=== PATIENT | male | born 1935 | race Two or more races ===

== ENCOUNTER 2017-05-12 23:51 | Inpatient (IN) | payer OTHER ==
[~2017-05-12] VITALS: Ht 170.2 cm; Wt 66.0 kg
[2017-05-12] MEDS ORDERED: Ipratropium 0.02% Inh Soln 2.5ml UD ONE (23:58)
[2017-05-12] MEDS ORDERED: Albuterol ud Inhalation ONE (23:58)
[2017-05-13] VITALS (65 sets, daily range): BP systolic 68–122; BP diastolic 4–65
[2017-05-13] MEDS ORDERED: Albuterol ud Inhalation HHN ONE
[2017-05-13] MEDS ORDERED: Ipratropium 0.02% Inh Soln 2.5ml UD HHN ONE
--- NOTE | 2017-05-13 00:05 | Emergency Room Report ---
History of Present Illness General Chief Complaint: Dyspnea/Respdistress Source: Medical Record, EMS Present Illness HPI Is an 81-year-old male with a history of renal failure on hemodialysis Friday, , and Friday. He also has history hypertension and dementia. He gets frequent sepsis. He was at [facility] beginning of the month for urosepsis. Patient presents with rest or distress and decreased oxygenation. Onset tonight. No fever or chills. He has coughing. No diarrhea. History is through the detention note and EMS. He was hypotensive and hypoxic according to the detention note. Allergies: Coded Allergies: PENICILLINS (Verified Allergy, Unknown, 05/12/17) Patient History Past Medical History: see triage record, old chart reviewed, HTN, renal disease , dialysis Past Surgical History: other Pertinent Family History: none Social History: Denies: smoking Immunizations: UTD Reviewed Nursing Documentation: PMH: Agreed, PSxH: Agreed Review of Systems Eye: Denies: blurred vision, eye pain ENT: Denies: ear pain, nose congestion, throat swelling Respiratory: Reports: cough, shortness of breath Cardiovascular: Denies: chest pain, palpitations Gastrointestinal: Denies: abdominal pain, diarrhea, nausea, vomiting Musculoskeletal: Denies: back pain, joint pain Skin: Denies: rash Neurological: Denies: headache, numbness Endocrine: Denies: increased thirst, increased urine Hematologic/Lymphatic: Denies: easy bruising All Other Systems: negative except mentioned in HPI Physical Exam vitals with hypoxia Sp02 EP Interpretation: reviewed, abnormal General Appearance: moderate distress, lethargic, Chronically Ill Head: normocephalic, atraumatic Eyes: bilateral eye EOMI, bilateral eye PERRL ENT: hearing grossly normal, normal pharynx Neck: no meningismus Respiratory: chest non-tender, decreased breath sounds, accessory muscle use, crackles, rhonchi, other - Right chest wall with dialysis catheter. Skin breakdown on upper chest Cardiovascular #1: regular rate, rhythm, no murmur Gastrointestinal: normal bowel sounds, non tender, no mass, no organomegaly, no bruit, non-distended, other - G-tube intact Musculoskeletal: back normal, other - Contracted Psychiatric: mood/affect normal Skin: warm/dry Procedures Critical Care Time Critical Care Time Critical care is mandated in this patient who presented with respiratory distress. Patient require my urgent intervention to attenuate the risks of respiratory collapse which may lead to cardiovascular collapse and . Critical care time is 35 minutes excluding any reportable procedure. Critical care time included evaluation, multiple reevaluation, looking at old charts, interpreting laboratory and diagnostic data, discussing case with patient and family and consultants, and charting. Medical Decision Making Diagnostic Impression: Primary Impression: Pneumonia Qualified Codes: J18.1 - Lobar pneumonia, unspecified organism Additional Impressions: UTI (urinary tract infection) Qualified Codes: N30.00 - Acute cystitis without hematuria Severe sepsis Proteinuria Qualified Codes: R80.9 - Proteinuria, unspecified Respiratory failure with hypoxia Qualified Codes: J96.21 - Acute and chronic respiratory failure with hypoxia ER Course Patient presents with fever and has severe sepsis. Blood pressure was hypotensive on arrival. Better after gentle IV fluid. He did not get a full 30 mL per kilo because of risk for pulmonary edema because he has been no failure on hemodialysis. He scheduled for dialysis later on today. Wide spectrum antibiotic started. Patient is a full code. Vancomycin also added because he has a dialysis catheter. Respiratory status improved with BiPAP. I discussed the case with Dr. Nelson who will admit patient for Dr. Levine. Laboratory Tests Test 05/12/17 23:57 05/13/17 00:15 05/13/17 01:25 05/13/17 02:00 Arterial Blood pH 7.436 (7.350-7.450) Arterial Blood Partial Pressure CO2 43.4 mmHg (35.0-45.0) Arterial Blood Partial Pressure O2 64.0 mmHg (75.0-100.0) L Arterial Blood HCO3 28.6 mmol/L (22.0-26.0) H Arterial Blood Oxygen Saturation 87.5 % (92.0-98.0) L Arterial Blood Base Excess 3.9 Andry Test Positive White Blood Count 10.0 K/UL (4.8-10.8) Red Blood Count 3.27 M/UL (4.70-6.10) L Hemoglobin 10.7 G/DL (14.2-18.0) L Hematocrit 34.2 % (42.0-52.0) L Mean Corpuscular Volume 105 FL (80-99) H Mean Corpuscular Hemoglobin 32.9 PG (27.0-31.0) H Mean Corpuscular Hemoglobin Concent 31.4 G/DL (32.0-36.0) L Red Cell Distribution Width 19.2 % (11.6-14.8) H Platelet Count 538 K/UL (150-450) H Mean Platelet Volume 8.1 FL (6.5-10.1) Neutrophils (%) (Auto) 76.5 % (45.0-75.0) H Lymphocytes (%) (Auto) 6.3 % (20.0-45.0) L Monocytes (%) (Auto) 14.7 % (1.0-10.0) H Eosinophils (%) (Auto) 0.0 % (0.0-3.0) Basophils (%) (Auto) 2.5 % (0.0-2.0) H Prothrombin Time 10.7 SEC (9.30-11.50) Prothromb Time International Ratio 1.0 (0.9-1.1) Activated Partial Thromboplast Time 31 SEC (23-33) Sodium Level 135 mEQ/L (135-145) Potassium Level 4.7 mEQ/L (3.4-4.9) Chloride Level 87 mEQ/L (98-107) L Carbon Dioxide Level 27 mEQ/L (20-30) Anion Gap 21 (5-15) H Blood Urea Nitrogen 108 mg/dL (7-23) H Creatinine 4.3 mg/dL (0.7-1.2) H Estimat Glomerular Filtration Rate mL/min (>60) Glucose Level 172 mg/dL (74-106) H Lactic Acid Level 2.90 mmol/L (0.66-2.22) H 3.80 mmol/L (0.66-2.22) H Calcium Level 12.3 mg/dL (8.6-10.2) H Total Bilirubin 0.5 mg/dL (0.0-1.2) Aspartate Amino Transf (AST/SGOT) 64 U/L (5-40) H Alanine Aminotransferase (ALT/SGPT) 84 U/L (3-41) H Alkaline Phosphatase 229 U/L (40-129) H Total Creatine Kinase 147 U/L (38-174) Creatine Kinase MB 2.2 ng/mL (< 6.7) Creatine Kinase MB Relative Index 1.4 Troponin I < 0.30 ng/mL (<=0.30) Pro-B-Type Natriuretic Peptide 4882 pg/mL (0-450) H Total Protein 8.0 g/dL (6.6-8.7) Albumin 3.6 g/dL (3.5-5.2) Globulin 4.4 g/dL Albumin/Globulin Ratio 0.8 (1.0-2.7) L Urine Color Yellow Urine Appearance Slightly cloudy Urine pH 5 (4.5-8.0) Urine Specific Haines 1.010 (1.005-1.035) Urine Protein 3+ (NEGATIVE) H Urine Glucose (UA) Negative (NEGATIVE) Urine Ketones Negative (NEGATIVE) Urine Occult Blood 5+ (NEGATIVE) H Urine Nitrite Negative (NEGATIVE) Urine Bilirubin 3+ (NEGATIVE) H Urine Ictotest Negative Urine Urobilinogen 1 MG/DL (0.0-1.0) H Urine Leukocyte Esterase 3+ (NEGATIVE) H Urine RBC Tntc /HPF (0 - 0) H Urine WBC 40-60 /HPF (0 - 0) H Urine Squamous Epithelial Cells None /LPF (NONE/OCC) Urine Bacteria Few /HPF (NONE) Test 05/13/17 02:17 Arterial Blood pH 7.414 (7.350-7.450) Arterial Blood Partial Pressure CO2 38.3 mmHg (35.0-45.0) Arterial Blood Partial Pressure O2 73.5 mmHg (75.0-100.0) L Arterial Blood HCO3 24.0 mmol/L (22.0-26.0) Arterial Blood Oxygen Saturation 94.8 % (92.0-98.0) Arterial Blood Base Excess -0.5 Andry Test Positive Lab Results Impression labs with increasing lactic acidosis EKG Diagnostic Results EKG Time: 00:04 Rate: normal Rhythm: NSR ST Segments: other - RBBB and LAD Rhythm Strip Diag. Results Rhythm Strip Time: 00:05 EP Interpretation: yes Rate: 103 Rhythm: NSR, no PVC's Chest X-Ray Diagnostic Results Chest X-Ray Ordered: Yes # of Views/Limited/Complete: 1 View EP Interpretation: Yes Interpretation: no effusion, no pneumothorax, other - Right lower lobe/middle lobe infiltrate Indication: Shortness of Breath Impression: Other - Right middle lobe infiltrates Interpreting ER Provider: Carmine Barber MD Status: improved Disposition: ADMITTED INPATIENT Condition: Critical CARMINE BARBER M.D. May 13, 2017 00:05
[2017-05-13] MEDS ORDERED: Cefepime HCl 1 GM in D5W 55 ML IVPB ONE (00:30)
[2017-05-13 00:44] LABS: BASOPHILS % (AUTO) 2.5 % (0.0-2.0); LYMPHOCYTES % (AUTO) 6.3 % (20.0-45.0); MEAN CORPUSCULAR HEMOGLOBIN 32.9 PG (27.0-31.0); MEAN CORPUSCULAR HGB CONC 31.4 G/DL (32.0-36.0); MEAN CORPUSCULAR VOLUME 105 FL (80-99); MEAN PLATELET VOLUME 8.1 FL (6.5-10.1); MONOCYTES % (AUTO) 14.7 % (1.0-10.0); NEUTROPHILS % (AUTO) 76.5 % (45.0-75.0); PLATELET COUNT 538 K/UL (150-450); RED BLOOD COUNT 3.27 M/UL (4.70-6.10); RED CELL DISTRIBUTION WIDTH 19.2 % (11.6-14.8)
[2017-05-13 00:47] LABS: ABG ALLEN TEST POSITIVE; ABG BASE EXCESS 3.9; ABG PCO2 43.4 mmHg (35.0-45.0)
[2017-05-13 00:53] LABS: PROTHROMBIN TIME 10.7 SEC (9.30-11.50)
[2017-05-13 01:01] LABS: ALANINE AMINOTRANSFERASE 84 U/L (3-41); ALBUMIN/GLOBULIN RATIO 0.8 (1.0-2.7); ANION GAP 21 (5-15); ASPARTATE AMINO TRANSFERASE 64 U/L (5-40); CALCIUM 12.3 mg/dL (8.6-10.2); CARBON DIOXIDE 27 mEQ/L (20-30); CHLORIDE 87 mEQ/L (98-107); CREATININE 4.3 mg/dL (0.7-1.2); HEMOLYSIS 1; POTASSIUM 4.7 mEQ/L (3.4-4.9); REFLEX LACTIC ACID YES OR NO YES; SODIUM 135 mEQ/L (135-145)
[2017-05-13 01:03] LABS: TROPONIN I < 0.30 ng/mL (<=0.30)
[2017-05-13 01:13] LABS: CKMB 2.2 ng/mL (< 6.7)
[2017-05-13 01:43] LABS: KETONES,URINE NEGATIVE (NEGATIVE); LEUKOCYTE ESTERASE ,URINE 3+ (NEGATIVE); NITRITE,URINE NEGATIVE (NEGATIVE); PH,URINE 5 (4.5-8.0); PROTEIN,URINE 3+ (NEGATIVE); UROBILINOGEN,URINE 1 MG/DL (0.0-1.0)
[2017-05-13 01:48] LABS: APPEARANCE,URINE SLIGHTLY CLOUDY
[2017-05-13] MEDS ORDERED: Cefepime 1gm vial ONE (01:49)
[2017-05-13 01:55] LABS: BACTERIA,URINE FEW /HPF; RBC,URINE TNTC /HPF (0 - 0); WBC,URINE 40-60 /HPF (0 - 0)
[2017-05-13 01:56] LABS: ICTOTEST NEGATIVE
[2017-05-13 02:26] LABS: ABG ALLEN TEST POSITIVE; ABG BASE EXCESS -0.5; ABG PCO2 38.3 mmHg (35.0-45.0)
[2017-05-13] MEDS ORDERED: HEPARIN SO5000 UNIT2 SUBQ (02:36)
[2017-05-13] MEDS ORDERED: ACETAMINOPHEN325 M1 GT (02:36)
[2017-05-13] MEDS ORDERED: PROSCAR5 MG GT (02:36)
[2017-05-13] MEDS ORDERED: MIDODRINE HCL10 MG GT (02:36)
[2017-05-13] MEDS ORDERED: ZOFRAN4 M3 GT (02:36)
[2017-05-13] MEDS ORDERED: COLCHICINE0.6 M1 GT (02:36)
[2017-05-13] MEDS ORDERED: LACTULOSE20 GM/301 GT (02:36)
[2017-05-13] MEDS ORDERED: DEPAKOTE250 MG GT (02:36)
[2017-05-13] MEDS ORDERED: FERROUS SULFAT325 MG GT (02:36)
[2017-05-13] MEDS ORDERED: RENVELA0.8 GM GT (02:36)
[2017-05-13] MEDS ORDERED: NEPHRO-VITE RX1 EAC1 GT (02:36)
[2017-05-13] MEDS ORDERED: DOCUSATE S50 MG/5 ML GT (02:36)
[2017-05-13] MEDS ORDERED: ASCORBIC ACID GT (02:36)
[2017-05-13] MEDS ORDERED: Vancomycin 1gm inj IVPB ONE (03:09)
[2017-05-13] MEDS ORDERED: Vancomycin 1 GM in D5W 275 ML IVPB ONE (03:15)
[2017-05-13] MEDS ORDERED: Lidocaine 1% MPF 10mg/ml 5ml INJ ONE (08:00)
[2017-05-13] MEDS: Heparin 5000 units/ml inj SUBQ SCH ×2 (08:59→21:14)
[2017-05-13] MEDS: Midodrine 10mg tab ORAL SCH ×3 (09:00→17:27)
--- NOTE | 2017-05-13 09:18 | Diagnostic Imaging Report ---
Indications: Shortness of breath Technique: Portable AP chest Findings: Comparison: None Heart size, pulmonary vasculature within normal limits. Lungs, pleura are grossly clear. Aortic arch calcified and elongated. Right chest wall dialysis catheter. Bones diffusely demineralized. Mildly displaced fracture lateral aspect right seventh rib. Cephalad subluxation of right humerus narrowing the subacromial space, incompletely imaged. IMPRESSION: No evidence of acute cardiopulmonary disease Right seventh rib fracture, acuity indeterminate Aortosclerosis and probable chronic hypertensive change Hemodialysis catheter Osteopenia Chronic insufficiency right rotator cuff
[2017-05-13 09:27] LABS: REFLEX LACTIC ACID YES OR NO YES
[2017-05-13] MEDS ORDERED: NS 250 ML IVPB PRN (09:45)
--- NOTE | 2017-05-13 10:10 | History & Physical ---
History and Physical History & Physicial HISTORY OF PRESENT ILLNESS: This 80 year-old male was treated recently for pneumonia and sepsis. He was transferred here for recurrent sepsis and respiratory failure requiring BiPAP. He is in shock on pressors. PAST MEDICAL HISTORY: Sepsis, pneumonia, ESRD, dialysis, dementia, schizophrenia, DM, tophaceous gout, dysphagia, PEG ALLERGIES: penicillin MEDICATIONS: reviewed and reconciled CODE STATUS: Full Code PHYSICAL EXAMINATION: He is not awake, in no distress on BiPAP. He makes no eye contact. The chest has rhonchi. The cardiac rhythm is regular. Abdomen is soft and non-distended. There is a gastrostomy tube. There is no edema of the extremities. There is quadriplegia. There is a dialysis catheter in the R chest. 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 PLAN: He will be treated with abx and pressors. His prognosis appears poor. Consultants were called. We will request Bioethics consultation. Gonzalo Levine M.D. Associate Clinical community relations rep [facility] [employer] GONZALO LEVINE May 13, 2017 10:10
[2017-05-13] MEDS: Lansoprazole 15mg cap ORAL SCH (10:16)
[2017-05-13] MEDS ORDERED: Lidocaine 1% Plain 30 ml INJ ONE (12:00)
[2017-05-13] MEDS ORDERED: Heparin 2000 units/Ns 1000ml INJ ONE (12:00)
[2017-05-13] MEDS: Flagyl 500mg/NS 100ml Pre-Mix IV SCH ×2 (12:43→22:04)
--- NOTE | 2017-05-13 12:46 | Consultation ---
DATE OF CONSULTATION: 05/13/2017 NEPHROLOGY CONSULTATION REFERRING PHYSICIAN: Roland Levine M.D. REASON FOR CONSULTATION: End-stage renal disease, hypotension, and respiratory failure. HISTORY OF PRESENT ILLNESS: The patient is an 81-year-old man who has end-stage renal disease and receives dialysis by other providers. He presented from the residential with hypotension and obtundation. He had respiratory failure and was placed on BiPAP in the emergency room and is now on Levophed drip for hypotension. The patient cannot give any history. Records are reviewed. There is a history of dementia, schizophrenia, tophaceous gout, type 2 diabetes, BPH, recurrent UTIs, and recent hospitalization with pneumonia. PAST SURGICAL HISTORY: He has had dialysis PermCath with no other information available. Apparently, there was a joint replacement, knee replacement, and a gastrostomy. MEDICATIONS: Per the transfer med list. I reviewed on the computer and in the transfer records. ALLERGIES: None known from the prior records. PHYSICAL EXAMINATION: GENERAL: The patient is lying in bed, in the ICU supine. VITAL SIGNS: Pulse 98, blood pressure 96/52, pulse oximetry 96% on BiPAP FiO2 60%, temperature 98.1 earlier and 100.2 earlier. HEAD, EYES, EARS, NOSE, AND THROAT: His eyes and mouth are closed. He has frontal wasting. NECK: No adenopathy. LUNGS: Distant breath sounds. I hear no rales or rhonchi. HEART: Rhythm is regular with ectopic beats. No murmur is heard. ABDOMEN: Shows no organomegaly or masses. No distention. EXTREMITIES: Show severe muscle wasting. There are dressings over wounds on both legs. NEUROLOGIC: The patient is obtunded at this time. PERTINENT LABORATORY DATA: [place] [address] and hemoglobin of 10.7. Sodium 135, potassium 4.7, chloride 87, CO2 27, BUN 108, and creatinine 4.3. Lactic acid 2.9, 3.8, and 3.5, serially. Bilirubin is 0.5 with a calcium is 12.3. BNP is 4882. Troponin less than 0.3. Urinalysis shows 40 to 60 white cells per high-power field. An arterial blood gas shows a pH 7.414, pCO2 of 38.3, and pO2 of 73.5. IMPRESSION: 1. End-stage renal disease. 2. Septic shock, possibly from urinary tract infection, possibly from dialysis catheter, possible from intra-abdominal or other sources. 3. Severe protein-calorie malnutrition. 4. Adult-onset diabetes. 5. Hypercalcemia, severe possibly from dehydration or vitamin D analog, possible other etiology. 6. Severe dementia. 7. Failure to thrive. PLAN: The patient will be hydrated and we hope to improve his blood pressure and get him off of pressors and placed on broad-spectrum antibiotics. We will defer dialysis today until he is more stable. His condition is gravely ill and at high risk for sudden . Jose L Nelson M.D. DR: NURY JOB#: [id number] CC:
--- NOTE | 2017-05-13 15:01 | Diagnostic Imaging Report ---
Indications: Central venous access required for intravenous therapy. Technique: Procedure, indications, risks and alternatives were explained to the patient's family, who understands and gives consent to proceed. Procedure was performed at bedside. Strict aseptic technique was utilized, including hand washing, use of hat and mask, use of sterile gown and gloves, sterile ultrasound gel and probe cover, prepping of right groin skin with 2% chlorhexidine solution, and application of full body sterile barrier over this area. Skin and subcutaneous soft tissues were infiltrated with 1% lidocaine and sodium bicarbonate. A small dermatotomy was made, through which the patent right common femoral vein was punctured percutaneously under direct sonographic guidance with a 5 Romanian micropuncture set.. The percutaneous tract was dilated over a guidewire, then a 7 Romanian 20 cm triple-lumen central venous catheter advanced over the guidewire. Guidewire was removed. Catheter ports were aspirated, then flushed with heparinized saline. Catheter was secured to the skin with adhesive dressing. The patient tolerated the procedure well without immediate complications. Followup abdominal radiograph performed. Findings: All catheter ports aspirate and flush freely. The bowel radiograph demonstrates tip of the central venous catheter in the region of the right common iliac vein. IMPRESSION: Bedside placement of triple-lumen central venous catheter via right common femoral vein, working well, adequately position, may be used.
[2017-05-13] MEDS: Dyna-Hex 2% Top Sol 8oz TOPIC SCH (21:12)
[2017-05-14] VITALS (36 sets, daily range): BP systolic 80–136; BP diastolic 35–105
[2017-05-14] MEDS: Cefepime HCl 0.5 GM in D5W 55 ML IVPB SCH (01:05)
[2017-05-14] MEDS ORDERED: CEFEPIME HCL IVPB SCH (02:00)
[2017-05-14] MEDS ORDERED: D5W IVPB SCH (02:00)
[2017-05-14] MEDS: Flagyl 500mg/NS 100ml Pre-Mix IV SCH ×2 (05:46→13:38)
[2017-05-14 05:48] LABS: MEAN CORPUSCULAR HEMOGLOBIN 33.7 PG (27.0-31.0); MEAN CORPUSCULAR HGB CONC 32.4 G/DL (32.0-36.0); MEAN CORPUSCULAR VOLUME 104 FL (80-99); MEAN PLATELET VOLUME 8.1 FL (6.5-10.1); PLATELET COUNT 381 K/UL (150-450); RED BLOOD COUNT 2.17 M/UL (4.70-6.10); RED CELL DISTRIBUTION WIDTH 19.4 % (11.6-14.8); WHITE BLOOD COUNT 11.5 K/UL (4.8-10.8)
[2017-05-14 06:03] LABS: ALANINE AMINOTRANSFERASE 45 U/L (3-41); ALBUMIN/GLOBULIN RATIO 0.8 (1.0-2.7); ANION GAP 21 (5-15); ASPARTATE AMINO TRANSFERASE 30 U/L (5-40); CALCIUM 11.1 mg/dL (8.6-10.2); CARBON DIOXIDE 20 mEQ/L (20-30); CHLORIDE 91 mEQ/L (98-107); CREATININE 4.2 mg/dL (0.7-1.2); HEMOLYSIS 8; POTASSIUM 4.2 mEQ/L (3.4-4.9); SODIUM 132 mEQ/L (135-145); TOTAL PROTEIN 6.2 g/dL (6.6-8.7)
[2017-05-14] MEDS: Lansoprazole 15mg cap ORAL SCH (08:33)
[2017-05-14] MEDS: Midodrine 10mg tab ORAL SCH ×3 (08:33→18:26)
[2017-05-14] MEDS: Heparin 5000 units/ml inj SUBQ SCH ×2 (08:33→21:00)
[2017-05-14] MEDS ORDERED: Dyna-Hex 2% Top Sol 8oz TOPIC SCH (09:00)
[2017-05-14 09:26] LABS: ANISOCYTOSIS 1+; BAND NEUTROPHILS % (MANUAL) 15 % (0-8); BASOPHILS % (MANUAL) 1 % (0-2); EOSINOPHILS % (MANUAL) 0 % (0-3); HYPOCHROMASIA 1+; LYMPHOCYTES % (MANUAL) 11 % (20-45); MACROCYTES 1+; METAMYELOCYTES % 1 % (0-0); MYELOCYTES % 2 % (0-0); NEUTROPHILS % (MANUAL) 64 % (45-75); PLATELET ESTIMATE ADEQUATE; PLATELET MORPHOLOGY NORMAL; POLYCHROMASIA 1+; TOTAL CELLS COUNTED 100
[2017-05-14 09:27] LABS: NUCLEATED RED BLOOD CELLS 1 /100 WBC
[2017-05-14 09:35] LABS: ABG ALLEN TEST POSITIVE; ABG BASE EXCESS -4.1; ABG PCO2 31.3 mmHg (35.0-45.0)
[2017-05-14 12:06] LABS: OTHERS PATHOLOGIST COMMENT
--- NOTE | 2017-05-14 12:42 | Critical Care Progress Note ---
Assessment/Plan Assessment/Plan Sepsis w shock - GPC likely MRSA or VRE ESRD, dialysis dementia, schizophrenia DM tophaceous gout dysphagia, PEG severe anemia BC + GPC, changed to linezolid, dialysis cath changed ID called off pressors trial off BiPAP start to feed Bioethics consult, prognosis very poor transfuse Critical Care - Subjective ROS Limited/Unobtainable: Yes Condition: critical EKG Rhythm: Sinus Rhythm I&O: Intake and Output 05/13/17 05/14/17 18:59 06:59 Intake Total 800.00 ml 541.25 ml Output Total 80 ml 39 ml Balance 720.00 ml 502.25 ml Intake IV Total 750.00 ml 541.25 ml Other 50 ml Output Urine Total 80 ml 39 ml Critical Care - Objective Last 24 Hour Vital Signs Date Time Temp Pulse Resp B/P Pulse Ox O2 Delivery O2 Flow Rate FiO2 05/14/17 12:00 40 05/14/17 11:28 81 19 100 Facial 40 05/14/17 11:00 66 20 107/47 100 Bi-pap 50 05/14/17 10:00 74 20 100/41 100 Bi-pap 50 05/14/17 09:33 64 22 100 Facial 50 05/14/17 09:30 67 16 100 Bi-pap 50 05/14/17 09:30 50 05/14/17 09:00 64 20 110/48 100 Bi-pap 60 05/14/17 08:00 60 05/14/17 08:00 97.8 72 20 106/52 100 Bi-pap 60 05/14/17 08:00 77 05/14/17 07:00 68 20 113/58 100 Bi-pap 60 05/14/17 06:46 71 23 100 Facial 60 05/14/17 06:30 78 20 110/52 100 Bi-pap 60 05/14/17 06:15 70 21 95/43 100 Bi-pap 60 05/14/17 06:00 70 21 98/45 100 Bi-pap 60 05/14/17 05:45 72 21 105/49 100 Bi-pap 60 05/14/17 05:30 71 21 117/55 100 Bi-pap 60 05/14/17 05:13 68 33 100 Facial 60 05/14/17 05:00 69 24 101/44 100 Bi-pap 60 05/14/17 04:45 70 23 97/47 100 Bi-pap 60 05/14/17 04:30 69 21 106/39 100 Bi-pap 60 05/14/17 04:15 70 20 107/43 100 Bi-pap 60 05/14/17 04:00 60 05/14/17 04:00 70 05/14/17 04:00 97.9 82 21 80/39 100 Bi-pap 60 05/14/17 03:45 81 22 100/46 100 Bi-pap 60 05/14/17 03:30 80 22 129/105 100 Bi-pap 60 05/14/17 03:30 74 30 100 Facial 60 05/14/17 03:00 82 21 115/52 100 Bi-pap 60 05/14/17 02:30 74 21 107/39 100 Bi-pap 60 05/14/17 02:00 83 22 85/43 100 Bi-pap 60 05/14/17 01:30 74 21 104/45 100 Bi-pap 60 05/14/17 01:30 73 30 100 Facial 60 05/14/17 01:00 76 18 98/43 100 Bi-pap 60 05/14/17 00:30 80 18 81/36 100 Bi-pap 60 05/14/17 00:00 97.5 80 19 114/58 100 Bi-pap 60 05/14/17 00:00 60 05/14/17 00:00 80 05/13/17 23:30 76 17 86/41 100 Bi-pap 60 05/13/17 23:00 80 18 104/43 100 Bi-pap 60 05/13/17 23:00 104/43 05/13/17 22:57 83 32 100 Facial 60 05/13/17 22:45 77 18 104/45 100 Bi-pap 60 05/13/17 22:30 80 18 103/45 100 Bi-pap 60 05/13/17 22:15 77 17 101/37 100 Bi-pap 60 05/13/17 22:00 95/41 05/13/17 22:00 76 16 95/41 100 Bi-pap 60 05/13/17 21:45 78 20 107/45 100 Bi-pap 60 05/13/17 21:30 79 18 85/49 100 Bi-pap 60 05/13/17 21:15 81 20 97/43 100 Bi-pap 60 05/13/17 21:02 79 34 100 Facial 60 05/13/17 21:00 117/52 05/13/17 21:00 80 20 117/52 100 Bi-pap 60 05/13/17 20:45 82 21 100/44 100 Bi-pap 60 05/13/17 20:30 90 24 120/47 100 Bi-pap 60 05/13/17 20:15 88 22 105/45 100 Bi-pap 60 05/13/17 20:00 98.0 85 20 122/51 100 Bi-pap 60 05/13/17 20:00 122/51 05/13/17 20:00 60 05/13/17 20:00 85 05/13/17 19:30 85 29 100 Facial 60 05/13/17 19:00 85 20 114/57 100 Bi-pap 60 05/13/17 19:00 114/57 05/13/17 18:45 77 19 90/44 98 Bi-pap 60 05/13/17 18:30 78 19 89/44 98 Bi-pap 60 05/13/17 18:15 77 18 104/43 100 Bi-pap 60 05/13/17 18:00 81 16 89/47 100 Bi-pap 60 05/13/17 18:00 101/41 05/13/17 17:45 77 16 101/41 100 Bi-pap 60 05/13/17 17:30 85 24 113/51 98 Bi-pap 60 05/13/17 17:15 82 17 84/51 98 Bi-pap 60 05/13/17 17:00 92/57 05/13/17 17:00 76 17 92/57 98 Bi-pap 60 05/13/17 16:45 77 19 90/55 98 Bi-pap 60 05/13/17 16:40 78 18 100 Facial 60 05/13/17 16:30 76 19 87/55 98 Bi-pap 60 05/13/17 16:15 80 18 101/44 96 Bi-pap 60 05/13/17 16:00 79 05/13/17 16:00 98.5 79 18 81/47 98 Bi-pap 60 05/13/17 16:00 93/58 05/13/17 16:00 60 05/13/17 15:45 79 19 93/58 98 Bi-pap 60 05/13/17 15:30 78 19 93/59 100 Bi-pap 60 05/13/17 15:15 82 18 91/43 100 Bi-pap 60 05/13/17 15:00 82 18 89/43 100 Bi-pap 60 05/13/17 15:00 89/43 05/13/17 14:45 79 18 117/63 100 Bi-pap 60 05/13/17 14:40 81 18 100 Facial 60 05/13/17 14:30 82 18 88/50 98 Bi-pap 60 05/13/17 14:15 83 20 98/44 97 Bi-pap 60 05/13/17 14:00 82 20 88/48 97 Bi-pap 60 05/13/17 14:00 88/48 05/13/17 13:45 81 18 93/62 100 Bi-pap 60 05/13/17 13:30 87 20 93/45 100 Bi-pap 60 05/13/17 13:15 88 20 90/41 98 Bi-pap 60 05/13/17 13:00 83 20 96/41 96 Bi-pap 60 05/13/17 12:56 98/51 05/13/17 12:48 82 19 100 Facial 60 05/13/17 12:45 92 18 100/65 96 Bi-pap 60 Status: obtunded Neck: no JVD Lungs: clear Heart: normal rate Abdomen: soft, non-tender Extremities: no C/C/E Objective: topva Micro: Microbiology Date/Time Source Procedure Growth Status 05/13/17 00:20 Blood Blood Culture - Preliminary Resulted 05/13/17 00:15 Blood Blood Culture - Preliminary Resulted 05/13/17 02:50 Nasal Nares MRSA Culture - Final Staphylococcus Aureus - Mrsa Complete 05/13/17 01:25 Urine,Clean Catch Urine Culture - Preliminary Streptococcus Species Resulted GONZALO LONGORIA May 14, 2017 12:42
--- NOTE | 2017-05-14 14:42 | Infectious Diseases Prog Note ---
Assessment/Plan Assessment/Plan Full consult dictated: A) 1) sepsis, gram + bacteremia, ? perma-cath line infection, ? pna, congested, fevers, leukocytosis, strep uti, hx vre uti 2) hx line infection per daughter 3) esrd, hd, perma-cath, dm, htn, anemia 4) allergies - pcn P) 1) zyvox, flagyl, cefepime 2) check cultures, labs and chest x-ray 3) may need to change line 4) echo Subjective Allergies: Coded Allergies: PENICILLINS (Verified Allergy, Unknown, 05/12/17) Objective Vital Signs Last 24 Hour Vital Signs Date Time Temp Pulse Resp B/P Pulse Ox O2 Delivery O2 Flow Rate FiO2 05/14/17 14:00 85 20 124/56 91 Venturi Mask 40 05/14/17 13:00 71 20 99/44 96 Bi-pap 40 05/14/17 12:45 80 21 100 Facial 40 05/14/17 12:00 97.7 76 20 136/55 100 Bi-pap 40 05/14/17 12:00 40 05/14/17 11:28 81 19 100 Facial 40 05/14/17 11:00 66 20 107/47 100 Bi-pap 50 05/14/17 10:00 74 20 100/41 100 Bi-pap 50 05/14/17 09:33 64 22 100 Facial 50 05/14/17 09:30 67 16 100 Bi-pap 50 05/14/17 09:30 50 05/14/17 09:00 64 20 110/48 100 Bi-pap 60 05/14/17 08:00 60 05/14/17 08:00 97.8 72 20 106/52 100 Bi-pap 60 05/14/17 08:00 77 05/14/17 07:00 68 20 113/58 100 Bi-pap 60 05/14/17 06:46 71 23 100 Facial 60 05/14/17 06:30 78 20 110/52 100 Bi-pap 60 05/14/17 06:15 70 21 95/43 100 Bi-pap 60 05/14/17 06:00 70 21 98/45 100 Bi-pap 60 05/14/17 05:45 72 21 105/49 100 Bi-pap 60 05/14/17 05:30 71 21 117/55 100 Bi-pap 60 05/14/17 05:13 68 33 100 Facial 60 05/14/17 05:00 69 24 101/44 100 Bi-pap 60 05/14/17 04:45 70 23 97/47 100 Bi-pap 60 05/14/17 04:30 69 21 106/39 100 Bi-pap 60 05/14/17 04:15 70 20 107/43 100 Bi-pap 60 05/14/17 04:00 60 05/14/17 04:00 70 05/14/17 04:00 97.9 82 21 80/39 100 Bi-pap 60 05/14/17 03:45 81 22 100/46 100 Bi-pap 60 05/14/17 03:30 80 22 129/105 100 Bi-pap 60 05/14/17 03:30 74 30 100 Facial 60 05/14/17 03:00 82 21 115/52 100 Bi-pap 60 05/14/17 02:30 74 21 107/39 100 Bi-pap 60 05/14/17 02:00 83 22 85/43 100 Bi-pap 60 05/14/17 01:30 74 21 104/45 100 Bi-pap 60 05/14/17 01:30 73 30 100 Facial 60 05/14/17 01:00 76 18 98/43 100 Bi-pap 60 05/14/17 00:30 80 18 81/36 100 Bi-pap 60 05/14/17 00:00 97.5 80 19 114/58 100 Bi-pap 60 05/14/17 00:00 60 05/14/17 00:00 80 05/13/17 23:30 76 17 86/41 100 Bi-pap 60 05/13/17 23:00 80 18 104/43 100 Bi-pap 60 05/13/17 23:00 104/43 05/13/17 22:57 83 32 100 Facial 60 05/13/17 22:45 77 18 104/45 100 Bi-pap 60 05/13/17 22:30 80 18 103/45 100 Bi-pap 60 05/13/17 22:15 77 17 101/37 100 Bi-pap 60 05/13/17 22:00 95/41 05/13/17 22:00 76 16 95/41 100 Bi-pap 60 05/13/17 21:45 78 20 107/45 100 Bi-pap 60 05/13/17 21:30 79 18 85/49 100 Bi-pap 60 05/13/17 21:15 81 20 97/43 100 Bi-pap 60 05/13/17 21:02 79 34 100 Facial 60 05/13/17 21:00 117/52 05/13/17 21:00 80 20 117/52 100 Bi-pap 60 05/13/17 20:45 82 21 100/44 100 Bi-pap 60 05/13/17 20:30 90 24 120/47 100 Bi-pap 60 05/13/17 20:15 88 22 105/45 100 Bi-pap 60 05/13/17 20:00 98.0 85 20 122/51 100 Bi-pap 60 05/13/17 20:00 122/51 05/13/17 20:00 60 05/13/17 20:00 85 05/13/17 19:30 85 29 100 Facial 60 05/13/17 19:00 85 20 114/57 100 Bi-pap 60 05/13/17 19:00 114/57 05/13/17 18:45 77 19 90/44 98 Bi-pap 60 05/13/17 18:30 78 19 89/44 98 Bi-pap 60 05/13/17 18:15 77 18 104/43 100 Bi-pap 60 05/13/17 18:00 81 16 89/47 100 Bi-pap 60 05/13/17 18:00 101/41 05/13/17 17:45 77 16 101/41 100 Bi-pap 60 05/13/17 17:30 85 24 113/51 98 Bi-pap 60 05/13/17 17:15 82 17 84/51 98 Bi-pap 60 05/13/17 17:00 92/57 05/13/17 17:00 76 17 92/57 98 Bi-pap 60 05/13/17 16:45 77 19 90/55 98 Bi-pap 60 05/13/17 16:40 78 18 100 Facial 60 05/13/17 16:30 76 19 87/55 98 Bi-pap 60 05/13/17 16:15 80 18 101/44 96 Bi-pap 60 05/13/17 16:00 79 05/13/17 16:00 98.5 79 18 81/47 98 Bi-pap 60 05/13/17 16:00 93/58 05/13/17 16:00 60 05/13/17 15:45 79 19 93/58 98 Bi-pap 60 05/13/17 15:30 78 19 93/59 100 Bi-pap 60 05/13/17 15:15 82 18 91/43 100 Bi-pap 60 05/13/17 15:00 82 18 89/43 100 Bi-pap 60 05/13/17 15:00 89/43 05/13/17 14:45 79 18 117/63 100 Bi-pap 60 05/13/17 14:40 81 18 100 Facial 60 05/13/17 14:30 82 18 88/50 98 Bi-pap 60 Height (Feet): 5 Height (Inches): 7.00 Weight (Pounds): 130 Microbiology Date/Time Source Procedure Growth Status 05/13/17 00:20 Blood Blood Culture - Preliminary Resulted 05/13/17 00:15 Blood Blood Culture - Preliminary Resulted 05/13/17 02:50 Nasal Nares MRSA Culture - Final Staphylococcus Aureus - Mrsa Complete 05/13/17 01:25 Urine,Clean Catch Urine Culture - Preliminary Streptococcus Species Resulted Laboratory Tests Test 05/14/17 04:00 05/14/17 09:23 White Blood Count 11.5 K/UL (4.8-10.8) H Red Blood Count 2.17 M/UL (4.70-6.10) L Hemoglobin 7.3 G/DL (14.2-18.0) #L Hematocrit 22.7 % (42.0-52.0) #L Mean Corpuscular Volume 104 FL (80-99) H Mean Corpuscular Hemoglobin 33.7 PG (27.0-31.0) H Mean Corpuscular Hemoglobin Concent 32.4 G/DL (32.0-36.0) Red Cell Distribution Width 19.4 % (11.6-14.8) H Platelet Count 381 K/UL (150-450) Mean Platelet Volume 8.1 FL (6.5-10.1) Neutrophils (%) (Auto) % (45.0-75.0) Lymphocytes (%) (Auto) % (20.0-45.0) Monocytes (%) (Auto) % (1.0-10.0) Eosinophils (%) (Auto) % (0.0-3.0) Basophils (%) (Auto) % (0.0-2.0) Differential Total Cells Counted 100 Neutrophils % (Manual) 64 % (45-75) Lymphocytes % (Manual) 11 % (20-45) L Monocytes % (Manual) 6 % (1-10) Eosinophils % (Manual) 0 % (0-3) Basophils % (Manual) 1 % (0-2) Metamyelocytes % 1 % (0-0) H Myelocytes % 2 % (0-0) H Band Neutrophils 15 % (0-8) H Nucleated Red Blood Cells 1 /100 WBC Other Cell Type Pathologist comment Platelet Estimate Adequate Platelet Morphology Normal Polychromasia 1+ Hypochromasia 1+ Anisocytosis 1+ Macrocytosis 1+ Sodium Level 132 mEQ/L (135-145) L Potassium Level 4.2 mEQ/L (3.4-4.9) Chloride Level 91 mEQ/L (98-107) L Carbon Dioxide Level 20 mEQ/L (20-30) Anion Gap 21 (5-15) H Blood Urea Nitrogen 114 mg/dL (7-23) H Creatinine 4.2 mg/dL (0.7-1.2) H Estimat Glomerular Filtration Rate mL/min (>60) Glucose Level 102 mg/dL (74-106) Lactic Acid Level 1.60 mmol/L (0.66-2.22) Calcium Level 11.1 mg/dL (8.6-10.2) H Total Bilirubin 0.5 mg/dL (0.0-1.2) Aspartate Amino Transf (AST/SGOT) 30 U/L (5-40) Alanine Aminotransferase (ALT/SGPT) 45 U/L (3-41) H Alkaline Phosphatase 130 U/L (40-129) H Total Protein 6.2 g/dL (6.6-8.7) L Albumin 2.8 g/dL (3.5-5.2) L Globulin 3.4 g/dL Albumin/Globulin Ratio 0.8 (1.0-2.7) L Arterial Blood pH 7.419 (7.350-7.450) Arterial Blood Partial Pressure CO2 31.3 mmHg (35.0-45.0) L Arterial Blood Partial Pressure O2 141.0 mmHg (75.0-100.0) H Arterial Blood HCO3 19.8 mmol/L (22.0-26.0) L Arterial Blood Oxygen Saturation 98.8 % (92.0-98.0) H Arterial Blood Base Excess -4.1 Andry Test Positive Current Medications Medications (Trade) Dose Ordered Sig/James Route PRN Reason Start Time Stop Time Status Last Admin Dose Admin Cefepime HCl 0.5 gm/Dextrose 55 ml @ 110 mls/hr Q24H IVPB 05/14/17 01:00 05/21/17 00:59 05/14/17 01:05 Chlorhexidine Gluconate 1 applic 1 applic QHS TOPIC 05/13/17 21:00 06/12/17 20:59 05/13/17 21:12 Heparin Sodium (Porcine) (Heparin 5000 units/ml) 5,000 units EVERY 12 HOURS SUBQ 05/13/17 09:00 06/12/17 08:59 05/13/17 21:14 Lansoprazole (Prevacid) 15 mg DAILY ORAL 05/13/17 10:00 06/12/17 09:59 05/14/17 08:33 Linezolid (Zyvox) 300 ml @ 300 mls/hr Q12HR IVPB 05/13/17 21:00 05/20/17 20:59 05/14/17 08:33 Metronidazole (Flagyl) 100 ml @ 100 mls/hr Q8HR IV 05/13/17 12:00 05/20/17 11:59 05/14/17 13:38 Midodrine 10 mg 10 mg THREE TIMES A DAY ORAL 05/13/17 09:00 06/12/17 08:59 05/14/17 13:02 Norepinephrine Bitartrate/ Dextrose (Levophed/D5W) 250 ml @ 0 mls/hr Q24H IV 05/13/17 06:15 06/12/17 06:14 05/13/17 12:56 Sodium Chloride 1,000 ml @ 500 mls/hr Q2H PRN IVLG sbp<90 during hd 05/14/17 06:00 05/14/17 23:59 MORAGN REEVES May 14, 2017 14:42
--- NOTE | 2017-05-14 14:49 | Nephrology Progress Note ---
Assessment/Plan Problem List: (1) Hypercalcemia (2) Malnutrition of moderate degree (3) Intravenous catheter sepsis (4) ESRD (end stage renal disease) (5) Severe sepsis (6) Respiratory failure with hypoxia Plan vanco, hd then remove permcath Subjective ROS Limited/Unobtainable: Yes Objective Objective Last 24 Hour Vital Signs Date Time Temp Pulse Resp B/P Pulse Ox O2 Delivery O2 Flow Rate FiO2 05/14/17 14:00 85 20 124/56 91 Venturi Mask 40 05/14/17 13:00 71 20 99/44 96 Bi-pap 40 05/14/17 12:45 80 21 100 Facial 40 05/14/17 12:00 97.7 76 20 136/55 100 Bi-pap 40 05/14/17 12:00 40 05/14/17 11:28 81 19 100 Facial 40 05/14/17 11:00 66 20 107/47 100 Bi-pap 50 05/14/17 10:00 74 20 100/41 100 Bi-pap 50 05/14/17 09:33 64 22 100 Facial 50 05/14/17 09:30 67 16 100 Bi-pap 50 05/14/17 09:30 50 05/14/17 09:00 64 20 110/48 100 Bi-pap 60 05/14/17 08:00 60 05/14/17 08:00 97.8 72 20 106/52 100 Bi-pap 60 05/14/17 08:00 77 05/14/17 07:00 68 20 113/58 100 Bi-pap 60 05/14/17 06:46 71 23 100 Facial 60 05/14/17 06:30 78 20 110/52 100 Bi-pap 60 05/14/17 06:15 70 21 95/43 100 Bi-pap 60 05/14/17 06:00 70 21 98/45 100 Bi-pap 60 05/14/17 05:45 72 21 105/49 100 Bi-pap 60 05/14/17 05:30 71 21 117/55 100 Bi-pap 60 05/14/17 05:13 68 33 100 Facial 60 05/14/17 05:00 69 24 101/44 100 Bi-pap 60 05/14/17 04:45 70 23 97/47 100 Bi-pap 60 05/14/17 04:30 69 21 106/39 100 Bi-pap 60 05/14/17 04:15 70 20 107/43 100 Bi-pap 60 05/14/17 04:00 60 05/14/17 04:00 70 05/14/17 04:00 97.9 82 21 80/39 100 Bi-pap 60 05/14/17 03:45 81 22 100/46 100 Bi-pap 60 05/14/17 03:30 80 22 129/105 100 Bi-pap 60 05/14/17 03:30 74 30 100 Facial 60 05/14/17 03:00 82 21 115/52 100 Bi-pap 60 05/14/17 02:30 74 21 107/39 100 Bi-pap 60 05/14/17 02:00 83 22 85/43 100 Bi-pap 60 05/14/17 01:30 74 21 104/45 100 Bi-pap 60 05/14/17 01:30 73 30 100 Facial 60 05/14/17 01:00 76 18 98/43 100 Bi-pap 60 05/14/17 00:30 80 18 81/36 100 Bi-pap 60 05/14/17 00:00 97.5 80 19 114/58 100 Bi-pap 60 05/14/17 00:00 60 05/14/17 00:00 80 05/13/17 23:30 76 17 86/41 100 Bi-pap 60 05/13/17 23:00 80 18 104/43 100 Bi-pap 60 05/13/17 23:00 104/43 05/13/17 22:57 83 32 100 Facial 60 05/13/17 22:45 77 18 104/45 100 Bi-pap 60 05/13/17 22:30 80 18 103/45 100 Bi-pap 60 05/13/17 22:15 77 17 101/37 100 Bi-pap 60 05/13/17 22:00 95/41 05/13/17 22:00 76 16 95/41 100 Bi-pap 60 05/13/17 21:45 78 20 107/45 100 Bi-pap 60 05/13/17 21:30 79 18 85/49 100 Bi-pap 60 05/13/17 21:15 81 20 97/43 100 Bi-pap 60 05/13/17 21:02 79 34 100 Facial 60 05/13/17 21:00 117/52 05/13/17 21:00 80 20 117/52 100 Bi-pap 60 05/13/17 20:45 82 21 100/44 100 Bi-pap 60 05/13/17 20:30 90 24 120/47 100 Bi-pap 60 05/13/17 20:15 88 22 105/45 100 Bi-pap 60 05/13/17 20:00 98.0 85 20 122/51 100 Bi-pap 60 05/13/17 20:00 122/51 05/13/17 20:00 60 05/13/17 20:00 85 05/13/17 19:30 85 29 100 Facial 60 05/13/17 19:00 85 20 114/57 100 Bi-pap 60 05/13/17 19:00 114/57 05/13/17 18:45 77 19 90/44 98 Bi-pap 60 05/13/17 18:30 78 19 89/44 98 Bi-pap 60 05/13/17 18:15 77 18 104/43 100 Bi-pap 60 05/13/17 18:00 81 16 89/47 100 Bi-pap 60 05/13/17 18:00 101/41 05/13/17 17:45 77 16 101/41 100 Bi-pap 60 05/13/17 17:30 85 24 113/51 98 Bi-pap 60 05/13/17 17:15 82 17 84/51 98 Bi-pap 60 05/13/17 17:00 92/57 05/13/17 17:00 76 17 92/57 98 Bi-pap 60 05/13/17 16:45 77 19 90/55 98 Bi-pap 60 05/13/17 16:40 78 18 100 Facial 60 05/13/17 16:30 76 19 87/55 98 Bi-pap 60 05/13/17 16:15 80 18 101/44 96 Bi-pap 60 05/13/17 16:00 79 05/13/17 16:00 98.5 79 18 81/47 98 Bi-pap 60 05/13/17 16:00 93/58 05/13/17 16:00 60 05/13/17 15:45 79 19 93/58 98 Bi-pap 60 05/13/17 15:30 78 19 93/59 100 Bi-pap 60 05/13/17 15:15 82 18 91/43 100 Bi-pap 60 05/13/17 15:00 82 18 89/43 100 Bi-pap 60 05/13/17 15:00 89/43 Intake and Output 05/13/17 05/14/17 19:00 07:00 Intake Total 818.75 ml 522.50 ml Output Total 90 ml 29 ml Balance 728.75 ml 493.50 ml IV Total 768.75 ml 522.50 ml Other 50 ml Output Urine Total 90 ml 29 ml Laboratory Tests 05/14/17 04:00: White Blood Count 11.5H, Red Blood Count 2.17L, Hemoglobin 7.3#L, Hematocrit 22.7#L, Mean Corpuscular Volume 104H, Mean Corpuscular Hemoglobin 33.7H, Mean Corpuscular Hemoglobin Concent 32.4, Red Cell Distribution Width 19.4H, Platelet Count 381, Mean Platelet Volume 8.1, Neutrophils (%) (Auto) , Lymphocytes (%) (Auto) , Monocytes (%) (Auto) , Eosinophils (%) (Auto) , Basophils (%) (Auto) , Differential Total Cells Counted 100, Neutrophils % ( Manual) 64, Lymphocytes % (Manual) 11L, Monocytes % (Manual) 6, Eosinophils % ( Manual) 0, Basophils % (Manual) 1, Metamyelocytes % 1H, Myelocytes % 2H, Band Neutrophils 15H, Nucleated Red Blood Cells 1, Other Cell Type Pathologist comment, Platelet Estimate Adequate, Platelet Morphology Normal, Polychromasia 1 +, Hypochromasia 1+, Anisocytosis 1+, Macrocytosis 1+, Sodium Level 132L, Potassium Level 4.2, Chloride Level 91L, Carbon Dioxide Level 20, Anion Gap 21H , Blood Urea Nitrogen 114H, Creatinine 4.2H, Estimat Glomerular Filtration Rate , Glucose Level 102, Lactic Acid Level 1.60, Calcium Level 11.1H, Total Bilirubin 0.5, Aspartate Amino Transf (AST/SGOT) 30, Alanine Aminotransferase ( ALT/SGPT) 45H, Alkaline Phosphatase 130H, Total Protein 6.2L, Albumin 2.8L, Globulin 3.4, Albumin/Globulin Ratio 0.8L 05/14/17 09:23: Arterial Blood pH 7.419, Arterial Blood Partial Pressure CO2 31.3L, Arterial Blood Partial Pressure O2 141.0H, Arterial Blood HCO3 19.8L, Arterial Blood Oxygen Saturation 98.8H, Arterial Blood Base Excess -4.1, Andry Test Positive Height (Feet): 5 Height (Inches): 7.00 Weight (Pounds): 130 General Appearance: lethargic, moderate distress EENT: other - eyes closed Neck: normal alignment Cardiovascular: regular rhythm Respiratory/Chest: rhonchi - bilaterally Abdomen: non tender Extremities: other - muscle wasting, no edema Neurologic: unresponsive PRUDENCE MA May 14, 2017 14:49
--- NOTE | 2017-05-14 15:05 | Cardiology Report ---
APPROVED REPORT EKG Measurement Heart [id number] Sinus rhythm with 1st degree AV block Left axis deviation Right bundle branch block Abnormal ECG
[2017-05-14] MEDS ORDERED: Vancomycin 1gm in D5W 275ml IVPB ONE (18:00)
--- NOTE | 2017-05-14 20:47 | Wound Care Consultation ---
Wound Assessment Wound Assessment #1: Wound Number: #1 Wound Present on Admission: Yes New Wound: No Status Change of Wound: No Wound Location Body Site Modif: left, lower, lateral Wound Location Body Site: leg Wound Type: lesion-etiology unknown Elder Test: Does not Elder Wound Thickness: Full Thickness Wound Length: 7.0 Wound Width: 5.5 Wound Depth: less than 0.1 Percent of Wound [place]/Red: 100 Wound Drainage Description: Serosanguineous Wound Drainage Amount: Scant Wound Drainage Odor: None/Absent Tissue Surrounding Wound: Intact Wound General Appearance: Reddened, Draining Wound Assessment #2: Wound Number: #2 Wound Present on Admission: Yes New Wound: No Status Change of Wound: No Wound Location Body Site Modif: left, lower, medial Wound Location Body Site: leg - that extends to malleolus Wound Type: lesion-etiology unknown Elder Test: Does not Elder Wound Thickness: Full Thickness Wound Length: 9.0 Wound Width: 3.0 Wound Depth: less than 0.1 Percent of Wound [place]/Red: 100 Wound Drainage Description: Serosanguineous Wound Drainage Amount: Moderate Wound Drainage Odor: None/Absent Tissue Surrounding Wound: Intact Wound General Appearance: Reddened, Draining Wound Assessment #3: Wound Number: #3 Wound Present on Admission: Yes New Wound: No Status Change of Wound: No Wound Location Body Site Modif: right, medial Wound Location Body Site: malleolus/ankle Wound Type: pressure ulcer Elder Test: Does not Elder Pressure Ulcer Stage: IV/unstageable Wound Thickness: Full Thickness Wound Length: 2.0 Wound Width: 2.0 Wound Depth: utd Percent of Wound Bed Yellow/Wh: 100 Wound Drainage Amount: None Wound Drainage Odor: None/Absent Tissue Surrounding Wound: Intact Wound Assessment #4: Wound Number: #4 Wound Present on Admission: Yes New Wound: No Status Change of Wound: No Wound Location Body Site Modif: lower Wound Location Body Site: back Wound Type: pressure ulcer Elder Test: Does not Elder Pressure Ulcer Stage: IV/unstageable Wound Thickness: Full Thickness Wound Length: 2.5 Wound Width: 2.5 Wound Depth: utd Percent of Wound Bed Yellow/Wh: 100 Wound Drainage Description: Serosanguineous Wound Drainage Amount: Scant Wound Drainage Odor: None/Absent Tissue Surrounding Wound: Erythemic Wound General Appearance: Reddened Wound Assessment #5: Wound Number: #5 Wound Present on Admission: Yes New Wound: No Status Change of Wound: No Wound Location Body Site Modif: mid Wound Location Body Site: sacral Wound Type: pressure ulcer Elder Test: Does not Elder Pressure Ulcer Stage: II Wound Thickness: Partial Thickness Wound Length: 0.5 Wound Width: 0.5 Wound Depth: 0.1 Percent of Wound [place]/Red: 100 Wound Drainage Description: Serosanguineous Wound Drainage Amount: Scant Wound Drainage Odor: None/Absent Tissue Surrounding Wound: Erythemic Wound General Appearance: Reddened Wound Assessment #6: Wound Number: #6 Wound Present on Admission: Yes New Wound: No Status Change of Wound: No Wound Location Body Site Modif: left Wound Location Body Site: heel Wound Type: pressure ulcer Elder Test: Does not Elder Pressure Ulcer Stage: I Wound Length: 3.0 Wound Width: 3.5 Percent of Wound [place]/Red: 100 Wound Drainage Amount: None Wound Drainage Odor: None/Absent Tissue Surrounding Wound: Intact Wound General Appearance: Reddened Wound Assessment #7: Wound Number: #7 Wound Present on Admission: Yes New Wound: No Status Change of Wound: No Wound Location Body Site Modif: right Wound Location Body Site: heel Wound Type: pressure ulcer Elder Test: Does not Elder Pressure Ulcer Stage: I Wound Length: 4.0 Wound Width: 4.0 Percent of Wound [place]/Red: 100 Wound Drainage Amount: None Wound Drainage Odor: None/Absent Tissue Surrounding Wound: Erythemic Wound General Appearance: Reddened Wound Comment #1 Left lower lateral leg open wound etiology unknown #2 Left lower medial leg open wound that extends to malleolus #3 Right medial malleolus unstageable pressure ulcer #4 Lower back unstagable pressure ulcer #5 Sacral stage II pressure ulcer surrounding area L 4.0 x W 4.5 non-blanchable redness #6 Left heel stage I pressure ulcer #7 Right heel stage I pressure ulcer Recommendation -Left lower lateral leg open wound, Right medial malleolus and Left lower medial leg open wound that extends to malleolus, Cleanse with saline pat dry apply adaptic cover with bordered gauze daily and PRN soiled/dislodged -Lower back unstagable pressure ulcer and Sacral stage II pressure ulcer surrounding area L 4.0 x W 4.5 non-blanchable redness Cleanse with saline pat dry apply Triad cream cover with bordered gauze daily and PRN soiled/dislodged -Local wound care per protocol for stage I on left and right heels -Keep clean and dry -Turn and reposition -Optimize nutrition -Low air loss mattress -Offload both heels -Heel protector on both heels -Assess and f/u accordingly for any changes ISABEL BARROS RN May 14, 2017 20:47
[2017-05-15] VITALS (24 sets, daily range): BP systolic 83–129; BP diastolic 27–56
[2017-05-15] MEDS: Flagyl 500mg/NS 100ml Pre-Mix IV SCH ×4 (00:32→21:44)
[2017-05-15] MEDS: Cefepime HCl 0.5 GM in D5W 55 ML IVPB SCH (01:26)
--- NOTE | 2017-05-15 01:30 | Consultation ---
DATE OF CONSULTATION: 05/14/2017 INFECTIOUS DISEASE CONSULTATION CONSULTING PHYSICIAN: Supriya Dillon M.D. ATTENDING PHYSICIAN: Roland Levine M.D. REASON FOR CONSULTATION: Sepsis, shock, gram-positive bacteremia, and history of VRE UTI. HISTORY OF PRESENT ILLNESS: This is an 81-year-old male, who has a history of pneumonia and sepsis. The patient is at [facility] in the ICU in septic shock. The patient's workup shows that he has gram-positive organisms in the blood. He has a history of VRE UTI and discussed with daughter of line sepsis. He is off pressors at this time. The patient is on linezolid, cefepime, and Flagyl. Urine culture has grown out Strep species, which probably is the VRE at this time. The patient is also colonized with MRSA. The patient notes the chest x-ray was negative, but he was congested. MAR was noted. Orders were noted. Notes and records were reviewed. PAST MEDICAL HISTORY: The patient's past medical history includes the following: The patient has a past medical history of end-stage renal disease, on hemodialysis. T he patient has dementia, schizophrenia, diabetes, hypertension, gout, dysphagia, PEG, and aspiration risk. He has a PermCath. He has a new femoral line placed in the ICU. He has a history of anemia. He has a history of pneumonia and UTI. MEDICATIONS: Upon reviewing the MAR, he is on the following medications. He is on cefepime, linezolid, Flagyl, Prevacid, heparin, midodrine, norepinephrine, . ALLERGIES: Penicillin. FAMILY HISTORY: Noncontributory. SOCIAL HISTORY: Negative for smoking, alcohol, or drug abuse. REVIEW OF SYSTEMS: Constitutional: The patient is in the ICU. He is off pressors. He has generalized weakness and poorly responsive. He is congested and short of breath. Head And Neck: No head pain. Pulmonary: Congested and short of breath. Cardiac: No chest pain. Off pressors now. Gastrointestinal: No nausea, vomiting, or diarrhea. Genitourinary: He has hemodialysis. He does have a Watson. Skin: No rash. He has multiple wounds without any drainage and decubitus ulcers when I reviewed them. Neurologic: No seizures. PHYSICAL EXAMINATION: VITAL SIGNS: T-max on admission was 101.3 degrees. Present vital signs, temperature 97.7 degrees, pulse rate 85, respiratory rate 20, blood pressure 124/56, and saturation 91% and 96%. He is on a breathing mask. GENERAL: He is poorly responsive. HEAD AND NECK: Oral exam, no thrush. Eye exam, no icterus. Normocephalic. LUNGS: Bilateral rhonchi, rales, and crackles. HEART: Regular. No gallop or murmur. ABDOMEN: Soft. Positive bowel sounds. SKIN: No rash. MUSCULOSKELETAL: No effusion. EXTREMITIES: Legs are without cellulitis. PERIPHERAL VASCULAR: No cyanosis or gangrene. Wounds are covered. They are reviewed. None of them look acutely infected. RECTAL: Deferred. GENITOURINARY: He does have a Watson. LINES: Line sites without phlebitis. NEUROLOGIC: He is poorly responsive. LABORATORY DATA: White count 11.5, hemoglobin 7.3, and platelet count is 381,000. Creatinine is 4.2. LFTs were noted. MRSA screen was positive. Urine culture grew Strep species greater than 100,000. He has a history of VRE. He has 4/4 bottles gram-positive cocci in clusters. He is colonized with MRSA. Chest x-ray initially was negative. I will order an echo. ASSESSMENT AND PLAN: 1. The patient has a gram-positive bacteremia. The patient has sepsis shock. The patient is off pressors at this time. We must consider line sepsis versus endocarditis. He has fever, leukocytosis, and systemic inflammatory response syndrome criteria. Questionable pneumonia. History of vancomycin-resistant Enterococcus urinary tract infection. Source of the bacteremia could either be line or urine. Continue antibiotics linezolid to cover vancomycin-resistant Enterococcus and Staph aureus, cefepime, and Flagyl. Follow up chest x-ray. Check labs. Continue pulmonary treatment. Check echocardiogram. The patient may need his line to be changed. He also has a femoral line, which needs to be changed fairly soon. 2. End-stage renal disease, on hemodialysis. 3. Percutaneous endoscopic gastrostomy, gastrostomy tube, and dysphagia. 4. Aspiration risk. 5. PermCath. 6. Diabetes. 7. Hypertension. 8. Anemia. 9. Schizophrenia. 10. Poor historian. 11. Dementia. 12. Blood sugar and blood pressure control per primary, Dr. Levine for diabetes and hypertension. 13. Gout. 14. Anemia. 15. Past medical history as noted above. 16. Allergy to penicillin. 17. Social history is negative. 18. Family history is noncontributory. 19. MAR was noted. 20. Case was discussed with RN. Supriya Dillon M.D. DR: ABEL JOB#: [id number] CC:
[2017-05-15 05:15] LABS: MEAN CORPUSCULAR HEMOGLOBIN 33.2 PG (27.0-31.0); MEAN CORPUSCULAR VOLUME 101 FL (80-99); MEAN PLATELET VOLUME 7.9 FL (6.5-10.1); PLATELET COUNT 364 K/UL (150-450); RED CELL DISTRIBUTION WIDTH 19.5 % (11.6-14.8); WHITE BLOOD COUNT 9.8 K/UL (4.8-10.8)
[2017-05-15 05:52] LABS: ALANINE AMINOTRANSFERASE 35 U/L (3-41); ALBUMIN/GLOBULIN RATIO 0.7 (1.0-2.7); ANION GAP 15 (5-15); ASPARTATE AMINO TRANSFERASE 25 U/L (5-40); CALCIUM 10.2 mg/dL (8.6-10.2); CARBON DIOXIDE 24 mEQ/L (20-30); CHLORIDE 93 mEQ/L (98-107); CREATININE 1.9 mg/dL (0.7-1.2); HEMOLYSIS 0; POTASSIUM 3.1 mEQ/L (3.4-4.9); SODIUM 132 mEQ/L (135-145); TOTAL PROTEIN 5.7 g/dL (6.6-8.7)
[2017-05-15] MEDS: Midodrine 10mg tab ORAL SCH ×3 (09:04→18:15)
[2017-05-15] MEDS: Lansoprazole 15mg cap ORAL SCH (09:04)
[2017-05-15] MEDS: Heparin 5000 units/ml inj SUBQ SCH ×2 (09:05→21:21)
[2017-05-15] MEDS ORDERED: Lidocaine 1% 10mg/ml/Epi 0.005mg/ml 30ml vial INJ ONE (11:30)
--- NOTE | 2017-05-15 13:46 | Nephrology Progress Note ---
Assessment/Plan Problem List: (1) Hypercalcemia (2) Malnutrition of moderate degree (3) Intravenous catheter sepsis (4) ESRD (end stage renal disease) (5) Severe sepsis (6) Respiratory failure with hypoxia Plan s/p remove permcath, new temporary hd cath 05/16 until sepsis clears Subjective ROS Limited/Unobtainable: Yes Objective Objective Last 24 Hour Vital Signs Date Time Temp Pulse Resp B/P Pulse Ox O2 Delivery O2 Flow Rate FiO2 05/15/17 12:00 98.5 77 21 97/37 97 Venturi Mask 40 05/15/17 12:00 8.0 40 05/15/17 11:00 76 21 110/40 97 Venturi Mask 40 05/15/17 10:00 82 21 97/36 97 Venturi Mask 40 05/15/17 09:00 72 21 102/30 97 Venturi Mask 40 05/15/17 08:00 73 25 83/27 97 Venturi Mask 40 05/15/17 08:00 98.3 05/15/17 08:00 76 05/15/17 08:00 8.0 40 05/15/17 07:00 79 28 99/36 97 Venturi Mask 40 05/15/17 06:15 91/34 05/15/17 06:00 72 24 91/34 98 Venturi Mask 40 05/15/17 05:00 79 24 100/32 97 Venturi Mask 40 05/15/17 04:00 97.7 83 26 94/33 97 Venturi Mask 40 05/15/17 04:00 8.0 40 05/15/17 04:00 83 05/15/17 03:00 74 16 97/37 97 Venturi Mask 40 05/15/17 02:00 77 19 101/37 94 Venturi Mask 40 05/15/17 01:00 80 26 87/32 97 Venturi Mask 40 05/15/17 00:00 8.0 40 05/15/17 00:00 73 05/15/17 00:00 97.9 67 18 93/39 100 Venturi Mask 40 05/14/17 23:00 81 17 90/35 97 Venturi Mask 40 05/14/17 22:00 84 20 102/37 97 Venturi Mask 40 05/14/17 21:00 69 16 115/36 99 Venturi Mask 40 05/14/17 20:00 68 05/14/17 20:00 8.0 40 05/14/17 20:00 97.5 67 18 93/44 100 Venturi Mask 40 05/14/17 19:03 Venturi Mask 8.0 40 05/14/17 19:03 99 Venturi Mask 8.0 40 05/14/17 19:02 99 21 Venturi Mask 8.0 40 05/14/17 18:57 77 19 111/41 99 Venturi Mask 40 05/14/17 18:00 81 20 101/42 99 Venturi Mask 40 05/14/17 17:00 70 20 98/43 91 Venturi Mask 40 05/14/17 16:00 8.0 40 05/14/17 16:00 75 05/14/17 16:00 97.8 93 20 93/40 100 Venturi Mask 40 05/14/17 15:00 77 20 94/37 91 Venturi Mask 40 05/14/17 14:00 85 20 124/56 91 Venturi Mask 40 Intake and Output 05/14/17 05/15/17 19:00 07:00 Intake Total 625 ml 1545 ml Output Total 325 ml 943 ml Balance 300 ml 602 ml Intake Free Water 50 ml IV Total 400 ml 155 ml Tube Feeding 175 ml 540 ml Blood Product 250 ml Hemodialysis 600 ml Output Urine Total 325 ml 215 ml Hemodialysis UF 728 ml Laboratory Tests 05/15/17 04:00: White Blood Count 9.8, Red Blood Count 2.40L, Hemoglobin 8.0L, Hematocrit 24.1L , Mean Corpuscular Volume 101H, Mean Corpuscular Hemoglobin 33.2H, Mean Corpuscular Hemoglobin Concent 33.0, Red Cell Distribution Width 19.5H, Platelet Count 364, Mean Platelet Volume 7.9, Neutrophils (%) (Auto) , Lymphocytes (%) (Auto) , Monocytes (%) (Auto) , Eosinophils (%) (Auto) , Basophils (%) (Auto) , Sodium Level 132L, Potassium Level 3.1L, Chloride Level 93L, Carbon Dioxide Level 24, Anion Gap 15, Blood Urea Nitrogen 44#H, Creatinine 1.9#H, Estimat Glomerular Filtration Rate , Glucose Level 115H, Calcium Level 10.2, Total Bilirubin 0.5, Aspartate Amino Transf (AST/SGOT) 25, Alanine Aminotransferase (ALT/SGPT) 35, Alkaline Phosphatase 173H, Total Protein 5.7L, Albumin 2.5L, Globulin 3.2, Albumin/Globulin Ratio 0.7L Height (Feet): 5 Height (Inches): 7.00 Weight (Pounds): 130 General Appearance: lethargic, mild distress, thin EENT: normal ENT inspection Neck: normal alignment Cardiovascular: regular rhythm Respiratory/Chest: rhonchi - bilaterally Abdomen: non tender Extremities: other - no edema, muscle atrophy Neurologic: motor weakness, disoriented PRUDENCE MA May 15, 2017 13:46
--- NOTE | 2017-05-15 17:16 | Critical Care Progress Note ---
Assessment/Plan Assessment/Plan Sepsis w shock - s aureus due to line sepsis ESRD, dialysis dementia, schizophrenia DM tophaceous gout dysphagia, PEG severe anemia, transfused UTI - VRE BC + s aureus UC VRE off pressors off BiPAP tolerating feed full code per dtr [facility]BA Critical Care - Subjective ROS Limited/Unobtainable: Yes Condition: improving IV Access: central, peripheral EKG Rhythm: Sinus Rhythm Residuals: minimal Tube Feeding Tolerated: yes I&O: Intake and Output 05/14/17 05/15/17 19:00 07:00 Intake Total 625 ml 1545 ml Output Total 325 ml 943 ml Balance 300 ml 602 ml Intake Free Water 50 ml IV Total 400 ml 155 ml Tube Feeding 175 ml 540 ml Blood Product 250 ml Hemodialysis 600 ml Output Urine Total 325 ml 215 ml Hemodialysis UF 728 ml Critical Care - Objective Last 24 Hour Vital Signs Date Time Temp Pulse Resp B/P Pulse Ox O2 Delivery O2 Flow Rate FiO2 05/15/17 17:00 78 20 114/41 97 Venturi Mask 40 05/15/17 16:00 74 05/15/17 16:00 97.9 85 28 101/56 93 Venturi Mask 40 05/15/17 16:00 8.0 40 05/15/17 15:00 69 20 113/46 97 Venturi Mask 40 05/15/17 14:00 81 21 101/41 96 Venturi Mask 40 05/15/17 13:00 75 21 92/34 97 Venturi Mask 40 05/15/17 12:00 75 05/15/17 12:00 98.5 77 21 97/37 97 Venturi Mask 40 05/15/17 12:00 8.0 40 05/15/17 11:00 76 21 110/40 97 Venturi Mask 40 05/15/17 10:00 82 21 97/36 97 Venturi Mask 40 05/15/17 09:00 72 21 102/30 97 Venturi Mask 40 05/15/17 08:00 73 25 83/27 97 Venturi Mask 40 05/15/17 08:00 98.3 05/15/17 08:00 76 05/15/17 08:00 8.0 40 05/15/17 07:00 79 28 99/36 97 Venturi Mask 40 05/15/17 06:15 91/34 05/15/17 06:00 72 24 91/34 98 Venturi Mask 40 05/15/17 05:00 79 24 100/32 97 Venturi Mask 40 05/15/17 04:00 97.7 83 26 94/33 97 Venturi Mask 40 05/15/17 04:00 8.0 40 05/15/17 04:00 83 05/15/17 03:00 74 16 97/37 97 Venturi Mask 40 05/15/17 02:00 77 19 101/37 94 Venturi Mask 40 05/15/17 01:00 80 26 87/32 97 Venturi Mask 40 05/15/17 00:00 8.0 40 05/15/17 00:00 73 05/15/17 00:00 97.9 67 18 93/39 100 Venturi Mask 40 05/14/17 23:00 81 17 90/35 97 Venturi Mask 40 05/14/17 22:00 84 20 102/37 97 Venturi Mask 40 05/14/17 21:00 69 16 115/36 99 Venturi Mask 40 05/14/17 20:00 68 05/14/17 20:00 8.0 40 05/14/17 20:00 97.5 67 18 93/44 100 Venturi Mask 40 05/14/17 19:03 Venturi Mask 8.0 40 05/14/17 19:03 99 Venturi Mask 8.0 40 05/14/17 19:02 99 21 Venturi Mask 8.0 40 05/14/17 18:57 77 19 111/41 99 Venturi Mask 40 05/14/17 18:00 81 20 101/42 99 Venturi Mask 40 Status: obtunded Neck: no JVD Lungs: rhonchi Heart: normal rate Abdomen: non-tender Objective: tophi Micro: Microbiology Date/Time Source Procedure Growth Status 05/13/17 00:20 Blood Blood Culture - Preliminary Staphylococcus Aureus Resulted 05/13/17 00:15 Blood Blood Culture - Preliminary Staphylococcus Aureus Resulted 05/13/17 02:50 Nasal Nares MRSA Culture - Final Staphylococcus Aureus - Mrsa Complete 05/13/17 01:25 Urine,Clean Catch Urine Culture - Final Enterococcus Faecalis - Vre Complete 05/13/17 02:50 Rectum VRE Culture - Final Enterococcus Faecalis - Vre Complete GONZALO LONGORIA May 15, 2017 17:16
[2017-05-15] MEDS: Dyna-Hex 2% Top Sol 8oz TOPIC SCH ×2 (21:19)
[2017-05-16] VITALS (24 sets, daily range): BP systolic 91–137; BP diastolic 40–57
[2017-05-16] MEDS: Cefepime HCl 0.5 GM in D5W 55 ML IVPB SCH (00:59)
[2017-05-16 05:19] LABS: MEAN CORPUSCULAR HEMOGLOBIN 33.1 PG (27.0-31.0); MEAN CORPUSCULAR HGB CONC 33.1 G/DL (32.0-36.0); MEAN CORPUSCULAR VOLUME 100 FL (80-99); MEAN PLATELET VOLUME 7.9 FL (6.5-10.1); PLATELET COUNT 377 K/UL (150-450); RED BLOOD COUNT 2.67 M/UL (4.70-6.10); RED CELL DISTRIBUTION WIDTH 19.5 % (11.6-14.8); WHITE BLOOD COUNT 12.4 K/UL (4.8-10.8)
[2017-05-16] MEDS: Flagyl 500mg/NS 100ml Pre-Mix IV SCH ×3 (05:55→22:18)
[2017-05-16 05:56] LABS: ALANINE AMINOTRANSFERASE 29 U/L (3-41); ALBUMIN/GLOBULIN RATIO 0.5 (1.0-2.7); ANION GAP 19 (5-15); ASPARTATE AMINO TRANSFERASE 20 U/L (5-40); CALCIUM 11.5 mg/dL (8.6-10.2); CARBON DIOXIDE 21 mEQ/L (20-30); CHLORIDE 91 mEQ/L (98-107); CREATININE 2.3 mg/dL (0.7-1.2); HEMOLYSIS 3; POTASSIUM 3.4 mEQ/L (3.4-4.9); SODIUM 131 mEQ/L (135-145); TOTAL PROTEIN 6.2 g/dL (6.6-8.7)
[2017-05-16] MEDS ORDERED: Heparin Sod 1000 units/ml 10ml IV SCH (06:00)
--- NOTE | 2017-05-16 08:24 | Diagnostic Imaging Report ---
Indications: Suspected permacath infection. Removal requested Technique: Sterile prepping and draping right chest. Local anesthesia with 1% lidocaine. Chest dermatotomy extended. Using blunt dissection, the cuff of the catheter was freed from the surrounding soft tissues, and the catheter was removed. A post procedure chest radiographic was obtained, documents complete removal of the catheter on the post removal images. The patient tolerated the procedure well, without immediate complication. Comparison: None Findings: Post procedure chest radiograph documents complete removal of the catheter Impression: Successful bedside removal of tunneled dialysis catheter, as noted.
--- NOTE | 2017-05-16 08:24 | Diagnostic Imaging Report ---
Indication: Cough Technique: One view of the chest Comparison: 05/13/2017 Findings: There is increased infiltrate and possibly pleural fluid at the right lung base. There is suggestion of increased interstitial disease on the left diffusely. Right chest permacath remains. Heart is upper limits of normal in size. Impression: Increased right basilar infiltrate and possibly pleural fluid, over 2 days Increased left-sided interstitial disease
[2017-05-16] MEDS: Midodrine 10mg tab ORAL SCH ×3 (09:00→18:55)
[2017-05-16] MEDS: Lansoprazole 15mg cap ORAL SCH (09:40)
[2017-05-16] MEDS: Heparin 5000 units/ml inj SUBQ SCH ×2 (09:40→21:37)
[2017-05-16] MEDS ORDERED: Heparin 2000 units/Ns 1000ml INJ ONE (10:00)
[2017-05-16] MEDS ORDERED: Lidocaine 1% Plain 30 ml INJ ONE (10:00)
[2017-05-16] MEDS ORDERED: Heparin Sod 1000 units/ml 10ml INJ ONE (10:30)
--- NOTE | 2017-05-16 11:51 | Diagnostic Imaging Report ---
Indication: Renal failure, infection Technique: Procedure performed at bedside. Procedural timeout performed. Total sterile technique, including sterile probe cover and sterile gel, sterile gloves, hand hygiene, hat, mask, sterile gown, large sterile drape, and preparation with 2% chlorhexidine utilized. Local anesthesia with 1% lidocaine. 0.035 guidewire was inserted through a previously placed right groin central venous catheter. The catheter was removed, followed by placement of a dilator and then a 13 Korean 30 cm triple-lumen temporary dialysis catheter. Guidewire was removed. Catheter ports were aspirated and flushed. The catheter was fixed to the skin. Patient tolerated procedure well. Abdominal radiograph was obtained, documents catheter tip position at the expected region of the upstream inferior vena cava. Comparison: None Findings: As above Impression: Successful bedside placement of right femoral temporary dialysis catheter, as described, via pre-existing right groin central venous catheter access.
--- NOTE | 2017-05-16 13:52 | Pulmonology Progress Note ---
Assessment/Plan Assessment/Plan Sepsis w shock - s aureus, strep sp due to line sepsis, UTI ESRD, dialysis dementia, schizophrenia DM tophaceous gout dysphagia, PEG severe anemia, transfused UTI - VRE pneumonia, effusion BC + s aureus, strep sp; NEW + BCs 05/15/17 UC VRE new infiltrates tolerating feed full code per dtr BEBA Subjective ROS Limited/Unobtainable: Yes Constitutional: Denies: fever Allergies: Coded Allergies: PENICILLINS (Verified Allergy, Unknown, 05/12/17) Objective Last 24 Hour Vital Signs Date Time Temp Pulse Resp B/P Pulse Ox O2 Delivery O2 Flow Rate FiO2 05/16/17 13:00 97.8 74 16 110/41 98 Venturi Mask 40 05/16/17 12:00 83 05/16/17 12:00 80 21 117/47 100 Venturi Mask 40 05/16/17 11:00 81 20 120/50 100 Venturi Mask 40 05/16/17 10:00 90 21 119/48 99 Venturi Mask 40 05/16/17 09:00 88 22 132/55 98 Venturi Mask 40 05/16/17 08:00 98.5 90 25 106/41 96 Venturi Mask 40 05/16/17 08:00 87 05/16/17 07:00 90 23 112/45 98 Venturi Mask 40 05/16/17 07:00 90 23 112/45 98 Venturi Mask 40 05/16/17 06:40 Venturi Mask 8.0 40 05/16/17 06:40 84 18 Venturi Mask 8.0 40 05/16/17 06:40 96 Venturi Mask 8.0 40 05/16/17 06:00 91 23 123/41 98 Venturi Mask 40 05/16/17 05:49 127/49 05/16/17 05:00 98 25 122/57 98 Venturi Mask 40 05/16/17 04:00 90 05/16/17 04:00 98.6 102 27 127/52 98 Venturi Mask 40 05/16/17 03:00 103 27 123/54 97 Venturi Mask 40 05/16/17 02:00 101 26 124/49 98 Venturi Mask 40 05/16/17 01:00 98 25 133/51 96 Venturi Mask 40 05/16/17 00:00 80 05/16/17 00:00 98.0 93 22 111/47 92 Venturi Mask 40 05/15/17 23:00 80 22 108/44 95 Venturi Mask 40 05/15/17 22:00 75 19 103/46 98 Venturi Mask 40 05/15/17 21:00 77 20 129/51 97 Venturi Mask 40 05/15/17 20:00 72 05/15/17 20:00 98.2 72 19 100/43 100 Venturi Mask 40 05/15/17 19:17 Venturi Mask 8.0 40 05/15/17 19:17 98 Venturi Mask 8.0 40 05/15/17 19:17 81 17 Venturi Mask 8.0 40 05/15/17 19:00 75 20 107/43 97 Venturi Mask 40 05/15/17 18:00 79 20 129/50 97 Venturi Mask 40 05/15/17 17:00 78 20 114/41 97 Venturi Mask 40 05/15/17 16:00 74 05/15/17 16:00 97.9 85 28 101/56 93 Venturi Mask 40 05/15/17 16:00 8.0 40 05/15/17 15:00 69 20 113/46 97 Venturi Mask 40 05/15/17 14:00 81 21 101/41 96 Venturi Mask 40 Intake and Output 05/15/17 05/16/17 19:00 07:00 Intake Total 1070 ml 1010 ml Output Total 210 ml 400 ml Balance 860 ml 610 ml Intake Free Water 60 ml IV Total 500 ml 410 ml Tube Feeding 540 ml 540 ml Other 30 ml Output Urine Total 210 ml 400 ml # Bowel Movements 4 Objective poorly responsive General Appearance: no acute distress HEENT: atraumatic Respiratory/Chest: rhonchi Cardiovascular: normal rate Abdomen: soft, non tender Microbiology Date/Time Source Procedure Growth Status 05/15/17 04:10 Blood Blood Culture - Preliminary Resulted 05/15/17 04:00 Blood Blood Culture - Preliminary Resulted Laboratory Tests 05/16/17 04:40: White Blood Count 12.4H, Red Blood Count 2.67L, Hemoglobin 8.8L, Hematocrit 26.7L, Mean Corpuscular Volume 100H, Mean Corpuscular Hemoglobin 33.1H, Mean Corpuscular Hemoglobin Concent 33.1, Red Cell Distribution Width 19.5H, Platelet Count 377, Mean Platelet Volume 7.9, Neutrophils (%) (Auto) , Lymphocytes (%) (Auto) , Monocytes (%) (Auto) , Eosinophils (%) (Auto) , Basophils (%) (Auto) , Sodium Level 131L, Potassium Level 3.4, Chloride Level 91L, Carbon Dioxide Level 21, Anion Gap 19H, Blood Urea Nitrogen 68H, Creatinine 2.3H, Estimat Glomerular Filtration Rate , Glucose Level 135H, Calcium Level 11.5H, Total Bilirubin 0.4, Aspartate Amino Transf (AST/SGOT) 20, Alanine Aminotransferase (ALT/SGPT) 29, Alkaline Phosphatase 186H, Total Protein 6.2L, Albumin 2.3L, Globulin 3.9, Albumin/Globulin Ratio 0.5L 05/16/17 06:00: Stool Occult Blood Negative Current Medications Medications (Trade) Dose Ordered Sig/James Route PRN Reason Start Time Stop Time Status Last Admin Dose Admin Cefepime HCl 0.5 gm/Dextrose 55 ml @ 110 mls/hr Q24H IVPB 05/14/17 01:00 05/21/17 00:59 05/16/17 00:59 Chlorhexidine Gluconate 1 applic 1 applic QHS TOPIC 05/13/17 21:00 06/12/17 20:59 05/15/17 21:19 Heparin Sodium (Porcine) (Heparin 5000 units/ml) 5,000 units EVERY 12 HOURS SUBQ 05/13/17 09:00 06/12/17 08:59 05/16/17 09:40 Heparin Sodium (Porcine) (Heparin Sod 1000 units/ml 10ml) 500 unit ONCE IV 05/16/17 06:00 05/16/17 23:59 Lansoprazole (Prevacid) 15 mg DAILY ORAL 05/13/17 10:00 06/12/17 09:59 05/16/17 09:40 Linezolid 300 ml @ 300 mls/hr Q12HR IVPB 05/13/17 21:00 05/20/17 20:59 05/16/17 09:40 Metronidazole (Flagyl) 100 ml @ 100 mls/hr Q8HR IV 05/13/17 12:00 05/20/17 11:59 05/16/17 13:07 Midodrine 10 mg 10 mg THREE TIMES A DAY ORAL 05/13/17 09:00 06/12/17 08:59 05/16/17 13:12 Norepinephrine Bitartrate/ Dextrose (Levophed/D5W) 250 ml @ 0 mls/hr Q24H IV 05/13/17 06:15 06/12/17 06:14 05/13/17 12:56 Sodium Chloride (Sodium Chloride 1000ml bag) 1,000 ml @ 500 mls/hr Q2H PRN IVLG sbp<90 during hd 05/16/17 06:00 05/16/17 23:59 GONZALO LONGORIA May 16, 2017 13:52
--- NOTE | 2017-05-16 14:11 | Nephrology Progress Note ---
Assessment/Plan Problem List: (1) Hypercalcemia (2) Malnutrition of moderate degree (3) Intravenous catheter sepsis (4) ESRD (end stage renal disease) (5) Severe sepsis (6) Respiratory failure with hypoxia Plan s/p remove permcath, new temporary hd cath 05/16 until sepsis clears, seen on HD , remains high risk, Subjective ROS Limited/Unobtainable: Yes Objective Objective Last 24 Hour Vital Signs Date Time Temp Pulse Resp B/P Pulse Ox O2 Delivery O2 Flow Rate FiO2 05/16/17 13:00 97.8 74 16 110/41 98 Venturi Mask 40 05/16/17 12:00 83 05/16/17 12:00 80 21 117/47 100 Venturi Mask 40 05/16/17 11:00 81 20 120/50 100 Venturi Mask 40 05/16/17 10:00 90 21 119/48 99 Venturi Mask 40 05/16/17 09:00 88 22 132/55 98 Venturi Mask 40 05/16/17 08:00 98.5 90 25 106/41 96 Venturi Mask 40 05/16/17 08:00 87 05/16/17 07:00 90 23 112/45 98 Venturi Mask 40 05/16/17 07:00 90 23 112/45 98 Venturi Mask 40 05/16/17 06:40 Venturi Mask 8.0 40 05/16/17 06:40 84 18 Venturi Mask 8.0 40 05/16/17 06:40 96 Venturi Mask 8.0 40 05/16/17 06:00 91 23 123/41 98 Venturi Mask 40 05/16/17 05:49 127/49 05/16/17 05:00 98 25 122/57 98 Venturi Mask 40 05/16/17 04:00 90 05/16/17 04:00 98.6 102 27 127/52 98 Venturi Mask 40 05/16/17 03:00 103 27 123/54 97 Venturi Mask 40 05/16/17 02:00 101 26 124/49 98 Venturi Mask 40 05/16/17 01:00 98 25 133/51 96 Venturi Mask 40 05/16/17 00:00 80 05/16/17 00:00 98.0 93 22 111/47 92 Venturi Mask 40 05/15/17 23:00 80 22 108/44 95 Venturi Mask 40 05/15/17 22:00 75 19 103/46 98 Venturi Mask 40 05/15/17 21:00 77 20 129/51 97 Venturi Mask 40 05/15/17 20:00 72 05/15/17 20:00 98.2 72 19 100/43 100 Venturi Mask 40 05/15/17 19:17 Venturi Mask 8.0 40 05/15/17 19:17 98 Venturi Mask 8.0 40 05/15/17 19:17 81 17 Venturi Mask 8.0 40 05/15/17 19:00 75 20 107/43 97 Venturi Mask 40 05/15/17 18:00 79 20 129/50 97 Venturi Mask 40 05/15/17 17:00 78 20 114/41 97 Venturi Mask 40 05/15/17 16:00 74 05/15/17 16:00 97.9 85 28 101/56 93 Venturi Mask 40 05/15/17 16:00 8.0 40 05/15/17 15:00 69 20 113/46 97 Venturi Mask 40 Intake and Output 05/15/17 05/16/17 19:00 07:00 Intake Total 1070 ml 1010 ml Output Total 210 ml 400 ml Balance 860 ml 610 ml Intake Free Water 60 ml IV Total 500 ml 410 ml Tube Feeding 540 ml 540 ml Other 30 ml Output Urine Total 210 ml 400 ml # Bowel Movements 4 Laboratory Tests 05/16/17 04:40: White Blood Count 12.4H, Red Blood Count 2.67L, Hemoglobin 8.8L, Hematocrit 26.7L, Mean Corpuscular Volume 100H, Mean Corpuscular Hemoglobin 33.1H, Mean Corpuscular Hemoglobin Concent 33.1, Red Cell Distribution Width 19.5H, Platelet Count 377, Mean Platelet Volume 7.9, Neutrophils (%) (Auto) , Lymphocytes (%) (Auto) , Monocytes (%) (Auto) , Eosinophils (%) (Auto) , Basophils (%) (Auto) , Sodium Level 131L, Potassium Level 3.4, Chloride Level 91L, Carbon Dioxide Level 21, Anion Gap 19H, Blood Urea Nitrogen 68H, Creatinine 2.3H, Estimat Glomerular Filtration Rate , Glucose Level 135H, Calcium Level 11.5H, Total Bilirubin 0.4, Aspartate Amino Transf (AST/SGOT) 20, Alanine Aminotransferase (ALT/SGPT) 29, Alkaline Phosphatase 186H, Total Protein 6.2L, Albumin 2.3L, Globulin 3.9, Albumin/Globulin Ratio 0.5L 05/16/17 06:00: Stool Occult Blood Negative Height (Feet): 5 Height (Inches): 7.00 Weight (Pounds): 145 General Appearance: no apparent distress, lethargic, cachetic EENT: normal ENT inspection Neck: normal alignment Cardiovascular: normal rate, regular rhythm Respiratory/Chest: lungs clear, decreased breath sounds Abdomen: non tender, soft Extremities: other - no edema Neurologic: motor weakness PRUDENCE MA May 16, 2017 14:11
--- NOTE | 2017-05-16 15:40 | Infectious Diseases Prog Note ---
Assessment/Plan Assessment/Plan ASSESSMENT AND PLAN: 1. mrsa and vre bacteremia, likely perma-cath line infection, vre uti, sepsis, leukocytosis, fevers, ? pna - perma-catheter removed, now with femoral temporary dialysis catheter - TTE without vegetation - continue zyvox, cefepime and flagyl - check surveillance sputum, surveillance blood cultures, labs and chest x- ray - may need DEJAH if + blood cultures persist 2. End-stage renal disease, on hemodialysis. 3. Percutaneous endoscopic gastrostomy, gastrostomy tube, and dysphagia. 4. Aspiration risk. 5. PermCath. 6. Diabetes. 7. Hypertension. 8. Anemia. 9. Schizophrenia. 10. Poor historian. 11. Dementia. 12. Blood sugar and blood pressure control per primary, Dr. Levine for diabetes and hypertension. 13. Gout. 14. Anemia. 15. Past medical history as noted above. 16. Allergy to penicillin. 17. Social history is negative. 18. Family history is noncontributory. 19. MAR was noted. 20. Case was discussed with RN. 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 Subjective Constitutional: Denies: fever HEENT: Reports: congestion Respiratory: Reports: shortness of breath Cardiovascular: Denies: chest pain Gastrointestinal/Abdominal: Denies: nausea, vomiting Genitourinary: Denies: dysuria Neurologic: Denies: headache Psychiatric: Denies: depression Skin: Denies: rash Hematologic: Denies: bleeding Musculoskeletal: Denies: pain Allergies: Coded Allergies: PENICILLINS (Verified Allergy, Unknown, 05/12/17) Objective Vital Signs Last 24 Hour Vital Signs Date Time Temp Pulse Resp B/P Pulse Ox O2 Delivery O2 Flow Rate FiO2 05/16/17 15:00 75 19 111/54 96 Venturi Mask 40 05/16/17 14:00 75 18 110/41 96 Venturi Mask 40 05/16/17 13:00 97.8 74 16 110/41 98 Venturi Mask 40 05/16/17 12:00 83 05/16/17 12:00 80 21 117/47 100 Venturi Mask 40 05/16/17 11:00 81 20 120/50 100 Venturi Mask 40 05/16/17 10:00 90 21 119/48 99 Venturi Mask 40 05/16/17 09:00 88 22 132/55 98 Venturi Mask 40 05/16/17 08:00 98.5 90 25 106/41 96 Venturi Mask 40 05/16/17 08:00 87 05/16/17 07:00 90 23 112/45 98 Venturi Mask 40 05/16/17 07:00 90 23 112/45 98 Venturi Mask 40 05/16/17 06:40 Venturi Mask 8.0 40 05/16/17 06:40 84 18 Venturi Mask 8.0 40 05/16/17 06:40 96 Venturi Mask 8.0 40 05/16/17 06:00 91 23 123/41 98 Venturi Mask 40 05/16/17 05:49 127/49 05/16/17 05:00 98 25 122/57 98 Venturi Mask 40 05/16/17 04:00 90 05/16/17 04:00 98.6 102 27 127/52 98 Venturi Mask 40 05/16/17 03:00 103 27 123/54 97 Venturi Mask 40 05/16/17 02:00 101 26 124/49 98 Venturi Mask 40 05/16/17 01:00 98 25 133/51 96 Venturi Mask 40 05/16/17 00:00 80 05/16/17 00:00 98.0 93 22 111/47 92 Venturi Mask 40 05/15/17 23:00 80 22 108/44 95 Venturi Mask 40 05/15/17 22:00 75 19 103/46 98 Venturi Mask 40 05/15/17 21:00 77 20 129/51 97 Venturi Mask 40 05/15/17 20:00 72 05/15/17 20:00 98.2 72 19 100/43 100 Venturi Mask 40 05/15/17 19:17 Venturi Mask 8.0 40 05/15/17 19:17 98 Venturi Mask 8.0 40 05/15/17 19:17 81 17 Venturi Mask 8.0 40 05/15/17 19:00 75 20 107/43 97 Venturi Mask 40 05/15/17 18:00 79 20 129/50 97 Venturi Mask 40 05/15/17 17:00 78 20 114/41 97 Venturi Mask 40 05/15/17 16:00 74 05/15/17 16:00 97.9 85 28 101/56 93 Venturi Mask 40 05/15/17 16:00 8.0 40 Height (Feet): 5 Height (Inches): 7.00 Weight (Pounds): 145 General Appearance: no acute distress HEENT: normocephalic, atraumatic, anicteric, mucous membranes moist, PERRL, EOMI, pharynx normal, supple, no JVD Respiratory/Chest: crackles/rales, rhonchi - bilaterally Cardiovascular: normal rate, regular rhythm, no gallop/murmur Abdomen: soft, non tender, no organomegaly, non distended Genitourinary: other - no acevedo Extremities: no cyanosis Skin: no rash 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, 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, responsive Lymphatic: no neck adenopathy Musculoskeletal: no effusion Objective chest x-ray - 05/15 - increased right infiltrate TTE - no definitive vegetation seen Microbiology Date/Time Source Procedure Growth Status 05/15/17 04:10 Blood Blood Culture - Preliminary Resulted 05/13/17 02:50 Nasal Nares MRSA Culture - Final Staphylococcus Aureus - Mrsa Complete 05/13/17 01:25 Urine,Clean Catch Urine Culture - Final Enterococcus Faecalis - Vre Complete 05/13/17 02:50 Rectum VRE Culture - Final Enterococcus Faecalis - Vre Complete Microbiology Date/Time Source Procedure Growth Status 05/15/17 04:10 Blood Blood Culture - Preliminary Resulted 05/15/17 04:00 Blood Blood Culture - Preliminary Resulted Laboratory Tests Test 05/16/17 04:40 05/16/17 06:00 05/16/17 14:30 White Blood Count 12.4 K/UL (4.8-10.8) H Red Blood Count 2.67 M/UL (4.70-6.10) L Hemoglobin 8.8 G/DL (14.2-18.0) L Hematocrit 26.7 % (42.0-52.0) L Mean Corpuscular Volume 100 FL (80-99) H Mean Corpuscular Hemoglobin 33.1 PG (27.0-31.0) H Mean Corpuscular Hemoglobin Concent 33.1 G/DL (32.0-36.0) Red Cell Distribution Width 19.5 % (11.6-14.8) H Platelet Count 377 K/UL (150-450) Mean Platelet Volume 7.9 FL (6.5-10.1) Neutrophils (%) (Auto) % (45.0-75.0) Lymphocytes (%) (Auto) % (20.0-45.0) Monocytes (%) (Auto) % (1.0-10.0) Eosinophils (%) (Auto) % (0.0-3.0) Basophils (%) (Auto) % (0.0-2.0) Sodium Level 131 mEQ/L (135-145) L Potassium Level 3.4 mEQ/L (3.4-4.9) Chloride Level 91 mEQ/L (98-107) L Carbon Dioxide Level 21 mEQ/L (20-30) Anion Gap 19 (5-15) H Blood Urea Nitrogen 68 mg/dL (7-23) H Creatinine 2.3 mg/dL (0.7-1.2) H Estimat Glomerular Filtration Rate mL/min (>60) Glucose Level 135 mg/dL (74-106) H Calcium Level 11.5 mg/dL (8.6-10.2) H Total Bilirubin 0.4 mg/dL (0.0-1.2) Aspartate Amino Transf (AST/SGOT) 20 U/L (5-40) Alanine Aminotransferase (ALT/SGPT) 29 U/L (3-41) Alkaline Phosphatase 186 U/L (40-129) H Total Protein 6.2 g/dL (6.6-8.7) L Albumin 2.3 g/dL (3.5-5.2) L Globulin 3.9 g/dL Albumin/Globulin Ratio 0.5 (1.0-2.7) L Pending Stool Occult Blood Negative (NEGATIVE) Calcium (Send out) Pending Total Protein (PEP) Pending Albumin (PEP) Pending Globulin (PEP) Pending Peoxu-3-Plvuzzzdh Pending Unxdi-2-Hhpxeemlh Pending Beta Globulins Pending Beta Gamma Globulin Pending PEP Abnormal Protein Bands Pending Protein Electrophoresis Interpret Pending Carcinoembryonic Antigen Pending Parathyroid Hormone (Intact) Pending Current Medications Medications (Trade) Dose Ordered Sig/James Route PRN Reason Start Time Stop Time Status Last Admin Dose Admin Cefepime HCl 0.5 gm/Dextrose 55 ml @ 110 mls/hr Q24H IVPB 05/14/17 01:00 05/21/17 00:59 05/16/17 00:59 Chlorhexidine Gluconate 1 applic 1 applic QHS TOPIC 05/13/17 21:00 06/12/17 20:59 05/15/17 21:19 Heparin Sodium (Porcine) (Heparin 5000 units/ml) 5,000 units EVERY 12 HOURS SUBQ 05/13/17 09:00 06/12/17 08:59 05/16/17 09:40 Heparin Sodium (Porcine) (Heparin Sod 1000 units/ml 10ml) 500 unit ONCE IV 05/16/17 06:00 05/16/17 23:59 Lansoprazole (Prevacid) 15 mg DAILY ORAL 05/13/17 10:00 06/12/17 09:59 05/16/17 09:40 Linezolid 300 ml @ 300 mls/hr Q12HR IVPB 05/13/17 21:00 05/20/17 20:59 05/16/17 09:40 Metronidazole (Flagyl) 100 ml @ 100 mls/hr Q8HR IV 05/13/17 12:00 05/20/17 11:59 05/16/17 13:07 Midodrine 10 mg 10 mg THREE TIMES A DAY ORAL 05/13/17 09:00 06/12/17 08:59 05/16/17 13:12 Norepinephrine Bitartrate/ Dextrose (Levophed/D5W) 250 ml @ 0 mls/hr Q24H IV 05/13/17 06:15 06/12/17 06:14 05/13/17 12:56 Sodium Chloride (Sodium Chloride 1000ml bag) 1,000 ml @ 500 mls/hr Q2H PRN IVLG sbp<90 during hd 05/16/17 06:00 05/16/17 23:59 MORGAN REEVES May 16, 2017 15:40
[2017-05-16] MEDS: Dyna-Hex 2% Top Sol 8oz TOPIC SCH (21:36)
[2017-05-17] VITALS (11 sets, daily range): BP systolic 94–124; BP diastolic 45–63
[2017-05-17] MEDS: Cefepime HCl 0.5 GM in D5W 55 ML IVPB SCH (01:13)
[2017-05-17] MEDS: Flagyl 500mg/NS 100ml Pre-Mix IV SCH (05:36)
[2017-05-17] MEDS: Midodrine 10mg tab ORAL SCH ×3 (08:30→17:27)
[2017-05-17] MEDS: Lansoprazole 15mg cap ORAL SCH (08:30)
[2017-05-17] MEDS: Heparin 5000 units/ml inj SUBQ SCH ×2 (08:32→21:27)
[2017-05-17 12:12] LABS: CALCIUM 10.5 mg/dL (8.6-10.2); PTH INTACT 97 pg/mL (15-65)
[2017-05-17] MEDS: metroNIDAZOLE 500mg 100 ML IV SCH ×2 (13:02→22:05)
--- NOTE | 2017-05-17 13:53 | Nephrology Progress Note ---
Assessment/Plan Problem List: (1) Hypercalcemia (2) Malnutrition of moderate degree (3) Intravenous catheter sepsis (4) ESRD (end stage renal disease) (5) Severe sepsis (6) Respiratory failure with hypoxia Plan s/p remove permcath, new temporary hd cath 05/16 until sepsis clears, on HD no uf as bp low, pth 97 does not explain high Ca, remains high risk, Subjective ROS Limited/Unobtainable: Yes Objective Objective Last 24 Hour Vital Signs Date Time Temp Pulse Resp B/P Pulse Ox O2 Delivery O2 Flow Rate FiO2 05/17/17 12:00 98.1 85 18 106/54 95 Venturi Mask 40 05/17/17 11:41 78 05/17/17 08:00 97.3 73 18 94/52 99 Venturi Mask 40 05/17/17 07:55 76 05/17/17 07:36 Venturi Mask 8.0 40 05/17/17 07:36 97 Venturi Mask 8.0 40 05/17/17 07:35 77 18 Venturi Mask 8.0 40 05/17/17 06:15 109/53 05/17/17 06:00 97.6 72 18 101/45 99 Venturi Mask 40 05/17/17 05:00 68 18 104/52 96 Venturi Mask 40 05/17/17 04:00 97.7 71 18 109/62 98 Venturi Mask 40 05/17/17 04:00 72 05/17/17 02:00 70 16 114/53 97 Venturi Mask 40 05/17/17 01:00 82 16 116/45 97 Venturi Mask 40 05/17/17 00:00 71 05/17/17 00:00 97.8 71 16 124/48 100 Venturi Mask 40 05/16/17 23:00 73 18 134/51 96 Venturi Mask 40 05/16/17 22:00 77 21 137/50 96 Venturi Mask 40 05/16/17 21:00 76 22 133/49 96 Venturi Mask 40 05/16/17 20:00 80 05/16/17 20:00 97.8 81 23 125/49 93 Venturi Mask 40 05/16/17 19:00 90 21 Venturi Mask 8.0 40 05/16/17 19:00 95 Venturi Mask 8.0 40 05/16/17 19:00 79 23 111/40 97 Venturi Mask 40 05/16/17 19:00 Venturi Mask 8.0 40 05/16/17 18:00 77 20 111/41 97 Venturi Mask 40 05/16/17 17:00 83 21 91/52 91 Venturi Mask 40 05/16/17 16:00 75 05/16/17 16:00 97.7 88 21 97/41 94 Venturi Mask 40 05/16/17 15:00 75 19 111/54 96 Venturi Mask 40 05/16/17 14:00 75 18 110/41 96 Venturi Mask 40 Intake and Output 05/16/17 05/17/17 19:00 07:00 Intake Total 1140 ml 935 ml Output Total 490 ml 330 ml Balance 650 ml 605 ml Intake Free Water 150 ml 30 ml IV Total 400 ml 455 ml Tube Feeding 540 ml 450 ml Other 50 ml Output Urine Total 490 ml 330 ml Hemodialysis UF 0 ml Laboratory Tests 05/16/17 14:30: Calcium (Send out) 10.5H, Total Protein (PEP) [Pending], Albumin (PEP) [Pending] , Globulin (PEP) [Pending], Albumin/Globulin Ratio [Pending], Ixtog-6-Sfitnwhim [Pending], Vpktz-0-Npjmusslk [Pending], Beta Globulins [Pending], Beta Gamma Globulin [Pending], PEP Abnormal Protein Bands [Pending], Protein Electrophoresis Interpret [Pending], Carcinoembryonic Antigen 2.9, PTH (Intact) Whole Molecule Comment, Parathyroid Hormone (Intact) 97H Height (Feet): 5 Height (Inches): 7.00 Weight (Pounds): 145 General Appearance: lethargic, thin EENT: normal ENT inspection Neck: normal alignment Cardiovascular: normal rate, regular rhythm Respiratory/Chest: rhonchi - bilaterally Abdomen: non tender, soft Extremities: other - no edema Neurologic: unresponsive PRUDENCE MA May 17, 2017 13:53
--- NOTE | 2017-05-17 17:40 | Pulmonology Progress Note ---
Assessment/Plan Assessment/Plan Sepsis w shock - s aureus, strep sp due to line sepsis, UTI ESRD, dialysis dementia, schizophrenia DM tophaceous gout dysphagia, PEG severe anemia, transfused UTI - VRE pneumonia, effusion BC + s aureus, strep sp; NEW + BCs 05/15/17 UC VRE new infiltrates tolerating feed ermains full code cxr Fridayu abx per ID check am labs Subjective ROS Limited/Unobtainable: Yes Allergies: Coded Allergies: PENICILLINS (Verified Allergy, Unknown, 05/12/17) Subjective confused adn agitated pulling at mask and lines no reports of cp nv or bleeding npo Objective Last 24 Hour Vital Signs Date Time Temp Pulse Resp B/P Pulse Ox O2 Delivery O2 Flow Rate FiO2 05/17/17 16:00 98.1 89 18 99/59 97 Venturi Mask 40 05/17/17 15:20 92 05/17/17 12:00 98.1 85 18 106/54 95 Venturi Mask 40 05/17/17 11:41 78 05/17/17 08:00 97.3 73 18 94/52 99 Venturi Mask 40 05/17/17 07:55 76 05/17/17 07:36 Venturi Mask 8.0 40 05/17/17 07:36 97 Venturi Mask 8.0 40 05/17/17 07:35 77 18 Venturi Mask 8.0 40 05/17/17 06:15 109/53 05/17/17 06:00 97.6 72 18 101/45 99 Venturi Mask 40 05/17/17 05:00 68 18 104/52 96 Venturi Mask 40 05/17/17 04:00 97.7 71 18 109/62 98 Venturi Mask 40 05/17/17 04:00 72 05/17/17 02:00 70 16 114/53 97 Venturi Mask 40 05/17/17 01:00 82 16 116/45 97 Venturi Mask 40 05/17/17 00:00 71 05/17/17 00:00 97.8 71 16 124/48 100 Venturi Mask 40 05/16/17 23:00 73 18 134/51 96 Venturi Mask 40 05/16/17 22:00 77 21 137/50 96 Venturi Mask 40 05/16/17 21:00 76 22 133/49 96 Venturi Mask 40 05/16/17 20:00 80 05/16/17 20:00 97.8 81 23 125/49 93 Venturi Mask 40 05/16/17 19:00 90 21 Venturi Mask 8.0 40 05/16/17 19:00 95 Venturi Mask 8.0 40 05/16/17 19:00 79 23 111/40 97 Venturi Mask 40 05/16/17 19:00 Venturi Mask 8.0 40 05/16/17 18:00 77 20 111/41 97 Venturi Mask 40 Intake and Output 05/16/17 05/17/17 19:00 07:00 Intake Total 1140 ml 935 ml Output Total 490 ml 330 ml Balance 650 ml 605 ml Intake Free Water 150 ml 30 ml IV Total 400 ml 455 ml Tube Feeding 540 ml 450 ml Other 50 ml Output Urine Total 490 ml 330 ml Hemodialysis UF 0 ml General Appearance: cachetic HEENT: atraumatic, anicteric Respiratory/Chest: rhonchi Cardiovascular: normal rate, regular rhythm, murmur systolic Abdomen: soft, non tender, no organomegaly Extremities: other Skin: other - giovanna Neurologic/Psychiatric: unresponsiveness Microbiology Date/Time Source Procedure Growth Status 05/15/17 04:10 Blood Blood Culture - Preliminary Staphylococcus Aureus Resulted 05/15/17 04:00 Blood Blood Culture - Preliminary Staphylococcus Aureus Resulted Current Medications Medications (Trade) Dose Ordered Sig/James Route PRN Reason Start Time Stop Time Status Last Admin Dose Admin Cefepime HCl 0.5 gm/Dextrose 55 ml @ 110 mls/hr Q24H IVPB 05/18/17 01:00 05/25/17 00:59 Chlorhexidine Gluconate (Eunice-Hex 2%) 1 applic QHS TOPIC 05/17/17 21:00 06/16/17 20:59 Heparin Sodium (Porcine) (Heparin 5000 units/ml) 5,000 units EVERY 12 HOURS SUBQ 05/17/17 09:00 06/16/17 08:59 05/17/17 08:32 Lansoprazole (Prevacid) 15 mg DAILY ORAL 05/17/17 09:00 06/16/17 08:59 05/17/17 08:30 Linezolid 300 ml @ 300 mls/hr Q12HR IVPB 05/17/17 09:00 05/24/17 08:59 05/17/17 08:02 Metronidazole 100 ml @ 100 mls/hr Q8HR IV 05/17/17 14:00 05/24/17 13:59 05/17/17 13:02 Midodrine (Pro-Amatine) 10 mg THREE TIMES A DAY ORAL 05/17/17 09:00 06/16/17 08:59 05/17/17 17:27 Norepinephrine Bitartrate/ Dextrose (Levophed/D5W) 250 ml @ 0 mls/hr Q24H IV 05/17/17 06:15 06/16/17 06:14 Current Medications Medications (Trade) Dose Ordered Sig/James Route PRN Reason Start Time Stop Time Status Last Admin Dose Admin Cefepime HCl 0.5 gm/Dextrose 55 ml @ 110 mls/hr Q24H IVPB 05/18/17 01:00 05/25/17 00:59 Chlorhexidine Gluconate (Eunice-Hex 2%) 1 applic QHS TOPIC 05/17/17 21:00 06/16/17 20:59 Heparin Sodium (Porcine) (Heparin 5000 units/ml) 5,000 units EVERY 12 HOURS SUBQ 05/17/17 09:00 06/16/17 08:59 05/17/17 08:32 Lansoprazole (Prevacid) 15 mg DAILY ORAL 05/17/17 09:00 06/16/17 08:59 05/17/17 08:30 Linezolid 300 ml @ 300 mls/hr Q12HR IVPB 05/17/17 09:00 05/24/17 08:59 05/17/17 08:02 Metronidazole 100 ml @ 100 mls/hr Q8HR IV 05/17/17 14:00 05/24/17 13:59 05/17/17 13:02 Midodrine (Pro-Amatine) 10 mg THREE TIMES A DAY ORAL 05/17/17 09:00 06/16/17 08:59 05/17/17 17:27 Norepinephrine Bitartrate/ Dextrose (Levophed/D5W) 250 ml @ 0 mls/hr Q24H IV 05/17/17 06:15 06/16/17 06:14 ANDREW LOWERY DO May 17, 2017 17:39
[2017-05-17] MEDS: Acetaminophen 650mg/20.3ml GT PRN (18:09)
[2017-05-17] MEDS: Dyna-Hex 2% Top Sol 8oz TOPIC SCH (21:24)
[2017-05-17] MEDS ORDERED: Tubing IV Secondary IV ONE ×2 (22:46→22:59)
[2017-05-17] MEDS ORDERED: NS 275ml ONE ×2 (22:46→22:59)
[2017-05-18] MEDS: Cefepime HCl 0.5 GM in D5W 55 ML IVPB SCH (01:00)
[2017-05-18] MEDS: Acetaminophen 650mg/20.3ml GT PRN ×3 (02:08→17:46)
[2017-05-18 04:04] VITALS: BP 118/60
[2017-05-18] MEDS: metroNIDAZOLE 500mg 100 ML IV SCH ×3 (06:08→21:48)
[2017-05-18 06:13] LABS: BASOPHILS % (AUTO) 0.8 % (0.0-2.0); LYMPHOCYTES % (AUTO) 8.5 % (20.0-45.0); MEAN CORPUSCULAR HEMOGLOBIN 33.5 PG (27.0-31.0); MEAN CORPUSCULAR HGB CONC 33.2 G/DL (32.0-36.0); MEAN CORPUSCULAR VOLUME 101 FL (80-99); MEAN PLATELET VOLUME 7.5 FL (6.5-10.1); MONOCYTES % (AUTO) 10.4 % (1.0-10.0); NEUTROPHILS % (AUTO) 79.3 % (45.0-75.0); PLATELET COUNT 332 K/UL (150-450); RED BLOOD COUNT 2.69 M/UL (4.70-6.10); RED CELL DISTRIBUTION WIDTH 19.8 % (11.6-14.8); WHITE BLOOD COUNT 11.2 K/UL (4.8-10.8)
[2017-05-18 06:45] LABS: CALCIUM 10.6 mg/dL (8.6-10.2); CARBON DIOXIDE 25 mEQ/L (20-30); CHLORIDE 98 mEQ/L (98-107); CREATININE 1.8 mg/dL (0.7-1.2); HEMOLYSIS 2; SODIUM 135 mEQ/L (135-145)
[2017-05-18 06:51] LABS: ANION GAP 12 (5-15)
[2017-05-18 07:03] LABS: POTASSIUM 2.7 mEQ/L (3.4-4.9)
[2017-05-18 07:51] VITALS: BP 110/59
[2017-05-18] MEDS ORDERED: KCl 10% 20 mEq/15ml liquid GT ONE (08:00)
[2017-05-18] MEDS: Lansoprazole 15mg cap ORAL SCH (09:43)
[2017-05-18] MEDS: Midodrine 10mg tab ORAL SCH (09:43)
[2017-05-18] MEDS: Heparin 5000 units/ml inj SUBQ SCH ×2 (09:46→20:07)
--- NOTE | 2017-05-18 11:20 | Infectious Diseases Prog Note ---
Assessment/Plan Assessment/Plan ASSESSMENT AND PLAN: 1. mrsa and vre bacteremia, likely perma-cath line infection, vre uti, sepsis, leukocytosis, fevers, ? pna, cath tip - staph aureus - perma-catheter removed, now with femoral temporary dialysis catheter - TTE without vegetation - continue zyvox, cefepime and flagyl - check labs and chest x-ray - surveillance blood cultures negative - check sputum culture 2. End-stage renal disease, on hemodialysis. 3. Percutaneous endoscopic gastrostomy, gastrostomy tube, and dysphagia. 4. Aspiration risk. 5. PermCath. 6. Diabetes. 7. Hypertension. 8. Anemia. 9. Schizophrenia. 10. Poor historian. 11. Dementia. 12. Blood sugar and blood pressure control per primary, Dr. Levine for diabetes and hypertension. 13. Gout. 14. Anemia. 15. Past medical history as noted above. 16. Allergy to penicillin. 17. Social history is negative. 18. Family history is noncontributory. 19. MAR was noted. 20. Case was discussed with RN. 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 Subjective Constitutional: Denies: fever HEENT: Reports: congestion Respiratory: Reports: shortness of breath Cardiovascular: Denies: chest pain Gastrointestinal/Abdominal: Denies: diarrhea, nausea, vomiting Genitourinary: Reports: other - + acevedo Psychiatric: Denies: depression Skin: Denies: rash Hematologic: Denies: bleeding Musculoskeletal: Denies: pain Allergies: Coded Allergies: PENICILLINS (Verified Allergy, Unknown, 05/12/17) Objective Vital Signs Last 24 Hour Vital Signs Date Time Temp Pulse Resp B/P Pulse Ox O2 Delivery O2 Flow Rate FiO2 05/18/17 08:06 73 05/18/17 07:51 99.0 71 20 110/59 99 Venturi Mask 05/18/17 07:05 99 Venturi Mask 8.0 40 05/18/17 07:05 Venturi Mask 8.0 40 05/18/17 07:04 72 18 Venturi Mask 8.0 40 05/18/17 06:09 118/60 05/18/17 04:04 98.4 79 20 118/60 96 Venturi Mask 05/18/17 04:00 72 05/18/17 02:38 98.2 05/18/17 00:00 79 05/17/17 23:54 98.2 75 19 115/58 97 Venturi Mask 05/17/17 20:02 98.7 82 21 104/63 94 Venturi Mask 05/17/17 19:15 83 05/17/17 18:45 73 18 Venturi Mask 8.0 40 05/17/17 18:45 96 Venturi Mask 8.0 40 05/17/17 18:45 Venturi Mask 8.0 40 05/17/17 16:00 98.1 89 18 99/59 97 Venturi Mask 40 05/17/17 15:20 92 05/17/17 12:00 98.1 85 18 106/54 95 Venturi Mask 40 05/17/17 11:41 78 Height (Feet): 5 Height (Inches): 7.00 Weight (Pounds): 145 General Appearance: no acute distress, other - some congestion noted HEENT: normocephalic, atraumatic, anicteric Respiratory/Chest: accessory muscle use, rhonchi - bilaterally Cardiovascular: normal rate, regular rhythm, no gallop/murmur, no JVD Abdomen: normal bowel sounds, soft, non tender, no organomegaly, non distended Genitourinary: other - + acevedo - urine cloudy Extremities: no cyanosis Skin: no rash 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, 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, responsive, other - poor historian Lymphatic: no neck adenopathy Musculoskeletal: no effusion Objective chest x-ray - 05/15 - increased right infiltrate TTE - no definitive vegetation seen Microbiology Date/Time Source Procedure Growth Status 05/17/17 04:20 Blood Blood Culture - Preliminary NO GROWTH AFTER 24 HOURS Resulted 05/17/17 04:10 Blood Blood Culture - Preliminary NO GROWTH AFTER 24 HOURS Resulted 05/16/17 23:00 Sputum Induced Gram Stain - Final Resulted 05/16/17 23:00 Sputum Induced Sputum Culture Pending Resulted 05/15/17 12:17 Arm Right Catheter Tip Culture - Preliminary Staphylococcus Aureus Resulted Laboratory Tests Test 05/17/17 17:30 05/18/17 04:30 Stool Occult Blood Negative (NEGATIVE) White Blood Count 11.2 K/UL (4.8-10.8) H Red Blood Count 2.69 M/UL (4.70-6.10) L Hemoglobin 9.0 G/DL (14.2-18.0) L Hematocrit 27.2 % (42.0-52.0) L Mean Corpuscular Volume 101 FL (80-99) H Mean Corpuscular Hemoglobin 33.5 PG (27.0-31.0) H Mean Corpuscular Hemoglobin Concent 33.2 G/DL (32.0-36.0) Red Cell Distribution Width 19.8 % (11.6-14.8) H Platelet Count 332 K/UL (150-450) Mean Platelet Volume 7.5 FL (6.5-10.1) Neutrophils (%) (Auto) 79.3 % (45.0-75.0) H Lymphocytes (%) (Auto) 8.5 % (20.0-45.0) L Monocytes (%) (Auto) 10.4 % (1.0-10.0) H Eosinophils (%) (Auto) 1.0 % (0.0-3.0) Basophils (%) (Auto) 0.8 % (0.0-2.0) Sodium Level 135 mEQ/L (135-145) Potassium Level 2.7 mEQ/L (3.4-4.9) *L Chloride Level 98 mEQ/L (98-107) Carbon Dioxide Level 25 mEQ/L (20-30) Anion Gap 12 (5-15) Blood Urea Nitrogen 49 mg/dL (7-23) H Creatinine 1.8 mg/dL (0.7-1.2) H Estimat Glomerular Filtration Rate mL/min (>60) Glucose Level 107 mg/dL (74-106) H Calcium Level 10.6 mg/dL (8.6-10.2) H Current Medications Medications (Trade) Dose Ordered Sig/James Route PRN Reason Start Time Stop Time Status Last Admin Dose Admin Acetaminophen (Tylenol) 650 mg Q4H PRN GT Mild Pain/Temp > 100.5 05/17/17 17:45 06/16/17 17:44 05/18/17 09:49 Cefepime HCl 0.5 gm/Dextrose 55 ml @ 110 mls/hr Q24H IVPB 05/18/17 01:00 05/25/17 00:59 05/18/17 01:00 Chlorhexidine Gluconate (Eunice-Hex 2%) 1 applic QHS TOPIC 05/17/17 21:00 06/16/17 20:59 05/17/17 21:24 Heparin Sodium (Porcine) (Heparin 5000 units/ml) 5,000 units EVERY 12 HOURS SUBQ 05/17/17 09:00 06/16/17 08:59 05/18/17 09:46 Lansoprazole (Prevacid) 15 mg DAILY ORAL 05/17/17 09:00 06/16/17 08:59 05/18/17 09:43 Linezolid 300 ml @ 300 mls/hr Q12HR IVPB 05/17/17 09:00 05/24/17 08:59 05/18/17 09:00 Metronidazole 100 ml @ 100 mls/hr Q8HR IV 05/17/17 14:00 05/24/17 13:59 05/18/17 06:08 Midodrine (Pro-Amatine) 10 mg THREE TIMES A DAY ORAL 05/17/17 09:00 06/16/17 08:59 05/18/17 09:43 Norepinephrine Bitartrate/ Dextrose (Levophed/D5W) 250 ml @ 0 mls/hr Q24H IV 05/17/17 06:15 06/16/17 06:14 MORGAN REEVES May 18, 2017 11:20
[2017-05-18 12:08] VITALS: BP 113/57
--- NOTE | 2017-05-18 12:34 | Nephrology Progress Note ---
Assessment/Plan Problem List: (1) Hypercalcemia (2) Malnutrition of moderate degree (3) Intravenous catheter sepsis (4) ESRD (end stage renal disease) (5) Severe sepsis (6) Respiratory failure with hypoxia (7) Hypokalemia Plan s/p remove permcath, new temporary hd cath 05/16 until sepsis clears, on HD no uf as bp low, pth 97 does not explain high Ca, remains high risk, give kcl 05/18 Subjective ROS Limited/Unobtainable: Yes Objective Objective Last 24 Hour Vital Signs Date Time Temp Pulse Resp B/P Pulse Ox O2 Delivery O2 Flow Rate FiO2 05/18/17 12:08 98.3 82 20 113/57 100 Venturi Mask 40 05/18/17 12:03 75 05/18/17 08:06 73 05/18/17 07:51 99.0 71 20 110/59 99 Venturi Mask 40 05/18/17 07:05 99 Venturi Mask 8.0 40 05/18/17 07:05 Venturi Mask 8.0 40 05/18/17 07:04 72 18 Venturi Mask 8.0 40 05/18/17 06:09 118/60 05/18/17 04:04 98.4 79 20 118/60 96 Venturi Mask 05/18/17 04:00 72 05/18/17 02:38 98.2 05/18/17 00:00 79 05/17/17 23:54 98.2 75 19 115/58 97 Venturi Mask 05/17/17 20:02 98.7 82 21 104/63 94 Venturi Mask 05/17/17 19:15 83 05/17/17 18:45 73 18 Venturi Mask 8.0 40 05/17/17 18:45 96 Venturi Mask 8.0 40 05/17/17 18:45 Venturi Mask 8.0 40 05/17/17 16:00 98.1 89 18 99/59 97 Venturi Mask 40 05/17/17 15:20 92 Intake and Output 05/17/17 05/18/17 19:00 07:00 Intake Total 1000 ml 555 ml Output Total 500 ml 700 ml Balance 500 ml -145 ml Intake Free Water 60 ml IV Total 400 ml Tube Feeding 540 ml 495 ml Other 60 ml Output Urine Total 500 ml 700 ml # Bowel Movements 1 4 Laboratory Tests 05/17/17 17:30: Stool Occult Blood Negative 05/18/17 04:30: White Blood Count 11.2H, Red Blood Count 2.69L, Hemoglobin 9.0L, Hematocrit 27.2L, Mean Corpuscular Volume 101H, Mean Corpuscular Hemoglobin 33.5H, Mean Corpuscular Hemoglobin Concent 33.2, Red Cell Distribution Width 19.8H, Platelet Count 332, Mean Platelet Volume 7.5, Neutrophils (%) (Auto) 79.3H, Lymphocytes (%) (Auto) 8.5L, Monocytes (%) (Auto) 10.4H, Eosinophils (%) (Auto) 1.0, Basophils (%) (Auto) 0.8, Sodium Level 135, Potassium Level 2.7*L, Chloride Level 98, Carbon Dioxide Level 25, Anion Gap 12, Blood Urea Nitrogen 49H, Creatinine 1.8H, Estimat Glomerular Filtration Rate , Glucose Level 107H, Calcium Level 10.6H Height (Feet): 5 Height (Inches): 7.00 Weight (Pounds): 145 General Appearance: lethargic, confused, thin EENT: normal ENT inspection Neck: normal alignment Cardiovascular: normal rate, regular rhythm Respiratory/Chest: lungs clear Abdomen: non tender Extremities: other - no carl a Neurologic: disoriented PRUDENCE MA May 18, 2017 12:34
[2017-05-18] MEDS ORDERED: KCl 10% 40mEq/30ml liquid GT ONE (13:00)
[2017-05-18] MEDS ORDERED: Lansoprazole 15mg cap GT SCH (13:09)
[2017-05-18 16:00] VITALS: BP 99/56
--- NOTE | 2017-05-18 16:22 | Pulmonology Progress Note ---
Assessment/Plan Assessment/Plan Sepsis w shock - s aureus, strep sp due to line sepsis, UTI ESRD, dialysis dementia, schizophrenia DM tophaceous gout dysphagia, PEG severe anemia, transfused UTI - VRE pneumonia, effusion BC + s aureus, strep sp; NEW + BCs 05/15/17 UC VRE new infiltrates tolerating feed remains full code nebs and suction HD friday as well titrate o2 as tolerated cxr Friday abx per ID check am labs Subjective ROS Limited/Unobtainable: Yes Allergies: Coded Allergies: PENICILLINS (Verified Allergy, Unknown, 05/12/17) Subjective confused and agitated no fever noted no reports of cp nv or bleeding npo on Tf and tolerating for HD in am, minmal UOP noted Objective Last 24 Hour Vital Signs Date Time Temp Pulse Resp B/P Pulse Ox O2 Delivery O2 Flow Rate FiO2 05/18/17 16:01 72 05/18/17 12:08 98.3 82 20 113/57 100 Venturi Mask 40 05/18/17 12:03 75 05/18/17 08:06 73 05/18/17 07:51 99.0 71 20 110/59 99 Venturi Mask 40 05/18/17 07:05 99 Venturi Mask 8.0 40 05/18/17 07:05 Venturi Mask 8.0 40 05/18/17 07:04 72 18 Venturi Mask 8.0 40 05/18/17 06:09 118/60 05/18/17 04:04 98.4 79 20 118/60 96 Venturi Mask 05/18/17 04:00 72 05/18/17 02:38 98.2 05/18/17 00:00 79 05/17/17 23:54 98.2 75 19 115/58 97 Venturi Mask 05/17/17 20:02 98.7 82 21 104/63 94 Venturi Mask 05/17/17 19:15 83 05/17/17 18:45 73 18 Venturi Mask 8.0 40 05/17/17 18:45 96 Venturi Mask 8.0 40 05/17/17 18:45 Venturi Mask 8.0 40 Intake and Output 05/17/17 05/18/17 19:00 07:00 Intake Total 1000 ml 555 ml Output Total 500 ml 700 ml Balance 500 ml -145 ml Intake Free Water 60 ml IV Total 400 ml Tube Feeding 540 ml 495 ml Other 60 ml Output Urine Total 500 ml 700 ml # Bowel Movements 1 4 General Appearance: cachetic HEENT: atraumatic Respiratory/Chest: crackles/rales Cardiovascular: normal rate, murmur systolic Abdomen: soft, non tender, no organomegaly Extremities: no cyanosis Skin: no rash Neurologic/Psychiatric: unresponsiveness Microbiology Date/Time Source Procedure Growth Status 05/17/17 04:20 Blood Blood Culture - Preliminary NO GROWTH AFTER 24 HOURS Resulted 05/17/17 04:10 Blood Blood Culture - Preliminary Resulted 05/16/17 23:00 Sputum Induced Gram Stain - Final Resulted 05/16/17 23:00 Sputum Induced Sputum Culture Pending Resulted Laboratory Tests 05/17/17 17:30: Stool Occult Blood Negative 05/18/17 04:30: White Blood Count 11.2H, Red Blood Count 2.69L, Hemoglobin 9.0L, Hematocrit 27.2L, Mean Corpuscular Volume 101H, Mean Corpuscular Hemoglobin 33.5H, Mean Corpuscular Hemoglobin Concent 33.2, Red Cell Distribution Width 19.8H, Platelet Count 332, Mean Platelet Volume 7.5, Neutrophils (%) (Auto) 79.3H, Lymphocytes (%) (Auto) 8.5L, Monocytes (%) (Auto) 10.4H, Eosinophils (%) (Auto) 1.0, Basophils (%) (Auto) 0.8, Sodium Level 135, Potassium Level 2.7*L, Chloride Level 98, Carbon Dioxide Level 25, Anion Gap 12, Blood Urea Nitrogen 49H, Creatinine 1.8H, Estimat Glomerular Filtration Rate , Glucose Level 107H, Calcium Level 10.6H Current Medications Medications (Trade) Dose Ordered Sig/James Route PRN Reason Start Time Stop Time Status Last Admin Dose Admin Acetaminophen 650 mg 650 mg Q4H PRN GT Mild Pain/Temp > 100.5 05/17/17 17:45 06/16/17 17:44 05/18/17 09:49 Cefepime HCl 0.5 gm/Dextrose 55 ml @ 110 mls/hr Q24H IVPB 05/18/17 01:00 05/25/17 00:59 05/18/17 01:00 Chlorhexidine Gluconate (Eunice-Hex 2%) 1 applic QHS TOPIC 05/17/17 21:00 06/16/17 20:59 05/17/17 21:24 Heparin Sodium (Porcine) (Heparin 5000 units/ml) 5,000 units EVERY 12 HOURS SUBQ 05/17/17 09:00 06/16/17 08:59 05/18/17 09:46 Heparin Sodium (Porcine) (Heparin Sod 1000 units/ml 10ml) 2,000 unit ONCE ONCE IV 05/19/17 13:00 05/19/17 13:01 Lansoprazole (Prevacid) 15 mg DAILY GT 05/18/17 13:09 06/16/17 08:59 Linezolid 300 ml @ 300 mls/hr Q12HR IVPB 05/17/17 09:00 05/24/17 08:59 05/18/17 09:00 Metronidazole 100 ml @ 100 mls/hr Q8HR IV 05/17/17 14:00 05/24/17 13:59 05/18/17 14:01 Midodrine (Pro-Amatine) 10 mg THREE TIMES A DAY GT 05/18/17 13:09 06/16/17 08:59 Norepinephrine Bitartrate/ Dextrose (Levophed/D5W) 250 ml @ 0 mls/hr Q24H IV 05/17/17 06:15 06/16/17 06:14 Sodium Chloride (Sodium Chloride 1000ml bag) 1,000 ml @ 500 mls/hr Q2H PRN IVLG sbp<90 during hd 05/19/17 12:34 06/18/17 12:33 ANDREW LOWERY DO May 18, 2017 16:22
[2017-05-18] MEDS: Midodrine 10mg tab GT SCH (17:07)
[2017-05-18] MEDS ORDERED: NS 275ml ONE (17:29)
[2017-05-18] MEDS ORDERED: Tubing IV Secondary IV ONE (17:29)
[2017-05-18 19:59] VITALS: BP 105/59
[2017-05-18] MEDS: Dyna-Hex 2% Top Sol 8oz TOPIC SCH (20:06)
[2017-05-19 00:13] VITALS: BP 95/50
[2017-05-19] MEDS: Cefepime HCl 0.5 GM in D5W 55 ML IVPB SCH (01:19)
[2017-05-19 04:00] VITALS: BP 104/58
[2017-05-19 05:24] LABS: BASOPHILS % (AUTO) 0.9 % (0.0-2.0); EOSINOPHILS % (AUTO) 0.7 % (0.0-3.0); MEAN CORPUSCULAR HEMOGLOBIN 33.7 PG (27.0-31.0); MEAN CORPUSCULAR HGB CONC 33.2 G/DL (32.0-36.0); MEAN CORPUSCULAR VOLUME 101 FL (80-99); MEAN PLATELET VOLUME 7.3 FL (6.5-10.1); MONOCYTES % (AUTO) 7.8 % (1.0-10.0); NEUTROPHILS % (AUTO) 82.6 % (45.0-75.0); PLATELET COUNT 321 K/UL (150-450); RED BLOOD COUNT 2.67 M/UL (4.70-6.10); RED CELL DISTRIBUTION WIDTH 20.1 % (11.6-14.8); WHITE BLOOD COUNT 10.8 K/UL (4.8-10.8)
[2017-05-19] MEDS: metroNIDAZOLE 500mg 100 ML IV SCH ×3 (05:36→22:20)
[2017-05-19 06:01] LABS: ANION GAP 18 (5-15); CARBON DIOXIDE 21 mEQ/L (20-30); CHLORIDE 100 mEQ/L (98-107); HEMOLYSIS 8; POTASSIUM 3.9 mEQ/L (3.4-4.9); SODIUM 139 mEQ/L (135-145)
--- NOTE | 2017-05-19 07:35 | Nephrology Progress Note ---
Assessment/Plan Problem List: (1) Hypercalcemia (2) Malnutrition of moderate degree (3) Intravenous catheter sepsis (4) ESRD (end stage renal disease) (5) Severe sepsis (6) Respiratory failure with hypoxia (7) Hypokalemia (8) Pneumonia Plan s/p remove permcath, new temporary hd cath 05/16 until sepsis clears, seen on HD 05/19 bp low normal, pth 97 does not explain high Ca, remains high risk, give kcl 7/2, K normalized Subjective ROS Limited/Unobtainable: Yes Objective Objective Last 24 Hour Vital Signs Date Time Temp Pulse Resp B/P Pulse Ox O2 Delivery O2 Flow Rate FiO2 05/19/17 06:48 Room Air 05/19/17 04:00 97.2 78 21 104/58 94 Room Air 05/19/17 03:43 80 05/19/17 00:13 97.2 65 20 95/50 96 Room Air 05/19/17 00:00 76 05/18/17 20:00 75 05/18/17 19:59 98.0 73 21 105/59 Room Air 05/18/17 19:03 97 Room Air 05/18/17 19:03 Room Air 05/18/17 19:02 76 18 Room Air 05/18/17 16:01 72 05/18/17 16:00 98.0 79 18 99/56 100 Non-Rebreather 10.0 05/18/17 12:08 98.3 82 20 113/57 100 Venturi Mask 40 05/18/17 12:03 75 05/18/17 08:06 73 05/18/17 07:51 99.0 71 20 110/59 99 Venturi Mask 40 Intake and Output 05/18/17 05/19/17 19:00 07:00 Intake Total 1105 ml 1000 ml Output Total 300 ml 200 ml Balance 805 ml 800 ml Intake Free Water 30 ml 60 ml IV Total 400 ml 400 ml Tube Feeding 135 ml 540 ml Other 540 ml Output Urine Total 300 ml 200 ml # Voids 2 # Bowel Movements 1 2 Laboratory Tests 05/19/17 04:00: White Blood Count 10.8, Red Blood Count 2.67L, Hemoglobin 9.0L, Hematocrit 27.1L , Mean Corpuscular Volume 101H, Mean Corpuscular Hemoglobin 33.7H, Mean Corpuscular Hemoglobin Concent 33.2, Red Cell Distribution Width 20.1H, Platelet Count 321, Mean Platelet Volume 7.3, Neutrophils (%) (Auto) 82.6H, Lymphocytes (%) (Auto) 8.0L, Monocytes (%) (Auto) 7.8, Eosinophils (%) (Auto) 0.7, Basophils (%) (Auto) 0.9, Sodium Level 139, Potassium Level 3.9, Chloride Level 100, Carbon Dioxide Level 21, Anion Gap 18H, Blood Urea Nitrogen 61H, Creatinine 2.0H, Estimat Glomerular Filtration Rate , Glucose Level 101, Calcium Level 11.0H Height (Feet): 5 Height (Inches): 7.00 Weight (Pounds): 145 General Appearance: no apparent distress, confused EENT: normal ENT inspection Neck: normal alignment Cardiovascular: normal rate, regular rhythm Respiratory/Chest: lungs clear Abdomen: non tender, soft Extremities: other - no edema Neurologic: motor weakness PRUDENCE AM May 19, 2017 07:35
[2017-05-19 08:00] VITALS: BP 115/83
[2017-05-19] MEDS: Acetaminophen 650mg/20.3ml GT PRN (08:34)
[2017-05-19] MEDS: Midodrine 10mg tab GT SCH ×4 (08:35→17:59)
[2017-05-19] MEDS: Heparin 5000 units/ml inj SUBQ SCH ×2 (08:38→21:37)
[2017-05-19 09:17] LABS: A/G RATIO 0.8 (0.7-1.7); ABNORMAL PROTEIN BAND 1 Not Observed g/dL (Not Observed); ALBUMIN 2.3 g/dL (2.9-4.4); ALPHA-1 GLOBULIN 0.4 g/dL (0.0-0.4); ALPHA-2 GLOBULIN 0.6 g/dL (0.4-1.0); BETA GLOBULIN 0.6 g/dL (0.7-1.3); GAMMA GLOBULIN 1.3 g/dL (0.4-1.8); GLOBULIN, TOTAL 2.8 g/dL (2.2-3.9); TOTAL PROTEIN 5.1 g/dL (6.0-8.5)
--- NOTE | 2017-05-19 09:31 | Cardiology Report ---
APPROVED REPORT EXAM: Two-dimensional and M-mode echocardiogram with Doppler and color Doppler. INDICATION Vegetation. M-Mode DIMENSIONS Left Atrium (MM)3.5 (1.6-4.0cm) Aortic Root2.6 (2.0-3.7cm) Aortic Cusp Exc.1.2 (1.5-2.0cm) Very limited study due to poor parasternal acoustical windows. Patient on ventilator M-mode measurements of left ventricle not obtainable due to cardiac position (angle) Normal left ventricular chamber size, systolic function and wall motion. Left ventricular ejection fraction grossly to extent visualized. Study quality precludes accurate assessment of regional wall motion. Moderate left ventricular hypertrophy noted by 2D. Small pericardial effusion. Anterior Echo-free space, may be due to pericardial fat or effusion. All other cardiac chamber sizes appear to be within normal limits. Focal aortic valve sclerosis with adequate cusp excursion. Thickened mitral valve leaflets with normal excursion. Mitral annulus and aortic root calcification. Pulmonic valve not well visualized. Normal tricuspid valve structure. No discrete vegetations seen, however SBE may not be excluded by transthoracic 2-D echo. Consider DEJAH if clinically indicated
--- NOTE | 2017-05-19 09:36 | Diagnostic Imaging Report ---
Indication: Dyspnea Comparison: 05/15/17 A single view chest radiograph was obtained. Findings: There are patchy infiltrates at both lung bases. There is blunting of the left costophrenic angle. Right permacath was removed. No pneumothorax seen. Impression: Infiltrates versus atelectasis at the lung bases. Status post permacath removal. Small left pleural effusion
[2017-05-19 12:00] VITALS: BP 100/59
--- NOTE | 2017-05-19 12:38 | Pulmonology Progress Note ---
Assessment/Plan Assessment/Plan Sepsis w shock - s aureus, VRE due to line sepsis, UTI, possible SBE ESRD, dialysis dementia, schizophrenia DM tophaceous gout dysphagia, PEG severe anemia, transfused UTI - VRE pneumonia, effusion BC + s aureus, strep sp; NEW + BCs 05/17/17 UC VRE new infiltrates tolerating feed full code per dtr disc w ID DEJAH Subjective ROS Limited/Unobtainable: Yes Constitutional: Reports: no symptoms Respiratory: Denies: shortness of breath Allergies: Coded Allergies: PENICILLINS (Verified Allergy, Unknown, 05/12/17) Objective Last 24 Hour Vital Signs Date Time Temp Pulse Resp B/P Pulse Ox O2 Delivery O2 Flow Rate FiO2 05/19/17 11:59 72 05/19/17 08:00 97.7 82 19 115/83 96 Room Air 05/19/17 07:47 64 05/19/17 07:22 90 18 Room Air 05/19/17 07:22 91 Room Air 05/19/17 07:22 Room Air 05/19/17 06:48 Room Air 05/19/17 06:15 92/68 05/19/17 04:00 97.2 78 21 104/58 94 Room Air 05/19/17 03:43 80 05/19/17 00:13 97.2 65 20 95/50 96 Room Air 05/19/17 00:00 76 05/18/17 20:00 75 05/18/17 19:59 98.0 73 21 105/59 Room Air 05/18/17 19:03 97 Room Air 05/18/17 19:03 Room Air 05/18/17 19:02 76 18 Room Air 05/18/17 16:01 72 05/18/17 16:00 98.0 79 18 99/56 100 Non-Rebreather 10.0 Intake and Output 05/18/17 05/19/17 19:00 07:00 Intake Total 1105 ml 1100 ml Output Total 300 ml 200 ml Balance 805 ml 900 ml Intake Free Water 30 ml 60 ml IV Total 400 ml 500 ml Tube Feeding 135 ml 540 ml Other 540 ml Output Urine Total 300 ml 200 ml # Voids 2 # Bowel Movements 1 2 Objective confused but responsive General Appearance: no acute distress Respiratory/Chest: lungs clear Cardiovascular: normal rate Abdomen: soft, non tender Microbiology Date/Time Source Procedure Growth Status 05/17/17 04:20 Blood Blood Culture - Preliminary Resulted 05/17/17 04:10 Blood Blood Culture - Preliminary Gram Positive Cocci Resulted 05/16/17 23:00 Sputum Induced Gram Stain - Final Resulted 05/16/17 23:00 Sputum Culture - Preliminary Gram Negative Bacillus 1 Gram Negative Bacillus 2 Resulted Laboratory Tests 05/19/17 04:00: White Blood Count 10.8, Red Blood Count 2.67L, Hemoglobin 9.0L, Hematocrit 27.1L , Mean Corpuscular Volume 101H, Mean Corpuscular Hemoglobin 33.7H, Mean Corpuscular Hemoglobin Concent 33.2, Red Cell Distribution Width 20.1H, Platelet Count 321, Mean Platelet Volume 7.3, Neutrophils (%) (Auto) 82.6H, Lymphocytes (%) (Auto) 8.0L, Monocytes (%) (Auto) 7.8, Eosinophils (%) (Auto) 0.7, Basophils (%) (Auto) 0.9, Sodium Level 139, Potassium Level 3.9, Chloride Level 100, Carbon Dioxide Level 21, Anion Gap 18H, Blood Urea Nitrogen 61H, Creatinine 2.0H, Estimat Glomerular Filtration Rate , Glucose Level 101, Calcium Level 11.0H, Hepatitis A IgM Antibody [Pending], Hepatitis B Surface Antigen [Pending], Hepatitis B Core IgM Antibody [Pending], Hepatitis C Antibody [Pending] Current Medications Medications (Trade) Dose Ordered Sig/James Route PRN Reason Start Time Stop Time Status Last Admin Dose Admin Acetaminophen 650 mg 650 mg Q4H PRN GT Mild Pain/Temp > 100.5 05/17/17 17:45 06/16/17 17:44 05/19/17 08:34 Cefepime HCl 0.5 gm/Dextrose 55 ml @ 110 mls/hr Q24H IVPB 05/18/17 01:00 05/25/17 00:59 05/19/17 01:19 Chlorhexidine Gluconate (Eunice-Hex 2%) 1 applic QHS TOPIC 05/17/17 21:00 06/16/17 20:59 05/18/17 20:06 Heparin Sodium (Porcine) (Heparin 5000 units/ml) 5,000 units EVERY 12 HOURS SUBQ 05/17/17 09:00 06/16/17 08:59 05/19/17 08:38 Heparin Sodium (Porcine) (Heparin Sod 1000 units/ml 10ml) 2,000 unit ONCE ONCE IV 05/19/17 13:00 05/19/17 13:01 Lansoprazole (Prevacid) 15 mg DAILY GT 05/18/17 13:09 06/16/17 08:59 Linezolid 300 ml @ 300 mls/hr Q12HR IVPB 05/17/17 09:00 05/24/17 08:59 05/19/17 08:34 Metronidazole (Flagyl) 100 ml @ 100 mls/hr Q8HR IV 05/17/17 14:00 05/24/17 13:59 05/19/17 05:36 Midodrine (Pro-Amatine) 10 mg THREE TIMES A DAY GT 05/18/17 13:09 06/16/17 08:59 05/19/17 08:35 Sodium Chloride (Sodium Chloride 1000ml bag) 1,000 ml @ 500 mls/hr Q2H PRN IVLG sbp<90 during hd 05/19/17 12:34 06/18/17 12:33 GONZALO LONGORIA May 19, 2017 12:37
[2017-05-19] MEDS ORDERED: Heparin Sod 1000 units/ml 10ml IV ONE (13:00)
[2017-05-19 16:52] VITALS: BP 105/78
[2017-05-19] MEDS ORDERED: Acetaminophen 650mg/20.3ml GT PRN (18:00)
[2017-05-19 20:00] VITALS: BP 100/63
[2017-05-19] MEDS: Dyna-Hex 2% Top Sol 8oz TOPIC SCH (21:33)
[2017-05-20] VITALS (7 sets, daily range): BP systolic 96–123; BP diastolic 57–78
[2017-05-20] MEDS ORDERED: Cefepime HCl 0.5 GM in D5W 55 ML IVPB SCH (01:00)
[2017-05-20] MEDS: metroNIDAZOLE 500mg 100 ML IV SCH ×2 (05:38→14:00)
[2017-05-20 06:35] LABS: BASOPHILS % (AUTO) 1.1 % (0.0-2.0); EOSINOPHILS % (AUTO) 0.7 % (0.0-3.0); LYMPHOCYTES % (AUTO) 9.8 % (20.0-45.0); MEAN CORPUSCULAR HEMOGLOBIN 34.4 PG (27.0-31.0); MEAN CORPUSCULAR HGB CONC 33.7 G/DL (32.0-36.0); MEAN CORPUSCULAR VOLUME 102 FL (80-99); MEAN PLATELET VOLUME 7.5 FL (6.5-10.1); MONOCYTES % (AUTO) 7.4 % (1.0-10.0); PLATELET COUNT 289 K/UL (150-450); RED BLOOD COUNT 2.69 M/UL (4.70-6.10); RED CELL DISTRIBUTION WIDTH 20.6 % (11.6-14.8); WHITE BLOOD COUNT 8.9 K/UL (4.8-10.8)
[2017-05-20 06:54] LABS: ALANINE AMINOTRANSFERASE 20 U/L (3-41); ALBUMIN/GLOBULIN RATIO 0.7 (1.0-2.7); ANION GAP 11 (5-15); ASPARTATE AMINO TRANSFERASE 27 U/L (5-40); CALCIUM 10.2 mg/dL (8.6-10.2); CARBON DIOXIDE 28 mEQ/L (20-30); CHLORIDE 98 mEQ/L (98-107); CREATININE 1.7 mg/dL (0.7-1.2); HEMOLYSIS 11; POTASSIUM 3.2 mEQ/L (3.4-4.9); SODIUM 137 mEQ/L (135-145); TOTAL PROTEIN 5.7 g/dL (6.6-8.7)
[2017-05-20] MEDS: Lansoprazole 15mg cap GT SCH (09:02)
[2017-05-20] MEDS: Midodrine 10mg tab GT SCH ×3 (09:02→17:06)
[2017-05-20] MEDS: Heparin 5000 units/ml inj SUBQ SCH ×2 (09:07→20:42)
--- NOTE | 2017-05-20 10:17 | Nephrology Progress Note ---
Assessment/Plan Problem List: (1) Hypercalcemia (2) Malnutrition of moderate degree (3) Intravenous catheter sepsis (4) ESRD (end stage renal disease) (5) Severe sepsis (6) Respiratory failure with hypoxia (7) Hypokalemia (8) Pneumonia Plan s/p remove permcath, new temporary hd cath 05/16 until sepsis clears, seen on HD 05/19 bp low normal, pth 97 does not explain high Ca, remains high risk, give kcl 7/2, K to replace, spep neg for paraprotein, bun and creat lower Subjective ROS Limited/Unobtainable: Yes Objective Objective Last 24 Hour Vital Signs Date Time Temp Pulse Resp B/P Pulse Ox O2 Delivery O2 Flow Rate FiO2 05/20/17 07:42 97.7 85 20 123/68 100 Room Air 05/20/17 04:00 97.6 79 22 109/78 95 Room Air 05/20/17 00:00 97.9 82 20 112/73 96 Room Air 05/19/17 20:00 98.1 81 18 100/63 97 Room Air 05/19/17 19:20 81 18 Room Air 05/19/17 19:20 94 Room Air 05/19/17 19:20 Room Air 05/19/17 16:52 98.0 83 20 105/78 98 Room Air 05/19/17 16:00 78 05/19/17 12:00 98.2 85 18 100/59 98 Room Air 05/19/17 11:59 72 Intake and Output 05/19/17 05/20/17 19:00 07:00 Intake Total 995 ml 675 ml Output Total 950 ml 825 ml Balance 45 ml -150 ml Intake Free Water 60 ml 180 ml IV Total 400 ml Tube Feeding 135 ml 495 ml Other 400 ml Output Urine Total 950 ml 825 ml # Voids 2 # Bowel Movements 2 1 Laboratory Tests 05/20/17 05:10: White Blood Count 8.9, Red Blood Count 2.69L, Hemoglobin 9.3L, Hematocrit 27.5L , Mean Corpuscular Volume 102H, Mean Corpuscular Hemoglobin 34.4H, Mean Corpuscular Hemoglobin Concent 33.7, Red Cell Distribution Width 20.6H, Platelet Count 289, Mean Platelet Volume 7.5, Neutrophils (%) (Auto) 81.0H, Lymphocytes (%) (Auto) 9.8L, Monocytes (%) (Auto) 7.4, Eosinophils (%) (Auto) 0.7, Basophils (%) (Auto) 1.1, Sodium Level 137, Potassium Level 3.2L, Chloride Level 98, Carbon Dioxide Level 28, Anion Gap 11, Blood Urea Nitrogen 42H, Creatinine 1.7H, Estimat Glomerular Filtration Rate , Glucose Level 99, Calcium Level 10.2, Total Bilirubin 0.2, Aspartate Amino Transf (AST/SGOT) 27, Alanine Aminotransferase (ALT/SGPT) 20, Alkaline Phosphatase 221H, Total Protein 5.7L, Albumin 2.5L, Globulin 3.2, Albumin/Globulin Ratio 0.7L Height (Feet): 5 Height (Inches): 7.00 Weight (Pounds): 145 General Appearance: no apparent distress, lethargic, confused EENT: normal ENT inspection Neck: normal alignment Cardiovascular: normal rate, regular rhythm Respiratory/Chest: lungs clear Abdomen: non tender, soft Neurologic: motor weakness, disoriented PRUDENCE MA May 20, 2017 10:17
[2017-05-20] MEDS ORDERED: KCl 10% 40mEq/30ml liquid GT ONE (11:00)
--- NOTE | 2017-05-20 13:10 | Pulmonology Progress Note ---
Assessment/Plan Assessment/Plan Sepsis w shock - s aureus, VRE due to line sepsis, UTI, possible SBE ESRD, dialysis dementia, schizophrenia DM tophaceous gout dysphagia, PEG severe anemia, transfused UTI - VRE pneumonia, effusion BC + s aureus, VRE UC VRE tolerating feed full code per dtr repeat BCs DEJAH Subjective ROS Limited/Unobtainable: Yes Respiratory: Denies: productive cough, shortness of breath Gastrointestinal/Abdominal: Denies: vomiting Allergies: Coded Allergies: PENICILLINS (Verified Allergy, Unknown, 05/12/17) Objective Last 24 Hour Vital Signs Date Time Temp Pulse Resp B/P Pulse Ox O2 Delivery O2 Flow Rate FiO2 05/20/17 11:53 97.9 80 20 109/62 96 Room Air 05/20/17 07:42 97.7 85 20 123/68 100 Room Air 05/20/17 04:00 97.6 79 22 109/78 95 Room Air 05/20/17 00:00 97.9 82 20 112/73 96 Room Air 05/19/17 20:00 98.1 81 18 100/63 97 Room Air 05/19/17 19:20 81 18 Room Air 05/19/17 19:20 94 Room Air 05/19/17 19:20 Room Air 05/19/17 16:52 98.0 83 20 105/78 98 Room Air 05/19/17 16:00 78 Intake and Output 05/19/17 05/20/17 19:00 07:00 Intake Total 995 ml 720 ml Output Total 950 ml 825 ml Balance 45 ml -105 ml Intake Free Water 60 ml 180 ml IV Total 400 ml Tube Feeding 135 ml 540 ml Other 400 ml Output Urine Total 950 ml 825 ml # Voids 2 # Bowel Movements 2 1 Objective confused but responsive HEENT: atraumatic Respiratory/Chest: lungs clear Cardiovascular: normal rate Laboratory Tests 05/20/17 05:10: White Blood Count 8.9, Red Blood Count 2.69L, Hemoglobin 9.3L, Hematocrit 27.5L , Mean Corpuscular Volume 102H, Mean Corpuscular Hemoglobin 34.4H, Mean Corpuscular Hemoglobin Concent 33.7, Red Cell Distribution Width 20.6H, Platelet Count 289, Mean Platelet Volume 7.5, Neutrophils (%) (Auto) 81.0H, Lymphocytes (%) (Auto) 9.8L, Monocytes (%) (Auto) 7.4, Eosinophils (%) (Auto) 0.7, Basophils (%) (Auto) 1.1, Sodium Level 137, Potassium Level 3.2L, Chloride Level 98, Carbon Dioxide Level 28, Anion Gap 11, Blood Urea Nitrogen 42H, Creatinine 1.7H, Estimat Glomerular Filtration Rate , Glucose Level 99, Calcium Level 10.2, Total Bilirubin 0.2, Aspartate Amino Transf (AST/SGOT) 27, Alanine Aminotransferase (ALT/SGPT) 20, Alkaline Phosphatase 221H, Total Protein 5.7L, Albumin 2.5L, Globulin 3.2, Albumin/Globulin Ratio 0.7L Current Medications Medications (Trade) Dose Ordered Sig/James Route PRN Reason Start Time Stop Time Status Last Admin Dose Admin Acetaminophen (Tylenol) 650 mg Q4H PRN GT Mild Pain/Temp > 100.5 05/19/17 18:00 06/18/17 17:59 Cefepime HCl 0.5 gm/Dextrose 55 ml @ 110 mls/hr Q24H IVPB 05/20/17 01:00 05/27/17 00:59 05/20/17 00:33 Chlorhexidine Gluconate (Eunice-Hex 2%) 1 applic QHS TOPIC 05/19/17 21:00 06/18/17 20:59 05/19/17 21:33 Heparin Sodium (Porcine) (Heparin 5000 units/ml) 5,000 units EVERY 12 HOURS SUBQ 05/19/17 21:00 06/18/17 20:59 05/20/17 09:07 Heparin Sodium (Porcine) (Heparin Sod 1000 units/ml 10ml) 2,000 unit ONCE PRN IV FOR HD 05/21/17 10:30 05/21/17 23:59 Lansoprazole (Prevacid) 15 mg DAILY GT 05/20/17 09:00 06/19/17 08:59 05/20/17 09:02 Linezolid 300 ml @ 300 mls/hr Q12HR IVPB 05/19/17 21:00 05/26/17 20:59 05/20/17 08:27 Metronidazole 100 ml @ 100 mls/hr Q8HR IV 05/19/17 22:00 05/26/17 21:59 05/20/17 05:38 Midodrine (Pro-Amatine) 10 mg THREE TIMES A DAY GT 05/19/17 18:00 06/18/17 17:59 05/20/17 12:27 Quetiapine Fumarate 25 mg 25 mg Q12HR ORAL 05/19/17 21:00 06/18/17 20:59 05/20/17 09:02 Sodium Chloride (Sodium Chloride 1000ml bag) 1,000 ml @ 500 mls/hr Q2H PRN IVLG sbp<90 during hd 05/19/17 17:45 05/21/17 23:59 Sodium Chloride (Sodium Chloride 1000ml bag) 1,000 ml @ 500 mls/hr Q2H PRN IVLG sbp<90 during hd 05/21/17 06:00 05/21/17 23:59 GONZALO LONGORIA May 20, 2017 13:10
--- NOTE | 2017-05-20 16:47 | Infectious Diseases Prog Note ---
Assessment/Plan Assessment/Plan ASSESSMENT AND PLAN: 1. mrsa and vre bacteremia, likely perma-cath line infection, vre uti, sepsis, leukocytosis, fevers, e.coli pna, cath tip - staph aureus - perma-catheter removed, now with femoral temporary dialysis catheter - TTE without vegetation - zyvox and meropenem - check labs and chest x-ray - surveillance blood cultures still + - DEJAH ordered to r/o endocarditis - d/w Dr. Levine 2. End-stage renal disease, on hemodialysis. 3. Percutaneous endoscopic gastrostomy, gastrostomy tube, and dysphagia. 4. Aspiration risk. 5. PermCath. 6. Diabetes. 7. Hypertension. 8. Anemia. 9. Schizophrenia. 10. Poor historian. 11. Dementia. 12. Blood sugar and blood pressure control per primary, Dr. Levine for diabetes and hypertension. 13. Gout. 14. Anemia. 15. Past medical history as noted above. 16. Allergy to penicillin. 17. Social history is negative. 18. Family history is noncontributory. 19. MAR was noted. 20. Case was discussed with RN. 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 Subjective Constitutional: Reports: fatigue, other - generalized weakness, Denies: fever HEENT: Denies: congestion Respiratory: Denies: shortness of breath Cardiovascular: Denies: chest pain Gastrointestinal/Abdominal: Denies: diarrhea, nausea, vomiting Genitourinary: Reports: other - + acevedo Neurologic: Denies: headache Psychiatric: Denies: depression Skin: Denies: rash Hematologic: Denies: bleeding Musculoskeletal: Denies: pain Allergies: Coded Allergies: PENICILLINS (Verified Allergy, Unknown, 05/12/17) Objective Vital Signs Last 24 Hour Vital Signs Date Time Temp Pulse Resp B/P Pulse Ox O2 Delivery O2 Flow Rate FiO2 05/20/17 16:00 96.8 77 18 97/76 96 Room Air 05/20/17 11:53 97.9 80 20 109/62 96 Room Air 05/20/17 07:42 97.7 85 20 123/68 100 Room Air 05/20/17 04:00 97.6 79 22 109/78 95 Room Air 05/20/17 00:00 97.9 82 20 112/73 96 Room Air 05/19/17 20:00 98.1 81 18 100/63 97 Room Air 05/19/17 19:20 81 18 Room Air 05/19/17 19:20 94 Room Air 05/19/17 19:20 Room Air 05/19/17 16:52 98.0 83 20 105/78 98 Room Air Height (Feet): 5 Height (Inches): 7.00 Weight (Pounds): 145 General Appearance: no acute distress HEENT: normocephalic, atraumatic, anicteric, mucous membranes moist, PERRL, EOMI, pharynx normal, supple, no JVD Respiratory/Chest: lungs clear, normal breath sounds, no respiratory distress, respiratory distress Cardiovascular: normal peripheral pulses, normal rate, regular rhythm, no gallop/murmur, no JVD Abdomen: normal bowel sounds, soft, non tender, no organomegaly, non distended Genitourinary: other - + acevedo Extremities: no cyanosis Skin: no rash Neurologic/Psychiatric: zinc skimmer II-XII grossly normal, alert, responsive Lymphatic: no neck adenopathy Musculoskeletal: no effusion Objective chest x-ray - 05/15 - increased right infiltrate TTE - no definitive vegetation seen Chest xr-ay - 05/18 - atx vs infiltrate Microbiology Date/Time Source Procedure Growth Status 05/17/17 04:20 Blood Blood Culture - Final Staphylococcus Aureus - Mrsa Complete 05/16/17 23:00 Sputum Induced Gram Stain - Final Resulted 05/16/17 23:00 Sputum Culture - Preliminary Escherichia Coli Resulted 05/13/17 01:25 Urine,Clean Catch Urine Culture - Final Enterococcus Faecalis - Vre Complete 05/15/17 12:17 Arm Right Catheter Tip Culture - Final Staphylococcus Aureus - Mrsa Complete Laboratory Tests Test 05/20/17 05:10 White Blood Count 8.9 K/UL (4.8-10.8) Red Blood Count 2.69 M/UL (4.70-6.10) L Hemoglobin 9.3 G/DL (14.2-18.0) L Hematocrit 27.5 % (42.0-52.0) L Mean Corpuscular Volume 102 FL (80-99) H Mean Corpuscular Hemoglobin 34.4 PG (27.0-31.0) H Mean Corpuscular Hemoglobin Concent 33.7 G/DL (32.0-36.0) Red Cell Distribution Width 20.6 % (11.6-14.8) H Platelet Count 289 K/UL (150-450) Mean Platelet Volume 7.5 FL (6.5-10.1) Neutrophils (%) (Auto) 81.0 % (45.0-75.0) H Lymphocytes (%) (Auto) 9.8 % (20.0-45.0) L Monocytes (%) (Auto) 7.4 % (1.0-10.0) Eosinophils (%) (Auto) 0.7 % (0.0-3.0) Basophils (%) (Auto) 1.1 % (0.0-2.0) Sodium Level 137 mEQ/L (135-145) Potassium Level 3.2 mEQ/L (3.4-4.9) L Chloride Level 98 mEQ/L (98-107) Carbon Dioxide Level 28 mEQ/L (20-30) Anion Gap 11 (5-15) Blood Urea Nitrogen 42 mg/dL (7-23) H Creatinine 1.7 mg/dL (0.7-1.2) H Estimat Glomerular Filtration Rate mL/min (>60) Glucose Level 99 mg/dL (74-106) Calcium Level 10.2 mg/dL (8.6-10.2) Total Bilirubin 0.2 mg/dL (0.0-1.2) Aspartate Amino Transf (AST/SGOT) 27 U/L (5-40) Alanine Aminotransferase (ALT/SGPT) 20 U/L (3-41) Alkaline Phosphatase 221 U/L (40-129) H Total Protein 5.7 g/dL (6.6-8.7) L Albumin 2.5 g/dL (3.5-5.2) L Globulin 3.2 g/dL Albumin/Globulin Ratio 0.7 (1.0-2.7) L Current Medications Medications (Trade) Dose Ordered Sig/James Route PRN Reason Start Time Stop Time Status Last Admin Dose Admin Acetaminophen (Tylenol) 650 mg Q4H PRN GT Mild Pain/Temp > 100.5 05/19/17 18:00 06/18/17 17:59 Cefepime HCl 0.5 gm/Dextrose 55 ml @ 110 mls/hr Q24H IVPB 05/20/17 01:00 05/27/17 00:59 05/20/17 00:33 Chlorhexidine Gluconate (Eunice-Hex 2%) 1 applic QHS TOPIC 05/19/17 21:00 06/18/17 20:59 05/19/17 21:33 Heparin Sodium (Porcine) (Heparin 5000 units/ml) 5,000 units EVERY 12 HOURS SUBQ 05/19/17 21:00 06/18/17 20:59 05/20/17 09:07 Heparin Sodium (Porcine) (Heparin Sod 1000 units/ml 10ml) 2,000 unit ONCE PRN IV FOR HD 05/21/17 10:30 05/21/17 23:59 Lansoprazole (Prevacid) 15 mg DAILY GT 05/20/17 09:00 06/19/17 08:59 05/20/17 09:02 Linezolid 300 ml @ 300 mls/hr Q12HR IVPB 05/19/17 21:00 05/26/17 20:59 05/20/17 08:27 Metronidazole 100 ml @ 100 mls/hr Q8HR IV 05/19/17 22:00 05/26/17 21:59 05/20/17 14:00 Midodrine (Pro-Amatine) 10 mg THREE TIMES A DAY GT 05/19/17 18:00 06/18/17 17:59 05/20/17 12:27 Quetiapine Fumarate 25 mg 25 mg Q12HR ORAL 05/19/17 21:00 06/18/17 20:59 05/20/17 09:02 Sodium Chloride (Sodium Chloride 1000ml bag) 1,000 ml @ 500 mls/hr Q2H PRN IVLG sbp<90 during hd 05/19/17 17:45 05/21/17 23:59 Sodium Chloride (Sodium Chloride 1000ml bag) 1,000 ml @ 500 mls/hr Q2H PRN IVLG sbp<90 during hd 05/21/17 06:00 05/21/17 23:59 MORGAN REEVES May 20, 2017 16:47
[2017-05-20] MEDS ORDERED: Meropenem 500 MG in NS 55 ML IVPB ONE (18:00)
[2017-05-20] MEDS: Dyna-Hex 2% Top Sol 8oz TOPIC SCH (20:43)
[2017-05-21 03:50] VITALS: BP 155/74
[2017-05-21 07:30] LABS: MEAN CORPUSCULAR HEMOGLOBIN 32.7 PG (27.0-31.0); MEAN CORPUSCULAR HGB CONC 31.7 G/DL (32.0-36.0); MEAN CORPUSCULAR VOLUME 103 FL (80-99); MEAN PLATELET VOLUME 6.7 FL (6.5-10.1); PLATELET COUNT 263 K/UL (150-450); RED BLOOD COUNT 2.73 M/UL (4.70-6.10); RED CELL DISTRIBUTION WIDTH 20.7 % (11.6-14.8); WHITE BLOOD COUNT 8.3 K/UL (4.8-10.8)
[2017-05-21 08:02] LABS: ANION GAP 13 (5-15); CALCIUM 10.8 mg/dL (8.6-10.2); CARBON DIOXIDE 28 mEQ/L (20-30); CHLORIDE 99 mEQ/L (98-107); CREATININE 1.9 mg/dL (0.7-1.2); HEMOLYSIS 33; POTASSIUM 4.2 mEQ/L (3.4-4.9); SODIUM 140 mEQ/L (135-145)
[2017-05-21 08:30] VITALS: BP 130/74
[2017-05-21] MEDS: Midodrine 10mg tab GT SCH ×3 (08:32→17:03)
[2017-05-21] MEDS: Lansoprazole 15mg cap GT SCH (08:32)
[2017-05-21] MEDS: Heparin 5000 units/ml inj SUBQ SCH ×2 (08:34→21:27)
--- NOTE | 2017-05-21 09:24 | Pulmonology Progress Note ---
Assessment/Plan Assessment/Plan Sepsis w shock - s aureus, VRE due to line sepsis, UTI, possible SBE ESRD, dialysis dementia, schizophrenia DM tophaceous gout dysphagia, PEG severe anemia, transfused UTI - VRE pneumonia, effusion BC + s aureus, VRE UC VRE tolerating feeds full code per dtr repeat BCs pending DEJAH tomorrow HD today Subjective ROS Limited/Unobtainable: Yes Constitutional: Denies: fever Allergies: Coded Allergies: PENICILLINS (Verified Allergy, Unknown, 05/12/17) Objective Last 24 Hour Vital Signs Date Time Temp Pulse Resp B/P Pulse Ox O2 Delivery O2 Flow Rate FiO2 05/21/17 08:30 97.9 91 20 130/74 96 Room Air 05/21/17 07:59 Room Air 05/21/17 07:58 95 Room Air 05/21/17 03:50 97.2 117 21 155/74 95 Room Air 05/20/17 23:50 97.8 79 23 96/57 93 Room Air 05/20/17 20:00 97.5 80 21 108/60 99 Room Air 05/20/17 16:00 96.8 77 18 97/76 96 Room Air 05/20/17 11:53 97.9 80 20 109/62 96 Room Air Intake and Output 05/20/17 05/21/17 19:00 07:00 Intake Total 1110 ml 900 ml Output Total 350 ml 150 ml Balance 760 ml 750 ml Intake Free Water 60 ml 60 ml IV Total 510 ml 300 ml Tube Feeding 540 ml 540 ml Output Urine Total 350 ml 150 ml # Voids 1 # Bowel Movements 1 Objective confused but responsive Respiratory/Chest: lungs clear Cardiovascular: normal rate Laboratory Tests 05/21/17 04:00: White Blood Count 8.3, Red Blood Count 2.73L, Hemoglobin 8.9L, Hematocrit 28.1L , Mean Corpuscular Volume 103H, Mean Corpuscular Hemoglobin 32.7H, Mean Corpuscular Hemoglobin Concent 31.7L, Red Cell Distribution Width 20.7H, Platelet Count 263, Mean Platelet Volume 6.7, Neutrophils (%) (Auto) , Lymphocytes (%) (Auto) , Monocytes (%) (Auto) , Eosinophils (%) (Auto) , Basophils (%) (Auto) , Neutrophils % (Manual) [Pending], Lymphocytes % (Manual) [Pending], Platelet Estimate [Pending], Platelet Morphology [Pending] 05/21/17 05:20: Sodium Level 140, Potassium Level 4.2, Chloride Level 99, Carbon Dioxide Level 28, Anion Gap 13, Blood Urea Nitrogen 54H, Creatinine 1.9H, Estimat Glomerular Filtration Rate , Glucose Level 96, Calcium Level 10.8H Current Medications Medications (Trade) Dose Ordered Sig/James Route PRN Reason Start Time Stop Time Status Last Admin Dose Admin Acetaminophen (Tylenol) 650 mg Q4H PRN GT Mild Pain/Temp > 100.5 05/19/17 18:00 06/18/17 17:59 Chlorhexidine Gluconate (Eunice-Hex 2%) 1 applic QHS TOPIC 05/19/17 21:00 06/18/17 20:59 05/19/17 21:33 Heparin Sodium (Porcine) (Heparin 5000 units/ml) 5,000 units EVERY 12 HOURS SUBQ 05/19/17 21:00 06/18/17 20:59 05/21/17 08:34 Heparin Sodium (Porcine) 2000 unit 2,000 unit ONCE PRN IV FOR HD 05/21/17 10:30 05/21/17 23:59 Lansoprazole (Prevacid) 15 mg DAILY GT 05/20/17 09:00 06/19/17 08:59 05/21/17 08:32 Linezolid 300 ml @ 300 mls/hr Q12HR IVPB 05/19/17 21:00 05/26/17 20:59 05/21/17 08:33 Meropenem/Sodium Chloride (Merrem/Sodium Chloride) 55 ml @ 110 mls/hr Q24H IVPB 05/21/17 21:00 05/26/17 20:59 Midodrine (Pro-Amatine) 10 mg THREE TIMES A DAY GT 05/19/17 18:00 06/18/17 17:59 05/21/17 08:32 Quetiapine Fumarate 25 mg 25 mg Q12HR ORAL 05/19/17 21:00 06/18/17 20:59 05/21/17 08:32 Sodium Chloride (Sodium Chloride 1000ml bag) 1,000 ml @ 500 mls/hr Q2H PRN IVLG sbp<90 during hd 05/19/17 17:45 05/21/17 23:59 Sodium Chloride (Sodium Chloride 1000ml bag) 1,000 ml @ 500 mls/hr Q2H PRN IVLG sbp<90 during hd 05/21/17 06:00 05/21/17 23:59 GONZALO LONGORIA May 21, 2017 09:24
[2017-05-21 10:27] LABS: BAND NEUTROPHILS % (MANUAL) 4 % (0-8); BASOPHILS % (MANUAL) 0 % (0-2); EOSINOPHILS % (MANUAL) 1 % (0-3); LYMPHOCYTES % (MANUAL) 8 % (20-45); NEUTROPHILS % (MANUAL) 85 % (45-75); PLATELET ESTIMATE ADEQUATE; PLATELET MORPHOLOGY NORMAL; TOTAL CELLS COUNTED 100
[2017-05-21 10:28] LABS: MACROCYTES 1+
[2017-05-21 10:29] LABS: ANISOCYTOSIS 3+; HYPOCHROMASIA 1+
[2017-05-21] MEDS ORDERED: Heparin Sod 1000 units/ml 10ml IV PRN (10:30)
[2017-05-21 11:57] VITALS: BP 126/69
--- NOTE | 2017-05-21 12:47 | Diagnostic Imaging Report ---
Indication: Dyspnea Comparison: May 18, 2017 A single view chest radiograph was obtained. Findings: Patchy perihilar/basilar infiltrates again demonstrated. Heart size is normal and stable. Bones appears osteopenic. Impression: No significant change. Suggestion of basilar/perihilar infiltrates versus atelectasis.
[2017-05-21 13:30] LABS: CREATININE 1.7 mg/dL (0.7-1.2)
[2017-05-21 16:00] VITALS: BP 106/54
--- NOTE | 2017-05-21 17:19 | Nephrology Progress Note ---
Assessment/Plan Problem List: (1) Hypercalcemia (2) Malnutrition of moderate degree (3) Intravenous catheter sepsis (4) ESRD (end stage renal disease) (5) Severe sepsis (6) Respiratory failure with hypoxia (7) Hypokalemia (8) Pneumonia Plan s/p remove permcath, new temporary hd cath 05/16 until sepsis clears, seen on HD 05/19 bp low normal, pth 97 does not explain high Ca, remains high risk, give kcl 7/2, K to replace, spep neg for paraprotein, bun and creat lower creat clearance 4, consider new permcath soon Subjective ROS Limited/Unobtainable: Yes Objective Objective Last 24 Hour Vital Signs Date Time Temp Pulse Resp B/P Pulse Ox O2 Delivery O2 Flow Rate FiO2 05/21/17 16:00 97.9 98 19 106/54 97 Room Air 05/21/17 11:57 97.2 89 20 126/69 97 Room Air 05/21/17 08:30 97.9 91 20 130/74 96 Room Air 05/21/17 07:59 Room Air 05/21/17 07:58 95 Room Air 05/21/17 03:50 97.2 117 21 155/74 95 Room Air 05/20/17 23:50 97.8 79 23 96/57 93 Room Air 05/20/17 20:00 97.5 80 21 108/60 99 Room Air Intake and Output 05/20/17 05/21/17 19:00 07:00 Intake Total 1110 ml 900 ml Output Total 350 ml 150 ml Balance 760 ml 750 ml Intake Free Water 60 ml 60 ml IV Total 510 ml 300 ml Tube Feeding 540 ml 540 ml Output Urine Total 350 ml 150 ml # Voids 1 # Bowel Movements 1 Laboratory Tests 05/21/17 04:00: White Blood Count 8.3, Red Blood Count 2.73L, Hemoglobin 8.9L, Hematocrit 28.1L , Mean Corpuscular Volume 103H, Mean Corpuscular Hemoglobin 32.7H, Mean Corpuscular Hemoglobin Concent 31.7L, Red Cell Distribution Width 20.7H, Platelet Count 263, Mean Platelet Volume 6.7, Neutrophils (%) (Auto) , Lymphocytes (%) (Auto) , Monocytes (%) (Auto) , Eosinophils (%) (Auto) , Basophils (%) (Auto) , Differential Total Cells Counted 100, Neutrophils % ( Manual) 85H, Lymphocytes % (Manual) 8L, Monocytes % (Manual) 2, Eosinophils % ( Manual) 1, Basophils % (Manual) 0, Band Neutrophils 4, Platelet Estimate Adequate, Platelet Morphology Normal, Hypochromasia 1+, Anisocytosis 3+, Macrocytosis 1+ 05/21/17 05:20: Sodium Level 140, Potassium Level 4.2, Chloride Level 99, Carbon Dioxide Level 28, Anion Gap 13, Blood Urea Nitrogen 54H, Creatinine 1.9H, Estimat Glomerular Filtration Rate , Glucose Level 96, Calcium Level 10.8H Height (Feet): 5 Height (Inches): 7.00 Weight (Pounds): 145 General Appearance: no apparent distress, confused EENT: normal ENT inspection Neck: normal alignment Cardiovascular: regular rhythm Respiratory/Chest: lungs clear, normal breath sounds Abdomen: non tender, no organomegaly Extremities: other - no edema. muscle wasting Neurologic: disoriented PRUDENCE MA May 21, 2017 17:19
[2017-05-21] MEDS ORDERED: NS 275ml ONE ×2 (18:44→21:14)
[2017-05-21 20:08] VITALS: BP 155/72
[2017-05-21] MEDS: Meropenem 500mg in NS 55ml IVPB SCH (20:36)
--- NOTE | 2017-05-21 20:52 | Infectious Diseases Prog Note ---
Assessment/Plan Assessment/Plan ASSESSMENT AND PLAN: 1. mrsa and vre bacteremia, likely perma-cath line infection, vre uti, sepsis, leukocytosis, fevers, e.coli pna, cath tip - staph aureus - perma-catheter removed, now with femoral temporary dialysis catheter - TTE without vegetation - zyvox and meropenem - check labs and chest x-ray - check surveillance blood cultures - DEJAH ordered to r/o endocarditis - d/w Dr. Levine - perma-catheter if surveillance bc sterile - communicated with Dr. Nelson - d/w daughter 2. End-stage renal disease, on hemodialysis. 3. Percutaneous endoscopic gastrostomy, gastrostomy tube, and dysphagia. 4. Aspiration risk. 5. PermCath. 6. Diabetes. 7. Hypertension. 8. Anemia. 9. Schizophrenia. 10. Poor historian. 11. Dementia. 12. Blood sugar and blood pressure control per primary, Dr. Levine for diabetes and hypertension. 13. Gout. 14. Anemia. 15. Past medical history as noted above. 16. Allergy to penicillin. 17. Social history is negative. 18. Family history is noncontributory. 19. MAR was noted. 20. Case was discussed with RN. 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 Subjective Constitutional: Reports: fatigue, Denies: fever HEENT: Denies: congestion Respiratory: Denies: shortness of breath Gastrointestinal/Abdominal: Denies: diarrhea, nausea, vomiting Genitourinary: Reports: other - + acevedo Neurologic: Denies: headache Psychiatric: Denies: depression Skin: Denies: rash Musculoskeletal: Denies: pain Allergies: Coded Allergies: PENICILLINS (Verified Allergy, Unknown, 05/12/17) Objective Vital Signs Last 24 Hour Vital Signs Date Time Temp Pulse Resp B/P Pulse Ox O2 Delivery O2 Flow Rate FiO2 05/21/17 20:08 97.0 87 20 155/72 97 Room Air 05/21/17 19:30 91 Room Air 05/21/17 19:30 Room Air 05/21/17 16:00 97.9 98 19 106/54 97 Room Air 05/21/17 11:57 97.2 89 20 126/69 97 Room Air 05/21/17 08:30 97.9 91 20 130/74 96 Room Air 05/21/17 07:59 Room Air 05/21/17 07:58 95 Room Air 05/21/17 03:50 97.2 117 21 155/74 95 Room Air 05/20/17 23:50 97.8 79 23 96/57 93 Room Air Height (Feet): 5 Height (Inches): 7.00 Weight (Pounds): 145 General Appearance: no acute distress HEENT: normocephalic, atraumatic, anicteric, mucous membranes moist, PERRL, EOMI, pharynx normal, supple, no JVD Respiratory/Chest: crackles/rales, rhonchi - bilaterally Cardiovascular: normal rate, regular rhythm Abdomen: normal bowel sounds, soft, non tender, no organomegaly, non distended Genitourinary: other - + acevedo - urine slt cloudy Extremities: no cyanosis Skin: no rash Neurologic/Psychiatric: brass polisher II-XII grossly normal, alert, responsive Lymphatic: no neck adenopathy Musculoskeletal: no effusion Objective chest x-ray - 05/15 - increased right infiltrate TTE - no definitive vegetation seen Chest xr-ay - 05/18 - atx vs infiltrate chest x-ray - no change Microbiology Date/Time Source Procedure Growth Status 05/17/17 04:20 Blood Blood Culture - Final Staphylococcus Aureus - Mrsa Complete 05/16/17 23:00 Sputum Induced Gram Stain - Final Resulted 05/16/17 23:00 Sputum Culture - Preliminary Escherichia Coli Resulted 05/20/17 06:00 Stool Clostridium difficile Toxin Assay - Final Complete 05/13/17 01:25 Urine,Clean Catch Urine Culture - Final Enterococcus Faecalis - Vre Complete 05/15/17 12:17 Arm Right Catheter Tip Culture - Final Staphylococcus Aureus - Mrsa Complete Microbiology Date/Time Source Procedure Growth Status 05/20/17 06:00 Stool Clostridium difficile Toxin Assay - Final Complete Laboratory Tests Test 05/21/17 04:00 05/21/17 05:20 White Blood Count 8.3 K/UL (4.8-10.8) Red Blood Count 2.73 M/UL (4.70-6.10) L Hemoglobin 8.9 G/DL (14.2-18.0) L Hematocrit 28.1 % (42.0-52.0) L Mean Corpuscular Volume 103 FL (80-99) H Mean Corpuscular Hemoglobin 32.7 PG (27.0-31.0) H Mean Corpuscular Hemoglobin Concent 31.7 G/DL (32.0-36.0) L Red Cell Distribution Width 20.7 % (11.6-14.8) H Platelet Count 263 K/UL (150-450) Mean Platelet Volume 6.7 FL (6.5-10.1) Neutrophils (%) (Auto) % (45.0-75.0) Lymphocytes (%) (Auto) % (20.0-45.0) Monocytes (%) (Auto) % (1.0-10.0) Eosinophils (%) (Auto) % (0.0-3.0) Basophils (%) (Auto) % (0.0-2.0) Differential Total Cells Counted 100 Neutrophils % (Manual) 85 % (45-75) H Lymphocytes % (Manual) 8 % (20-45) L Monocytes % (Manual) 2 % (1-10) Eosinophils % (Manual) 1 % (0-3) Basophils % (Manual) 0 % (0-2) Band Neutrophils 4 % (0-8) Platelet Estimate Adequate Platelet Morphology Normal Hypochromasia 1+ Anisocytosis 3+ Macrocytosis 1+ Sodium Level 140 mEQ/L (135-145) Potassium Level 4.2 mEQ/L (3.4-4.9) Chloride Level 99 mEQ/L (98-107) Carbon Dioxide Level 28 mEQ/L (20-30) Anion Gap 13 (5-15) Blood Urea Nitrogen 54 mg/dL (7-23) H Creatinine 1.9 mg/dL (0.7-1.2) H Estimat Glomerular Filtration Rate mL/min (>60) Glucose Level 96 mg/dL (74-106) Calcium Level 10.8 mg/dL (8.6-10.2) H Current Medications Medications (Trade) Dose Ordered Sig/James Route PRN Reason Start Time Stop Time Status Last Admin Dose Admin Acetaminophen (Tylenol) 650 mg Q4H PRN GT Mild Pain/Temp > 100.5 05/19/17 18:00 06/18/17 17:59 Chlorhexidine Gluconate (Eunice-Hex 2%) 1 applic QHS TOPIC 05/19/17 21:00 06/18/17 20:59 05/19/17 21:33 Heparin Sodium (Porcine) (Heparin 5000 units/ml) 5,000 units EVERY 12 HOURS SUBQ 05/19/17 21:00 06/18/17 20:59 05/21/17 08:34 Heparin Sodium (Porcine) 2000 unit 2,000 unit ONCE PRN IV FOR HD 05/21/17 10:30 05/21/17 23:59 Lansoprazole (Prevacid) 15 mg DAILY GT 05/20/17 09:00 06/19/17 08:59 05/21/17 08:32 Linezolid 300 ml @ 300 mls/hr Q12HR IVPB 05/19/17 21:00 05/26/17 20:59 05/21/17 08:33 Meropenem/Sodium Chloride (Merrem/Sodium Chloride) 55 ml @ 110 mls/hr Q24H IVPB 05/21/17 21:00 05/26/17 20:59 05/21/17 20:36 Midodrine (Pro-Amatine) 10 mg THREE TIMES A DAY GT 05/19/17 18:00 06/18/17 17:59 05/21/17 17:03 Quetiapine Fumarate 25 mg 25 mg Q12HR ORAL 05/19/17 21:00 06/18/17 20:59 05/21/17 08:32 Sodium Chloride (Sodium Chloride 1000ml bag) 1,000 ml @ 500 mls/hr Q2H PRN IVLG sbp<90 during hd 05/19/17 17:45 05/21/17 23:59 Sodium Chloride (Sodium Chloride 1000ml bag) 1,000 ml @ 500 mls/hr Q2H PRN IVLG sbp<90 during hd 05/21/17 06:00 05/21/17 23:59 MORGAN REEVES May 21, 2017 20:52
[2017-05-21] MEDS ORDERED: Tubing IV Secondary IV ONE (21:14)
[2017-05-21] MEDS: Dyna-Hex 2% Top Sol 8oz TOPIC SCH (21:30)
--- NOTE | 2017-05-21 22:30 | Progress Note ---
DATE: 05/21/2017 CARDIOLOGY PROGRESS NOTE SUBJECTIVE: The patient remains on IV antibiotics for MRSA and VRE bacteremia. PermCath has been removed and a temporary femoral dialysis catheter is in place. A transthoracic echocardiogram was reviewed, no obvious vegetations seen. OBJECTIVE: VITAL SIGNS: Afebrile, blood pressure 155/72, pulse 87 and respiratory rate 20. NECK: Supple. LUNGS: Clear. CARDIAC: Regular. Normal S1 and S2. No murmur. ABDOMEN: Soft. EXTREMITIES: Without edema. LABORATORY AND DIAGNOSTIC DATA: Laboratories are noted. IMPRESSION: 1. Line sepsis. 2. Possible endocarditis. 3. Methicillin resistant Staphylococcus aureus and vancomycin resistant enterococcus bacteremia. 4. End-stage renal disease. 5. Cerebrovascular disease with dementia. 6. History of orthostatic hypotension. PLAN: 1. Transesophageal echocardiogram to better evaluate for endocarditis. 2. Intravenous antibiotics. 3. Decrease midodrine if blood pressure parameters continue to increase. Dale Quiñones M.D. DR: NASEEM JOB#: [id number] CC:
[2017-05-22] VITALS (11 sets, daily range): BP systolic 88–134; BP diastolic 52–86
--- NOTE | 2017-05-22 02:56 | Wound Nurse Progress Note ---
Wound RN Progress Note Wound Consult #1 Left lower lateral leg open wound etiology unknown. Noted good progress. will cont same wound care treatment. #2 Left lower medial leg open wound that extends to malleolus Noted good progress. will cont same wound care treatment. #3 Right medial malleolus unstageable pressure ulcer. No deterioration noted. will cont same wound care #4 Lower back unstagable pressure ulcer. No deterioration noted. will cont same wound care #5 Sacral stage II pressure ulcer surrounding area L 4.0 x W 4.5 non-blanchable redness. Resolving. Noted good progress. will cont same wound care treatment. #6 Left heel stage I pressure ulcer. Skin intact. will cont same wound care and recommendations #7 Right heel stage I pressure ulcer Skin intact. will cont same wound care and recommendations Reassessment done. good progress noted. will cont same wound care and recommendations at tis time. ISABEL BARROS RN May 22, 2017 02:56
[2017-05-22 07:06] LABS: BASOPHILS % (AUTO) 1.3 % (0.0-2.0); EOSINOPHILS % (AUTO) 0.6 % (0.0-3.0); LYMPHOCYTES % (AUTO) 12.2 % (20.0-45.0); MEAN CORPUSCULAR HEMOGLOBIN 32.6 PG (27.0-31.0); MEAN CORPUSCULAR HGB CONC 31.4 G/DL (32.0-36.0); MEAN CORPUSCULAR VOLUME 104 FL (80-99); MEAN PLATELET VOLUME 7.3 FL (6.5-10.1); MONOCYTES % (AUTO) 5.4 % (1.0-10.0); NEUTROPHILS % (AUTO) 80.4 % (45.0-75.0); PLATELET COUNT 215 K/UL (150-450); RED BLOOD COUNT 2.63 M/UL (4.70-6.10); RED CELL DISTRIBUTION WIDTH 20.9 % (11.6-14.8); WHITE BLOOD COUNT 7.3 K/UL (4.8-10.8)
[2017-05-22 07:16] LABS: ALANINE AMINOTRANSFERASE 24 U/L (3-41); ALBUMIN/GLOBULIN RATIO 0.7 (1.0-2.7); ANION GAP 8 (5-15); ASPARTATE AMINO TRANSFERASE 40 U/L (5-40); CALCIUM 9.9 mg/dL (8.6-10.2); CARBON DIOXIDE 30 mEQ/L (20-30); CHLORIDE 99 mEQ/L (98-107); CREATININE 1.5 mg/dL (0.7-1.2); HEMOLYSIS 4; POTASSIUM 4.7 mEQ/L (3.4-4.9); SODIUM 137 mEQ/L (135-145); TOTAL PROTEIN 5.7 g/dL (6.6-8.7)
--- NOTE | 2017-05-22 07:44 | Anethesia Preoperative Eval ---
Anesthesia Pre-op PMH/ROS General Date of Evaluation: May 22, 2017 Anesthesiologist: Mart ASA Score: ASA 4 Mallampati Score Class I : Soft palate, uvula, fauces, pillars visible Class II: Soft palate, uvula, fauces visible Class III: Soft palate, base of uvula visible Class IV: Only hard plate visible Mallampati Classification: Class III Surgeon: Nuria Diagnosis: Rule out vegetation Surgical Procedure: DEJAH Anesthesia History: none Family History: no anesthesia problems Allergies: Coded Allergies: PENICILLINS (Verified Allergy, Unknown, 05/12/17) Medications: see eMAR Past Medical History Cardiovascular: Reports: HTN, other, Denies: CAD, GA, arrhythmia, valve dz Pulmonary: Denies: COPD, YOMAIRA, asthma, other Gastrointestinal/Genitourinary: Reports: ESRD, GERD, Denies: CRI, other Neurologic/Psychiatric: Reports: dementia, Denies: CVA, TIA, depression/anxiety, other Endocrine: Reports: DM, Denies: hypothyroidism, other, steroids HEENT: Denies: [place] (L[place] (R), cataract (L), cataract (R), glaucoma, other Hematology/Immune: Reports: anemia - acute on chronic, Denies: DVT, bleeding disorder, other Musculoskeletal/Integumentary: Reports: OA, other - gout, Denies: DDD, DJD, RA, edema PSxH Narrative: Unable to assess Anesthesia Pre-op Phys. Exam Physician Exam Last Vital Signs Date Time Temp Pulse Resp B/P Pulse Ox O2 Delivery O2 Flow Rate FiO2 05/22/17 04:00 97.7 80 19 124/63 98 Room Air 05/18/17 16:00 10.0 05/18/17 12:08 40 Constitutional: NAD, other - not oriented, not able to follwo commands Cardiovascular: RRR Respiratory: CTA Airway Exam Mallampati Score: Class III MO: limited ROM: limited Anesthesia Pre-op A/P Labs Hematology Test 05/22/17 04:55 White Blood Count 7.3 K/UL (4.8-10.8) Red Blood Count 2.63 M/UL (4.70-6.10) L Hemoglobin 8.6 G/DL (14.2-18.0) L Hematocrit 27.4 % (42.0-52.0) L Mean Corpuscular Volume 104 FL (80-99) H Mean Corpuscular Hemoglobin 32.6 PG (27.0-31.0) H Mean Corpuscular Hemoglobin Concent 31.4 G/DL (32.0-36.0) L Red Cell Distribution Width 20.9 % (11.6-14.8) H Platelet Count 215 K/UL (150-450) Mean Platelet Volume 7.3 FL (6.5-10.1) Neutrophils (%) (Auto) 80.4 % (45.0-75.0) H Lymphocytes (%) (Auto) 12.2 % (20.0-45.0) L Monocytes (%) (Auto) 5.4 % (1.0-10.0) Eosinophils (%) (Auto) 0.6 % (0.0-3.0) Basophils (%) (Auto) 1.3 % (0.0-2.0) Chemistry Test 05/22/17 04:55 Sodium Level 137 mEQ/L (135-145) Potassium Level 4.7 mEQ/L (3.4-4.9) Chloride Level 99 mEQ/L (98-107) Carbon Dioxide Level 30 mEQ/L (20-30) Anion Gap 8 (5-15) Blood Urea Nitrogen 39 mg/dL (7-23) H Creatinine 1.5 mg/dL (0.7-1.2) H Estimat Glomerular Filtration Rate mL/min (>60) Glucose Level 84 mg/dL (74-106) Calcium Level 9.9 mg/dL (8.6-10.2) Total Bilirubin 0.3 mg/dL (0.0-1.2) Aspartate Amino Transf (AST/SGOT) 40 U/L (5-40) Alanine Aminotransferase (ALT/SGPT) 24 U/L (3-41) Alkaline Phosphatase 251 U/L (40-129) H Total Protein 5.7 g/dL (6.6-8.7) L Albumin 2.4 g/dL (3.5-5.2) L Globulin 3.3 g/dL Albumin/Globulin Ratio 0.7 (1.0-2.7) L Studies Pre-op Studies: EKG - sr Risk Assessment & Plan Assessment: ASA IV Plan: MAC Status Change Before Surgery: No Pre-Antibiotics Drug: N/A KATLIN MAX M.D. May 22, 2017 07:43
[2017-05-22] MEDS: Midodrine 10mg tab GT SCH ×3 (08:30→17:22)
[2017-05-22] MEDS: Lansoprazole 15mg cap GT SCH (08:30)
[2017-05-22] MEDS: Heparin 5000 units/ml inj SUBQ SCH ×2 (08:35→21:09)
[2017-05-22] MEDS ORDERED: Propofol 10mg/ml 20ml IV ONE (09:51)
--- NOTE | 2017-05-22 09:56 | Pre-Procedure Note/Attestation ---
Pre-Procedure Note/Attestation Complete Prior to Procedure Planned Procedure: not applicable Indications for Procedure Pre-Operative Diagnosis: endocarditis Attestation I attest that I discussed the nature of the procedure; its benefits; risks and complications; and alternatives (and the risks and benefits of such alternatives ), prior to the procedure, with the patient (or the patient's legal internet sales representative). I attest that, if there was a reasonable possibility of needing a blood transfusion, the patient (or the patient's legal internet sales representative) was given the [facility] standardized written summary, pursuant to the [place] Blood Safety Act ([place] Health and Safety Code # 1645, as amended). I attest that I re-evaluated the patient just prior to the surgery and that there has been no change in the patient's H&P, except as documented below: JEANETTE SAEED May 22, 2017 09:56
--- NOTE | 2017-05-22 09:58 | Pre-Procedure Note/Attestation ---
Pre-Procedure Note/Attestation Complete Prior to Procedure Planned Procedure: not applicable Indications for Procedure Pre-Operative Diagnosis: endocarditis Attestation I attest that I discussed the nature of the procedure; its benefits; risks and complications; and alternatives (and the risks and benefits of such alternatives ), prior to the procedure, with the patient (or the patient's legal truck sales representative). I attest that, if there was a reasonable possibility of needing a blood transfusion, the patient (or the patient's legal truck sales representative) was given the [facility] standardized written summary, pursuant to the [place] Blood Safety Act ([place] Health and Safety Code # 1645, as amended). I attest that I re-evaluated the patient just prior to the surgery and that there has been no change in the patient's H&P, except as documented below: JEANETTE SAEED May 22, 2017 09:58
[2017-05-22] MEDS ORDERED: NS Irrig 1000ml ONE (10:00)
[2017-05-22] MEDS ORDERED: Lidocaine 1% MPF 10mg/ml 5ml ONE (10:00)
--- NOTE | 2017-05-22 10:39 | Immediate Post-Op Evaluation ---
Immediate Post-Op Evalulation Immediate Post-Op Evalulation Procedure: DEJAH Date of Evaluation: May 22, 2017 Time of Evaluation: 10:35 IV Fluids: 100 Blood Products: 0 Estimated Blood Loss: 0 Urinary Output: 0 Blood Pressure Systolic: 108 Blood Pressure Diastolic: 60 Pulse Rate: 72 Respiratory Rate: 16 O2 Sat by Pulse Oximetry: 100 Temperature (Fahrenheit): 97.2 Pain Score (1-10): 0 Nausea: No Vomiting: No Complications 0 Patient Status: awake, reacts, patent, none Hydration Status: adequate Drug: N/A KATLIN MAX M.D. May 22, 2017 10:39
[2017-05-22] MEDS ORDERED: DiphenhydrAMINE 50mg/ml Inj IVP PRN (10:45)
--- NOTE | 2017-05-22 11:36 | Diagnostic Imaging Report ---
Indication:End-stage renal failure. Patient is on hemodialysis Technique: Grayscale and duplex Doppler imaging of the kidneys performed. Comparison: None Findings: The right kidney shows multiple cystic changes centrally with a markedly diminished cortex which appears echogenic. Left renal cortex is atrophic and echogenic. There are a few discrete cysts present within the left kidney as well. The left kidney measures approximately 11 cm as does the right kidney. There is no hydronephrosis. The prostate is enlarged measuring about 70 cc. There is abnormal calcification and thickening of the wall the urinary bladder. IVC is unremarkable. Impression: Abnormal kidneys consistent with the given history of chronic renal disease. Prostate hypertrophy. Abnormal urinary bladder with a thickened wall and suggestion of calcification. Watson catheter
--- NOTE | 2017-05-22 11:36 | Diagnostic Imaging Report ---
Indication: Dyspnea Comparison: 05/20/17 A single view chest radiograph was obtained. Findings: None patchy basilar parenchymal densities are again demonstrated without significant change. Heart size is stable. Impression: Basilar infiltrates
--- NOTE | 2017-05-22 14:31 | Nephrology Progress Note ---
Assessment/Plan Problem List: (1) Hypercalcemia (2) Malnutrition of moderate degree (3) Intravenous catheter sepsis (4) ESRD (end stage renal disease) (5) Severe sepsis (6) Respiratory failure with hypoxia (7) Hypokalemia (8) Pneumonia Plan s/p remove permcath, new temporary hd cath 05/16 until sepsis clears, seen on HD 05/21 bp low normal, pth 97 does not explain high Ca, remains high risk, give kcl 7/2, K to replace, spep neg for paraprotein, bun and creat lower creat clearance 4, consider new permcath soon await repeat neg cultures Subjective ROS Limited/Unobtainable: Yes Objective Objective Last 24 Hour Vital Signs Date Time Temp Pulse Resp B/P Pulse Ox O2 Delivery O2 Flow Rate FiO2 05/22/17 12:45 97.5 76 19 124/86 95 Room Air 76 05/22/17 10:45 98.0 70 20 129/62 97 Room Air 70 05/22/17 10:40 75 20 108/60 97 Room Air 75 05/22/17 10:39 68 20 104/57 97 Room Air 68 05/22/17 10:39 72 16 100 05/22/17 10:34 70 20 89/57 100 Nasal Cannula 3.0 70 05/22/17 10:29 98.0 72 20 88/52 100 Nasal Cannula 3.0 72 05/22/17 08:58 97.5 77 19 134/74 95 Room Air 05/22/17 08:42 Room Air 05/22/17 08:42 93 Room Air 05/22/17 04:00 97.7 80 19 124/63 98 Room Air 05/22/17 00:00 98.1 93 20 128/65 97 Room Air 05/21/17 20:08 97.0 87 20 155/72 97 Room Air 05/21/17 19:30 91 Room Air 05/21/17 19:30 Room Air 05/21/17 16:00 97.9 98 19 106/54 97 Room Air Intake and Output 05/21/17 05/22/17 18:59 06:59 Intake Total 1050 ml 610 ml Output Total 1025 ml 850 ml Balance 25 ml -240 ml Intake Free Water 210 ml 30 ml IV Total 300 ml 355 ml Tube Feeding 540 ml 225 ml Output Urine Total 1025 ml 850 ml # Voids 1 # Bowel Movements 3 Laboratory Tests 05/22/17 04:55: White Blood Count 7.3, Red Blood Count 2.63L, Hemoglobin 8.6L, Hematocrit 27.4L , Mean Corpuscular Volume 104H, Mean Corpuscular Hemoglobin 32.6H, Mean Corpuscular Hemoglobin Concent 31.4L, Red Cell Distribution Width 20.9H, Platelet Count 215, Mean Platelet Volume 7.3, Neutrophils (%) (Auto) 80.4H, Lymphocytes (%) (Auto) 12.2L, Monocytes (%) (Auto) 5.4, Eosinophils (%) (Auto) 0.6, Basophils (%) (Auto) 1.3, Sodium Level 137, Potassium Level 4.7, Chloride Level 99, Carbon Dioxide Level 30, Anion Gap 8, Blood Urea Nitrogen 39H, Creatinine 1.5H, Estimat Glomerular Filtration Rate , Glucose Level 84, Calcium Level 9.9, Total Bilirubin 0.3, Aspartate Amino Transf (AST/SGOT) 40, Alanine Aminotransferase (ALT/SGPT) 24, Alkaline Phosphatase 251H, Total Protein 5.7L, Albumin 2.4L, Globulin 3.3, Albumin/Globulin Ratio 0.7L Height (Feet): 5 Height (Inches): 7.00 Weight (Pounds): 145 General Appearance: lethargic, thin EENT: normal ENT inspection Neck: normal alignment Cardiovascular: normal rate, regular rhythm Respiratory/Chest: lungs clear Abdomen: non tender Extremities: other - no edema Neurologic: unresponsive PRUDENCE MA May 22, 2017 14:31
--- NOTE | 2017-05-22 16:15 | Progress Note ---
DATE: 05/22/2017 CARDIOLOGY PROGRESS NOTE SUBJECTIVE: The patient had DEJAH today with no signs of endocarditis noted (see report). The patient without distress. OBJECTIVE: VITAL SIGNS: Afebrile, blood pressure 89/57 to 129/62, heart rate 70 and respiratory rate 20. NECK: Supple. LUNGS: Clear. CARDIAC: Regular rhythm and rate. Normal S1 and S2. No murmur. ABDOMEN: Soft. EXTREMITIES: No edema. IMPRESSION: 1. Line sepsis bacteremia, low likelihood for endocarditis based on echocardiographic data. 2. End-stage renal disease. 3. History of asymptomatic hypotension. PLAN: 1. Maintain adequate hydration. 2. Titrate midodrine. 3. Antibiotics per Infectious Disease internal consultant. Dale Quiñones M.D. DR: NASEEM JOB#: [id number] CC:
--- NOTE | 2017-05-22 16:30 | Operative Note - Dictated ---
DATE OF OPERATION: 05/22/2017 TRANSESOPHAGEAL ECHOCARDIOGRAM REPORT Consent was obtained from family member. The patient underwent anesthesia protocol. See report. A mouth guard was placed. The transesophageal probe was advanced through the mouth guard and the hypopharynx intubated without complications. There was scant bloody discharge within the secretions. Imaging was obtained in multiplane and the valves were all well visualized with no signs of vegetations. Mild thickening was seen and no significant calcification. COMPLICATIONS: None. The probe was removed without difficulty. IMPRESSION: Low likelihood for endocarditis based on echocardiographic criteria. Dale Quiñones M.D. DR: SANDRA JOB#: [id number] CC:
--- NOTE | 2017-05-22 16:42 | Infectious Diseases Prog Note ---
Assessment/Plan Assessment/Plan ASSESSMENT AND PLAN: 1. mrsa and vre bacteremia, likely perma-cath line infection, vre uti, sepsis, leukocytosis, fevers, e.coli/proteus pna, cath tip - staph aureus - perma-catheter removed, now with femoral temporary dialysis catheter - DEJAH without vegetation - zyvox and meropenem - check labs and chest x-ray - if surveillance blood cultures remain negative then ok for perma-catheter - d/w Dr. Nelson 2. End-stage renal disease, on hemodialysis. 3. Percutaneous endoscopic gastrostomy, gastrostomy tube, and dysphagia. 4. Aspiration risk. 5. PermCath. 6. Diabetes. 7. Hypertension. 8. Anemia. 9. Schizophrenia. 10. Poor historian. 11. Dementia. 12. Blood sugar and blood pressure control per primary, Dr. Levine for diabetes and hypertension. 13. Gout. 14. Anemia. 15. Past medical history as noted above. 16. Allergy to penicillin. 17. Social history is negative. 18. Family history is noncontributory. 19. MAR was noted. 20. Case was discussed with RN. 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 Subjective Constitutional: Reports: fatigue, Denies: fever HEENT: Denies: congestion Respiratory: Denies: shortness of breath Cardiovascular: Denies: chest pain Gastrointestinal/Abdominal: Denies: diarrhea, nausea, vomiting Genitourinary: Reports: other - + acevedo Neurologic: Reports: weakness Psychiatric: Denies: depression Skin: Denies: rash Hematologic: Denies: bleeding Musculoskeletal: Denies: pain Allergies: Coded Allergies: PENICILLINS (Verified Allergy, Unknown, 05/12/17) Objective Vital Signs Last 24 Hour Vital Signs Date Time Temp Pulse Resp B/P Pulse Ox O2 Delivery O2 Flow Rate FiO2 05/22/17 16:11 97.5 75 19 129/57 95 Room Air 75 05/22/17 12:45 97.5 76 19 124/86 95 Room Air 76 05/22/17 10:45 98.0 70 20 129/62 97 Room Air 70 05/22/17 10:40 75 20 108/60 97 Room Air 75 05/22/17 10:39 68 20 104/57 97 Room Air 68 05/22/17 10:39 72 16 100 05/22/17 10:34 70 20 89/57 100 Nasal Cannula 3.0 70 7/6/17 10:29 98.0 72 20 88/52 100 Nasal Cannula 3.0 72 05/22/17 08:58 97.5 77 19 134/74 95 Room Air 05/22/17 08:42 Room Air 05/22/17 08:42 93 Room Air 05/22/17 04:00 97.7 80 19 124/63 98 Room Air 05/22/17 00:00 98.1 93 20 128/65 97 Room Air 05/21/17 20:08 97.0 87 20 155/72 97 Room Air 05/21/17 19:30 91 Room Air 05/21/17 19:30 Room Air Height (Feet): 5 Height (Inches): 7.00 Weight (Pounds): 145 General Appearance: no acute distress HEENT: normocephalic, atraumatic, anicteric, mucous membranes moist, PERRL, EOMI, pharynx normal, supple, no JVD Respiratory/Chest: crackles/rales, rhonchi - bilaterally Cardiovascular: normal rate, regular rhythm, no gallop/murmur, no JVD Abdomen: normal bowel sounds, soft, non tender, no organomegaly, non distended Genitourinary: other - no acevedo Extremities: no cyanosis Skin: no rash Neurologic/Psychiatric: compliance mgr II-XII grossly normal, alert, responsive Lymphatic: no neck adenopathy Musculoskeletal: no effusion Objective chest x-ray - 05/15 - increased right infiltrate TTE - no definitive vegetation seen Chest xr-ay - 05/18 - atx vs infiltrate chest x-ray - 05/22 - bilateral infiltrates Microbiology Date/Time Source Procedure Growth Status 05/20/17 14:50 Blood Blood Culture - Preliminary NO GROWTH AFTER 24 HOURS Resulted 05/16/17 23:00 Sputum Induced Gram Stain - Final Complete 05/16/17 23:00 Sputum Culture - Final Escherichia Coli - Esbl Proteus Mirabilis Complete 05/20/17 06:00 Stool Clostridium difficile Toxin Assay - Final Complete 05/13/17 01:25 Urine,Clean Catch Urine Culture - Final Enterococcus Faecalis - Vre Complete 05/15/17 12:17 Arm Right Catheter Tip Culture - Final Staphylococcus Aureus - Mrsa Complete Microbiology Date/Time Source Procedure Growth Status 05/20/17 14:50 Blood Blood Culture - Preliminary NO GROWTH AFTER 24 HOURS Resulted 05/20/17 14:45 Blood Blood Culture - Preliminary NO GROWTH AFTER 24 HOURS Resulted 05/20/17 06:00 Stool Clostridium difficile Toxin Assay - Final Complete Laboratory Tests Test 05/22/17 04:55 White Blood Count 7.3 K/UL (4.8-10.8) Red Blood Count 2.63 M/UL (4.70-6.10) L Hemoglobin 8.6 G/DL (14.2-18.0) L Hematocrit 27.4 % (42.0-52.0) L Mean Corpuscular Volume 104 FL (80-99) H Mean Corpuscular Hemoglobin 32.6 PG (27.0-31.0) H Mean Corpuscular Hemoglobin Concent 31.4 G/DL (32.0-36.0) L Red Cell Distribution Width 20.9 % (11.6-14.8) H Platelet Count 215 K/UL (150-450) Mean Platelet Volume 7.3 FL (6.5-10.1) Neutrophils (%) (Auto) 80.4 % (45.0-75.0) H Lymphocytes (%) (Auto) 12.2 % (20.0-45.0) L Monocytes (%) (Auto) 5.4 % (1.0-10.0) Eosinophils (%) (Auto) 0.6 % (0.0-3.0) Basophils (%) (Auto) 1.3 % (0.0-2.0) Sodium Level 137 mEQ/L (135-145) Potassium Level 4.7 mEQ/L (3.4-4.9) Chloride Level 99 mEQ/L (98-107) Carbon Dioxide Level 30 mEQ/L (20-30) Anion Gap 8 (5-15) Blood Urea Nitrogen 39 mg/dL (7-23) H Creatinine 1.5 mg/dL (0.7-1.2) H Estimat Glomerular Filtration Rate mL/min (>60) Glucose Level 84 mg/dL (74-106) Calcium Level 9.9 mg/dL (8.6-10.2) Total Bilirubin 0.3 mg/dL (0.0-1.2) Aspartate Amino Transf (AST/SGOT) 40 U/L (5-40) Alanine Aminotransferase (ALT/SGPT) 24 U/L (3-41) Alkaline Phosphatase 251 U/L (40-129) H Total Protein 5.7 g/dL (6.6-8.7) L Albumin 2.4 g/dL (3.5-5.2) L Globulin 3.3 g/dL Albumin/Globulin Ratio 0.7 (1.0-2.7) L Current Medications Medications (Trade) Dose Ordered Sig/James Route PRN Reason Start Time Stop Time Status Last Admin Dose Admin Acetaminophen (Tylenol) 650 mg Q4H PRN GT Mild Pain/Temp > 100.5 05/19/17 18:00 06/18/17 17:59 Acetaminophen (Tylenol) 650 mg Q4H PRN ORAL Mild Pain (Pain Scale 1-3) 05/22/17 10:45 05/22/17 17:00 Chlorhexidine Gluconate (Eunice-Hex 2%) 1 applic QHS TOPIC 05/19/17 21:00 06/18/17 20:59 05/21/17 21:30 Diphenhydramine HCl 25 mg 25 mg Q15M PRN IVP Itching 05/22/17 10:45 05/22/17 17:00 Epoetin Kamran (Procrit (for ESRD on dialysis)) 5,000 units FRI-FRI-FRI SUBQ 05/23/17 21:00 06/22/17 20:59 Heparin Sodium (Porcine) (Heparin 5000 units/ml) 5,000 units EVERY 12 HOURS SUBQ 05/19/17 21:00 06/18/17 20:59 05/22/17 08:35 Heparin Sodium (Porcine) (Heparin Sod 1000 units/ml 10ml) 2,000 unit ONCE ONCE IV 05/23/17 06:00 05/23/17 06:01 Lansoprazole (Prevacid) 15 mg DAILY GT 05/20/17 09:00 06/19/17 08:59 05/22/17 08:30 Linezolid (Zyvox) 300 ml @ 300 mls/hr Q12HR IVPB 05/19/17 21:00 05/26/17 20:59 05/22/17 08:30 Meropenem/Sodium Chloride (Merrem/Sodium Chloride) 55 ml @ 110 mls/hr Q24H IVPB 05/21/17 21:00 05/26/17 20:59 05/21/17 20:36 Midodrine (Pro-Amatine) 10 mg THREE TIMES A DAY GT 05/19/17 18:00 06/18/17 17:59 05/22/17 12:20 Quetiapine Fumarate 25 mg 25 mg Q12HR ORAL 05/19/17 21:00 06/18/17 20:59 05/22/17 08:30 Sodium Chloride (Sodium Chloride 1000ml bag) 1,000 ml @ 500 mls/hr Q2H PRN IVLG sbp<90 during hd 05/23/17 06:00 05/23/17 23:59 MORGAN REEVES May 22, 2017 16:42
--- NOTE | 2017-05-22 16:56 | Pulmonology Progress Note ---
Assessment/Plan Assessment/Plan Sepsis w shock - s aureus, VRE due to line sepsis, UTI, no SBE ESRD, dialysis dementia, schizophrenia DM tophaceous gout dysphagia, PEG severe anemia, transfused UTI - VRE pneumonia, effusion BC + s aureus, VRE UC VRE tolerating feeds full code per dtr repeat BCs neg so far DEJAH no vegetation HD dc possibly tomorrow Subjective ROS Limited/Unobtainable: Yes Allergies: Coded Allergies: PENICILLINS (Verified Allergy, Unknown, 05/12/17) Subjective poorly responsive Objective Last 24 Hour Vital Signs Date Time Temp Pulse Resp B/P Pulse Ox O2 Delivery O2 Flow Rate FiO2 05/22/17 16:11 97.5 75 19 129/57 95 Room Air 75 05/22/17 12:45 97.5 76 19 124/86 95 Room Air 76 05/22/17 10:45 98.0 70 20 129/62 97 Room Air 70 05/22/17 10:40 75 20 108/60 97 Room Air 75 05/22/17 10:39 68 20 104/57 97 Room Air 68 05/22/17 10:39 72 16 100 05/22/17 10:34 70 20 89/57 100 Nasal Cannula 3.0 70 05/22/17 10:29 98.0 72 20 88/52 100 Nasal Cannula 3.0 72 05/22/17 08:58 97.5 77 19 134/74 95 Room Air 05/22/17 08:42 Room Air 05/22/17 08:42 93 Room Air 05/22/17 04:00 97.7 80 19 124/63 98 Room Air 05/22/17 00:00 98.1 93 20 128/65 97 Room Air 05/21/17 20:08 97.0 87 20 155/72 97 Room Air 05/21/17 19:30 91 Room Air 05/21/17 19:30 Room Air Intake and Output 05/21/17 05/22/17 19:00 07:00 Intake Total 1050 ml 565 ml Output Total 1025 ml 850 ml Balance 25 ml -285 ml Intake Free Water 210 ml 30 ml IV Total 300 ml 355 ml Tube Feeding 540 ml 180 ml Output Urine Total 1025 ml 850 ml # Voids 1 # Bowel Movements 3 Objective confused but responsive General Appearance: no acute distress HEENT: atraumatic Respiratory/Chest: lungs clear Cardiovascular: normal rate Microbiology Date/Time Source Procedure Growth Status 05/20/17 14:50 Blood Blood Culture - Preliminary NO GROWTH AFTER 24 HOURS Resulted 05/20/17 14:45 Blood Blood Culture - Preliminary NO GROWTH AFTER 24 HOURS Resulted 05/20/17 06:00 Stool Clostridium difficile Toxin Assay - Final Complete Laboratory Tests 05/22/17 04:55: White Blood Count 7.3, Red Blood Count 2.63L, Hemoglobin 8.6L, Hematocrit 27.4L , Mean Corpuscular Volume 104H, Mean Corpuscular Hemoglobin 32.6H, Mean Corpuscular Hemoglobin Concent 31.4L, Red Cell Distribution Width 20.9H, Platelet Count 215, Mean Platelet Volume 7.3, Neutrophils (%) (Auto) 80.4H, Lymphocytes (%) (Auto) 12.2L, Monocytes (%) (Auto) 5.4, Eosinophils (%) (Auto) 0.6, Basophils (%) (Auto) 1.3, Sodium Level 137, Potassium Level 4.7, Chloride Level 99, Carbon Dioxide Level 30, Anion Gap 8, Blood Urea Nitrogen 39H, Creatinine 1.5H, Estimat Glomerular Filtration Rate , Glucose Level 84, Calcium Level 9.9, Total Bilirubin 0.3, Aspartate Amino Transf (AST/SGOT) 40, Alanine Aminotransferase (ALT/SGPT) 24, Alkaline Phosphatase 251H, Total Protein 5.7L, Albumin 2.4L, Globulin 3.3, Albumin/Globulin Ratio 0.7L Current Medications Medications (Trade) Dose Ordered Sig/James Route PRN Reason Start Time Stop Time Status Last Admin Dose Admin Acetaminophen (Tylenol) 650 mg Q4H PRN GT Mild Pain/Temp > 100.5 05/19/17 18:00 06/18/17 17:59 Acetaminophen (Tylenol) 650 mg Q4H PRN ORAL Mild Pain (Pain Scale 1-3) 05/22/17 10:45 05/22/17 17:00 Chlorhexidine Gluconate (Eunice-Hex 2%) 1 applic QHS TOPIC 05/19/17 21:00 06/18/17 20:59 05/21/17 21:30 Diphenhydramine HCl 25 mg 25 mg Q15M PRN IVP Itching 05/22/17 10:45 05/22/17 17:00 Epoetin Kamran (Procrit (for ESRD on dialysis)) 5,000 units FRI-FRI-FRI SUBQ 05/23/17 21:00 06/22/17 20:59 Heparin Sodium (Porcine) (Heparin 5000 units/ml) 5,000 units EVERY 12 HOURS SUBQ 05/19/17 21:00 06/18/17 20:59 05/22/17 08:35 Heparin Sodium (Porcine) (Heparin Sod 1000 units/ml 10ml) 2,000 unit ONCE ONCE IV 05/23/17 06:00 05/23/17 06:01 Lansoprazole (Prevacid) 15 mg DAILY GT 05/20/17 09:00 06/19/17 08:59 05/22/17 08:30 Linezolid (Zyvox) 300 ml @ 300 mls/hr Q12HR IVPB 05/19/17 21:00 05/26/17 20:59 05/22/17 08:30 Meropenem/Sodium Chloride (Merrem/Sodium Chloride) 55 ml @ 110 mls/hr Q24H IVPB 05/21/17 21:00 05/26/17 20:59 05/21/17 20:36 Midodrine (Pro-Amatine) 10 mg THREE TIMES A DAY GT 05/19/17 18:00 06/18/17 17:59 05/22/17 12:20 Quetiapine Fumarate 25 mg 25 mg Q12HR ORAL 05/19/17 21:00 06/18/17 20:59 05/22/17 08:30 Sodium Chloride (Sodium Chloride 1000ml bag) 1,000 ml @ 500 mls/hr Q2H PRN IVLG sbp<90 during hd 05/23/17 06:00 05/23/17 23:59 GONZALO LONGORIA May 22, 2017 16:56
[2017-05-22] MEDS: Dyna-Hex 2% Top Sol 8oz TOPIC SCH (21:04)
[2017-05-22] MEDS: Meropenem 500mg in NS 55ml IVPB SCH (21:29)
[2017-05-23] VITALS: BP 117/71
[2017-05-23 04:00] VITALS: BP 131/65
[2017-05-23] MEDS ORDERED: Heparin Sod 1000 units/ml 10ml IV ONE (06:00)
[2017-05-23 08:00] VITALS: BP 122/56
[2017-05-23] MEDS: Midodrine 10mg tab GT SCH ×3 (11:47→18:09)
[2017-05-23] MEDS: Heparin 5000 units/ml inj SUBQ SCH ×2 (11:47→21:55)
[2017-05-23] MEDS: Lansoprazole 15mg cap GT SCH (11:47)
[2017-05-23 12:00] VITALS: BP 106/60
--- NOTE | 2017-05-23 13:38 | Pulmonology Progress Note ---
Assessment/Plan Assessment/Plan Sepsis w shock - s aureus, VRE due to line sepsis, UTI, no SBE ESRD, dialysis dementia, schizophrenia DM tophaceous gout dysphagia, PEG severe anemia, transfused UTI - VRE pneumonia, effusion BC neg 05/20/17 will dc femoral HD cath after dialysis today Perm Cath Friday and dialysis disc w Dr Nelson, RN, comp field case manager Subjective ROS Limited/Unobtainable: Yes Constitutional: Denies: fever Allergies: Coded Allergies: PENICILLINS (Verified Allergy, Unknown, 05/12/17) Subjective poorly responsive Objective Last 24 Hour Vital Signs Date Time Temp Pulse Resp B/P Pulse Ox O2 Delivery O2 Flow Rate FiO2 05/23/17 12:00 97.8 98 20 106/60 96 Room Air 98 05/23/17 11:15 Room Air 05/23/17 08:10 Room Air 05/23/17 08:00 98.3 86 21 122/56 96 Room Air 86 05/23/17 04:00 98.9 88 20 131/65 95 Room Air 05/23/17 00:00 97.4 92 21 117/71 95 Room Air 92 05/22/17 20:00 97.6 89 21 102/58 Room Air 89 05/22/17 19:05 Room Air 05/22/17 19:05 94 Room Air 05/22/17 16:11 97.5 75 19 129/57 95 Room Air 75 Intake and Output 05/22/17 05/23/17 19:00 07:00 Intake Total 520 ml 910 ml Output Total 700 ml 800 ml Balance -180 ml 110 ml Intake Free Water 60 ml 60 ml IV Total 100 ml 355 ml Tube Feeding 360 ml 495 ml Output Urine Total 700 ml 800 ml # Bowel Movements 1 2 Objective confused but responsive General Appearance: no acute distress HEENT: atraumatic Respiratory/Chest: lungs clear Cardiovascular: regular rhythm Microbiology Date/Time Source Procedure Growth Status 05/20/17 14:50 Blood Blood Culture - Preliminary NO GROWTH AFTER 48 HOURS Resulted 05/20/17 14:45 Blood Blood Culture - Preliminary NO GROWTH AFTER 48 HOURS Resulted Current Medications Medications (Trade) Dose Ordered Sig/James Route PRN Reason Start Time Stop Time Status Last Admin Dose Admin Acetaminophen (Tylenol) 650 mg Q4H PRN GT Mild Pain/Temp > 100.5 05/19/17 18:00 06/18/17 17:59 Chlorhexidine Gluconate (Eunice-Hex 2%) 1 applic QHS TOPIC 05/19/17 21:00 06/18/17 20:59 05/22/17 21:04 Epoetin Kamran (Procrit (for ESRD on dialysis)) 5,000 units MON-FRI-FRI SUBQ 05/23/17 21:00 06/22/17 20:59 Heparin Sodium (Porcine) (Heparin 5000 units/ml) 5,000 units EVERY 12 HOURS SUBQ 05/19/17 21:00 06/18/17 20:59 05/23/17 11:47 Lansoprazole (Prevacid) 15 mg DAILY GT 05/20/17 09:00 06/19/17 08:59 05/23/17 11:47 Linezolid (Zyvox) 300 ml @ 300 mls/hr Q12HR IVPB 05/19/17 21:00 05/26/17 20:59 05/23/17 11:47 Meropenem 500 mg/ Sodium Chloride 55 ml @ 110 mls/hr Q24H IVPB 05/21/17 21:00 05/26/17 20:59 05/22/17 21:29 Midodrine (Pro-Amatine) 10 mg THREE TIMES A DAY GT 05/19/17 18:00 06/18/17 17:59 05/23/17 11:47 Quetiapine Fumarate 25 mg 25 mg Q12HR ORAL 05/19/17 21:00 06/18/17 20:59 05/23/17 11:47 Sodium Chloride (Sodium Chloride 1000ml bag) 1,000 ml @ 500 mls/hr Q2H PRN IVLG sbp<90 during hd 05/23/17 06:00 05/23/17 23:59 GONZALO LONGORIA May 23, 2017 13:38
--- NOTE | 2017-05-23 13:41 | Nephrology Progress Note ---
Assessment/Plan Problem List: (1) Hypercalcemia (2) Malnutrition of moderate degree (3) Intravenous catheter sepsis (4) ESRD (end stage renal disease) (5) Severe sepsis (6) Respiratory failure with hypoxia (7) Hypokalemia (8) Pneumonia Plan s/p remove permcath, new temporary hd cath 05/16 until sepsis clears, seen on HD 05/23 bp low normal, pth 97 does not explain high Ca, remains high risk, remove femoral line and cath free a few days prior to permcath Subjective ROS Limited/Unobtainable: Yes Objective Objective Last 24 Hour Vital Signs Date Time Temp Pulse Resp B/P Pulse Ox O2 Delivery O2 Flow Rate FiO2 05/23/17 12:00 97.8 98 20 106/60 96 Room Air 98 05/23/17 11:15 Room Air 05/23/17 08:10 Room Air 05/23/17 08:00 98.3 86 21 122/56 96 Room Air 86 05/23/17 04:00 98.9 88 20 131/65 95 Room Air 05/23/17 00:00 97.4 92 21 117/71 95 Room Air 92 05/22/17 20:00 97.6 89 21 102/58 Room Air 89 05/22/17 19:05 Room Air 05/22/17 19:05 94 Room Air 05/22/17 16:11 97.5 75 19 129/57 95 Room Air 75 Intake and Output 05/22/17 05/23/17 19:00 07:00 Intake Total 520 ml 910 ml Output Total 700 ml 800 ml Balance -180 ml 110 ml Intake Free Water 60 ml 60 ml IV Total 100 ml 355 ml Tube Feeding 360 ml 495 ml Output Urine Total 700 ml 800 ml # Bowel Movements 1 2 Height (Feet): 5 Height (Inches): 7.00 Weight (Pounds): 145 General Appearance: no apparent distress, lethargic, confused EENT: normal ENT inspection Neck: normal alignment Cardiovascular: regular rhythm Respiratory/Chest: lungs clear Abdomen: non tender, soft Neurologic: disoriented PRUDENCE MA May 23, 2017 13:41
[2017-05-23 16:00] VITALS: BP 112/68
[2017-05-23 20:00] VITALS: BP 102/56
[2017-05-23] MEDS: Meropenem 500mg in NS 55ml IVPB SCH (20:41)
[2017-05-23] MEDS: Dyna-Hex 2% Top Sol 8oz TOPIC SCH (21:55)
[2017-05-23] MEDS: Epogen (for ESRD on dialysis) SUBQ SCH (21:55)
[2017-05-24] VITALS: BP 114/60
[2017-05-24 04:00] VITALS: BP 105/61
[2017-05-24 07:41] LABS: ANION GAP 9 (5-15); CALCIUM 9.5 mg/dL (8.6-10.2); CARBON DIOXIDE 31 mEQ/L (20-30); CHLORIDE 97 mEQ/L (98-107); CREATININE 1.6 mg/dL (0.7-1.2); HEMOLYSIS 13; POTASSIUM 4.4 mEQ/L (3.4-4.9); SODIUM 137 mEQ/L (135-145)
[2017-05-24 07:42] LABS: BASOPHILS % (AUTO) 0.9 % (0.0-2.0); EOSINOPHILS % (AUTO) 0.7 % (0.0-3.0); LYMPHOCYTES % (AUTO) 9.7 % (20.0-45.0); MEAN CORPUSCULAR HEMOGLOBIN 33.7 PG (27.0-31.0); MEAN CORPUSCULAR HGB CONC 32.2 G/DL (32.0-36.0); MEAN CORPUSCULAR VOLUME 105 FL (80-99); MEAN PLATELET VOLUME 6.4 FL (6.5-10.1); MONOCYTES % (AUTO) 4.9 % (1.0-10.0); NEUTROPHILS % (AUTO) 83.8 % (45.0-75.0); PLATELET COUNT 206 K/UL (150-450); RED BLOOD COUNT 2.38 M/UL (4.70-6.10); RED CELL DISTRIBUTION WIDTH 20.3 % (11.6-14.8); WHITE BLOOD COUNT 7.7 K/UL (4.8-10.8)
--- NOTE | 2017-05-24 08:27 | Diagnostic Imaging Report ---
Indications: August Technique: Portable AP chest Findings: Comparison: 05/22/17 Linear and hazy airspace opacities persist in both lung bases. Mild blunting of both costophrenic angles suggesting small pleural effusions persist. Cardiomediastinal silhouette stable. No new abnormality identified. IMPRESSION: Stable pulmonary bibasal subsegmental atelectasis versus scarring and infiltrates Stable small bibasal pleural effusions
[2017-05-24 08:57] VITALS: BP 106/48
[2017-05-24] MEDS: Midodrine 10mg tab GT SCH ×3 (09:00→17:47)
[2017-05-24] MEDS: Lansoprazole 15mg cap GT SCH (09:00)
[2017-05-24] MEDS: Heparin 5000 units/ml inj SUBQ SCH ×2 (09:06→20:41)
[2017-05-24 12:29] VITALS: BP 108/47
--- NOTE | 2017-05-24 13:17 | Infectious Diseases Prog Note ---
Assessment/Plan Assessment/Plan ASSESSMENT AND PLAN: 1. mrsa and vre bacteremia, likely perma-cath line infection, vre uti, sepsis, leukocytosis, fevers, e.coli/proteus pna, cath tip - staph aureus - perma-catheter removed, now with femoral temporary dialysis catheter - DEJAH without vegetation - zyvox # 10/14 and meropenem day # 02/24, will need 7-14 days of vancomycin with dialysis after zyvox finished to treat for 3-4 weeks for mrsa bacteremia - check labs and chest x-ray - stable for perma-catheter ID standpoint - d/w Julianna and Dr. Nelson 2. End-stage renal disease, on hemodialysis. 3. Percutaneous endoscopic gastrostomy, gastrostomy tube, and dysphagia. 4. Aspiration risk. 5. PermCath. 6. Diabetes. 7. Hypertension. 8. Anemia. 9. Schizophrenia. 10. Poor historian. 11. Dementia. 12. Blood sugar and blood pressure control per primary, Dr. Levine for diabetes and hypertension. 13. Gout. 14. Anemia. 15. Past medical history as noted above. 16. Allergy to penicillin. 17. Social history is negative. 18. Family history is noncontributory. 19. MAR was noted. 20. Case was discussed with RN. 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 Subjective Constitutional: Denies: fever HEENT: Denies: congestion Respiratory: Denies: shortness of breath Cardiovascular: Denies: chest pain Gastrointestinal/Abdominal: Denies: diarrhea, nausea, vomiting Genitourinary: Reports: other - + hd Neurologic: Denies: headache Skin: Denies: rash Hematologic: Denies: bleeding Musculoskeletal: Denies: pain Allergies: Coded Allergies: PENICILLINS (Verified Allergy, Unknown, 05/12/17) Objective Vital Signs Last 24 Hour Vital Signs Date Time Temp Pulse Resp B/P Pulse Ox O2 Delivery O2 Flow Rate FiO2 05/24/17 12:29 98.2 76 18 108/47 94 Nasal Cannula 05/24/17 08:57 98.1 107 19 106/48 95 Nasal Cannula 05/24/17 04:00 98.1 101 20 105/61 95 Room Air 05/24/17 00:00 97.7 98 18 114/60 93 Room Air 05/23/17 20:01 Room Air 05/23/17 20:01 97 Room Air 05/23/17 20:00 97.7 95 20 102/56 95 Room Air 05/23/17 16:00 98.2 87 21 112/68 98 Room Air 87 Height (Feet): 5 Height (Inches): 7.00 Weight (Pounds): 145 General Appearance: no acute distress HEENT: normocephalic, atraumatic, anicteric, mucous membranes moist, PERRL, EOMI, pharynx normal, supple, no JVD Respiratory/Chest: lungs clear, normal breath sounds, no respiratory distress, no accessory muscle use Cardiovascular: normal rate, regular rhythm, no gallop/murmur, no JVD Abdomen: normal bowel sounds, soft, non tender, no organomegaly, non distended Genitourinary: other - + hd Extremities: no cyanosis Skin: no rash Neurologic/Psychiatric: dry can tender II-XII grossly normal, alert, responsive Lymphatic: no neck adenopathy Musculoskeletal: no effusion Objective chest x-ray - 05/15 - increased right infiltrate TTE - no definitive vegetation seen Chest xr-ay - 05/18 - atx vs infiltrate chest x-ray - 05/22 - bilateral infiltrates chest x-ray - 05/24 - no change in atx vs infiltrates Microbiology Date/Time Source Procedure Growth Status 05/22/17 11:15 Blood Blood Culture - Preliminary NO GROWTH AFTER 48 HOURS Resulted 05/22/17 11:00 Blood Blood Culture - Preliminary NO GROWTH AFTER 48 HOURS Resulted Laboratory Tests Test 05/24/17 06:00 White Blood Count 7.7 K/UL (4.8-10.8) Red Blood Count 2.38 M/UL (4.70-6.10) L Hemoglobin 8.0 G/DL (14.2-18.0) L Hematocrit 24.9 % (42.0-52.0) L Mean Corpuscular Volume 105 FL (80-99) H Mean Corpuscular Hemoglobin 33.7 PG (27.0-31.0) H Mean Corpuscular Hemoglobin Concent 32.2 G/DL (32.0-36.0) Red Cell Distribution Width 20.3 % (11.6-14.8) H Platelet Count 206 K/UL (150-450) Mean Platelet Volume 6.4 FL (6.5-10.1) L Neutrophils (%) (Auto) 83.8 % (45.0-75.0) H Lymphocytes (%) (Auto) 9.7 % (20.0-45.0) L Monocytes (%) (Auto) 4.9 % (1.0-10.0) Eosinophils (%) (Auto) 0.7 % (0.0-3.0) Basophils (%) (Auto) 0.9 % (0.0-2.0) Sodium Level 137 mEQ/L (135-145) Potassium Level 4.4 mEQ/L (3.4-4.9) Chloride Level 97 mEQ/L (98-107) L Carbon Dioxide Level 31 mEQ/L (20-30) H Anion Gap 9 (5-15) Blood Urea Nitrogen 37 mg/dL (7-23) H Creatinine 1.6 mg/dL (0.7-1.2) H Estimat Glomerular Filtration Rate mL/min (>60) Glucose Level 99 mg/dL (74-106) Calcium Level 9.5 mg/dL (8.6-10.2) Current Medications Medications (Trade) Dose Ordered Sig/James Route PRN Reason Start Time Stop Time Status Last Admin Dose Admin Acetaminophen (Tylenol) 650 mg Q4H PRN GT Mild Pain/Temp > 100.5 05/19/17 18:00 06/18/17 17:59 Chlorhexidine Gluconate (Eunice-Hex 2%) 1 applic QHS TOPIC 05/19/17 21:00 06/18/17 20:59 05/23/17 21:55 Epoetin Kamran (Procrit (for ESRD on dialysis)) 5,000 units FRI-FRI-FRI SUBQ 05/23/17 21:00 06/22/17 20:59 05/23/17 21:55 Heparin Sodium (Porcine) (Heparin 5000 units/ml) 5,000 units EVERY 12 HOURS SUBQ 05/19/17 21:00 06/18/17 20:59 05/24/17 09:06 Heparin Sodium/ Sodium Chloride (Heparin 2000 units/Ns 1000ml premix) 2,000 unit ONCE ONCE INJ 05/26/17 09:00 05/26/17 09:01 Lansoprazole (Prevacid) 15 mg DAILY GT 05/20/17 09:00 06/19/17 08:59 05/24/17 09:00 Lidocaine/ Epinephrine (Xylocaine 1%/ Epi MPF) 30 ml ONCE ONCE INJ 05/26/17 09:00 05/26/17 09:01 Linezolid (Zyvox) 300 ml @ 300 mls/hr Q12HR IVPB 05/19/17 21:00 05/26/17 20:59 05/24/17 09:01 Meropenem/Sodium Chloride (Merrem/Sodium Chloride) 55 ml @ 110 mls/hr Q24H IVPB 05/21/17 21:00 05/26/17 20:59 05/23/17 20:41 Midodrine (Pro-Amatine) 10 mg THREE TIMES A DAY GT 05/19/17 18:00 06/18/17 17:59 05/24/17 13:02 Quetiapine Fumarate 25 mg 25 mg Q12HR ORAL 05/19/17 21:00 06/18/17 20:59 05/24/17 09:00 MORGAN REEVES May 24, 2017 13:17
[2017-05-24 16:00] VITALS: BP 110/52
[2017-05-24 20:00] VITALS: BP 97/51
[2017-05-24] MEDS: Meropenem 500 MG in NS 55 ML IVPB SCH (20:39)
[2017-05-24] MEDS: Dyna-Hex 2% Top Sol 8oz TOPIC SCH (21:00)
--- NOTE | 2017-05-24 22:01 | Pulmonology Progress Note ---
Assessment/Plan Assessment/Plan Sepsis w shock - s aureus, VRE due to line sepsis, UTI, no SBE ESRD, dialysis dementia, schizophrenia DM tophaceous gout dysphagia, PEG severe anemia, transfused UTI - VRE pneumonia, effusion BC neg 05/20/17 dc femoral HD cath abx per ID o2 may need prbc, check am labs wound care Perm Cath Friday and dialysis disc w Dr Nelson, RN, Subjective ROS Limited/Unobtainable: Yes Allergies: Coded Allergies: PENICILLINS (Verified Allergy, Unknown, 05/12/17) Subjective confused less agitated no fever noted no reports of cp nv or bleeding npo on Tf and tolerating HD Friday wounds cdi Objective Last 24 Hour Vital Signs Date Time Temp Pulse Resp B/P Pulse Ox O2 Delivery O2 Flow Rate FiO2 05/24/17 20:00 98.1 98 20 97/51 95 Room Air 05/24/17 16:00 97.6 94 19 110/52 93 Room Air 05/24/17 12:29 98.2 76 18 108/47 94 Nasal Cannula 05/24/17 08:57 98.1 107 19 106/48 95 Nasal Cannula 05/24/17 04:00 98.1 101 20 105/61 95 Room Air 05/24/17 00:00 97.7 98 18 114/60 93 Room Air Intake and Output 05/23/17 05/24/17 19:00 07:00 Intake Total 420 ml 925 ml Output Total 1900 ml 950 ml Balance -1480 ml -25 ml Intake Free Water 60 ml 30 ml IV Total 355 ml Tube Feeding 360 ml 540 ml Output Urine Total 500 ml 950 ml Hemodialysis UF 1400 ml General Appearance: cachetic HEENT: atraumatic, anicteric Respiratory/Chest: rhonchi Cardiovascular: normal rate, regular rhythm Abdomen: soft, non tender, no organomegaly, other - gt Extremities: no cyanosis Skin: lesions Neurologic/Psychiatric: disoriented, aphasia Lymphatic: no neck adenopathy Musculoskeletal: no effusion Microbiology Date/Time Source Procedure Growth Status 05/22/17 11:15 Blood Blood Culture - Preliminary NO GROWTH AFTER 48 HOURS Resulted 05/22/17 11:00 Blood Blood Culture - Preliminary NO GROWTH AFTER 48 HOURS Resulted Laboratory Tests 05/24/17 06:00: White Blood Count 7.7, Red Blood Count 2.38L, Hemoglobin 8.0L, Hematocrit 24.9L , Mean Corpuscular Volume 105H, Mean Corpuscular Hemoglobin 33.7H, Mean Corpuscular Hemoglobin Concent 32.2, Red Cell Distribution Width 20.3H, Platelet Count 206, Mean Platelet Volume 6.4L, Neutrophils (%) (Auto) 83.8H, Lymphocytes (%) (Auto) 9.7L, Monocytes (%) (Auto) 4.9, Eosinophils (%) (Auto) 0.7, Basophils (%) (Auto) 0.9, Sodium Level 137, Potassium Level 4.4, Chloride Level 97L, Carbon Dioxide Level 31H, Anion Gap 9, Blood Urea Nitrogen 37H, Creatinine 1.6H, Estimat Glomerular Filtration Rate , Glucose Level 99, Calcium Level 9.5 Current Medications Medications (Trade) Dose Ordered Sig/James Route PRN Reason Start Time Stop Time Status Last Admin Dose Admin Acetaminophen (Tylenol) 650 mg Q4H PRN GT Mild Pain/Temp > 100.5 05/19/17 18:00 06/18/17 17:59 Chlorhexidine Gluconate (Eunice-Hex 2%) 1 applic QHS TOPIC 05/19/17 21:00 06/18/17 20:59 05/23/17 21:55 Epoetin Kamran (Procrit (for ESRD on dialysis)) 5,000 units FRI-FRI-FRI SUBQ 05/23/17 21:00 06/22/17 20:59 05/23/17 21:55 Heparin Sodium (Porcine) (Heparin 5000 units/ml) 5,000 units EVERY 12 HOURS SUBQ 05/19/17 21:00 06/18/17 20:59 05/24/17 20:41 Heparin Sodium/ Sodium Chloride 2000 unit 2,000 unit ONCE ONCE INJ 05/26/17 09:00 05/26/17 09:01 Lansoprazole (Prevacid) 15 mg DAILY GT 05/20/17 09:00 06/19/17 08:59 05/24/17 09:00 Lidocaine/ Epinephrine (Xylocaine 1%/ Epi MPF) 30 ml ONCE ONCE INJ 05/26/17 09:00 05/26/17 09:01 Linezolid 300 ml @ 300 mls/hr Q12HR IVPB 05/24/17 21:00 05/31/17 20:59 7/8/17 21:19 Meropenem/Sodium Chloride (Merrem/Sodium Chloride) 55 ml @ 110 mls/hr Q24H IVPB 05/24/17 21:00 05/29/17 20:59 05/24/17 20:39 Midodrine (Pro-Amatine) 10 mg THREE TIMES A DAY GT 05/19/17 18:00 06/18/17 17:59 05/24/17 17:47 Quetiapine Fumarate (SEROquel) 25 mg Q12HR ORAL 05/19/17 21:00 06/18/17 20:59 05/24/17 20:39 ANDREW LOWERY DO May 24, 2017 22:01
[2017-05-25] VITALS (7 sets, daily range): BP systolic 102–127; BP diastolic 53–65
[2017-05-25] MEDS: Lansoprazole 15mg cap GT SCH (08:18)
[2017-05-25] MEDS: Midodrine 10mg tab GT SCH ×3 (08:18→17:01)
[2017-05-25] MEDS: Heparin 5000 units/ml inj SUBQ SCH ×2 (08:19→20:48)
[2017-05-25] MEDS ORDERED: Tubing IV Secondary IV ONE (09:25)
[2017-05-25] MEDS ORDERED: NS 275ml ONE (09:25)
--- NOTE | 2017-05-25 14:52 | Nephrology Progress Note ---
Assessment/Plan Problem List: (1) Hypercalcemia (2) Malnutrition of moderate degree (3) Intravenous catheter sepsis (4) ESRD (end stage renal disease) (5) Severe sepsis (6) Respiratory failure with hypoxia (7) Hypokalemia (8) Pneumonia Plan s/p remove permcath, new temporary hd cath 05/16 until sepsis clears, seen on HD 05/23 bp low normal, pth 97 does not explain high Ca, remains high risk, remove femoral line and cath free a few days, labs stable off HD for a few days , non oliguric. In view of his overall poor condition I would favor stopping dialysis and observing with acevedo drainage and avoiding hypovolemia. He has good urine output. Subjective ROS Limited/Unobtainable: Yes Objective Objective Last 24 Hour Vital Signs Date Time Temp Pulse Resp B/P Pulse Ox O2 Delivery O2 Flow Rate FiO2 05/25/17 11:32 98.6 85 20 108/65 96 Nasal Cannula 05/25/17 08:37 98.8 88 20 105/61 96 Room Air 05/25/17 04:00 98.6 95 20 107/63 97 Room Air 05/25/17 00:00 98.2 87 18 102/53 97 Room Air 05/24/17 20:00 98.1 98 20 97/51 95 Room Air 05/24/17 16:00 97.6 94 19 110/52 93 Room Air Intake and Output 05/24/17 05/25/17 19:00 07:00 Intake Total 870 ml 1255 ml Output Total 450 ml 750 ml Balance 420 ml 505 ml Intake Free Water 30 ml 60 ml IV Total 300 ml 655 ml Tube Feeding 540 ml 540 ml Output Urine Total 450 ml 750 ml # Bowel Movements 3 Height (Feet): 5 Height (Inches): 7.00 Weight (Pounds): 145 General Appearance: lethargic, confused EENT: normal ENT inspection Neck: normal alignment Cardiovascular: normal rate, regular rhythm Respiratory/Chest: lungs clear Abdomen: non tender, soft Extremities: other - no edema Neurologic: disoriented PRUDENCE MA May 25, 2017 14:52
[2017-05-25] MEDS: Meropenem 500 MG in NS 55 ML IVPB SCH (20:46)
--- NOTE | 2017-05-25 22:02 | Pulmonology Progress Note ---
Assessment/Plan Assessment/Plan Sepsis w shock - s aureus, VRE due to line sepsis, UTI, no SBE ESRD, dialysis dementia, schizophrenia DM tophaceous gout dysphagia, PEG severe anemia, transfused UTI - VRE pneumonia, effusion BC neg 05/20/17 dc femoral HD cath abx per ID o2 may need prbc, check am labs wound care Perm Cath Friday and dialysis ,RN, Subjective ROS Limited/Unobtainable: Yes Allergies: Coded Allergies: PENICILLINS (Verified Allergy, Unknown, 05/12/17) Subjective confused less agitated no fever noted no reports of cp nv or bleeding npo on Tf and tolerating HD Friday wounds cdi Objective Last 24 Hour Vital Signs Date Time Temp Pulse Resp B/P Pulse Ox O2 Delivery O2 Flow Rate FiO2 05/25/17 20:00 98.1 94 20 127/59 91 Room Air 05/25/17 15:50 98.8 88 20 114/61 96 Room Air 05/25/17 11:32 98.6 85 20 108/65 96 Nasal Cannula 05/25/17 08:37 98.8 88 20 105/61 96 Room Air 05/25/17 04:00 98.6 95 20 107/63 97 Room Air 05/25/17 00:00 98.2 87 18 102/53 97 Room Air Intake and Output 05/24/17 05/25/17 19:00 07:00 Intake Total 870 ml 1255 ml Output Total 450 ml 750 ml Balance 420 ml 505 ml Intake Free Water 30 ml 60 ml IV Total 300 ml 655 ml Tube Feeding 540 ml 540 ml Output Urine Total 450 ml 750 ml # Bowel Movements 3 General Appearance: cachetic Respiratory/Chest: rhonchi Cardiovascular: normal rate, regular rhythm Abdomen: soft, non tender, no organomegaly Extremities: other Neurologic/Psychiatric: unresponsiveness Current Medications Medications (Trade) Dose Ordered Sig/James Route PRN Reason Start Time Stop Time Status Last Admin Dose Admin Acetaminophen (Tylenol) 650 mg Q4H PRN GT Mild Pain/Temp > 100.5 05/19/17 18:00 06/18/17 17:59 Epoetin Kamran 5000 units 5,000 units MON-WED-FRI SUBQ 05/23/17 21:00 06/22/17 20:59 05/23/17 21:55 Heparin Sodium (Porcine) (Heparin 5000 units/ml) 5,000 units EVERY 12 HOURS SUBQ 05/19/17 21:00 06/18/17 20:59 05/25/17 20:48 Lansoprazole (Prevacid) 15 mg DAILY GT 05/20/17 09:00 06/19/17 08:59 05/25/17 08:18 Linezolid 300 ml @ 300 mls/hr Q12HR IVPB 05/24/17 21:00 05/31/17 20:59 05/25/17 21:32 Meropenem/Sodium Chloride (Merrem/Sodium Chloride) 55 ml @ 110 mls/hr Q24H IVPB 05/24/17 21:00 05/29/17 20:59 05/25/17 20:46 Midodrine (Pro-Amatine) 10 mg THREE TIMES A DAY GT 05/19/17 18:00 06/18/17 17:59 05/25/17 17:01 Quetiapine Fumarate (SEROquel) 25 mg Q12HR ORAL 05/19/17 21:00 06/18/17 20:59 05/25/17 20:46 ADNREW LOWERY DO May 25, 2017 22:02
--- NOTE | 2017-05-26 03:30 | Progress Note ---
DATE: 05/23/2017 CARDIOLOGY PROGRESS NOTE SUBJECTIVE: The patient had a DEJAH yesterday, which revealed no evidence of vegetation and was reported as low likelihood for endocarditis. The patient had his femoral catheter line removed after dialysis and is awaiting PermCath placement for prior to his next dialysis session. OBJECTIVE: VITAL SIGNS: Afebrile, blood pressure 106/60, pulse 98, and respiratory rate 20. NECK: Supple. LUNGS: Unclear. CARDIAC: Regular rate, normal S1 and S2 with a fourth heart sound. ABDOMEN: Soft, EXTREMITIES: No edema. IMPRESSION: 1. Line sepsis, recovered shock, staph aureus and vancomycin resistant enterococcus bacteremia. No signs of endocarditis. 2. End-stage renal disease. 3. Diabetes mellitus. 4. Anemia, multifactorial and status post transfusion. PLAN: Antibiotics. No central access for the next 72 hours. PermCath prior to next dialysis session on 05/26/2017. Dale Quiñones M.D. DR: NASEEM JOB#: [id number] CC:
[2017-05-26 04:00] VITALS: BP 117/57
[2017-05-26 07:22] LABS: MEAN CORPUSCULAR HEMOGLOBIN 33.5 PG (27.0-31.0); MEAN CORPUSCULAR VOLUME 105 FL (80-99); MEAN PLATELET VOLUME 6.3 FL (6.5-10.1); PLATELET COUNT 184 K/UL (150-450); RED BLOOD COUNT 2.16 M/UL (4.70-6.10); RED CELL DISTRIBUTION WIDTH 19.8 % (11.6-14.8); WHITE BLOOD COUNT 7.1 K/UL (4.8-10.8)
[2017-05-26 07:40] LABS: ANION GAP 13 (5-15); CALCIUM 9.7 mg/dL (8.6-10.2); CARBON DIOXIDE 25 mEQ/L (20-30); CHLORIDE 96 mEQ/L (98-107); CREATININE 2.5 mg/dL (0.7-1.2); HEMOLYSIS 6; POTASSIUM 5.3 mEQ/L (3.4-4.9); SODIUM 134 mEQ/L (135-145)
[2017-05-26 08:00] VITALS: BP 96/50
[2017-05-26] MEDS: Lansoprazole 15mg cap GT SCH (08:01)
[2017-05-26] MEDS: Midodrine 10mg tab GT SCH ×3 (08:02→17:08)
[2017-05-26] MEDS: Heparin 5000 units/ml inj SUBQ SCH ×2 (08:02→21:19)
[2017-05-26] MEDS ORDERED: SEROQUEL25 MG ORAL (08:53)
[2017-05-26] MEDS ORDERED: MEROPENEM-500 MG/50 IV (08:53)
[2017-05-26] MEDS ORDERED: VANCO 500500 MG/100 IV (08:53)
[2017-05-26] MEDS ORDERED: Lidocaine 1% 10mg/ml/Epi 0.005mg/ml 30ml vial INJ ONE (09:00)
[2017-05-26] MEDS ORDERED: Heparin 2000 units/Ns 1000ml INJ ONE (09:00)
[2017-05-26 10:10] LABS: ANISOCYTOSIS 1+; BAND NEUTROPHILS % (MANUAL) 0 % (0-8); BASOPHILS % (MANUAL) 0 % (0-2); EOSINOPHILS % (MANUAL) 1 % (0-3); LYMPHOCYTES % (MANUAL) 9 % (20-45); MACROCYTES 1+; NEUTROPHILS % (MANUAL) 83 % (45-75); PLATELET ESTIMATE ADEQUATE; PLATELET MORPHOLOGY NORMAL; TOTAL CELLS COUNTED 100
[2017-05-26 10:13] LABS: HYPOCHROMASIA 1+
[2017-05-26 12:00] VITALS: BP 120/66
--- NOTE | 2017-05-26 12:46 | Infectious Diseases Prog Note ---
Assessment/Plan Assessment/Plan ASSESSMENT AND PLAN: 1. mrsa and vre bacteremia, likely perma-cath line infection, vre uti, sepsis, leukocytosis, fevers, e.coli/proteus pna, cath tip - staph aureus - uo good, + acevedo - DEJAH without vegetation - zyvox # 12/14 and meropenem day # 04/26, will need 7-14 days of vancomycin with dialysis after zyvox finished to treat for 3-4 weeks for mrsa bacteremia - check labs and chest x-ray - stable for perma-catheter ID standpoint, if needed - d/w Julianna about abx 2. ARF - improving ua, has acevedo, continue per nephrology 3. Percutaneous endoscopic gastrostomy, gastrostomy tube, and dysphagia. 4. Aspiration risk. 5. PermCath. 6. Diabetes. 7. Hypertension. 8. Anemia. 9. Schizophrenia. 10. Poor historian. 11. Dementia. 12. Blood sugar and blood pressure control per primary, Dr. Levine for diabetes and hypertension. 13. Gout. 14. Anemia. 15. Past medical history as noted above. 16. Allergy to penicillin. 17. Social history is negative. 18. Family history is noncontributory. 19. MAR was noted. 20. Case was discussed with RN. 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 Subjective Constitutional: Denies: fever HEENT: Denies: congestion Respiratory: Denies: shortness of breath Cardiovascular: Denies: chest pain Gastrointestinal/Abdominal: Denies: diarrhea, nausea, vomiting Genitourinary: Reports: other - + acevedo Neurologic: Denies: headache Psychiatric: Denies: depression Hematologic: Denies: bleeding Musculoskeletal: Denies: pain Allergies: Coded Allergies: PENICILLINS (Verified Allergy, Unknown, 05/12/17) Objective Vital Signs Last 24 Hour Vital Signs Date Time Temp Pulse Resp B/P Pulse Ox O2 Delivery O2 Flow Rate FiO2 05/26/17 08:00 97.7 93 18 96/50 95 Room Air 05/26/17 04:00 98.0 89 18 117/57 96 Room Air 05/25/17 23:42 97.9 83 18 119/59 97 Room Air 05/25/17 20:00 98.1 94 20 127/59 91 Room Air 05/25/17 15:50 98.8 88 20 114/61 96 Room Air Height (Feet): 5 Height (Inches): 7.00 Weight (Pounds): 145 General Appearance: no acute distress HEENT: normocephalic, atraumatic, anicteric, mucous membranes moist, PERRL, EOMI, pharynx normal, supple, no JVD Respiratory/Chest: no respiratory distress, no accessory muscle use, rhonchi - bilaterally, rhonchi - left Cardiovascular: normal rate, regular rhythm, no gallop/murmur, no JVD Abdomen: normal bowel sounds, soft, non tender, no organomegaly, non distended Genitourinary: other Extremities: no cyanosis Skin: no rash Neurologic/Psychiatric: 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 grossly normal, alert, responsive Lymphatic: no neck adenopathy Musculoskeletal: no effusion Objective chest x-ray - 05/15 - increased right infiltrate TTE - no definitive vegetation seen Chest xr-ay - 05/18 - atx vs infiltrate chest x-ray - 05/22 - bilateral infiltrates chest x-ray - 05/24 - no change in atx vs infiltrates Laboratory Tests Test 05/26/17 04:45 White Blood Count 7.1 K/UL (4.8-10.8) Red Blood Count 2.16 M/UL (4.70-6.10) L Hemoglobin 7.2 G/DL (14.2-18.0) L Hematocrit 22.6 % (42.0-52.0) L Mean Corpuscular Volume 105 FL (80-99) H Mean Corpuscular Hemoglobin 33.5 PG (27.0-31.0) H Mean Corpuscular Hemoglobin Concent 32.0 G/DL (32.0-36.0) Red Cell Distribution Width 19.8 % (11.6-14.8) H Platelet Count 184 K/UL (150-450) Mean Platelet Volume 6.3 FL (6.5-10.1) L Neutrophils (%) (Auto) % (45.0-75.0) Lymphocytes (%) (Auto) % (20.0-45.0) Monocytes (%) (Auto) % (1.0-10.0) Eosinophils (%) (Auto) % (0.0-3.0) Basophils (%) (Auto) % (0.0-2.0) Differential Total Cells Counted 100 Neutrophils % (Manual) 83 % (45-75) H Lymphocytes % (Manual) 9 % (20-45) L Monocytes % (Manual) 7 % (1-10) Eosinophils % (Manual) 1 % (0-3) Basophils % (Manual) 0 % (0-2) Band Neutrophils 0 % (0-8) Platelet Estimate Adequate Platelet Morphology Normal Hypochromasia 1+ Anisocytosis 1+ Macrocytosis 1+ Sodium Level 134 mEQ/L (135-145) L Potassium Level 5.3 mEQ/L (3.4-4.9) H Chloride Level 96 mEQ/L (98-107) L Carbon Dioxide Level 25 mEQ/L (20-30) Anion Gap 13 (5-15) Blood Urea Nitrogen 74 mg/dL (7-23) H Creatinine 2.5 mg/dL (0.7-1.2) H Estimat Glomerular Filtration Rate mL/min (>60) Glucose Level 91 mg/dL (74-106) Calcium Level 9.7 mg/dL (8.6-10.2) Current Medications Medications (Trade) Dose Ordered Sig/James Route PRN Reason Start Time Stop Time Status Last Admin Dose Admin Acetaminophen (Tylenol) 650 mg Q4H PRN GT Mild Pain/Temp > 100.5 05/19/17 18:00 06/18/17 17:59 Epoetin Kamran 5000 units 5,000 units FRI-FRI-FRI SUBQ 05/23/17 21:00 06/22/17 20:59 05/23/17 21:55 Heparin Sodium (Porcine) (Heparin 5000 units/ml) 5,000 units EVERY 12 HOURS SUBQ 05/19/17 21:00 06/18/17 20:59 05/25/17 20:48 Lansoprazole (Prevacid) 15 mg DAILY GT 05/20/17 09:00 06/19/17 08:59 05/26/17 08:01 Linezolid 300 ml @ 300 mls/hr Q12HR IVPB 05/24/17 21:00 05/31/17 20:59 05/26/17 08:02 Meropenem/Sodium Chloride (Merrem/Sodium Chloride) 55 ml @ 110 mls/hr Q24H IVPB 05/24/17 21:00 05/29/17 20:59 05/25/17 20:46 Midodrine (Pro-Amatine) 10 mg THREE TIMES A DAY GT 05/19/17 18:00 06/18/17 17:59 05/26/17 08:02 Quetiapine Fumarate (SEROquel) 25 mg Q12HR ORAL 05/19/17 21:00 06/18/17 20:59 05/26/17 08:02 MORGAN REEVES May 26, 2017 12:46
[2017-05-26 13:58] LABS: OTHERS PATHOLOGIST COMMENT
[2017-05-26 16:00] VITALS: BP 114/74
--- NOTE | 2017-05-26 17:10 | Nephrology Progress Note ---
Assessment/Plan Problem List: (1) Hypercalcemia (2) Malnutrition of moderate degree (3) Intravenous catheter sepsis (4) ESRD (end stage renal disease) (5) Severe sepsis (6) Respiratory failure with hypoxia (7) Hypokalemia (8) Pneumonia Plan s/p remove permcath, new temporary hd cath 05/16 until sepsis clears, seen on HD 05/23 bp low normal, pth 97 does not explain high Ca, remains high risk, remove femoral line and cath free a few days, labs stable off HD for a few days , non oliguric. In view of his overall poor condition I would favor stopping dialysis and observing with acevedo drainage and avoiding hypovolemia. He has good urine output.bun and creatinine higher 05/26 will hydrate and check lab in am. Subjective ROS Limited/Unobtainable: Yes Objective Objective Last 24 Hour Vital Signs Date Time Temp Pulse Resp B/P Pulse Ox O2 Delivery O2 Flow Rate FiO2 05/26/17 16:00 98.2 92 19 114/74 92 Room Air 05/26/17 12:00 98.2 89 19 120/66 94 Room Air 05/26/17 08:00 97.7 93 18 96/50 95 Room Air 05/26/17 04:00 98.0 89 18 117/57 96 Room Air 05/25/17 23:42 97.9 83 18 119/59 97 Room Air 05/25/17 20:00 98.1 94 20 127/59 91 Room Air Intake and Output 05/25/17 05/26/17 19:00 07:00 Intake Total 870 ml 1400 ml Output Total 500 ml 400 ml Balance 370 ml 1000 ml Intake Oral 475 ml Free Water 30 ml 30 ml IV Total 300 ml 355 ml Tube Feeding 540 ml 540 ml Output Urine Total 500 ml 400 ml # Bowel Movements 2 2 Laboratory Tests 05/26/17 04:45: White Blood Count 7.1, Red Blood Count 2.16L, Hemoglobin 7.2L, Hematocrit 22.6L , Mean Corpuscular Volume 105H, Mean Corpuscular Hemoglobin 33.5H, Mean Corpuscular Hemoglobin Concent 32.0, Red Cell Distribution Width 19.8H, Platelet Count 184, Mean Platelet Volume 6.3L, Neutrophils (%) (Auto) , Lymphocytes (%) (Auto) , Monocytes (%) (Auto) , Eosinophils (%) (Auto) , Basophils (%) (Auto) , Differential Total Cells Counted 100, Neutrophils % ( Manual) 83H, Lymphocytes % (Manual) 9L, Monocytes % (Manual) 7, Eosinophils % ( Manual) 1, Basophils % (Manual) 0, Band Neutrophils 0, Other Cell Type Pathologist comment, Platelet Estimate Adequate, Platelet Morphology Normal, Hypochromasia 1+, Anisocytosis 1+, Macrocytosis 1+, Sodium Level 134L, Potassium Level 5.3H, Chloride Level 96L, Carbon Dioxide Level 25, Anion Gap 13 , Blood Urea Nitrogen 74H, Creatinine 2.5H, Estimat Glomerular Filtration Rate , Glucose Level 91, Calcium Level 9.7 Height (Feet): 5 Height (Inches): 7.00 Weight (Pounds): 145 General Appearance: lethargic, confused EENT: normal ENT inspection Neck: normal alignment Cardiovascular: normal rate, regular rhythm Respiratory/Chest: lungs clear Abdomen: non tender Extremities: other - no edema tophi Neurologic: disoriented PRUDENCE MA May 26, 2017 17:10
[2017-05-26 20:00] VITALS: BP 111/60
[2017-05-26] MEDS: Meropenem 500 MG in NS 55 ML IVPB SCH (21:17)
[2017-05-26] MEDS: Epogen (for ESRD on dialysis) SUBQ SCH (21:20)
[2017-05-27] VITALS: BP 111/70
[2017-05-27 04:00] VITALS: BP 113/53
[2017-05-27 07:25] LABS: ANION GAP 14 (5-15); CALCIUM 9.6 mg/dL (8.6-10.2); CARBON DIOXIDE 24 mEQ/L (20-30); CHLORIDE 100 mEQ/L (98-107); CREATININE 2.3 mg/dL (0.7-1.2); HEMOLYSIS 1; SODIUM 138 mEQ/L (135-145)
[2017-05-27 07:58] VITALS: BP 117/58
[2017-05-27] MEDS: Midodrine 10mg tab GT SCH ×3 (08:42→18:44)
[2017-05-27] MEDS: Lansoprazole 15mg cap GT SCH (08:42)
[2017-05-27] MEDS: Heparin 5000 units/ml inj SUBQ SCH ×2 (08:44→22:38)
[2017-05-27] MEDS ORDERED: Tubing IV Secondary IV ONE (09:33)
--- NOTE | 2017-05-27 11:44 | Pulmonology Progress Note ---
Assessment/Plan Assessment/Plan Sepsis w shock - s aureus, VRE due to line sepsis, UTI, no SBE ESRD, dialysis dementia, schizophrenia DM tophaceous gout dysphagia, PEG severe anemia, transfused UTI - VRE pneumonia, effusion BC neg Dr Nelson feels we should hold off on dialysis and monitor labs dc orders held yesterday as daughter refused she said they tried this recently and he developed pulm edema and dialysis was resumed I asked Dr Peguero to see for second opinion and he concurs with Dr Nelson that we should observe off dialysis Will transfuse Stable for discharge called Soc Service Subjective ROS Limited/Unobtainable: Yes Allergies: Coded Allergies: PENICILLINS (Verified Allergy, Unknown, 05/12/17) Subjective poorly responsive Objective Last 24 Hour Vital Signs Date Time Temp Pulse Resp B/P Pulse Ox O2 Delivery O2 Flow Rate FiO2 05/27/17 07:58 97.7 86 18 117/58 98 Room Air 05/27/17 04:00 98.1 94 18 113/53 97 Room Air 05/27/17 00:00 96.8 105 19 111/70 93 Room Air 05/26/17 20:00 98.1 87 18 111/60 95 Room Air 05/26/17 16:00 98.2 92 19 114/74 92 Room Air 05/26/17 12:00 98.2 89 19 120/66 94 Room Air Bad tableObjective confused but responsive General Appearance: no acute distress Respiratory/Chest: lungs clear Cardiovascular: normal rate Abdomen: soft, non tender Laboratory Tests 05/27/17 05:50: Sodium Level 138, Potassium Level 5.0H, Chloride Level 100, Carbon Dioxide Level 24, Anion Gap 14, Blood Urea Nitrogen 78H, Creatinine 2.3H, Estimat Glomerular Filtration Rate , Glucose Level 97, Calcium Level 9.6 Current Medications Medications (Trade) Dose Ordered Sig/James Route PRN Reason Start Time Stop Time Status Last Admin Dose Admin Acetaminophen (Tylenol) 650 mg Q4H PRN GT Mild Pain/Temp > 100.5 05/19/17 18:00 06/18/17 17:59 Epoetin Kamran 5000 units 5,000 units MON-WED-FRI SUBQ 05/23/17 21:00 06/22/17 20:59 05/26/17 21:20 Heparin Sodium (Porcine) (Heparin 5000 units/ml) 5,000 units EVERY 12 HOURS SUBQ 05/19/17 21:00 06/18/17 20:59 05/27/17 08:44 Lansoprazole (Prevacid) 15 mg DAILY GT 05/20/17 09:00 06/19/17 08:59 05/27/17 08:42 Linezolid 300 ml @ 300 mls/hr Q12HR IVPB 05/24/17 21:00 05/31/17 20:59 05/27/17 08:46 Meropenem 500 mg/ Sodium Chloride 55 ml @ 110 mls/hr Q24H IVPB 05/24/17 21:00 05/29/17 20:59 05/26/17 21:17 Midodrine (Pro-Amatine) 10 mg THREE TIMES A DAY GT 05/19/17 18:00 06/18/17 17:59 05/27/17 08:42 Quetiapine Fumarate (SEROquel) 25 mg Q12HR ORAL 05/19/17 21:00 06/18/17 20:59 05/27/17 08:43 Sodium Chloride (Sodium Chloride 1000ml bag) 1,000 ml @ 150 mls/hr Q6H40M IV 05/27/17 10:00 06/26/17 09:59 05/27/17 10:46 GONZALO LONGORIA May 27, 2017 11:44
[2017-05-27 12:00] VITALS: BP 125/62
--- NOTE | 2017-05-27 13:22 | Consultation ---
Consult Note Assessment/Plan second opinion , renal consult dictation # [id number] SARAH BROWN May 27, 2017 13:22
[2017-05-27 16:00] VITALS: BP 137/71
--- NOTE | 2017-05-27 17:16 | Consultation ---
DATE OF CONSULTATION: SECOND RENAL OPINION REQUESTING PHYSICIAN: Roland Levine M.D. HISTORY OF PRESENT ILLNESS: I was asked to evaluate the patient at the request of Dr. Roland Levine on second opinion. The patient is an 81-year-old male debilitated and a long-term resident and bed bound. Past history of the patient is significant for pneumonia and sepsis. The patient presented with an infected dialysis catheter, which apparently was a Perma-Cath to the hospital for this admission. He also known to have a GT tube for feeding, gout, diabetes, mellitus and history of schizophrenia and the patient is allergy to penicillin and the patient is a full code. The patient will initially presented to our emergency room on 05/13/2017 and during the course of this hospitalization, the patient was found to have methicillin resistant Staphylococcus aureus and vancomycin resistant enterococcus bacteremia, which was most likely secondary to PermCath line infection, VRE UTI, sepsis, leukocytosis, fever and also E coli, and proteus pneumonia. The catheter tip later on grew Staph aureus. The patient underwent DEJAH without vegetation. The patient received meropenem, Zyvox, and vancomycin and as per Dr. Jose L Nelson, the pinking sewing machine operator who was consulted on this patient, the patient did not require any dialysis treatment and during the course of hospitalization, the patient's electrolytes have been collected. The hypercalcemia had been collected and and sepsis and pneumonia have been under control. PHYSICAL EXAMINATION: GENERAL: On examination today, the patient malnourished, in a debilitated state, nonverbal, emaciated. VITAL SIGNS: Temperature 97.6 degrees, pulse rate 84, respiratory rate 18, and blood pressure 125/62. HEENT: Head, normocephalic. Sclerae are not icteric. NECK: Rigid to all directions. HEART: Regular with a rate of 84. LUNGS: Poor inspiratory effort. No wheeze. ABDOMEN: Soft. GT tube in place. Watson catheter in place. EXTREMITIES: Lower extremities with severe muscle wasting. LABORATORY DATA: Reviewing the laboratory results, the patient initially came in with creatinine of 4.3. Creatinine has been as low as 1.5. Since 05/22/2017, the creatinine has been creeping up to 2.5. On however today, it lower which is 2.3. The patient's serum albumin is 2.4. Today's calcium is 9.6. Hemoglobin is down to 7.2 and white blood cells 7.1. IMPRESSION: This patient with a history of renal failure, on dialysis, presents with catheter sepsis. At this time, the patient does not have any need for emergency dialysis. The patient's hemoglobin is low at 7.2, for which I favor blood transfusion. The patient is hemodynamically is stable. There is no evidence of volume overload or acidosis. There is no hyperkalemia and there is no volume overload and high blood pressure out of control. My suggestion is that I concur with Dr. Jose L Nelson that at this point, the patient does not require dialysis, hence insertion of a dialysis catheter is not indicated and I agree that the patient can be transfused, can be discharged, can be followed up as an outpatient. Renal parameters can be monitored and in the event that serum creatinine start to rise, then intervention at that time should be done and dialysis should be resumed since the patient has a pinking sewing machine operator that follow the patient as an outpatient, it is not unreasonable that after discharge, the patient follow up with the pinking sewing machine operator and follow up as per his advice. Thank you very much for allowing me to see this patient on renal consultation second opinion. I will be available for any discussion with the family or healthcare personnel if needed. Hipolito Peguero M.D. DR: JAGJIT JOB#: [id number] CC:
[2017-05-27 18:13] LABS: ANION GAP 13 (5-15); CALCIUM 9.3 mg/dL (8.6-10.2); CARBON DIOXIDE 21 mEQ/L (20-30); CHLORIDE 103 mEQ/L (98-107); CREATININE 2.4 mg/dL (0.7-1.2); HEMOLYSIS 26; POTASSIUM 5.1 mEQ/L (3.4-4.9); SODIUM 137 mEQ/L (135-145)
[2017-05-27 20:46] VITALS: BP 127/71
[2017-05-27] MEDS: Meropenem 500 MG in NS 55 ML IVPB SCH (21:00)
--- NOTE | 2017-05-27 21:06 | Infectious Diseases Prog Note ---
Assessment/Plan Assessment/Plan ASSESSMENT AND PLAN: 1. mrsa and vre bacteremia, likely perma-cath line infection, vre uti, sepsis, leukocytosis, fevers, e.coli/proteus pna, cath tip - staph aureus - uo good, + acevedo - DEJAH without vegetation - zyvox # 13/14 and meropenem day # 7/10, will need 7-14 days of vancomycin with dialysis after zyvox finished to treat for 3-4 weeks for mrsa bacteremia - check labs and chest x-ray - stable for perma-catheter ID standpoint, if needed - d/w Julianna about abx 2. ARF - improving ua, has acevedo, continue per nephrology 3. Percutaneous endoscopic gastrostomy, gastrostomy tube, and dysphagia. 4. Aspiration risk. 5. PermCath. 6. Diabetes. 7. Hypertension. 8. Anemia. 9. Schizophrenia. 10. Poor historian. 11. Dementia. 12. Blood sugar and blood pressure control per primary, Dr. Levine for diabetes and hypertension. 13. Gout. 14. Anemia. 15. Past medical history as noted above. 16. Allergy to penicillin. 17. Social history is negative. 18. Family history is noncontributory. 19. MAR was noted. 20. Case was discussed with RN. 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 Subjective Constitutional: Denies: fever HEENT: Denies: congestion Respiratory: Denies: shortness of breath Cardiovascular: Denies: chest pain Gastrointestinal/Abdominal: Denies: nausea Genitourinary: Reports: other - + acevedo Skin: Denies: rash Hematologic: Denies: bleeding Musculoskeletal: Denies: pain Allergies: Coded Allergies: PENICILLINS (Verified Allergy, Unknown, 05/12/17) Objective Vital Signs Last 24 Hour Vital Signs Date Time Temp Pulse Resp B/P Pulse Ox O2 Delivery O2 Flow Rate FiO2 05/27/17 20:46 97.0 85 18 127/71 93 Room Air 05/27/17 16:00 97.7 98 20 137/71 97 Room Air 05/27/17 12:00 97.5 84 18 125/62 96 Room Air 05/27/17 07:58 97.7 86 18 117/58 98 Room Air 05/27/17 04:00 98.1 94 18 113/53 97 Room Air 05/27/17 00:00 96.8 105 19 111/70 93 Room Air Height (Feet): 5 Height (Inches): 7.00 Weight (Pounds): 145 General Appearance: no acute distress HEENT: normocephalic, atraumatic, anicteric, mucous membranes moist, PERRL, EOMI, supple Respiratory/Chest: lungs clear, normal breath sounds, no respiratory distress Cardiovascular: normal rate, regular rhythm, no gallop/murmur, no JVD Abdomen: normal bowel sounds, soft, non tender, no organomegaly, non distended Genitourinary: other - + acevedo Extremities: no cyanosis Skin: no rash Neurologic/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: 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 grossly normal, alert, responsive Lymphatic: no neck adenopathy Musculoskeletal: no effusion Objective chest x-ray - 05/15 - increased right infiltrate TTE - no definitive vegetation seen Chest xr-ay - 05/18 - atx vs infiltrate chest x-ray - 05/22 - bilateral infiltrates chest x-ray - 05/24 - no change in atx vs infiltrates Microbiology Date/Time Source Procedure Growth Status 05/22/17 11:15 Blood Blood Culture - Preliminary NO GROWTH AFTER 4 DAYS Resulted 05/16/17 23:00 Sputum Induced Gram Stain - Final Complete 05/16/17 23:00 Sputum Culture - Final Escherichia Coli - Esbl Proteus Mirabilis Complete 05/20/17 06:00 Stool Clostridium difficile Toxin Assay - Final Complete 05/13/17 01:25 Urine,Clean Catch Urine Culture - Final Enterococcus Faecalis - Vre Complete 05/15/17 12:17 Arm Right Catheter Tip Culture - Final Staphylococcus Aureus - Mrsa Complete Labs Test 05/26/17 04:45 05/27/17 05:50 05/27/17 17:20 White Blood Count 7.1 K/UL (4.8-10.8) Red Blood Count 2.16 M/UL (4.70-6.10) Hemoglobin 7.2 G/DL (14.2-18.0) Hematocrit 22.6 % (42.0-52.0) Mean Corpuscular Volume 105 FL (80-99) Mean Corpuscular Hemoglobin 33.5 PG (27.0-31.0) Mean Corpuscular Hemoglobin Concent 32.0 G/DL (32.0-36.0) Red Cell Distribution Width 19.8 % (11.6-14.8) Platelet Count 184 K/UL (150-450) Mean Platelet Volume 6.3 FL (6.5-10.1) Neutrophils (%) (Auto) % (45.0-75.0) Lymphocytes (%) (Auto) % (20.0-45.0) Monocytes (%) (Auto) % (1.0-10.0) Eosinophils (%) (Auto) % (0.0-3.0) Basophils (%) (Auto) % (0.0-2.0) Differential Total Cells Counted 100 Neutrophils % (Manual) 83 % (45-75) Lymphocytes % (Manual) 9 % (20-45) Monocytes % (Manual) 7 % (1-10) Eosinophils % (Manual) 1 % (0-3) Basophils % (Manual) 0 % (0-2) Band Neutrophils 0 % (0-8) Other Cell Type Pathologist comment Platelet Estimate Adequate Platelet Morphology Normal Hypochromasia 1+ Anisocytosis 1+ Macrocytosis 1+ Sodium Level 134 mEQ/L (135-145) 138 mEQ/L (135-145) 137 mEQ/L (135-145) Potassium Level 5.3 mEQ/L (3.4-4.9) 5.0 mEQ/L (3.4-4.9) 5.1 mEQ/L (3.4-4.9) Chloride Level 96 mEQ/L (98-107) 100 mEQ/L (98-107) 103 mEQ/L (98-107) Carbon Dioxide Level 25 mEQ/L (20-30) 24 mEQ/L (20-30) 21 mEQ/L (20-30) Anion Gap 13 (5-15) 14 (5-15) 13 (5-15) Blood Urea Nitrogen 74 mg/dL (7-23) 78 mg/dL (7-23) 77 mg/dL (7-23) Creatinine 2.5 mg/dL (0.7-1.2) 2.3 mg/dL (0.7-1.2) 2.4 mg/dL (0.7-1.2) Estimat Glomerular Filtration Rate mL/min (>60) mL/min (>60) mL/min (>60) Glucose Level 91 mg/dL (74-106) 97 mg/dL (74-106) 100 mg/dL (74-106) Calcium Level 9.7 mg/dL (8.6-10.2) 9.6 mg/dL (8.6-10.2) 9.3 mg/dL (8.6-10.2) Laboratory Tests Test 05/27/17 05:50 05/27/17 17:20 Sodium Level 138 mEQ/L (135-145) 137 mEQ/L (135-145) Potassium Level 5.0 mEQ/L (3.4-4.9) H 5.1 mEQ/L (3.4-4.9) H Chloride Level 100 mEQ/L (98-107) 103 mEQ/L (98-107) Carbon Dioxide Level 24 mEQ/L (20-30) 21 mEQ/L (20-30) Anion Gap 14 (5-15) 13 (5-15) Blood Urea Nitrogen 78 mg/dL (7-23) H 77 mg/dL (7-23) H Creatinine 2.3 mg/dL (0.7-1.2) H 2.4 mg/dL (0.7-1.2) H Estimat Glomerular Filtration Rate mL/min (>60) mL/min (>60) Glucose Level 97 mg/dL (74-106) 100 mg/dL (74-106) Calcium Level 9.6 mg/dL (8.6-10.2) 9.3 mg/dL (8.6-10.2) Current Medications Medications (Trade) Dose Ordered Sig/Jmaes Route PRN Reason Start Time Stop Time Status Last Admin Dose Admin Acetaminophen (Tylenol) 650 mg Q4H PRN GT Mild Pain/Temp > 100.5 05/19/17 18:00 06/18/17 17:59 Epoetin Kamran 5000 units 5,000 units FRI-FRI-FRI SUBQ 05/23/17 21:00 06/22/17 20:59 05/26/17 21:20 Heparin Sodium (Porcine) (Heparin 5000 units/ml) 5,000 units EVERY 12 HOURS SUBQ 05/19/17 21:00 06/18/17 20:59 05/27/17 08:44 Lansoprazole (Prevacid) 15 mg DAILY GT 05/20/17 09:00 06/19/17 08:59 05/27/17 08:42 Linezolid 300 ml @ 300 mls/hr Q12HR IVPB 05/24/17 21:00 05/31/17 20:59 05/27/17 08:46 Meropenem 500 mg/ Sodium Chloride 55 ml @ 110 mls/hr Q24H IVPB 05/24/17 21:00 05/29/17 20:59 05/26/17 21:17 Midodrine (Pro-Amatine) 10 mg THREE TIMES A DAY GT 05/19/17 18:00 06/18/17 17:59 05/27/17 18:44 Quetiapine Fumarate (SEROquel) 25 mg Q12HR ORAL 05/19/17 21:00 06/18/17 20:59 05/27/17 08:43 Sodium Chloride (Sodium Chloride 1000ml bag) 1,000 ml @ 150 mls/hr Q6H40M IV 05/27/17 10:00 06/26/17 09:59 05/27/17 10:46 MORGAN REEVES May 27, 2017 21:05
[2017-05-28] VITALS (7 sets, daily range): BP systolic 100–146; BP diastolic 56–75
[2017-05-28 07:10] LABS: ALANINE AMINOTRANSFERASE 36 U/L (3-41); ALBUMIN/GLOBULIN RATIO 0.7 (1.0-2.7); ANION GAP 11 (5-15); ASPARTATE AMINO TRANSFERASE 52 U/L (5-40); CALCIUM 9.4 mg/dL (8.6-10.2); CARBON DIOXIDE 23 mEQ/L (20-30); CHLORIDE 104 mEQ/L (98-107); CREATININE 2.4 mg/dL (0.7-1.2); HEMOLYSIS 1; PHOSPHORUS 3.8 mg/dL (2.5-4.8); SODIUM 138 mEQ/L (135-145); TOTAL PROTEIN 5.7 g/dL (6.6-8.7)
[2017-05-28 07:11] LABS: BASOPHILS % (AUTO) 1.7 % (0.0-2.0); EOSINOPHILS % (AUTO) 2.6 % (0.0-3.0); LYMPHOCYTES % (AUTO) 13.2 % (20.0-45.0); MEAN CORPUSCULAR VOLUME 103 FL (80-99); MEAN PLATELET VOLUME 6.9 FL (6.5-10.1); MONOCYTES % (AUTO) 6.3 % (1.0-10.0); NEUTROPHILS % (AUTO) 76.1 % (45.0-75.0); PLATELET COUNT 198 K/UL (150-450); RED BLOOD COUNT 2.41 M/UL (4.70-6.10); RED CELL DISTRIBUTION WIDTH 18.9 % (11.6-14.8); WHITE BLOOD COUNT 4.7 K/UL (4.8-10.8)
[2017-05-28] MEDS: Midodrine 10mg tab GT SCH ×3 (08:40→18:07)
[2017-05-28] MEDS: Lansoprazole 15mg cap GT SCH (08:40)
[2017-05-28] MEDS: Heparin 5000 units/ml inj SUBQ SCH ×2 (08:44→21:54)
--- NOTE | 2017-05-28 14:39 | Nephrology Progress Note ---
Assessment/Plan Problem List: (1) Hypercalcemia (2) Malnutrition of moderate degree (3) Intravenous catheter sepsis (4) ESRD (end stage renal disease) (5) Severe sepsis (6) Respiratory failure with hypoxia (7) Hypokalemia (8) Pneumonia Plan I would favor stopping dialysis and observing with acevedo drainage and avoiding hypovolemia. He has good urine output.bun and creatinine stable, d/w Dr Levine and Sudhir. Can f/u with pmd and prior architectural technologist Subjective ROS Limited/Unobtainable: Yes Objective Objective Last 24 Hour Vital Signs Date Time Temp Pulse Resp B/P Pulse Ox O2 Delivery O2 Flow Rate FiO2 05/28/17 12:00 97.3 82 18 137/73 98 Room Air 05/28/17 08:36 96.4 83 18 140/75 98 Room Air 05/28/17 05:09 97.5 81 20 146/74 97 Room Air 05/28/17 04:10 97.5 81 20 146/74 97 Room Air 05/28/17 00:28 97.9 77 20 100/56 95 Nasal Cannula 2.0 05/27/17 20:46 97.0 85 18 127/71 93 Room Air 05/27/17 16:00 97.7 98 20 137/71 97 Room Air Intake and Output 05/27/17 05/28/17 19:00 07:00 Intake Total 1615 ml 1275 ml Output Total 900 ml Balance 715 ml 1275 ml Free Water 30 ml 60 ml IV Total 1000 ml 675 ml Tube Feeding 585 ml 540 ml Output Urine Total 900 ml # Bowel Movements 1 Laboratory Tests 05/27/17 17:20: Sodium Level 137, Potassium Level 5.1H, Chloride Level 103, Carbon Dioxide Level 21, Anion Gap 13, Blood Urea Nitrogen 77H, Creatinine 2.4H, Estimat Glomerular Filtration Rate , Glucose Level 100, Calcium Level 9.3 05/28/17 06:05: Sodium Level 138, Potassium Level 5.0H, Chloride Level 104, Carbon Dioxide Level 23, Anion Gap 11, Blood Urea Nitrogen 81H, Creatinine 2.4H, Estimat Glomerular Filtration Rate , Glucose Level 102, Calcium Level 9.4, White Blood Count 4.7L, Red Blood Count 2.41L, Hemoglobin 8.2L, Hematocrit 24.8L, Mean Corpuscular Volume 103H, Mean Corpuscular Hemoglobin 34.0H, Mean Corpuscular Hemoglobin Concent 33.0, Red Cell Distribution Width 18.9H, Platelet Count 198, Mean Platelet Volume 6.9, Neutrophils (%) (Auto) 76.1H, Lymphocytes (%) (Auto) 13.2L, Monocytes (%) (Auto) 6.3, Eosinophils (%) (Auto) 2.6, Basophils (%) (Auto ) 1.7, Uric Acid 8.0H, Phosphorus Level 3.8, Magnesium Level 2.0, Total Bilirubin 0.2, Aspartate Amino Transf (AST/SGOT) 52H, Alanine Aminotransferase ( ALT/SGPT) 36, Alkaline Phosphatase 247H, Pro-B-Type Natriuretic Peptide 1992H, Total Protein 5.7L, Albumin 2.5L, Globulin 3.2, Albumin/Globulin Ratio 0.7L Height (Feet): 5 Height (Inches): 7.00 Weight (Pounds): 145 General Appearance: no apparent distress, confused EENT: normal ENT inspection Neck: normal alignment Cardiovascular: normal rate Respiratory/Chest: lungs clear Abdomen: non tender Extremities: other - nmo edema, large tophi Neurologic: disoriented PRUDENCE MA May 28, 2017 14:39
--- NOTE | 2017-05-28 16:46 | Infectious Diseases Prog Note ---
Assessment/Plan Assessment/Plan ASSESSMENT AND PLAN: 1. mrsa and vre bacteremia, likely perma-cath line infection, vre uti, sepsis, leukocytosis, fevers, e.coli/proteus pna, cath tip - staph aureus - uo good, + acevedo - DEJAH without vegetation - zyvox # 14/14 and meropenem day # 8/, will need 7-14 days of vancomycin with dialysis after zyvox finished to treat for 3-4 weeks for mrsa bacteremia - check labs and chest x-ray - stable for perma-catheter ID standpoint, if needed - d/w RN about abx 2. ARF - improving ua, has acevedo, continue per nephrology 3. Percutaneous endoscopic gastrostomy, gastrostomy tube, and dysphagia. 4. Aspiration risk. 5. PermCath. 6. Diabetes. 7. Hypertension. 8. Anemia. 9. Schizophrenia. 10. Poor historian. 11. Dementia. 12. Blood sugar and blood pressure control per primary, Dr. Levine for diabetes and hypertension. 13. Gout. 14. Anemia. 15. Past medical history as noted above. 16. Allergy to penicillin. 17. Social history is negative. 18. Family history is noncontributory. 19. MAR was noted. 20. Case was discussed with RN. 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 22. wound care per protocol Subjective Constitutional: Denies: fever HEENT: Denies: congestion Respiratory: Denies: shortness of breath Cardiovascular: Denies: chest pain Gastrointestinal/Abdominal: Denies: nausea Genitourinary: Reports: other - + acevedo, Denies: dysuria Psychiatric: Denies: depression Skin: Denies: rash Musculoskeletal: Denies: pain Allergies: Coded Allergies: PENICILLINS (Verified Allergy, Unknown, 05/12/17) Objective Vital Signs Last 24 Hour Vital Signs Date Time Temp Pulse Resp B/P Pulse Ox O2 Delivery O2 Flow Rate FiO2 05/28/17 12:00 97.3 82 18 137/73 98 Room Air 05/28/17 08:36 96.4 83 18 140/75 98 Room Air 05/28/17 05:09 97.5 81 20 146/74 97 Room Air 05/28/17 04:10 97.5 81 20 146/74 97 Room Air 05/28/17 00:28 97.9 77 20 100/56 95 Nasal Cannula 2.0 7/11/17 20:46 97.0 85 18 127/71 93 Room Air Height (Feet): 5 Height (Inches): 7.00 Weight (Pounds): 145 General Appearance: no acute distress, other - alert HEENT: normocephalic, atraumatic, anicteric, mucous membranes moist, PERRL, EOMI, pharynx normal, supple, no JVD Respiratory/Chest: lungs clear, normal breath sounds, no respiratory distress, no accessory muscle use Cardiovascular: normal rate, regular rhythm, no gallop/murmur, no JVD Abdomen: normal bowel sounds, soft, non tender, no organomegaly, non distended Genitourinary: other - + acevedo - urine clearer Extremities: no cyanosis Skin: no rash, other - wounds covered - pictures reviewed, d/w RN Neurologic/Psychiatric: project controls specialist II-XII grossly normal, alert, responsive, normal mood/affect Lymphatic: no neck adenopathy Musculoskeletal: no effusion Objective chest x-ray - 05/15 - increased right infiltrate TTE - no definitive vegetation seen Chest xr-ay - 05/18 - atx vs infiltrate chest x-ray - 05/22 - bilateral infiltrates chest x-ray - 05/24 - no change in atx vs infiltrates Microbiology Date/Time Source Procedure Growth Status 05/22/17 11:15 Blood Blood Culture - Final NO GROWTH AFTER 5 DAYS Complete 05/16/17 23:00 Sputum Induced Gram Stain - Final Complete 05/16/17 23:00 Sputum Culture - Final Escherichia Coli - Esbl Proteus Mirabilis Complete 05/20/17 06:00 Stool Clostridium difficile Toxin Assay - Final Complete 05/13/17 01:25 Urine,Clean Catch Urine Culture - Final Enterococcus Faecalis - Vre Complete 05/15/17 12:17 Arm Right Catheter Tip Culture - Final Staphylococcus Aureus - Mrsa Complete Laboratory Tests Test 05/27/17 17:20 05/28/17 06:05 Sodium Level 137 mEQ/L (135-145) 138 mEQ/L (135-145) Potassium Level 5.1 mEQ/L (3.4-4.9) H 5.0 mEQ/L (3.4-4.9) H Chloride Level 103 mEQ/L (98-107) 104 mEQ/L (98-107) Carbon Dioxide Level 21 mEQ/L (20-30) 23 mEQ/L (20-30) Anion Gap 13 (5-15) 11 (5-15) Blood Urea Nitrogen 77 mg/dL (7-23) H 81 mg/dL (7-23) H Creatinine 2.4 mg/dL (0.7-1.2) H 2.4 mg/dL (0.7-1.2) H Estimat Glomerular Filtration Rate mL/min (>60) mL/min (>60) Glucose Level 100 mg/dL (74-106) 102 mg/dL (74-106) Calcium Level 9.3 mg/dL (8.6-10.2) 9.4 mg/dL (8.6-10.2) White Blood Count 4.7 K/UL (4.8-10.8) L Red Blood Count 2.41 M/UL (4.70-6.10) L Hemoglobin 8.2 G/DL (14.2-18.0) L Hematocrit 24.8 % (42.0-52.0) L Mean Corpuscular Volume 103 FL (80-99) H Mean Corpuscular Hemoglobin 34.0 PG (27.0-31.0) H Mean Corpuscular Hemoglobin Concent 33.0 G/DL (32.0-36.0) Red Cell Distribution Width 18.9 % (11.6-14.8) H Platelet Count 198 K/UL (150-450) Mean Platelet Volume 6.9 FL (6.5-10.1) Neutrophils (%) (Auto) 76.1 % (45.0-75.0) H Lymphocytes (%) (Auto) 13.2 % (20.0-45.0) L Monocytes (%) (Auto) 6.3 % (1.0-10.0) Eosinophils (%) (Auto) 2.6 % (0.0-3.0) Basophils (%) (Auto) 1.7 % (0.0-2.0) Uric Acid 8.0 mg/dL (3.0-7.5) H Phosphorus Level 3.8 mg/dL (2.5-4.8) Magnesium Level 2.0 mg/dL (1.7-2.5) Total Bilirubin 0.2 mg/dL (0.0-1.2) Aspartate Amino Transf (AST/SGOT) 52 U/L (5-40) H Alanine Aminotransferase (ALT/SGPT) 36 U/L (3-41) Alkaline Phosphatase 247 U/L (40-129) H Pro-B-Type Natriuretic Peptide 1992 pg/mL (0-450) H Total Protein 5.7 g/dL (6.6-8.7) L Albumin 2.5 g/dL (3.5-5.2) L Globulin 3.2 g/dL Albumin/Globulin Ratio 0.7 (1.0-2.7) L Current Medications Medications (Trade) Dose Ordered Sig/James Route PRN Reason Start Time Stop Time Status Last Admin Dose Admin Acetaminophen (Tylenol) 650 mg Q4H PRN GT Mild Pain/Temp > 100.5 05/19/17 18:00 06/18/17 17:59 Epoetin Kamran 5000 units 5,000 units FRI-FRI-FRI SUBQ 05/23/17 21:00 06/22/17 20:59 05/26/17 21:20 Heparin Sodium (Porcine) (Heparin 5000 units/ml) 5,000 units EVERY 12 HOURS SUBQ 05/19/17 21:00 06/18/17 20:59 05/28/17 08:44 Lansoprazole (Prevacid) 15 mg DAILY GT 05/20/17 09:00 06/19/17 08:59 05/28/17 08:40 Meropenem/Sodium Chloride (Merrem/Sodium Chloride) 55 ml @ 110 mls/hr Q24H IVPB 05/28/17 21:00 06/01/17 20:59 Midodrine (Pro-Amatine) 10 mg THREE TIMES A DAY GT 05/19/17 18:00 06/18/17 17:59 05/28/17 13:31 Quetiapine Fumarate (SEROquel) 25 mg Q12HR ORAL 05/19/17 21:00 06/18/17 20:59 05/28/17 08:40 Vancomycin HCl 750 mg/Dextrose 275 ml @ 183.708 mls/hr ONCE ONCE IVPB 05/28/17 18:00 05/28/17 19:29 Vancomycin HCl 1 ea 1 ea DAILY PRN MISC Per rx protocol 05/28/17 16:15 06/27/17 16:14 Vancomycin HCl/ Dextrose (Vancomycin/D5W) 110 ml @ 110 mls/hr Q24H IVPB 05/29/17 18:00 06/03/17 17:59 MORGAN REEVES May 28, 2017 16:46
[2017-05-28] MEDS ORDERED: MERREM500 MG IV (16:49)
[2017-05-28] MEDS ORDERED: VANCO 500500 MG/100 IV (16:49)
[2017-05-28] MEDS ORDERED: Vancomycin 750mg/D5W 275ml IVPB ONE ×2 (18:00)
[2017-05-28] MEDS ORDERED: Meropenem 500 MG in NS 55 ML IVPB SCH (21:00)
[2017-05-28] MEDS: Epogen (for ESRD on dialysis) SUBQ SCH (22:05)
[2017-05-28] MEDS ORDERED: Sterile Water Irrig 1000ml IRRIG ONE (23:12)
[2017-05-28] MEDS ORDERED: Tubing Blood Filter IV ONE (23:12)
[2017-05-28] MEDS ORDERED: Tubing IV Secondary IV ONE (23:12)
[2017-05-29] MEDS ORDERED: Vancomycin 500mg/D5W 110ml IVPB SCH ×2 (18:00)
--- NOTE | 2017-05-30 16:47 | Discharge Summary ---
Discharge Summary Hospital Course Date of Admission May 13, 2017 at 02:25 Date of Discharge May 28, 2017 at 23:13 Admitting Diagnosis SEPSIS, PNEUMONIA HPI Saritha Lugo is a 81 year old male who was admitted on May 13, 2017 at 02: 25 for Sepsis,Pneumonia Hospital Course [id number] Discharge Discharge Disposition Patient was discharged to snf Discharge Diagnoses: Janet Burton NP May 30, 2017 16:46
--- NOTE | 2017-05-31 04:30 | Discharge Summary 2 SIG ---
DATE OF ADMISSION: 05/13/2017 DATE OF DISCHARGE: 05/28/2017 CONSULTANTS: 1. Supriya Dillon M.D. 2. Jose L Nelson M.D. 3. Dale Quiñones M.D. BRIEF HOSPITAL COURSE: The patient is an 81-year-old male, who has a history of renal failure, on hemodialysis, Friday, , and Friday, and history of hypertension, and dementia, presented to ED due to respiratory distress. The patient was noted to be hypotensive and hypoxemic at the correction. On arrival to ED, the patient was hypotensive and the patient was placed on BiPAP. Chest x-ray showed right lower and middle lobe infiltrates. EKG was in normal sinus rhythm. Lactic acid was elevated to 3. Creatinine was 4.3 and BUN 108. He was started on IV pressors and was admitted to ICU for sepsis and respiratory failure. He was started on antibiotics, linezolid, cefepime, and Flagyl. Blood culture showed Staphylococcus VRE. Urine culture showed growth of VRE. The patient has bacteremia and possible SBE. He underwent transesophageal echocardiogram on 05/22/2017. There was low likelihood of endocarditis based on echocardiographic criteria. The patient's bacteremia likely secondary to old PermCath line infection. PermCath was removed and a new temporary hemodialysis catheter was placed. Catheter tip culture showed growth of MRSA. He had episodes of anemia and required two units of packed RBC blood transfusion. A non-tunneled hemodialysis catheter was inserted to the right femoral. Laboratories had been stable and the patient was non-oliguric. In view stable renal function, dialysis was temporarily withheld. Second opinion was obtained from renal standpoint and agreed that the patient should be off dialysis and renal functions can be monitored as an outpatient and can follow up with PMD and prior svp digital ad sales. The patient was eventually discharged to SNF to continue vancomycin to be dosed by pharmacy. The patient was eventually discharged to SNF. FINAL DIAGNOSES: 1. Sepsis with septic shock due to Staph aureus and vancomycin-resistant Enterococcus secondary to line sepsis and urinary tract infection. 2. End-stage renal disease, on hemodialysis. 3. Dementia. 4. Schizophrenia. 5. Diabetes mellitus. 6. Tophaceous gout. 7. Dysphagia on percutaneous endoscopic gastrostomy tube. 8. Acute anemia, requiring transfusion. 9. Urinary tract infection with vancomycin resistant Enterococcus. 10. Pneumonia with effusion. 11. Methicillin-resistant Staphylococcus aureus and vancomycin-resistant Enterococcus bacteremia. 12. Malnutrition of moderate degree. 13. Hypercalcemia. 14. Acute respiratory failure with hypoxia. 15. Hypokalemia. 16. Multiple pressure ulcer, present on admission. Roland Levine M.D. I have been assigned to dictate discharge summary on this account and I was not involved in the patient's management. Janet Burton N.P. DR: Kimberley JOB#: [id number] CC: NICK
== END 2017-05-28 23:13 | DRG 721 ==
LOC: ENRESERVDT → ENRESERVTM → EDBD 23:51 → EMR 23:59 → EDBEDREQ 05-13 02:22 → ICU 05-13 02:25 → 2W 05-17 06:44 → 4W 05-19 16:12
PROC: 5A09457 Assistance with Respiratory Ventilation, 24-96 Consecutive Hours, Continuous Positive Airway Pressure (ICD-10-PCS; principal; 2017-05-13)
PROC: 3E03328 Introduction of Oxazolidinones into Peripheral Vein, Percutaneous Approach (ICD-10-PCS; 2017-05-13)
PROC: 30233N1 Transfusion of Nonautologous Red Blood Cells into Peripheral Vein, Percutaneous Approach (ICD-10-PCS; 2017-05-14)
PROC: 5A1D60Z (ICD-10-PCS; 2017-05-14)
PROC: B24BZZ4 Ultrasonography of Heart with Aorta, Transesophageal (ICD-10-PCS; 2017-05-22)
DX: T80.211A Bloodstream infection due to central venous catheter, initial encounter (principal); A41.81 Sepsis due to Enterococcus; A41.02 Sepsis due to Methicillin resistant Staphylococcus aureus; R65.21 Severe sepsis with septic shock; J96.01 Acute respiratory failure with hypoxia; J15.5 Pneumonia due to Escherichia coli; J15.6 Pneumonia due to other Gram-negative bacteria; N18.6 End stage renal disease; E83.52 Hypercalcemia; R13.10 Dysphagia, unspecified; E44.0 Moderate protein-calorie malnutrition; D64.9 Anemia, unspecified; E11.9 Type 2 diabetes mellitus without complications; R62.7 Adult failure to thrive; Z99.2 Dependence on renal dialysis; Y84.1 Kidney dialysis as the cause of abnormal reaction of the patient, or of later complication, without mention of misadventure at the time of the procedure; Z16.22 Resistance to vancomycin related antibiotics; E87.6 Hypokalemia; L89.90 Pressure ulcer of unspecified site, unspecified stage; Z88.0 Allergy status to penicillin; M1A.9XX1 Chronic gout, unspecified, with tophus (tophi); Z43.1 Encounter for attention to gastrostomy; F20.9 Schizophrenia, unspecified; F01.50 Vascular dementia, unspecified severity, without behavioral disturbance, psychotic disturbance, mood disturbance, and anxiety; L89.100 Pressure ulcer of unspecified part of back, unstageable; L89.510 Pressure ulcer of right ankle, unstageable; L89.152 Pressure ulcer of sacral region, stage 2; L89.621 Pressure ulcer of left heel, stage 1; L89.611 Pressure ulcer of right heel, stage 1
CPT/HCPCS: 36415; 36569; 36589; 36600; 71010; 76775; 76937; 80048; 80053; 81003; 81050; 82270; 82378; 82550; 82553; 82575; 82803; 83605; 83735; 83880; 83970; 84100; 84156; 84165; 84484; 84550; 85007; 85025; 85610; 85730; 86705; 86709; 86803; 86850; 86900; 86901; 86920; 87040; 87070; 87081; 87086; 87181; 87205; 87324; 87340; 93005; 93306; 93312; 94003; 94150; 94640; 94660; 94664; 94760

== ENCOUNTER 2017-07-10 12:22 | Inpatient (IN) | payer OTHER ==
[~2017-07-10] VITALS: Ht 175.3 cm; Wt 77.1 kg
[~2017-07-10 12:22] MED LIST: ACETAMINOPHEN325 M1 GT; ASCORBIC ACID GT; COLCHICINE0.6 M1 GT; DEPAKOTE250 MG GT; DOCUSATE S50 MG/5 ML GT; FERROUS SULFAT325 MG GT; HEPARIN SO5000 UNIT2 SUBQ; LACTULOSE20 GM/301 GT; MEROPENEM-500 MG/50 IV; MERREM500 MG IV; MIDODRINE HCL10 MG GT; NEPHRO-VITE RX1 EAC1 GT; PROSCAR5 MG GT; RENVELA0.8 GM GT; SEROQUEL25 MG ORAL; VANCO 500500 MG/100 IV; ZOFRAN4 M3 GT
[2017-07-10 12:50] VITALS: BP 154/131
[2017-07-10 13:24] LABS: APPEARANCE,URINE TURBID; KETONES,URINE NEGATIVE (NEGATIVE); LEUKOCYTE ESTERASE ,URINE 3+ (NEGATIVE); NITRITE,URINE NEGATIVE (NEGATIVE); PH,URINE 6 (4.5-8.0); PROTEIN,URINE 3+ (NEGATIVE); UROBILINOGEN,URINE NORMAL MG/DL (0.0-1.0)
[2017-07-10 13:43] LABS: BASOPHILS % (AUTO) 1.6 % (0.0-2.0); EOSINOPHILS % (AUTO) 2.8 % (0.0-3.0); MEAN CORPUSCULAR HEMOGLOBIN 27.5 PG (27.0-31.0); MEAN CORPUSCULAR HGB CONC 28.7 G/DL (32.0-36.0); MEAN CORPUSCULAR VOLUME 96 FL (80-99); NEUTROPHILS % (AUTO) 83.6 % (45.0-75.0); PLATELET COUNT 271 K/UL (150-450); RED BLOOD COUNT 3.62 M/UL (4.70-6.10); RED CELL DISTRIBUTION WIDTH 22.7 % (11.6-14.8); WHITE BLOOD COUNT 9.8 K/UL (4.8-10.8)
[2017-07-10 13:50] LABS: BACTERIA,URINE MANY /HPF; SQUAMOUS EPITHELIAL CELL,UR FEW /LPF (NONE/OCC); WBC,URINE TNTC /HPF (0 - 0)
--- NOTE | 2017-07-10 13:52 | Diagnostic Imaging Report ---
Indication: Dyspnea Comparison: 05/24/17 A single view chest radiograph was obtained. Findings: Opacities previously seen at the lung bases are clear. There is some interstitial prominence with reticular markings noted in the basal aspects of both lungs on the current study. Heart size is normal. The hilar vessels are prominent. Aorta is ectatic and calcified. Bones are osteopenic. The Impression: Basilar interstitial opacities present. This is probably largely on the basis of atelectasis. Other possibilities not excluded.
[2017-07-10 13:57] LABS: ALANINE AMINOTRANSFERASE 117 U/L (3-41); ALBUMIN/GLOBULIN RATIO 0.6 (1.0-2.7); ANION GAP 11 (5-15); ASPARTATE AMINO TRANSFERASE 115 U/L (5-40); CALCIUM 11.8 mg/dL (8.6-10.2); CARBON DIOXIDE 21 mEQ/L (20-30); CHLORIDE 115 mEQ/L (98-107); CREATININE 2.9 mg/dL (0.7-1.2); HEMOLYSIS 7; POTASSIUM 5.5 mEQ/L (3.4-4.9); SODIUM 147 mEQ/L (135-145); TOTAL PROTEIN 7.4 g/dL (6.6-8.7); TROPONIN I < 0.30 ng/mL (<=0.30)
--- NOTE | 2017-07-10 13:57 | Emergency Room Report ---
History of Present Illness General Chief Complaint: Abnormal Labs Source: Patient, Medical Record Present Illness HPI [id number] sent from SNF for elevated BUN and Cr. Patient non-verbal No other info from SNF, EMS, patient or family members All info from paperwork [facility] PMHx: CKD, anemia, DM, schizophrenia, HTN, gout, BPH Allergies: Coded Allergies: PENICILLINS (Verified Allergy, Unknown, 05/12/17) Patient History Past Medical History: other - see HPI Past Surgical History: unable to obtain Pertinent Family History: unable to obtain Social History: Denies: smoking, alcohol use, drug use Immunizations: UTD Reviewed Nursing Documentation: PMH: Agreed, PSxH: Agreed Nursing Documentation-PMH Past Medical History: No History, Except For Hx Hypertension: Yes Hx Diabetes: Yes Hx Gastrointestinal Problems: No Hx Dialysis: Yes - ESRD Review of Systems All Other Systems: limited - AMS Physical Exam Vital Signs Date Time Temp Pulse Resp B/P (MAP) Pulse Ox O2 Delivery O2 Flow Rate FiO2 07/10/17 12:21 97.9 92 26 139/75 99 Nasal Cannula 3.0 Sp02 EP Interpretation: reviewed, normal General Appearance: normal inspection, well appearing, no apparent distress, alert, non-toxic Eyes: bilateral eye PERRL, bilateral eye EOMI ENT: normal ENT inspection, hearing grossly normal, normal pharynx, no angioedema, normal voice Neck: normal inspection, full range of motion, supple, no bony tend Respiratory: normal inspection, lungs clear, normal breath sounds, no respiratory distress, no retraction, no wheezing Cardiovascular #1: regular rate, rhythm, no edema Gastrointestinal: normal inspection, normal bowel sounds, non tender, soft, no guarding, no hernia Genitourinary: no CVA tenderness Musculoskeletal: normal inspection, back normal, normal range of motion, Edith' s Sign negative Neurologic: normal inspection, alert, responsive, workforce planning analyst III-XII nml as tested, speech normal, other - Contracted extremitiers Psychiatric: normal inspection, judgement/insight normal, mood/affect normal Skin: normal inspection, normal color, no rash Medical Decision Making Medicare Attestation I Roland Portillo MD hereby attest that the medical record entry for date of service, 07/10/17 accurately reflects signatures/notations that I made in my capacity as MD when I treated/diagnosed the above listed Medicare beneficiary. I attest that this information is true, accurate and complete to the best of my knowledge. I understand that any falsification, omission, or concealment of material fact may subject me to administrative, civil, or criminal liability. This patient warrants hospital admission for extreme of age and has a condition that cannot be treated as outpatient. Diagnostic Impression: Primary Impression: UTI (urinary tract infection) Qualified Codes: T83.511A - Infection and inflammatory reaction due to indwelling urethral catheter, initial encounter; N39.0 - Urinary tract infection , site not specified Additional Impressions: Hyperkalemia CKD (chronic kidney disease) Qualified Codes: N18.9 - Chronic kidney disease, unspecified MEHRAN (acute kidney injury) Abnormal laboratory test result ER Course CXR: Bibasilar atelectasis EKG is sinus, 1st degree block, RBBB Bun/Cr is 118/2.9 HyperK treated in ED UTI tx with Abx Insurance approved for tele/obs admission Endorsed to Dr Longoria at 313pm EKG Diagnostic Results Rate: other - 1st degree block Rhythm: NSR ST Segments: no acute changes ASA given to the pt in ED: No Rhythm Strip Diag. Results EP Interpretation: yes Rate: 89 Rhythm: NSR, no PVC's, no ectopy Chest X-Ray Diagnostic Results Chest X-Ray Diagnostic Results : Chest X-Ray Ordered: Yes Indication: Chest Pain EP Interpretation: Yes Interpretation: no consolidation, no effusion, no pneumothorax, no acute cardiopulmonary disease, other - bibasilar atelectasis Interpreting ER Provider: Dr Roland Portillo MD Last Vital Signs Date Time Temp Pulse Resp B/P (MAP) Pulse Ox O2 Delivery O2 Flow Rate FiO2 07/10/17 12:50 90 27 154/131 99 Nasal Cannula 2.0 07/10/17 12:21 97.9 Status: improved Disposition: ADMITTED INPATIENT Condition: Serious Referrals: ROLAND LONGORIA (PCP) ROLAND PORTILLO M.D. Jul 10, 2017 13:57
[2017-07-10 14:07] LABS: CKMB < 1.5 ng/mL (< 6.7)
[2017-07-10] MEDS ORDERED: Clindamycin 600mg 50 ML IVPB ONE (14:15)
[2017-07-10] MEDS ORDERED: Calcium Gluconate 1gm/10ml vial IVP ONE (14:15)
[2017-07-10] MEDS ORDERED: Sodium Polystyrene Sulfonate 15gm Powder ORAL ONE (14:15)
[2017-07-10 15:46] VITALS: BP 137/69
[2017-07-10] MEDS ORDERED: LANSOPRAZOLE MC (16:05)
[2017-07-10] MEDS ORDERED: TAMSULOSIN HCL0.4 MG ORAL (16:05)
[2017-07-10] MEDS ORDERED: NEPHRO-VITE RX1 EAC1 PO (16:05)
[2017-07-10] MEDS ORDERED: PRO-AMATINE10 MG ORAL (16:05)
[2017-07-10] MEDS ORDERED: ZOFRAN4 MG/5 ML ORAL (16:05)
[2017-07-10] MEDS ORDERED: MELATONIN1 M2 PO (16:05)
[2017-07-10] MEDS ORDERED: ALBUTEROL2.5 MG/3 M INH (16:05)
[2017-07-10] MEDS ORDERED: EPOGEN20000 UNI1 SUBQ (16:05)
[2017-07-10 16:45] VITALS: BP 120/63
--- NOTE | 2017-07-10 17:01 | History & Physical ---
History and Physical History & Physicial [address] [place], [place] [address] HISTORY AND PHYSICAL History and Physical History & Physicial HISTORY OF PRESENT ILLNESS: This 80 year-old male was treated recently for pneumonia and sepsis. He was transferred here for recurrent renal failure and foot/ankle ulcers. He was taken off dialysis recently and managed with GT hydration. His BUN/Cr were hovering around 80/2 but went up to 110/2.9 despite large amounts of fluid by GT and IV. 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 PAST MEDICAL HISTORY: Sepsis, pneumonia, ESRD, dialysis, dementia, schizophrenia, DM, tophaceous gout, dysphagia, PEG ALLERGIES: penicillin MEDICATIONS: reviewed and reconciled CODE STATUS: Full Code PHYSICAL EXAMINATION: He is not awake, in no distress. He makes no eye contact. The chest is clear. The cardiac rhythm is regular. Abdomen is soft and non- distended. There is a gastrostomy tube. There is no edema of the extremities. There is quadriplegia. 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 PLAN: He will be treated with IVF. Podiatry and renal were called and case disc w Dr Nelson and ER doctor. Gonzalo Longoria M.D. Associate Clinical counselor dormitory [facility] [employer] GONZALO LONGORIA Jul 10, 2017 17:01
[2017-07-10] MEDS ORDERED: Acetaminophen 650mg/20.3ml GT PRN (17:15)
[2017-07-10] MEDS ORDERED: Lactulose 20gm/30ml UDC GT PRN (17:15)
[2017-07-10] MEDS: Renvela 800mg Pkt GT SCH (18:16)
[2017-07-10] MEDS: Docusate 100mg/10ml Liq GT SCH (18:16)
[2017-07-10] MEDS: Ferrous Sulfate 300 MG/5 ML UDC GT SCH (18:16)
[2017-07-10] MEDS: Midodrine 10mg tab GT SCH (18:33)
[2017-07-10] MEDS ORDERED: NovoLOG Insulin Flexpen SUBQ SCH (21:00)
[2017-07-10] MEDS ORDERED: oxyCONTIN 10mg tab ORAL PRN (21:00)
[2017-07-10] MEDS: Depakote 125mg Sprinkles GT SCH (22:30)
[2017-07-10] MEDS: Heparin 5000 units/ml inj SUBQ SCH (22:33)
[2017-07-10 23:29] VITALS: BP 143/83
[2017-07-11 07:08] LABS: BASOPHILS % (AUTO) 0.8 % (0.0-2.0); EOSINOPHILS % (AUTO) 3.2 % (0.0-3.0); LYMPHOCYTES % (AUTO) 8.3 % (20.0-45.0); MEAN CORPUSCULAR HEMOGLOBIN 27.9 PG (27.0-31.0); MEAN CORPUSCULAR HGB CONC 29.1 G/DL (32.0-36.0); MEAN CORPUSCULAR VOLUME 96 FL (80-99); MEAN PLATELET VOLUME 8.3 FL (6.5-10.1); MONOCYTES % (AUTO) 3.6 % (1.0-10.0); NEUTROPHILS % (AUTO) 84.1 % (45.0-75.0); PLATELET COUNT 263 K/UL (150-450); RED BLOOD COUNT 3.49 M/UL (4.70-6.10); RED CELL DISTRIBUTION WIDTH 23.1 % (11.6-14.8); WHITE BLOOD COUNT 11.3 K/UL (4.8-10.8)
[2017-07-11 07:24] LABS: ALANINE AMINOTRANSFERASE 119 U/L (3-41); ALBUMIN/GLOBULIN RATIO 0.7 (1.0-2.7); ANION GAP 11 (5-15); ASPARTATE AMINO TRANSFERASE 100 U/L (5-40); CALCIUM 11.3 mg/dL (8.6-10.2); CARBON DIOXIDE 20 mEQ/L (20-30); CHLORIDE 116 mEQ/L (98-107); CREATININE 2.9 mg/dL (0.7-1.2); HEMOLYSIS 0; POTASSIUM 5.5 mEQ/L (3.4-4.9); SODIUM 147 mEQ/L (135-145)
[2017-07-11 08:30] VITALS: BP 156/78
[2017-07-11] MEDS: Midodrine 10mg tab GT SCH ×3 (08:54→18:54)
[2017-07-11] MEDS: Docusate 100mg/10ml Liq GT SCH ×2 (08:54→18:54)
[2017-07-11] MEDS: Renvela 800mg Pkt GT SCH ×3 (08:54→18:54)
[2017-07-11] MEDS: Ferrous Sulfate 300 MG/5 ML UDC GT SCH ×3 (08:54→18:54)
[2017-07-11] MEDS ORDERED: Donepezil 10mg tab ORAL SCH (09:00)
[2017-07-11] MEDS ORDERED: Ascorbic Acid 500mg tab ORAL SCH (09:00)
[2017-07-11] MEDS ORDERED: Aspirin Baby 81mg ORAL SCH (09:00)
[2017-07-11] MEDS ORDERED: sitaGLIPtin 25mg tab ORAL SCH (09:00)
[2017-07-11] MEDS ORDERED: Docusate 100mg cap ORAL SCH (09:00)
[2017-07-11] MEDS: Heparin 5000 units/ml inj SUBQ SCH ×2 (09:08→21:11)
[2017-07-11 11:58] VITALS: BP 165/75
--- NOTE | 2017-07-11 13:30 | Consultation ---
DATE OF CONSULTATION: 07/10/2017 NEPHROLOGY CONSULTATION CONSULTING PHYSICIAN: Jose L Nelson M.D. REFERRING PHYSICIAN: Roland Levine M.D. REASON FOR CONSULTATION: Elevated BUN, creatinine, and potassium. HISTORY OF PRESENT ILLNESS: The patient is known to me. He has a history of chronic kidney disease and was on dialysis earlier this year. He was admitted on 05/13/2017 to [facility], had hypotension and respiratory failure, and at that time, he was treated for sepsis and apparently had sepsis from the dialysis PermCath that was removed. Since that admission at [place], he has been off dialysis for the last several months, although he has had some elevation in BUN and creatinine when I saw him a few weeks ago in the long-term and increased his hydration with BUN and creatinine being reduced with hydration and no evidence of congestive heart failure. He did have following abnormal laboratories, BUN 111, creatinine 2.86 on 07/09/2017; a BUN of 109 and a creatinine of 2.88 on 07/08/2017, and a BUN of 79 and creatinine of 2.15 shortly before that. The patient has severe gout and deformities from gout. He has chronic obstructive pulmonary disease and interstitial lung disease. He is bedridden and has severe dementia. He requires tube feeding. There is also a history of schizophrenia, BPH, diabetes type 2, and recurrent UTIs. PAST SURGICAL HISTORY: Bilateral knee surgery and a surgery on the left upper leg and a scar from the skin graft. MEDICATIONS: At the [facility] include the following, albuterol inhalation, allopurinol, Depakote, Epogen, ferrous sulfate, Flomax, Prevacid, melatonin, midodrine, Nephro-Kailey, Renvela, Tylenol, vitamin C, zinc, and Zofran. ALLERGIES: None known. SYSTEM REVIEW: The patient is unable. PHYSICAL EXAMINATION: GENERAL: The patient is seen lying in bed in the emergency room. He is in no acute distress. Eyes were open, but he is not speaking. VITAL SIGNS: Temperature 96.9 degrees, pulse 89, respirations 19, blood pressure 137/69, and O2 saturation 95% on two liters. HEENT: He keeps his eyes closed during most of the exam. Sclerae nonicteric. Oral mucosa is slightly dry. NECK: No adenopathy. LUNGS: Clear. HEART: Rhythm is regular. I hear no murmur. ABDOMEN: Soft and nontender. Liver and spleen not palpable. EXTREMITIES: No edema, cyanosis, or clubbing. 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 NEUROLOGIC: He looks back but he is nonverbal. Ocular motions appear to be intact in all directions. There is no facial asymmetry. There is a paucity of movement. PERTINENT LABORATORIES: White count 9.8 and hemoglobin 10. Sodium 147, potassium 5.5, chloride 115, CO2 21, BUN 118, and creatinine 2.9. Calcium is 11.8. AST 115 and ALT 117. Total CK is 9. Troponin less than 0.9. Urinalysis shows 3+ protein, 10 to 15 rbc's, and too numerous to count white cells per high power field. IMPRESSION: 1. Chronic kidney disease, stage 5, likely due to gout and possibly nephrosclerosis. 2. History of prior dialysis. 3. Dehydration. 4. Elevated liver enzymes. 5. Hypercalcemia, which he had on a prior admission and perhaps represents underlying malignancy, although this has not been found. 6. Elevated liver enzymes, etiology unclear. Plan: At this time, the patient will be hydrated vigorously and hopefully, his calcium will return to normal with hydration. I will review prior labs. 05:20 imaging of his abdomen 05:22 elevated liver enzymes. He is at high risk for dialysis and dialysis 05:30 by catheter sepsis and other complications. So, first we need to reassess for this current condition. He has advanced dementia and goals of care need to be addressed in detail. Jose L Nelson M.D. DR: JERALD JOB#: [id number] CC:
--- NOTE | 2017-07-11 14:19 | General Progress Note ---
Assessment/Plan Assessment/Plan 1. Chronic kidney disease, stage 5, likely due to gout and possibly nephrosclerosis. 2. History of prior dialysis. 3. Dehydration. 4. Elevated liver enzymes. 5. Hypercalcemia, possibly due to underlying malignancy 6. Elevated liver enzymes, etiology unclear. renal and liver tests not better no change in clinical status await podiatry eval imaging studies pending start Nepro feeds Subjective Allergies: Coded Allergies: PENICILLINS (Verified Allergy, Unknown, 05/12/17) Objective Last 24 Hour Vital Signs Date Time Temp Pulse Resp B/P (MAP) Pulse Ox O2 Delivery O2 Flow Rate FiO2 07/11/17 11:58 97.0 82 21 165/75 98 Nasal Cannula 07/11/17 08:30 97.7 84 22 156/78 100 Nasal Cannula 2.0 07/11/17 08:00 95 07/11/17 04:00 93 07/11/17 00:00 102 07/10/17 23:29 97.8 104 20 143/83 94 Nasal Cannula 07/10/17 20:12 75 20 Room Air 07/10/17 18:00 90 07/10/17 16:45 97.6 70 21 120/63 97 Room Air 07/10/17 16:21 96.9 89 19 137/69 95 Nasal Cannula 2.0 07/10/17 15:46 96.9 89 19 137/69 95 Nasal Cannula 2.0 Laboratory Tests 07/11/17 06:45: White Blood Count 11.3H, Red Blood Count 3.49L, Hemoglobin 9.7L, Hematocrit 33.4L, Mean Corpuscular Volume 96, Mean Corpuscular Hemoglobin 27.9, Mean Corpuscular Hemoglobin Concent 29.1L, Red Cell Distribution Width 23.1H, Platelet Count 263, Mean Platelet Volume 8.3, Neutrophils (%) (Auto) 84.1H, Lymphocytes (%) (Auto) 8.3L, Monocytes (%) (Auto) 3.6, Eosinophils (%) (Auto) 3.2H, Basophils (%) (Auto) 0.8, Sodium Level 147H, Potassium Level 5.5H, Chloride Level 116H, Carbon Dioxide Level 20, Anion Gap 11, Blood Urea Nitrogen 112H, Creatinine 2.9H, Estimat Glomerular Filtration Rate , Glucose Level 102, Calcium Level 11.3H, Calcium (Send out) [Pending], Total Bilirubin 0.6, Aspartate Amino Transf (AST/SGOT) 100H, Alanine Aminotransferase (ALT/SGPT) 119H , Alkaline Phosphatase 266H, Total Protein 7.0, Albumin 2.9L, Globulin 4.1, Albumin/Globulin Ratio 0.7L, Carcinoembryonic Antigen 2.5, Parathyroid Hormone ( Intact) [Pending], Parathyroid Hormone Related Protein [Pending], Hepatitis B Surface Antigen [Pending], Hepatitis B Surface Antibody [Pending], Hepatitis C Antibody [Pending] Height (Feet): 5 Height (Inches): 9.00 Weight (Pounds): 170 GONZALO LONGORIA Jul 11, 2017 14:19
[2017-07-11 16:00] VITALS: BP 162/73
--- NOTE | 2017-07-11 16:02 | Diagnostic Imaging Report ---
Indication: Abdominal pain Technique: Continuous helical transaxial imaging of the abdomen and pelvis was obtained from the lung bases to the pubic symphysis. No intravenous contrast was administered. Coronal 2-D reformats were also obtained. Total Dose length Product (DLP): [address] Dose Index Volume (CTDIvol): 13.24, 0.15 mGy Comparison: none Findings: Patchy consolidation versus atelectasis at the lung bases demonstrated. Trace pericardial fluid versus thickening noted. Small hiatal hernia is present. Aorta is moderately calcified. Spleen is enlarged measuring about 17 cm. Kidneys are atrophic. Multiple hypodensities likely cystic noted. 3.5 CM isointense mass in the upper pole right kidney demonstrated. Tiny punctate nonobstructive stones in both kidneys demonstrated. Gallstone noted. The appendix is not identified. There are no secondary signs of acute appendicitis. There is a Watson catheter present in good position. There is thickening of the urinary bladder wall. Prostate is 0.6 x 6.0 CM.. There is narrowing of intervertebral discs and accompanying endplate osteophyte formation. Hypertrophied facet joints also demonstrated.. Impression: Gallstone. Splenomegaly. Multiple tiny nonobstructive stones within the kidneys. Basilar infiltrate and/or atelectasis. Cystic versus solid mass 3.5 CM right kidney. Multiple bilateral hypodensities within the kidneys probably cysts. Gastrostomy Atherosclerotic disease Prostate hypertrophy. Thickening of the bladder wall may be due to this. Please correlate clinically. No evidence of acute appendicitis. Spondylosis. Trace pericardial effusion versus thickening. The CT scanner at [facility] is accredited by the [employer] and the scans are performed using dose optimization techniques as appropriate to a performed exam including Automatic Exposure control.
[2017-07-11] MEDS ORDERED: NS Irrig 1000ml ONE (16:17)
[2017-07-11] MEDS ORDERED: 1/2 NS 1000ml IV ONE (16:17)
--- NOTE | 2017-07-11 16:22 | Consultation ---
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
--- NOTE | 2017-07-11 16:44 | Nephrology Progress Note ---
Assessment/Plan Problem List: (1) Gout (2) Abnormal LFTs (3) Dehydration (4) CKD (chronic kidney disease) stage 5, GFR less than 15 ml/min (5) Hypercalcemia (6) MEHRAN (acute kidney injury) (7) Malnutrition of moderate degree Plan possible malignancy, renal mass, bone scan and plain images pending as hypercalcemia, continue iv hydration Subjective ROS Limited/Unobtainable: Yes Objective Objective Last 24 Hour Vital Signs Date Time Temp Pulse Resp B/P (MAP) Pulse Ox O2 Delivery O2 Flow Rate FiO2 07/11/17 16:00 97.7 77 22 162/73 99 Nasal Cannula 2.0 07/11/17 12:00 79 07/11/17 11:58 97.0 82 21 165/75 98 Nasal Cannula 07/11/17 08:30 97.7 84 22 156/78 100 Nasal Cannula 2.0 07/11/17 08:00 95 07/11/17 04:00 93 07/11/17 00:00 102 07/10/17 23:29 97.8 104 20 143/83 94 Nasal Cannula 07/10/17 20:12 75 20 Room Air 07/10/17 18:00 90 07/10/17 16:45 97.6 70 21 120/63 97 Room Air Intake and Output 07/11/17 07/12/17 19:00 07:00 Intake Total 700 ml Balance 700 ml Intake IV Total 700 ml Laboratory Tests 07/11/17 06:45: White Blood Count 11.3H, Red Blood Count 3.49L, Hemoglobin 9.7L, Hematocrit 33.4L, Mean Corpuscular Volume 96, Mean Corpuscular Hemoglobin 27.9, Mean Corpuscular Hemoglobin Concent 29.1L, Red Cell Distribution Width 23.1H, Platelet Count 263, Mean Platelet Volume 8.3, Neutrophils (%) (Auto) 84.1H, Lymphocytes (%) (Auto) 8.3L, Monocytes (%) (Auto) 3.6, Eosinophils (%) (Auto) 3.2H, Basophils (%) (Auto) 0.8, Sodium Level 147H, Potassium Level 5.5H, Chloride Level 116H, Carbon Dioxide Level 20, Anion Gap 11, Blood Urea Nitrogen 112H, Creatinine 2.9H, Estimat Glomerular Filtration Rate , Glucose Level 102, Calcium Level 11.3H, Calcium (Send out) [Pending], Total Bilirubin 0.6, Aspartate Amino Transf (AST/SGOT) 100H, Alanine Aminotransferase (ALT/SGPT) 119H , Alkaline Phosphatase 266H, Total Protein 7.0, Albumin 2.9L, Globulin 4.1, Albumin/Globulin Ratio 0.7L, Carcinoembryonic Antigen 2.5, Parathyroid Hormone ( Intact) [Pending], Parathyroid Hormone Related Protein [Pending], Hepatitis B Surface Antigen [Pending], Hepatitis B Surface Antibody [Pending], Hepatitis C Antibody [Pending] Height (Feet): 5 Height (Inches): 9.00 Weight (Pounds): 170 General Appearance: lethargic, thin EENT: other - dry mouth Neck: normal alignment Cardiovascular: normal rate Respiratory/Chest: lungs clear Abdomen: non tender Extremities: other - tophi, no edema Neurologic: unresponsive PRUDENCE MA Jul 11, 2017 16:44
[2017-07-11 20:25] VITALS: BP 141/72
[2017-07-11] MEDS: Depakote 125mg Sprinkles GT SCH (21:08)
[2017-07-11 22:14] LABS: APPEARANCE,URINE CLEAR; KETONES,URINE NEGATIVE (NEGATIVE); LEUKOCYTE ESTERASE ,URINE 3+ (NEGATIVE); NITRITE,URINE NEGATIVE (NEGATIVE); PH,URINE 7 (4.5-8.0); PROTEIN,URINE 2+ (NEGATIVE); UROBILINOGEN,URINE NORMAL MG/DL (0.0-1.0)
[2017-07-11 22:27] LABS: BACTERIA,URINE FEW /HPF
[2017-07-11] MEDS: Albuterol ud Inhalation HHN PRN (22:33)
[2017-07-11 23:47] VITALS: BP 134/74
[2017-07-12] MEDS: Albuterol ud Inhalation HHN PRN ×2 (02:40→15:21)
[2017-07-12 04:30] VITALS: BP 127/64
--- NOTE | 2017-07-12 04:30 | Consultation ---
DATE OF CONSULTATION: 07/11/2017 CONSULTING PHYSICIAN: Christiano Valentino D.P.M. REFERRING PHYSICIAN: Roland Levine M.D. REASON FOR CONSULTATION: Chronic ulcers of the left foot and tophaceous gout in the presence of diabetes mellitus. HISTORY OF PRESENT ILLNESS: The patient is an 81-year-old male who was admitted to [facility] on 07/10/2017 for abnormal laboratories. The patient is nonverbal and history is obtained through chart review. PAST MEDICAL HISTORY: Significant for history of sepsis, pneumonia, end-stage renal disease, on dialysis; dementia, schizophrenia, diabetes mellitus type 2, tophaceous gout, dysphagia, and percutaneous endoscopic gastrostomy placement. MEDICATIONS: Per MAR and include heparin for DVT prophylaxis, Colace, and Tylenol. ALLERGIES: He is allergic to penicillin. SOCIAL HISTORY: The patient resides in a halfway facility. FAMILY HISTORY: Noncontributory. REVIEW OF SYSTEMS: Unobtainable. PHYSICAL EXAMINATION: VITAL SIGNS: Temperature is 97.7 degrees, pulse is 77, respiratory rate is 20, blood pressure is 162/73, and saturating 99% on two liters. EXTREMITIES: Lower extremity physical exam, vascular, palpable pedal pulses noted bilaterally. Feet are equally warm. No edema or cyanosis is noted. DERMATOLOGICAL: There is a full-thickness ulceration stage II at the medial aspect of the left ankle. There is no bone or tendon exposed. No signs of acute infection are noted. There is also a portal noted on the lateral aspect of the right foot at the fifth metatarsophalangeal joint region. There is tophaceous gout expressed from this area. No malodor. No erythema is noted. Nails are dystrophic. Digital interspaces are clear bilaterally. MUSCULOSKELETAL: No gross deformities are noted. The patient is bedbound and non-ambulatory. LABORATORY DATA: White blood cell count is increased from his admission from 9.8 to 11.3, hemoglobin and hematocrit are 9.7 and 33.4, and platelet count is 263,000. BUN is 112, creatinine is 2.9, and potassium is 5.5. Albumin is 2.9. Total protein 7.0. Hepatitis panel is pending. No lower extremity imaging is noted. ASSESSMENT: 1. Stage II pressure ulcer of medial left ankle. 2. Tophaceous gout, right fifth metatarsophalangeal joint. 3. Diabetes mellitus. 4. Abnormal mobility. PLAN: 1. We will order wound care for the left medial ankle consisting of Adaptic and dry dressing daily. 2. We will order x-rays of the right foot. 3. We will order wound care for the right foot portal to consist of flushing the area with NS and expressing the area of any tophaceous gout performed repeatedly and cover with dry dressing, which should be performed daily. This treatment was discussed with the nurse. 4. Continue heel offloading. 5. Bone scan is pending. Thank you for the courtesy of this consultation. Christiano Valentino D.P.M. DR: AGUSTO JOB#: [id number] CC:
[2017-07-12 07:41] LABS: ANION GAP 13 (5-15); CALCIUM 10.6 mg/dL (8.6-10.2); CARBON DIOXIDE 19 mEQ/L (20-30); CHLORIDE 110 mEQ/L (98-107); CREATININE 2.5 mg/dL (0.7-1.2); HEMOLYSIS 2; SODIUM 142 mEQ/L (135-145)
[2017-07-12 08:00] VITALS: BP 141/79
--- NOTE | 2017-07-12 09:00 | Diagnostic Imaging Report ---
Indication: Abnormal breath sounds Comparison: 07/10/17 A single view chest radiograph was obtained. Findings: The laura appear prominent bilaterally. This is probably on a vascular basis. Heart size is also mildly prominent. Lungs are essentially clear. Bones are osteopenic. There are multiple old rib fractures on the right. Impression: No acute disease
[2017-07-12] MEDS: Renvela 800mg Pkt GT SCH ×3 (09:29→17:24)
[2017-07-12] MEDS: Midodrine 10mg tab GT SCH ×3 (09:29→17:24)
[2017-07-12] MEDS: Ferrous Sulfate 300 MG/5 ML UDC GT SCH ×3 (09:29→17:24)
[2017-07-12] MEDS: Docusate 100mg/10ml Liq GT SCH ×2 (09:29→17:24)
[2017-07-12] MEDS: Heparin 5000 units/ml inj SUBQ SCH ×2 (09:33→20:52)
--- NOTE | 2017-07-12 09:39 | Nephrology Progress Note ---
Assessment/Plan Problem List: (1) Gout (2) Abnormal LFTs (3) Dehydration (4) CKD (chronic kidney disease) stage 5, GFR less than 15 ml/min (5) Hypercalcemia (6) MEHRAN (acute kidney injury) (7) Malnutrition of moderate degree Plan possible malignancy, renal mass, bone scan and plain images pending as hypercalcemia, continue iv hydration, decrease rate, if family concerned could biopsy renal mass, otherwise treat symptomatically Subjective ROS Limited/Unobtainable: Yes Objective Objective Last 24 Hour Vital Signs Date Time Temp Pulse Resp B/P (MAP) Pulse Ox O2 Delivery O2 Flow Rate FiO2 07/12/17 08:00 97.4 85 22 141/79 98 Room Air 07/12/17 04:30 97.0 87 20 127/64 99 Room Air 07/12/17 04:00 86 07/12/17 02:54 79 18 99 Nasal Cannula 3.0 32 07/12/17 02:40 55 07/12/17 02:40 75 18 89 Nasal Cannula 2.0 28 07/12/17 00:00 79 07/11/17 23:47 97.5 82 20 134/74 94 Nasal Cannula 2.0 07/11/17 22:39 77 18 95 Nasal Cannula 3.0 32 07/11/17 22:34 55 07/11/17 22:34 72 18 91 Nasal Cannula 3.0 32 07/11/17 20:25 97.0 73 20 141/72 99 Nasal Cannula 2.0 07/11/17 20:00 73 07/11/17 19:43 70 18 Nasal Cannula 2.0 28 07/11/17 16:00 97.7 77 22 162/73 99 Nasal Cannula 2.0 07/11/17 16:00 77 07/11/17 12:00 79 07/11/17 11:58 97.0 82 21 165/75 98 Nasal Cannula Laboratory Tests 07/11/17 21:15: Urine Color Pale yellow, Urine Appearance Clear, Urine pH 7, Urine Specific [place] 1.005, Urine Protein 2+H, Urine Glucose (UA) Negative, Urine Ketones Negative, Urine Occult Blood 2+H, Urine Nitrite Negative, Urine Bilirubin Negative, Urine Urobilinogen Normal, Urine Leukocyte Esterase 3+H, Urine RBC 2- 4H, Urine WBC 2-4, Urine Squamous Epithelial Cells None, Urine Bacteria Few 07/12/17 05:00: Urine Immunofixation [Pending] 07/12/17 05:10: Sodium Level 142, Potassium Level 5.0H, Chloride Level 110H, Carbon Dioxide Level 19L, Anion Gap 13, Blood Urea Nitrogen 102H, Creatinine 2.5H, Estimat Glomerular Filtration Rate , Glucose Level 97, Uric Acid 9.5H, Calcium Level 10.6H 07/12/17 05:15: Immunoglobulin G [Pending], Immunoglobulin A [Pending], Immunoglobulin M [ Pending], Immunofixation Screen [Pending] Height (Feet): 5 Height (Inches): 9.00 Weight (Pounds): 170 General Appearance: no apparent distress, lethargic, confused EENT: normal ENT inspection Neck: normal alignment Cardiovascular: regular rhythm Respiratory/Chest: lungs clear Abdomen: non tender Extremities: other - no edema, large tophi9 Neurologic: disoriented PRUDENCE MA Jul 12, 2017 09:39
[2017-07-12 12:00] VITALS: BP 151/73
[2017-07-12 12:39] LABS: CALCIUM 11.1 mg/dL (8.6-10.2); PTH INTACT 76 pg/mL (15-65)
--- NOTE | 2017-07-12 14:41 | Pulmonology Progress Note ---
Assessment/Plan Assessment/Plan 1. Chronic kidney disease, stage 5, likely due to gout and possibly nephrosclerosis. 2. History of prior dialysis. 3. Dehydration. 4. Elevated liver enzymes. 5. Hypercalcemia, possibly due to underlying malignancy 6. Elevated liver enzymes, etiology unclear. 7 UTI GNbacilli renal and liver tests not better no change in clinical status await podiatry eval imaging studies pending start Nepro feeds start rocephin and fu urine culture labs in am Subjective ROS Limited/Unobtainable: Yes Allergies: Coded Allergies: PENICILLINS (Verified Allergy, Unknown, 05/12/17) Subjective awake nonverbal tolerating tf no distress nonambulatory no cp fever noted Objective Last 24 Hour Vital Signs Date Time Temp Pulse Resp B/P (MAP) Pulse Ox O2 Delivery O2 Flow Rate FiO2 07/12/17 12:00 72 07/12/17 12:00 97.2 78 22 151/73 97 Room Air 07/12/17 08:00 85 07/12/17 08:00 97.4 85 22 141/79 98 Room Air 07/12/17 04:30 97.0 87 20 127/64 99 Room Air 07/12/17 04:00 86 07/12/17 02:54 79 18 99 Nasal Cannula 3.0 32 07/12/17 02:40 55 07/12/17 02:40 75 18 89 Nasal Cannula 2.0 28 07/12/17 00:00 79 07/11/17 23:47 97.5 82 20 134/74 94 Nasal Cannula 2.0 07/11/17 22:39 77 18 95 Nasal Cannula 3.0 32 07/11/17 22:34 55 07/11/17 22:34 72 18 91 Nasal Cannula 3.0 32 07/11/17 20:25 97.0 73 20 141/72 99 Nasal Cannula 2.0 07/11/17 20:00 73 07/11/17 19:43 70 18 Nasal Cannula 2.0 28 07/11/17 16:00 97.7 77 22 162/73 99 Nasal Cannula 2.0 07/11/17 16:00 77 General Appearance: cachetic HEENT: atraumatic, anicteric Respiratory/Chest: crackles/rales, rhonchi Cardiovascular: normal rate, murmur systolic Abdomen: soft, non tender, no organomegaly, non distended Extremities: no cyanosis Skin: lesions Neurologic/Psychiatric: disoriented, aphasia, depressed affect Microbiology Date/Time Source Procedure Growth Status 07/10/17 12:50 Urine,Clean Catch Urine Culture - Preliminary Gram Negative Bacillus 1 Resulted Laboratory Tests 07/11/17 21:15: Urine Color Pale yellow, Urine Appearance Clear, Urine pH 7, Urine Specific [place] 1.005, Urine Protein 2+H, Urine Glucose (UA) Negative, Urine Ketones Negative, Urine Occult Blood 2+H, Urine Nitrite Negative, Urine Bilirubin Negative, Urine Urobilinogen Normal, Urine Leukocyte Esterase 3+H, Urine RBC 2- 4H, Urine WBC 2-4, Urine Squamous Epithelial Cells None, Urine Bacteria Few 07/12/17 05:00: Urine Immunofixation [Pending] 07/12/17 05:10: Sodium Level 142, Potassium Level 5.0H, Chloride Level 110H, Carbon Dioxide Level 19L, Anion Gap 13, Blood Urea Nitrogen 102H, Creatinine 2.5H, Estimat Glomerular Filtration Rate , Glucose Level 97, Uric Acid 9.5H, Calcium Level 10.6H 07/12/17 05:15: Immunoglobulin G [Pending], Immunoglobulin A [Pending], Immunoglobulin M [ Pending], Immunofixation Screen [Pending] Current Medications Medications (Trade) Dose Ordered Sig/James Route PRN Reason Start Time Stop Time Status Last Admin Dose Admin Acetaminophen (Tylenol) 650 mg Q6H PRN GT For Pain 07/10/17 17:15 08/09/17 17:14 Albuterol Sulfate (Proventil) 2.5 mg Q4H PRN HHN Shortness of Breath 07/10/17 17:15 07/15/17 17:14 07/12/17 02:40 Divalproex Sodium (Depakote Sprinkles) 250 mg BEDTIME GT 07/10/17 21:00 08/09/17 20:59 07/11/17 21:08 Docusate Sodium (Colace) 100 mg BID GT 07/10/17 18:00 08/09/17 17:59 07/12/17 09:29 Ferrous Sulfate (Feosol) 300 mg THREE TIMES A DAY GT 07/10/17 18:00 08/09/17 17:59 07/12/17 13:54 Heparin Sodium (Porcine) (Heparin 5000 units/ml) 5,000 units EVERY 12 HOURS SUBQ 07/10/17 21:00 08/09/17 20:59 07/12/17 09:33 Lactulose (Cephulac) 20 gm DAILYPRN PRN GT Constipation 07/10/17 17:15 08/09/17 17:14 Midodrine (Pro-Amatine) 10 mg THREE TIMES A DAY GT 07/10/17 18:00 08/09/17 17:59 07/12/17 13:54 Ondansetron HCl (Zofran) 4 mg Q6H PRN GT Nausea & Vomiting 07/10/17 17:15 08/09/17 17:14 Quetiapine Fumarate (SEROquel) 25 mg Q12HR GT 07/10/17 21:00 08/09/17 20:59 07/12/17 09:29 Sevelamer Carbonate (Renvela) 800 mg THREE TIMES A DAY GT 07/10/17 18:00 08/09/17 17:59 07/12/17 13:54 Sodium Chloride 1,000 ml @ 100 mls/hr Q10H IV 07/12/17 17:10 08/11/17 17:09 ANDREW LOWERY DO Jul 12, 2017 14:41
[2017-07-12] MEDS ORDERED: 1/2 NS 1000ml IV ONE (15:32)
[2017-07-12] MEDS ORDERED: NS Irrig 2000ml IRRIG ONE (15:32)
[2017-07-12 16:00] VITALS: BP 168/83
[2017-07-12] MEDS: cefTRIAXone 1 GM in D5W 55 ML IVPB SCH (16:34)
[2017-07-12 20:20] VITALS: BP 145/67
[2017-07-12] MEDS: Depakote 125mg Sprinkles GT SCH (20:47)
[2017-07-13] VITALS: BP 151/63
[2017-07-13 03:44] VITALS: BP 120/57
[2017-07-13 07:52] LABS: EOSINOPHILS % (AUTO) 3.3 % (0.0-3.0); LYMPHOCYTES % (AUTO) 11.5 % (20.0-45.0); MEAN CORPUSCULAR HEMOGLOBIN 28.1 PG (27.0-31.0); MEAN CORPUSCULAR VOLUME 94 FL (80-99); MEAN PLATELET VOLUME 8.9 FL (6.5-10.1); MONOCYTES % (AUTO) 4.9 % (1.0-10.0); NEUTROPHILS % (AUTO) 79.3 % (45.0-75.0); PLATELET COUNT 272 K/UL (150-450); RED BLOOD COUNT 3.25 M/UL (4.70-6.10); WHITE BLOOD COUNT 8.4 K/UL (4.8-10.8)
[2017-07-13 08:01] LABS: ANION GAP 14 (5-15); CALCIUM 10.3 mg/dL (8.6-10.2); CARBON DIOXIDE 19 mEQ/L (20-30); CHLORIDE 111 mEQ/L (98-107); CREATININE 2.5 mg/dL (0.7-1.2); HEMOLYSIS 1; POTASSIUM 4.6 mEQ/L (3.4-4.9); SODIUM 144 mEQ/L (135-145)
[2017-07-13 08:34] VITALS: BP 143/70
[2017-07-13] MEDS: Docusate 100mg/10ml Liq GT SCH ×2 (08:54→17:02)
[2017-07-13] MEDS: Ferrous Sulfate 300 MG/5 ML UDC GT SCH ×3 (08:54→17:02)
[2017-07-13] MEDS: Midodrine 10mg tab GT SCH ×3 (08:54→17:03)
[2017-07-13] MEDS: Renvela 800mg Pkt GT SCH ×3 (08:54→17:03)
[2017-07-13] MEDS: Heparin 5000 units/ml inj SUBQ SCH ×2 (11:05→21:26)
[2017-07-13 11:35] VITALS: BP 149/66
--- NOTE | 2017-07-13 13:42 | Nephrology Progress Note ---
Assessment/Plan Problem List: (1) Gout (2) Abnormal LFTs (3) Dehydration (4) CKD (chronic kidney disease) stage 5, GFR less than 15 ml/min (5) Hypercalcemia (6) MEHRAN (acute kidney injury) (7) Malnutrition of moderate degree Plan possible malignancy, renal mass, bone scan and plain images pending as hypercalcemia, continue iv hydration, decrease rate, if family concerned could biopsy renal mass, otherwise treat symptomatically, lab trend better. Subjective ROS Limited/Unobtainable: Yes Objective Objective Last 24 Hour Vital Signs Date Time Temp Pulse Resp B/P (MAP) Pulse Ox O2 Delivery O2 Flow Rate FiO2 07/13/17 12:00 70 07/13/17 11:35 97.0 71 20 149/66 97 Nasal Cannula 2.0 07/13/17 08:34 97.3 76 20 143/70 94 Nasal Cannula 2.0 07/13/17 08:00 73 07/13/17 06:33 77 17 Nasal Cannula 2.0 07/13/17 04:32 73 07/13/17 03:44 98.4 73 20 120/57 98 Nasal Cannula 73 07/13/17 00:00 98.4 78 19 151/63 98 Nasal Cannula 78 07/13/17 00:00 72 07/12/17 20:20 98.6 85 21 145/67 98 Nasal Cannula 07/12/17 20:00 78 07/12/17 19:42 76 18 Nasal Cannula 2.0 28 07/12/17 16:00 97.5 67 21 168/83 99 Room Air 07/12/17 16:00 76 07/12/17 15:25 76 18 99 Room Air 21 07/12/17 15:20 72 18 94 Room Air 21 Laboratory Tests 07/13/17 06:20: White Blood Count 8.4, Red Blood Count 3.25L, Hemoglobin 9.1L, Hematocrit 30.4L , Mean Corpuscular Volume 94, Mean Corpuscular Hemoglobin 28.1, Mean Corpuscular Hemoglobin Concent 30.0L, Red Cell Distribution Width 23.0H, Platelet Count 272, Mean Platelet Volume 8.9, Neutrophils (%) (Auto) 79.3H, Lymphocytes (%) (Auto) 11.5L, Monocytes (%) (Auto) 4.9, Eosinophils (%) (Auto) 3.3H, Basophils (%) (Auto) 1.0, Sodium Level 144, Potassium Level 4.6, Chloride Level 111H, Carbon Dioxide Level 19L, Anion Gap 14, Blood Urea Nitrogen 86H, Creatinine 2.5H, Estimat Glomerular Filtration Rate , Glucose Level 99, Calcium Level 10.3H Height (Feet): 5 Height (Inches): 9.00 Weight (Pounds): 170 General Appearance: no apparent distress, lethargic EENT: normal ENT inspection Neck: normal alignment Cardiovascular: normal rate, regular rhythm Respiratory/Chest: rhonchi - bilaterally Abdomen: soft, no organomegaly Extremities: other - no edema, large tophi Neurologic: disoriented PRUDENCE MA Jul 13, 2017 13:42
[2017-07-13] MEDS: cefTRIAXone 1 GM in D5W 55 ML IVPB SCH (15:26)
[2017-07-13 15:51] VITALS: BP 148/72
--- NOTE | 2017-07-13 19:30 | Pulmonology Progress Note ---
Assessment/Plan Assessment/Plan 1. Chronic kidney disease, stage 5, likely due to gout and possibly nephrosclerosis. 2. History of prior dialysis. 3. Dehydration. 4. Elevated liver enzymes. 5. Hypercalcemia, possibly due to underlying malignancy 6. Elevated liver enzymes, etiology unclear. 7 UTI GNbacilli renal and liver tests not better no change in clinical status await podiatry eval imaging studies pending start Nepro feeds start rocephin and fu urine culture labs in am Subjective ROS Limited/Unobtainable: Yes Allergies: Coded Allergies: PENICILLINS (Verified Allergy, Unknown, 05/12/17) Subjective awake nonverbal tolerating tf no distress nonambulatory no cp fever noted Objective Last 24 Hour Vital Signs Date Time Temp Pulse Resp B/P (MAP) Pulse Ox O2 Delivery O2 Flow Rate FiO2 07/13/17 16:00 71 07/13/17 15:51 97.2 63 20 148/72 95 Nasal Cannula 2.0 07/13/17 12:00 70 07/13/17 11:35 97.0 71 20 149/66 97 Nasal Cannula 2.0 07/13/17 08:34 97.3 76 20 143/70 94 Nasal Cannula 2.0 07/13/17 08:00 73 07/13/17 06:33 77 17 Nasal Cannula 2.0 07/13/17 04:32 73 07/13/17 03:44 98.4 73 20 120/57 98 Nasal Cannula 73 07/13/17 00:00 98.4 78 19 151/63 98 Nasal Cannula 78 07/13/17 00:00 72 07/12/17 20:20 98.6 85 21 145/67 98 Nasal Cannula 07/12/17 20:00 78 07/12/17 19:42 76 18 Nasal Cannula 2.0 28 Intake and Output 07/13/17 07/14/17 19:00 07:00 Intake Total 1540 ml Output Total 550 ml Balance 990 ml IV Total 1155 ml Tube Feeding 385 ml Output Urine Total 550 ml General Appearance: cachetic HEENT: atraumatic, anicteric Respiratory/Chest: crackles/rales, rhonchi Cardiovascular: regular rhythm, regularly irregular Abdomen: no organomegaly Extremities: no clubbing Skin: no rash, lesions Neurologic/Psychiatric: disoriented, unresponsiveness Lymphatic: no neck adenopathy Microbiology Date/Time Source Procedure Growth Status 07/11/17 21:15 Indwelling Cath Urine Culture - Preliminary Streptococcus Species Resulted Laboratory Tests 07/13/17 06:20: White Blood Count 8.4, Red Blood Count 3.25L, Hemoglobin 9.1L, Hematocrit 30.4L , Mean Corpuscular Volume 94, Mean Corpuscular Hemoglobin 28.1, Mean Corpuscular Hemoglobin Concent 30.0L, Red Cell Distribution Width 23.0H, Platelet Count 272, Mean Platelet Volume 8.9, Neutrophils (%) (Auto) 79.3H, Lymphocytes (%) (Auto) 11.5L, Monocytes (%) (Auto) 4.9, Eosinophils (%) (Auto) 3.3H, Basophils (%) (Auto) 1.0, Sodium Level 144, Potassium Level 4.6, Chloride Level 111H, Carbon Dioxide Level 19L, Anion Gap 14, Blood Urea Nitrogen 86H, Creatinine 2.5H, Estimat Glomerular Filtration Rate , Glucose Level 99, Calcium Level 10.3H Current Medications Medications (Trade) Dose Ordered Sig/James Route PRN Reason Start Time Stop Time Status Last Admin Dose Admin Acetaminophen (Tylenol) 650 mg Q6H PRN GT For Pain 07/10/17 17:15 08/09/17 17:14 Albuterol Sulfate (Proventil) 2.5 mg Q4H PRN HHN Shortness of Breath 07/10/17 17:15 07/15/17 17:14 07/12/17 15:21 Ceftriaxone Sodium 1 gm/ Dextrose 55 ml @ 110 mls/hr Q24H IVPB 07/12/17 16:00 07/19/17 15:59 07/13/17 15:26 Divalproex Sodium (Depakote Sprinkles) 250 mg BEDTIME GT 07/10/17 21:00 08/09/17 20:59 07/12/17 20:47 Docusate Sodium (Colace) 100 mg BID GT 07/10/17 18:00 08/09/17 17:59 07/13/17 17:02 Ferrous Sulfate (Feosol) 300 mg THREE TIMES A DAY GT 07/10/17 18:00 08/09/17 17:59 07/13/17 17:02 Heparin Sodium (Porcine) (Heparin 5000 units/ml) 5,000 units EVERY 12 HOURS SUBQ 07/10/17 21:00 08/09/17 20:59 07/13/17 11:05 Lactulose (Cephulac) 20 gm DAILYPRN PRN GT Constipation 07/10/17 17:15 08/09/17 17:14 Midodrine (Pro-Amatine) 10 mg THREE TIMES A DAY GT 07/10/17 18:00 08/09/17 17:59 07/13/17 17:03 Ondansetron HCl (Zofran) 4 mg Q6H PRN GT Nausea & Vomiting 07/10/17 17:15 08/09/17 17:14 Quetiapine Fumarate (SEROquel) 25 mg Q12HR GT 07/10/17 21:00 08/09/17 20:59 07/13/17 08:54 Sevelamer Carbonate (Renvela) 800 mg THREE TIMES A DAY GT 07/10/17 18:00 08/09/17 17:59 07/13/17 17:03 Sodium Chloride 1,000 ml @ 100 mls/hr Q10H IV 07/12/17 17:10 08/11/17 17:09 07/13/17 13:19 ANDREW LOWERY DO Jul 13, 2017 19:30
[2017-07-13 20:00] VITALS: BP 155/88
[2017-07-13] MEDS ORDERED: Depakote 125mg Sprinkles GT SCH (21:30)
[2017-07-13] MEDS: Valproic Acid 250mg/5ml Liquid GT SCH (22:48)
[2017-07-14] VITALS: BP 152/74
[2017-07-14 04:00] VITALS: BP 147/79
[2017-07-14 07:28] LABS: MEAN CORPUSCULAR HEMOGLOBIN 29.4 PG (27.0-31.0); MEAN CORPUSCULAR HGB CONC 30.6 G/DL (32.0-36.0); MEAN CORPUSCULAR VOLUME 96 FL (80-99); MEAN PLATELET VOLUME 9.2 FL (6.5-10.1); PLATELET COUNT 259 K/UL (150-450); RED BLOOD COUNT 3.25 M/UL (4.70-6.10); RED CELL DISTRIBUTION WIDTH 23.6 % (11.6-14.8); WHITE BLOOD COUNT 7.8 K/UL (4.8-10.8)
[2017-07-14 07:33] LABS: ANION GAP 12 (5-15); CARBON DIOXIDE 19 mEQ/L (20-30); CHLORIDE 110 mEQ/L (98-107); CREATININE 2.3 mg/dL (0.7-1.2); HEMOLYSIS 3; POTASSIUM 4.6 mEQ/L (3.4-4.9); SODIUM 141 mEQ/L (135-145)
[2017-07-14 08:00] VITALS: BP 157/73
[2017-07-14 08:37] LABS: IMMUNOGLOBULIN A 362 mg/dL (61-437); IMMUNOGLOBULIN G 1920 mg/dL (700-1600); IMMUNOGLOBULIN M 54 mg/dL (15-143)
--- NOTE | 2017-07-14 08:58 | General Progress Note ---
Assessment/Plan Assessment/Plan 1. Chronic kidney disease, stage 5, likely due to gout and possibly nephrosclerosis. 2. History of prior dialysis. 3. Dehydration. 4. Elevated liver enzymes. 5. Hypercalcemia, possibly due to underlying malignancy 6. Elevated liver enzymes, etiology unclear. repeat liver tests renal fcn back to baseline more alert await bone scan and survey will disc w dtr re biopsy of renal mass Subjective ROS Limited/Unobtainable: Yes Allergies: Coded Allergies: PENICILLINS (Verified Allergy, Unknown, 05/12/17) Objective Last 24 Hour Vital Signs Date Time Temp Pulse Resp B/P (MAP) Pulse Ox O2 Delivery O2 Flow Rate FiO2 07/14/17 08:00 97.0 75 21 157/73 99 Nasal Cannula 2.0 07/14/17 04:00 64 07/14/17 04:00 97.9 75 18 147/79 100 Nasal Cannula 2.0 07/14/17 00:00 97.7 72 20 152/74 99 07/14/17 00:00 69 07/13/17 20:00 63 07/13/17 20:00 98.0 67 20 155/88 100 Nasal Cannula 2.0 07/13/17 19:30 70 18 Room Air 21 07/13/17 16:00 71 07/13/17 15:51 97.2 63 20 148/72 95 Nasal Cannula 2.0 07/13/17 12:00 70 07/13/17 11:35 97.0 71 20 149/66 97 Nasal Cannula 2.0 Laboratory Tests 07/14/17 05:00: White Blood Count 7.8, Red Blood Count 3.25L, Hemoglobin 9.5L, Hematocrit 31.2L , Mean Corpuscular Volume 96, Mean Corpuscular Hemoglobin 29.4, Mean Corpuscular Hemoglobin Concent 30.6L, Red Cell Distribution Width 23.6H, Platelet Count 259, Mean Platelet Volume 9.2, Neutrophils (%) (Auto) , Lymphocytes (%) (Auto) , Monocytes (%) (Auto) , Eosinophils (%) (Auto) , Basophils (%) (Auto) , Neutrophils % (Manual) [Pending], Lymphocytes % (Manual) [Pending], Platelet Estimate [Pending], Platelet Morphology [Pending], Sodium Level 141, Potassium Level 4.6, Chloride Level 110H, Carbon Dioxide Level 19L, Anion Gap 12, Blood Urea Nitrogen 78H, Creatinine 2.3H, Estimat Glomerular Filtration Rate , Glucose Level 104, Calcium Level 10.0 Height (Feet): 5 Height (Inches): 9.00 Weight (Pounds): 170 General Appearance: no apparent distress, alert Cardiovascular: normal rate Respiratory/Chest: lungs clear Neurologic: aphasia GONZALO LONGORIA Jul 14, 2017 08:58
[2017-07-14] MEDS: Ferrous Sulfate 300 MG/5 ML UDC GT SCH ×2 (09:00→10:04)
[2017-07-14] MEDS: Docusate 100mg/10ml Liq GT SCH ×3 (09:00→18:55)
[2017-07-14] MEDS: Renvela 800mg Pkt GT SCH ×4 (09:00→18:55)
--- NOTE | 2017-07-14 09:13 | Nephrology Progress Note ---
Assessment/Plan Problem List: (1) Gout (2) Abnormal LFTs (3) Dehydration (4) CKD (chronic kidney disease) stage 5, GFR less than 15 ml/min (5) Hypercalcemia (6) MEHRAN (acute kidney injury) (7) Malnutrition of moderate degree Plan possible malignancy, renal mass, bone scan and plain images pending as hypercalcemia, continue iv hydration, decrease rate, if family concerned could biopsy renal mass, otherwise treat symptomatically, lab trend better.To check imaging and discuss Subjective ROS Limited/Unobtainable: Yes Objective Objective Last 24 Hour Vital Signs Date Time Temp Pulse Resp B/P (MAP) Pulse Ox O2 Delivery O2 Flow Rate FiO2 07/14/17 08:00 97.0 75 21 157/73 99 Nasal Cannula 2.0 07/14/17 04:00 64 07/14/17 04:00 97.9 75 18 147/79 100 Nasal Cannula 2.0 07/14/17 00:00 97.7 72 20 152/74 99 07/14/17 00:00 69 07/13/17 20:00 63 07/13/17 20:00 98.0 67 20 155/88 100 Nasal Cannula 2.0 07/13/17 19:30 70 18 Room Air 21 07/13/17 16:00 71 07/13/17 15:51 97.2 63 20 148/72 95 Nasal Cannula 2.0 07/13/17 12:00 70 07/13/17 11:35 97.0 71 20 149/66 97 Nasal Cannula 2.0 Intake and Output 07/14/17 07/15/17 18:59 06:59 Intake Total 135 ml Balance 135 ml IV Total 100 ml Tube Feeding 35 ml Laboratory Tests 07/14/17 05:00: White Blood Count 7.8, Red Blood Count 3.25L, Hemoglobin 9.5L, Hematocrit 31.2L , Mean Corpuscular Volume 96, Mean Corpuscular Hemoglobin 29.4, Mean Corpuscular Hemoglobin Concent 30.6L, Red Cell Distribution Width 23.6H, Platelet Count 259, Mean Platelet Volume 9.2, Neutrophils (%) (Auto) , Lymphocytes (%) (Auto) , Monocytes (%) (Auto) , Eosinophils (%) (Auto) , Basophils (%) (Auto) , Neutrophils % (Manual) [Pending], Lymphocytes % (Manual) [Pending], Platelet Estimate [Pending], Platelet Morphology [Pending], Sodium Level 141, Potassium Level 4.6, Chloride Level 110H, Carbon Dioxide Level 19L, Anion Gap 12, Blood Urea Nitrogen 78H, Creatinine 2.3H, Estimat Glomerular Filtration Rate , Glucose Level 104, Calcium Level 10.0 Height (Feet): 5 Height (Inches): 9.00 Weight (Pounds): 170 General Appearance: no apparent distress, lethargic EENT: normal ENT inspection Neck: supple Cardiovascular: regular rhythm Respiratory/Chest: lungs clear Abdomen: non tender, soft Extremities: other - large tophi no edema Neurologic: disoriented PRUDENCE MA Jul 14, 2017 09:13
--- NOTE | 2017-07-14 09:27 | Diagnostic Imaging Report ---
Indication: Elevated alkaline phosphatase Technique: 24.3 mCi of technetium 99 M-MDP was injected intravenously. A whole-body bone scan was then performed in anterior and posterior projections. Several spot images were also obtained. Comparison: Correlation made with a skeletal series 07/11/17 Findings: . There is abnormal increased uptake within the knees bilaterally. Abnormal thickening the left shoulder and portions of the cervical spine in portions of the lower lumbar spine and both hips, both feet and ankles, the right wrist. All of the areas are consistent with degenerative disease with good correlation to plain film findings. In the upper aspects of both femoral shafts, there is apparent periosteal uptake likely on the basis of previous trauma. Patient does have multiple long bone injuries which have been surgically reduced in the past with hardware. Impression: No compelling evidence for metastatic bone disease. Abnormal uptake as discussed above likely on a degenerative and/or posttraumatic basis.
--- NOTE | 2017-07-14 09:32 | Diagnostic Imaging Report ---
Indication: Elevated alkaline phosphatase Comparison: None Findings: Skeletal survey shows no blastic or lytic abnormalities. There is generalized bone demineralization which could be age-related. Not atypically, multiple myeloma can present as generalized osteopenia. Moderate spondylosis demonstrated with multilevel narrowing of intervertebral discs, endplate and facet hypertrophy. The skull is unremarkable. Intramedullary rods noted within the right tibia and left femur with post fracture deformities and periosteal cortical thickening and irregularity. A polyarticular joint space narrowing with osteophytes, typical for osteophyte is noted diffusely. Post fracture deformities suspected within several of the bones in the feet, not well imaged or adequately seen on the current study. Impression: Diffuse moderate generalized osteopenia demonstrated. Findings could be age-related. However, the possibility of multiple myeloma is not excluded. 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 Moderate spondylosis involving the entire spine. Post fracture deformities as discussed above
[2017-07-14] MEDS: Heparin 5000 units/ml inj SUBQ SCH ×2 (10:05→20:50)
[2017-07-14 10:51] LABS: ANISOCYTOSIS 2+; BAND NEUTROPHILS % (MANUAL) 0 % (0-8); BASOPHILS % (MANUAL) 0 % (0-2); EOSINOPHILS % (MANUAL) 4 % (0-3); HYPOCHROMASIA 1+; LYMPHOCYTES % (MANUAL) 13 % (20-45); NEUTROPHILS % (MANUAL) 80 % (45-75); PLATELET ESTIMATE ADEQUATE; PLATELET MORPHOLOGY NORMAL; POLYCHROMASIA 1+; TOTAL CELLS COUNTED 100
[2017-07-14 11:53] VITALS: BP 162/82
[2017-07-14] MEDS: Midodrine 10mg tab GT SCH ×2 (13:00→18:00)
--- NOTE | 2017-07-14 13:54 | GI Initial Consult Note ---
Barber,Bridgett Rashel N.P. 07/14/17 1354: History of Present Illness General Date patient seen: Jul 14, 2017 Time patient seen: 13:00 Reason for Hospitalization: Abnormal Labs Referring physician: GONZALO LONGORIA Reason for Consultation: GT MALFUNCTION Present Illness HPI [id number] sent from SNF for elevated BUN and Cr. Patient non-verbal No other info from SNF, EMS, patient or family members All info from paperwork [facility] [place] PMHx: CKD, anemia, DM, schizophrenia, HTN, gout, BPH GI Consult. HPI as noted above. GI consulted for clogged GT. ROS limited. 22 vietnamese GT assessed, clogged unable to flush or aspirate. No active s/sx N/V/ D at this time. Patient presents today with anemia and abnormal LFTs with negative hepatitis panel. No other information provided. Home Meds Active Scripts Quetiapine Fumarate* (SEROQUEL*) 25 Mg Tablet, 25 MG ORAL Q12HR, #30 TAB Prov:GONZALO LONGORIA 05/26/17 Reported Medications Ondansetron Hcl (ZOFRAN) 4 Mg/5 Ml Solution, 4 MG ORAL Q4H, ML 07/10/17 Vit B Cmplx 3/Fa/Vit C/Biotin (NEPHRO-SPENSER RX TABLET) 1 Each Tablet, 1 EACH PO, TAB 07/10/17 Midodrine (Midodrine HCl) 10 Mg Tablet, 10 MG ORAL THREE TIMES A DAY, TAB 07/10/17 Melatonin (MELATONIN) 1 Mg Tablet.er, 1 MG PO, TAB 07/10/17 Lansoprazole (LANSOPRAZOLE) 5 Gm Powder, 5 GM MC, GM 07/10/17 Tamsulosin Hcl (TAMSULOSIN HCL*) 0.4 Mg Cap.er.24h, 0.4 MG ORAL BEDTIME, CAP 07/10/17 Epoetin Kamran (EPOGEN) 20,000 Unit/2 Ml Vial, 93113 UNIT SUBQ, VIAL 07/10/17 Albuterol Sulfate* (ALBUTEROL SULFATE HHN*) 2.5 Mg/3 Ml Vial.neb, 3 ML INH Q4H Y for Shortness of Breath, EA 07/10/17 Ondansetron* (ZOFRAN*) 4 Mg Tablet, 4 MG GT Q6H Y for Nausea & Vomiting, TAB 05/13/17 Sevelamer Carbonate* (RENVELA*) 0.8 Gm Powd.pack, 800 MG GT THREE TIMES A DAY, PACK 05/13/17 Vit B Cmplx 3/Fa/Vit C/Biotin (NEPHRO-SPENSER RX TABLET) 1 Each Tablet, 1 EACH GT DAILY, TAB 05/13/17 Midodrine* (PROAMATINE*) 10 Mg Tablet, 10 MG GT THREE TIMES A DAY, TAB 05/13/17 Lactulose (LACTULOSE*) 20 Gm/30 Ml Solution, 30 ML GT DAILY Y for Constipation, ML 0 Refills 05/13/17 Heparin Sod (Porcine) (HEPARIN SODIUM*) 5 000/1 Ml Vial, 5000 UNITS SUBQ EVERY 12 HOURS, VIAL 05/13/17 Ferrous Sulfate* (FERROUS SULFATE*) 325 Mg Tablet, 325 MG GT THREE TIMES A DAY, TAB 0 Refills 05/13/17 Docusate Sodium (DOCUSATE SODIUM) 50 Mg/5 Ml Liquid, 100 MG GT BID, ML 05/13/17 [Ascorbic Acid Liquid] No Conflict Check, 100 MG GT DAILY 05/13/17 Acetaminophen* (ACETAMINOPHEN 325MG TABLET*) 325 Mg Tablet, 650 MG GT Q6HR Y for For Pain, TAB 05/13/17 Discontinued Reported Medications Vancomycin/0.9 % Sod Chloride (Vanco 500 mg/100 ml-0.9% NaCl) 500 Mg/100 Ml Froz.piggy, 500 MG IV for 7 Days, BAG 05/28/17 Divalproex Sodium* (DEPAKOTE*) 250 Mg Tablet.dr, 250 MG GT BEDTIME, TAB 05/13/17 Colchicine (Colchicine) 0.6 Mg Capsule, 0.6 MG GT DAILY, CAP 05/13/17 Discontinued Scripts Meropenem-0.9% Sodium Chloride (Meropenem-0.9% NaCl 500 mg/50) 500 Mg/50 Ml Piggyback, 500 MG IV q24 for 5 Days, #5 BAG Prov:GONZALO LONGORIA 05/26/17 Med list reviewed/reconciled: Yes Allergies: Coded Allergies: PENICILLINS (Verified Allergy, Unknown, 05/12/17) Patient History PMH Narrative Past Medical History: other - see HPI Past Surgical History: unable to obtain Pertinent Family History: unable to obtain Social History: Denies: smoking, alcohol use, drug use Immunizations: UTD Reviewed Nursing Documentation: PMH: Agreed, PSxH: Agreed Nursing Documentation-PMH Past Medical History: No History, Except For Hx Hypertension: Yes Hx Diabetes: Yes Hx Gastrointestinal Problems: No Hx Dialysis: Yes - ESRD Social History: Denies: smoking, alcohol use, drug use, other Review of Systems All Other Systems: limited Physical Exam Vital Signs Date Time Temp Pulse Resp B/P (MAP) Pulse Ox O2 Delivery O2 Flow Rate FiO2 07/10/17 12:21 97.9 92 26 139/75 99 Nasal Cannula 3.0 07/11/17 19:43 28 Sp02 EP Interpretation: reviewed Labs Laboratory Tests Test 07/14/17 05:00 White Blood Count 7.8 K/UL (4.8-10.8) Red Blood Count 3.25 M/UL (4.70-6.10) L Hemoglobin 9.5 G/DL (14.2-18.0) L Hematocrit 31.2 % (42.0-52.0) L Mean Corpuscular Volume 96 FL (80-99) Mean Corpuscular Hemoglobin 29.4 PG (27.0-31.0) Mean Corpuscular Hemoglobin Concent 30.6 G/DL (32.0-36.0) L Red Cell Distribution Width 23.6 % (11.6-14.8) H Platelet Count 259 K/UL (150-450) Mean Platelet Volume 9.2 FL (6.5-10.1) Neutrophils (%) (Auto) % (45.0-75.0) Lymphocytes (%) (Auto) % (20.0-45.0) Monocytes (%) (Auto) % (1.0-10.0) Eosinophils (%) (Auto) % (0.0-3.0) Basophils (%) (Auto) % (0.0-2.0) Differential Total Cells Counted 100 Neutrophils % (Manual) 80 % (45-75) H Lymphocytes % (Manual) 13 % (20-45) L Monocytes % (Manual) 3 % (1-10) Eosinophils % (Manual) 4 % (0-3) H Basophils % (Manual) 0 % (0-2) Band Neutrophils 0 % (0-8) Platelet Estimate Adequate Platelet Morphology Normal Polychromasia 1+ Hypochromasia 1+ Anisocytosis 2+ Sodium Level 141 mEQ/L (135-145) Potassium Level 4.6 mEQ/L (3.4-4.9) Chloride Level 110 mEQ/L (98-107) H Carbon Dioxide Level 19 mEQ/L (20-30) L Anion Gap 12 (5-15) Blood Urea Nitrogen 78 mg/dL (7-23) H Creatinine 2.3 mg/dL (0.7-1.2) H Estimat Glomerular Filtration Rate mL/min (>60) Glucose Level 104 mg/dL (74-106) Calcium Level 10.0 mg/dL (8.6-10.2) General Appearance: well appearing, no apparent distress Head: normocephalic EENT: PERRL/EOMI, normal ENT inspection Neck: full range of motion, supple Respiratory: no respiratory distress Cardiovascular: normal rate Gastrointestinal: gt - clogged Rectal: deferred Skin: normal inspection, normal color, no rash, warm/dry, palpation normal, well hydrated Lymphatic: normal inspection, no adenopathy Current Medications Current Medications Medications (Trade) Dose Ordered Sig/James Route PRN Reason Start Time Stop Time Status Last Admin Dose Admin Acetaminophen (Tylenol) 650 mg Q6H PRN GT For Pain 07/10/17 17:15 08/09/17 17:14 Albuterol Sulfate (Proventil) 2.5 mg Q4H PRN HHN Shortness of Breath 07/10/17 17:15 07/15/17 17:14 07/12/17 15:21 Docusate Sodium (Colace) 100 mg BID GT 07/10/17 18:00 08/09/17 17:59 07/13/17 17:02 Ferrous Sulfate (Feosol) 300 mg THREE TIMES A DAY GT 07/10/17 18:00 08/09/17 17:59 07/13/17 17:02 Heparin Sodium (Porcine) (Heparin 5000 units/ml) 5,000 units EVERY 12 HOURS SUBQ 07/10/17 21:00 08/09/17 20:59 07/14/17 10:05 Lactulose (Cephulac) 20 gm DAILYPRN PRN GT Constipation 07/10/17 17:15 08/09/17 17:14 Midodrine (Pro-Amatine) 10 mg THREE TIMES A DAY GT 07/14/17 13:00 08/13/17 12:59 Ondansetron HCl (Zofran) 4 mg Q6H PRN GT Nausea & Vomiting 07/10/17 17:15 08/09/17 17:14 Quetiapine Fumarate (SEROquel) 25 mg Q12HR GT 07/10/17 21:00 08/09/17 20:59 07/13/17 21:25 Sevelamer Carbonate (Renvela) 800 mg THREE TIMES A DAY GT 07/10/17 18:00 08/09/17 17:59 07/13/17 17:03 Sodium Chloride 1,000 ml @ 100 mls/hr Q10H IV 07/12/17 17:10 08/11/17 17:09 07/14/17 10:08 Valproic Acid (Depakene) 250 mg QHS GT 07/13/17 22:15 08/12/17 22:14 07/13/17 22:48 GI: Plan Problems: (1) Abnormal LFTs (2) Gastrostomy tube obstruction (3) Malnutrition of moderate degree (4) CKD (chronic kidney disease) Plan anemia most likely from chronic disease hep panel unremarkable elevated IgG APCT reviewed, see full report. elevated LFTs >> can be caused by Valproic Acid 22 fr GT replaced today at bedside, KUB + Gastrografin for confirmation GTFs per dietary GT site care daily/prn monitor H&H, prn transfusions OB stool r/o GI bleed dc FeSO4 >> ordered iron panel r/o deficiency lactulose prn constipation ppi fu labs Discussed with Dr. Hernandez. Thank you for referring this patient, we will follow. DAQUAN HERNANDEZ 07/16/17 0636: History of Present Illness General Reason for Hospitalization: Abnormal Labs Present Illness Home Meds Active Scripts Quetiapine Fumarate* (SEROQUEL*) 25 Mg Tablet, 25 MG ORAL Q12HR, #30 TAB Prov:GONZALO LONGORIA 05/26/17 Reported Medications Ondansetron Hcl (ZOFRAN) 4 Mg/5 Ml Solution, 4 MG ORAL Q4H, ML 07/10/17 Vit B Cmplx 3/Fa/Vit C/Biotin (NEPHRO-SPENSER RX TABLET) 1 Each Tablet, 1 EACH PO, TAB 07/10/17 Midodrine (Midodrine HCl) 10 Mg Tablet, 10 MG ORAL THREE TIMES A DAY, TAB 07/10/17 Melatonin (MELATONIN) 1 Mg Tablet.er, 1 MG PO, TAB 07/10/17 Lansoprazole (LANSOPRAZOLE) 5 Gm Powder, 5 GM MC, GM 07/10/17 Tamsulosin Hcl (TAMSULOSIN HCL*) 0.4 Mg Cap.er.24h, 0.4 MG ORAL BEDTIME, CAP 07/10/17 Epoetin Kamran (EPOGEN) 20,000 Unit/2 Ml Vial, 09876 UNIT SUBQ, VIAL 07/10/17 Albuterol Sulfate* (ALBUTEROL SULFATE HHN*) 2.5 Mg/3 Ml Vial.neb, 3 ML INH Q4H Y for Shortness of Breath, EA 07/10/17 Ondansetron* (ZOFRAN*) 4 Mg Tablet, 4 MG GT Q6H Y for Nausea & Vomiting, TAB 05/13/17 Sevelamer Carbonate* (RENVELA*) 0.8 Gm Powd.pack, 800 MG GT THREE TIMES A DAY, PACK 05/13/17 Vit B Cmplx 3/Fa/Vit C/Biotin (NEPHRO-SPENSER RX TABLET) 1 Each Tablet, 1 EACH GT DAILY, TAB 05/13/17 Midodrine* (PROAMATINE*) 10 Mg Tablet, 10 MG GT THREE TIMES A DAY, TAB 05/13/17 Lactulose (LACTULOSE*) 20 Gm/30 Ml Solution, 30 ML GT DAILY Y for Constipation, ML 0 Refills 05/13/17 Heparin Sod (Porcine) (HEPARIN SODIUM*) 5 000/1 Ml Vial, 5000 UNITS SUBQ EVERY 12 HOURS, VIAL 05/13/17 Ferrous Sulfate* (FERROUS SULFATE*) 325 Mg Tablet, 325 MG GT THREE TIMES A DAY, TAB 0 Refills 05/13/17 Docusate Sodium (DOCUSATE SODIUM) 50 Mg/5 Ml Liquid, 100 MG GT BID, ML 05/13/17 [Ascorbic Acid Liquid] No Conflict Check, 100 MG GT DAILY 05/13/17 Acetaminophen* (ACETAMINOPHEN 325MG TABLET*) 325 Mg Tablet, 650 MG GT Q6HR Y for For Pain, TAB 05/13/17 Discontinued Reported Medications Vancomycin/0.9 % Sod Chloride (Vanco 500 mg/100 ml-0.9% NaCl) 500 Mg/100 Ml Froz.piggy, 500 MG IV for 7 Days, BAG 05/28/17 Divalproex Sodium* (DEPAKOTE*) 250 Mg Tablet.dr, 250 MG GT BEDTIME, TAB 05/13/17 Colchicine (Colchicine) 0.6 Mg Capsule, 0.6 MG GT DAILY, CAP 05/13/17 Discontinued Scripts Meropenem-0.9% Sodium Chloride (Meropenem-0.9% NaCl 500 mg/50) 500 Mg/50 Ml Piggyback, 500 MG IV q24 for 5 Days, #5 BAG Prov:GONZALO LONGORIA 05/26/17 Allergies: Coded Allergies: PENICILLINS (Verified Allergy, Unknown, 05/12/17) GI: Plan Plan The patient was seen and examined at bedside and all new and available data was reviewed in the patients chart. I agree with the above findings, impression and plan. (Patient seen earlier today. Signature stamp does not reflect patient encounter time.). -Bridgett Rodney MD, N.P. Jul 14, 2017 13:54 DAQUAN HERNANDEZ Jul 16, 2017 06:36
[2017-07-14 16:00] VITALS: BP 137/72
--- NOTE | 2017-07-14 16:39 | Diagnostic Imaging Report ---
Indication: Gastrostomy check Comparison: None Single view of the abdomen obtained There is contrast in the stomach. The tip of the gastrostomy tube is projected over the fundal region. There is contrast in the stomach and small bowel. Impression: Unremarkable injection
[2017-07-14 20:04] VITALS: BP 142/82
[2017-07-14] MEDS: Valproic Acid 250mg/5ml Liquid GT SCH (20:49)
[2017-07-14] MEDS ORDERED: Depakote 125mg Sprinkles GT SCH (21:00)
[2017-07-15 00:04] VITALS: BP 155/71
[2017-07-15 04:00] VITALS: BP 148/68
[2017-07-15 06:47] LABS: BASOPHILS % (AUTO) 1.4 % (0.0-2.0); EOSINOPHILS % (AUTO) 5.9 % (0.0-3.0); LYMPHOCYTES % (AUTO) 9.2 % (20.0-45.0); MEAN CORPUSCULAR HGB CONC 29.6 G/DL (32.0-36.0); MEAN CORPUSCULAR VOLUME 94 FL (80-99); MEAN PLATELET VOLUME 8.8 FL (6.5-10.1); MONOCYTES % (AUTO) 4.3 % (1.0-10.0); NEUTROPHILS % (AUTO) 79.2 % (45.0-75.0); PLATELET COUNT 284 K/UL (150-450); RED BLOOD COUNT 3.45 M/UL (4.70-6.10); RED CELL DISTRIBUTION WIDTH 23.4 % (11.6-14.8)
[2017-07-15 06:58] LABS: ALANINE AMINOTRANSFERASE 39 U/L (3-41); ALBUMIN/GLOBULIN RATIO 0.6 (1.0-2.7); ANION GAP 14 (5-15); ASPARTATE AMINO TRANSFERASE 29 U/L (5-40); CALCIUM 10.2 mg/dL (8.6-10.2); CARBON DIOXIDE 19 mEQ/L (20-30); CHLORIDE 110 mEQ/L (98-107); CREATININE 2.2 mg/dL (0.7-1.2); HEMOLYSIS 1; POTASSIUM 4.6 mEQ/L (3.4-4.9); SODIUM 143 mEQ/L (135-145); TOTAL PROTEIN 6.9 g/dL (6.6-8.7)
[2017-07-15 07:53] LABS: HEMOLYSIS 2; IRON 37 ug/dL (59-158); TOTAL IRON BINDING CAPACITY 215 ug/dL (250-400)
[2017-07-15 08:00] VITALS: BP 152/90
[2017-07-15] MEDS: Midodrine 10mg tab GT SCH ×2 (09:00→13:12)
--- NOTE | 2017-07-15 09:19 | Nephrology Progress Note ---
Assessment/Plan Problem List: (1) Gout (2) Abnormal LFTs (3) Dehydration (4) CKD (chronic kidney disease) stage 5, GFR less than 15 ml/min (5) Hypercalcemia (6) MEHRAN (acute kidney injury) (7) Malnutrition of moderate degree Plan possible malignancy, renal mass, bone scan and plain images pending as hypercalcemia, continue iv hydration, decrease rate, if family concerned could biopsy renal mass, otherwise treat symptomatically, lab trend better.To check imaging and discuss, no metastatic dis seen, add sensipar for mild elevation pth Subjective ROS Limited/Unobtainable: Yes Objective Objective Last 24 Hour Vital Signs Date Time Temp Pulse Resp B/P (MAP) Pulse Ox O2 Delivery O2 Flow Rate FiO2 07/15/17 04:00 80 07/15/17 04:00 97.5 81 20 148/68 96 Nasal Cannula 2.0 07/15/17 00:04 97.0 77 20 155/71 98 Nasal Cannula 2.0 07/15/17 00:00 80 07/14/17 20:04 97.2 80 20 142/82 100 Nasal Cannula 2.0 07/14/17 20:00 80 07/14/17 19:30 78 20 Room Air 21 07/14/17 16:00 97.0 75 21 137/72 100 Nasal Cannula 2.0 07/14/17 16:00 73 07/14/17 12:00 68 07/14/17 11:53 97.2 78 21 162/82 97 Nasal Cannula 2.0 Laboratory Tests 07/15/17 05:55: White Blood Count 6.0, Red Blood Count 3.45L, Hemoglobin 9.7L, Hematocrit 32.6L , Mean Corpuscular Volume 94, Mean Corpuscular Hemoglobin 28.0, Mean Corpuscular Hemoglobin Concent 29.6L, Red Cell Distribution Width 23.4H, Platelet Count 284, Mean Platelet Volume 8.8, Neutrophils (%) (Auto) 79.2H, Lymphocytes (%) (Auto) 9.2L, Monocytes (%) (Auto) 4.3, Eosinophils (%) (Auto) 5.9H, Basophils (%) (Auto) 1.4, Sodium Level 143, Potassium Level 4.6, Chloride Level 110H, Carbon Dioxide Level 19L, Anion Gap 14, Blood Urea Nitrogen 67H, Creatinine 2.2H, Estimat Glomerular Filtration Rate , Glucose Level 102, Calcium Level 10.2, Iron Level 37L, Total Iron Binding Capacity 215L, Percent Iron Saturation 17, Unsaturated Iron Binding 178, Total Bilirubin 0.3, Aspartate Amino Transf (AST/SGOT) 29, Alanine Aminotransferase (ALT/SGPT) 39, Alkaline Phosphatase 277H, Total Protein 6.9, Albumin 2.6L, Globulin 4.3, Albumin/Globulin Ratio 0.6L Height (Feet): 5 Height (Inches): 9.00 Weight (Pounds): 170 General Appearance: lethargic EENT: normal ENT inspection Neck: supple Cardiovascular: regular rhythm Respiratory/Chest: lungs clear Abdomen: non tender Neurologic: disoriented PRUDENCE MA Jul 15, 2017 09:19
[2017-07-15] MEDS ORDERED: Sensipar 30mg Tab GT SCH (09:30)
[2017-07-15] MEDS ORDERED: Tubing IV Secondary IV ONE (09:53)
[2017-07-15] MEDS ORDERED: 1/2 NS 1000ml IV ONE ×2 (09:53→09:54)
[2017-07-15] MEDS ORDERED: NS 275ml ONE (09:53)
[2017-07-15] MEDS ORDERED: Sterile Water Irrig 1000ml IRRIG ONE (09:54)
[2017-07-15] MEDS: Renvela 800mg Pkt GT SCH ×2 (09:59→13:11)
[2017-07-15] MEDS: Docusate 100mg/10ml Liq GT SCH (09:59)
[2017-07-15] MEDS: Heparin 5000 units/ml inj SUBQ SCH (10:01)
--- NOTE | 2017-07-15 10:18 | GI Progress Note ---
Assessment/Plan Problems: (1) PEG (percutaneous endoscopic gastrostomy) adjustment/replacement/removal ICD Codes: Z43.1 - Encounter for attention to gastrostomy SNOMED: 123493089, 270205314 (2) Gastrostomy tube obstruction ICD Codes: K94.29 - Other complications of gastrostomy SNOMED: 306448461 (3) Dehydration ICD Codes: E86.0 - Dehydration SNOMED: 74969042 (4) Malnutrition of moderate degree ICD Codes: E44.0 - Moderate protein-calorie malnutrition SNOMED: 209285369 (5) Abnormal LFTs ICD Codes: R79.89 - Other specified abnormal findings of blood chemistry SNOMED: 466078581 Status: stable Status Narrative Discussed with Dr. Lott. Assessment/Plan anemia most likely from chronic disease hep panel unremarkable elevated IgG APCT reviewed, see full report. elevated LFTs >> can be caused by Valproic Acid GT replaced GTFs per dietary GT site care daily/prn monitor H&H, prn transfusions OB stool r/o GI bleed lactulose prn constipation ppi fu labs Subjective Subjective limited Objective Last 24 Hour Vital Signs Date Time Temp Pulse Resp B/P (MAP) Pulse Ox O2 Delivery O2 Flow Rate FiO2 07/15/17 08:00 96.6 75 19 152/90 99 Nasal Cannula 2.0 07/15/17 04:00 80 07/15/17 04:00 97.5 81 20 148/68 96 Nasal Cannula 2.0 07/15/17 00:04 97.0 77 20 155/71 98 Nasal Cannula 2.0 07/15/17 00:00 80 07/14/17 20:04 97.2 80 20 142/82 100 Nasal Cannula 2.0 07/14/17 20:00 80 07/14/17 19:30 78 20 Room Air 21 07/14/17 16:00 97.0 75 21 137/72 100 Nasal Cannula 2.0 07/14/17 16:00 73 07/14/17 12:00 68 07/14/17 11:53 97.2 78 21 162/82 97 Nasal Cannula 2.0 Laboratory Tests Test 07/15/17 05:55 White Blood Count 6.0 K/UL (4.8-10.8) Red Blood Count 3.45 M/UL (4.70-6.10) L Hemoglobin 9.7 G/DL (14.2-18.0) L Hematocrit 32.6 % (42.0-52.0) L Mean Corpuscular Volume 94 FL (80-99) Mean Corpuscular Hemoglobin 28.0 PG (27.0-31.0) Mean Corpuscular Hemoglobin Concent 29.6 G/DL (32.0-36.0) L Red Cell Distribution Width 23.4 % (11.6-14.8) H Platelet Count 284 K/UL (150-450) Mean Platelet Volume 8.8 FL (6.5-10.1) Neutrophils (%) (Auto) 79.2 % (45.0-75.0) H Lymphocytes (%) (Auto) 9.2 % (20.0-45.0) L Monocytes (%) (Auto) 4.3 % (1.0-10.0) Eosinophils (%) (Auto) 5.9 % (0.0-3.0) H Basophils (%) (Auto) 1.4 % (0.0-2.0) Sodium Level 143 mEQ/L (135-145) Potassium Level 4.6 mEQ/L (3.4-4.9) Chloride Level 110 mEQ/L (98-107) H Carbon Dioxide Level 19 mEQ/L (20-30) L Anion Gap 14 (5-15) Blood Urea Nitrogen 67 mg/dL (7-23) H Creatinine 2.2 mg/dL (0.7-1.2) H Estimat Glomerular Filtration Rate mL/min (>60) Glucose Level 102 mg/dL (74-106) Calcium Level 10.2 mg/dL (8.6-10.2) Iron Level 37 ug/dL (59-158) L Total Iron Binding Capacity 215 ug/dL (250-400) L Percent Iron Saturation 17 % (15-50) Unsaturated Iron Binding 178 ug/dL (112-346) Total Bilirubin 0.3 mg/dL (0.0-1.2) Aspartate Amino Transf (AST/SGOT) 29 U/L (5-40) Alanine Aminotransferase (ALT/SGPT) 39 U/L (3-41) Alkaline Phosphatase 277 U/L (40-129) H Total Protein 6.9 g/dL (6.6-8.7) Albumin 2.6 g/dL (3.5-5.2) L Globulin 4.3 g/dL Albumin/Globulin Ratio 0.6 (1.0-2.7) L Height (Feet): 5 Height (Inches): 9.00 Weight (Pounds): 170 General Appearance: no apparent distress, alert, thin Cardiovascular: normal rate Respiratory/Chest: normal breath sounds, no respiratory distress Abdominal Exam: site - c/d/i Bridgett Barber N.P. Jul 15, 2017 10:18
[2017-07-15 11:38] VITALS: BP 129/53
[2017-07-15 15:43] VITALS: BP 135/89
--- NOTE | 2017-07-15 15:55 | Cardiology Report ---
APPROVED REPORT EKG Measurement Heart [id number] Sinus rhythm with 1st degree AV block with fusion complexes Left axis deviation Right bundle branch block Abnormal ECG
[2017-07-16 08:59] LABS: PTH-RELATED PROTEIN <1.1 pmol/L (.)
--- NOTE | 2017-07-17 14:26 | Discharge Summary ---
Discharge Summary Hospital Course Date of Admission Jul 10, 2017 at 15:00 Date of Discharge Jul 15, 2017 at 17:11 Admitting Diagnosis ABNORMAL LABS HPI Saritha Lugo is a 81 year old male who was admitted on Jul 10, 2017 at 15: 00 for Abnormal Labs Hospital Course [id number] Discharge Discharge Disposition Patient was discharged to SNF/Subacute Facility(03) Discharge Diagnoses: Janet Burton NP Jul 17, 2017 14:26
--- NOTE | 2017-07-18 | Discharge Summary 2 SIG ---
DATE OF ADMISSION: 07/10/2017 DATE OF DISCHARGE: 07/15/2017 CONSULTANTS: 1. Jose L Nelson M.D. 2. Josue Lott M.D. 3. Christiano Valentino D.P.M. BRIEF HOSPITAL COURSE: The patient is an 81-year-old male, who was recently treated for pneumonia and sepsis. He was transferred here for recurrent renal failure and also had foot/ankle ulcers. He was taken off dialysis recently and was managed with G-tube hydration. However, BUN and creatinine have been elevated despite large amounts of fluid via G-tube and IV. He was admitted to telemetry for abnormal laboratories. He was seen by Dr. Nelson. The patient has chronic kidney disease stage V likely due to gout and possibly nephrosclerosis. BUN was 118 and creatinine 2.9. Urinalysis showing 3+ protein, 10 to 15 RBCs, and too numerous to count WBCs. Calcium was elevated to 11.8 and also had elevated liver enzymes. He was given IV hydration. He had a bone study, which showed generalized osteopenia. Nuclear bone scan showed no evidence of metastatic bone disease. He was seen by Dr. Valentino. On examination, the patient had full-thickness ulceration stage II at the medial aspect of left ankle with no bone or tendon exposed. No signs of acute infection. There was a portal noted on the lateral aspect of the right foot at the fifth metatarsophalangeal joint region. There was tophaceous gout expressed from this area. He was given local wound care. Urine culture showed gram-negative bacillus with growth of Pseudomonas. He was given ceftriaxone. G-tube was replaced with a 22-Canadian tube done at bedside and was confirmed by KUB. Anemia was assessed to be likely from chronic disease. Elevated LFTs could be caused by valproic acids. Hepatitis was negative. He was also started on Sensipar for mild elevation of PTH. He was eventually discharged to a SNF. FINAL DIAGNOSES: 1. Chronic kidney disease stage V, likely due to gout and possibly nephrosclerosis. 2. History of prior dialysis. 3. Dehydration. 4. Elevated liver transaminases. 5. Hypercalcemia, possibly due to malignancy. 6. Malfunctioning G-tube, status post bedside replacement. 7. Moderate protein-calorie malnutrition. 8. Gout. 9. Acute kidney injury. 10. Stage II pressure ulcer of the medial left ankle present on admission. 11. Tophaceous gout, right fifth metatarsophalangeal joint present on admission. DISPOSITION: The patient was discharged to [facility]. DISCHARGE MEDICATIONS: Refer to medication list. Roland Levine M.D. I have been assigned to dictate discharge summary on this account and I was not involved in the patient's management. Janet Burton N.P. DR: BRONSON JOB#: [id number] CC:
== END 2017-07-15 17:11 | DRG 470 ==
LOC: EDBD 12:22 → EDBEDREQ 12:31 → EMR 13:00 → 2E 15:00 → OBSVTOIN 15:00 → EDBEDREQ 15:02 → 2E 07-12 02:05
PROC: 0D20XUZ Change Feeding Device in Upper Intestinal Tract, External Approach (ICD-10-PCS; principal; 2017-07-14)
DX: I12.0 Hypertensive chronic kidney disease with stage 5 chronic kidney disease or end stage renal disease (principal); N17.9 Acute kidney failure, unspecified; E44.0 Moderate protein-calorie malnutrition; E11.22 Type 2 diabetes mellitus with diabetic chronic kidney disease; E83.52 Hypercalcemia; K94.23 Gastrostomy malfunction; J44.9 Chronic obstructive pulmonary disease, unspecified; L89.522 Pressure ulcer of left ankle, stage 2; R13.10 Dysphagia, unspecified; N39.0 Urinary tract infection, site not specified; E86.0 Dehydration; N18.5 Chronic kidney disease, stage 5; Z99.2 Dependence on renal dialysis; M1A.9XX1 Chronic gout, unspecified, with tophus (tophi); F20.9 Schizophrenia, unspecified; M85.89 Other specified disorders of bone density and structure, multiple sites; B96.5 Pseudomonas (aeruginosa) (mallei) (pseudomallei) as the cause of diseases classified elsewhere; Z88.0 Allergy status to penicillin; R94.5 Abnormal results of liver function studies; D63.1 Anemia in chronic kidney disease; N28.89 Other specified disorders of kidney and ureter
CPT/HCPCS: 36415; 71010; 74000; 74176; 77075; 78306; 80048; 80053; 81001; 81003; 82378; 82550; 82553; 82784; 82962; 83519; 83540; 83550; 83970; 84484; 84550; 85007; 85025; 86334; 86803; 87086; 87181; 87340; 87517; 93005; 94640; 94664; 99285; S0077

== ENCOUNTER 2017-09-19 19:38 | Inpatient (IN) | payer OTHER ==
[~2017-09-19] VITALS: Ht 188 cm; Wt 104.3 kg
[~2017-09-19 19:38] MED LIST changes: +ALBUTEROL2.5 MG/3 M INH; +EPOGEN20000 UNI1 SUBQ; +LANSOPRAZOLE MC; +MELATONIN1 M2 PO; +NEPHRO-VITE RX1 EAC1 PO; +PRO-AMATINE10 MG ORAL; +TAMSULOSIN HCL0.4 MG ORAL; +ZOFRAN4 MG/5 ML ORAL
[2017-09-19 19:48] VITALS: BP 144/61
[2017-09-19] MEDS ORDERED: [UNRECOGNIZED DRUG - OTHER] SQ (20:22)
[2017-09-19] MEDS ORDERED: MELATONIN1 MG GT (20:22)
[2017-09-19] MEDS ORDERED: ALLOPURINOL100 M1 GT (20:22)
[2017-09-19] MEDS ORDERED: DIPHENHYDRAMINE25 M1 GT (20:22)
[2017-09-19] MEDS ORDERED: COLACE100 MG/10 GT (20:22)
[2017-09-19] MEDS ORDERED: EPOGEN20000 UNI1 SUBQ (20:22)
[2017-09-19] MEDS ORDERED: VITAMIN C250 MG GT (20:22)
[2017-09-19] MEDS ORDERED: FERROUS SU220 MG/51 PO (20:22)
[2017-09-19] MEDS ORDERED: LANSOPRAZOLE15 MG GT (20:23)
[2017-09-19] MEDS ORDERED: SODIUM CHLORIDE1 GM GT (20:34)
[2017-09-19 20:56] LABS: BASOPHILS % (AUTO) 1.4 % (0.0-2.0); EOSINOPHILS % (AUTO) 5.1 % (0.0-3.0); HEMATOCRIT 36.5 % (42.0-52.0); HEMOGLOBIN 10.6 G/DL (14.2-18.0); LYMPHOCYTES % (AUTO) 5.9 % (20.0-45.0); MEAN CORPUSCULAR VOLUME 88 FL (80-99); NEUTROPHILS % (AUTO) 82.6 % (45.0-75.0); PLATELET COUNT 595 K/UL (150-450); RED BLOOD COUNT 4.15 M/UL (4.70-6.10); RED CELL DISTRIBUTION WIDTH 26.1 % (11.6-14.8); WHITE BLOOD COUNT 15.3 K/UL (4.8-10.8)
[2017-09-19 21:06] LABS: INR 1.1 (0.9-1.1)
[2017-09-19 21:20] LABS: ALANINE AMINOTRANSFERASE 23 U/L (12-78); ALBUMIN 2.7 G/DL (3.4-5.0); ALBUMIN/GLOBULIN RATIO 0.5 (1.0-2.7); ALKALINE PHOSPHATASE 179 U/L (46-116); ANION GAP 5 mmol/L (5-15); ASPARTATE AMINO TRANSFERASE 22 U/L (15-37); BILIRUBIN,TOTAL 0.3 MG/DL (0.2-1.0); BLOOD UREA NITROGEN 84 mg/dL (7-18); CARBON DIOXIDE 26 MMOL/L (21-32); CHLORIDE 103 MMOL/L (98-107); CREATINE KINASE 7 U/L (26-308); CREATININE 3.4 MG/DL (0.55-1.30); POTASSIUM 5.6 MMOL/L (3.5-5.1); SODIUM 134 MMOL/L (136-145)
--- NOTE | 2017-09-19 21:26 | Emergency Room Report ---
History of Present Illness General Chief Complaint: Abnormal Labs Source: Family Member, Medical Record, EMS Present Illness HPI Patient is sent in for abnormal electrolytes and renal dysfunction. He has failure to thrive in his not been eating. The patient does not communicate or answer questions. Apparently K and calcium were high at SNF. Daughter states has had worsened renal function in the past which improved with hydration. Never with dialysis - but Hx suggests prior dialysis. Fed with G tube Gout Schizophrenia/dementia Discharge dx June 2017: 1. Chronic kidney disease stage V, likely due to gout and possibly nephrosclerosis. 2. History of prior dialysis. 3. Dehydration. 4. Elevated liver transaminases. 5. Hypercalcemia, possibly due to malignancy. 6. Malfunctioning G-tube, status post bedside replacement. 7. Moderate protein-calorie malnutrition. 8. Gout. 9. Acute kidney injury. 10. Stage II pressure ulcer of the medial left ankle present on admission. 11. Tophaceous gout, right fifth metatarsophalangeal joint present on admission. Allergies: Coded Allergies: PENICILLINS (Verified Allergy, Unknown, 05/12/17) Patient History Limited by: medical condition Past Medical History: see triage record, old chart reviewed Past Surgical History: other - PEG Social History: Denies: alcohol use, drug use Social History Narrative SNF Reviewed Nursing Documentation: PMH: Agreed, PSxH: Agreed Nursing Documentation-PMH Hx Diabetes: Yes Hx Gastrointestinal Problems: No Hx Dialysis: Yes - ESRD Review of Systems All Other Systems: limited Physical Exam Vital Signs Date Time Temp Pulse Resp B/P (MAP) Pulse Ox O2 Delivery O2 Flow Rate FiO2 09/19/17 19:28 98.2 88 16 147/57 98 Room Air Sp02 EP Interpretation: reviewed, normal General Appearance: no apparent distress, alert, Chronically Ill Head: normocephalic Eyes: bilateral eye normal inspection, bilateral eye EOMI ENT: dry mucus membranes - white buildup on tongue - poor dentition Neck: supple Respiratory: lungs clear, normal breath sounds Cardiovascular #1: regular rate, rhythm, other - no shunt/fistulae Cardiovascular #2: 2+ radial (R) Gastrointestinal: normal inspection, normal bowel sounds, non tender, no mass, non-distended, other - G tube Musculoskeletal: normal range of motion, other - tophi on multiple fingers Neurologic: alert, responsive, pronator - ebulic, other - ebulic Psychiatric: depressed affect Skin: normal inspection, warm/dry, other - tophi Medical Decision Making Diagnostic Impression: Primary Impression: ESRD (end stage renal disease) Additional Impressions: Hyperkalemia Tophaceous gout Gastrostomy tube in place Hypercalcemia ER Course Patient presents with history of chronic renal disease and worsened laboratory values. The patient appears dehydrated. He's unable to communicate and needs a for evaluation. This includes EKG, chest x-ray and labs. The patient will receive gentle IV hydration. Laboratories revealed renal failure with elevated BUN and creatinine. Bicarbonate is normal. Potassium is 5.6. His EKG is abnormal with a bundle branch block. Discussed with Dr. Nunez. He wants us to repeat potassium before he'll consider transferring the patient. Occurred at 2152. K+ delayed due to dilute sample. K+ improved. Patient more responsive, but still unable to speak - more vocalizing incomprehensibly. Daughter states baseline. Discussed results and families refusal to transfer to [facility]. He agrees with admission. at [facility] [place] (will speak to case therapist). Admit telemetry Dr. Levine. Laboratory Tests Test 09/19/17 20:32 09/19/17 20:45 09/19/17 23:35 White Blood Count 15.3 K/UL (4.8-10.8) H Red Blood Count 4.15 M/UL (4.70-6.10) L Hemoglobin 10.6 G/DL (14.2-18.0) L Hematocrit 36.5 % (42.0-52.0) L Mean Corpuscular Volume 88 FL (80-99) Mean Corpuscular Hemoglobin 25.6 PG (27.0-31.0) L Mean Corpuscular Hemoglobin Concent 29.1 G/DL (32.0-36.0) L Red Cell Distribution Width 26.1 % (11.6-14.8) H Platelet Count 595 K/UL (150-450) H Mean Platelet Volume 6.5 FL (6.5-10.1) Neutrophils (%) (Auto) 82.6 % (45.0-75.0) H Lymphocytes (%) (Auto) 5.9 % (20.0-45.0) L Monocytes (%) (Auto) 5.0 % (1.0-10.0) Eosinophils (%) (Auto) 5.1 % (0.0-3.0) H Basophils (%) (Auto) 1.4 % (0.0-2.0) Prothrombin Time 11.2 SEC (9.30-11.50) Prothrombin Time INR 1.1 (0.9-1.1) PTT 32 SEC (23-33) Sodium Level 134 MMOL/L (136-145) L 135 MMOL/L (136-145) L Potassium Level 5.6 MMOL/L (3.5-5.1) H 5.3 MMOL/L (3.5-5.1) H Chloride Level 103 MMOL/L (98-107) 104 MMOL/L (98-107) Carbon Dioxide Level 26 MMOL/L (21-32) 22 MMOL/L (21-32) Anion Gap 5 mmol/L (5-15) 9 mmol/L (5-15) Blood Urea Nitrogen 84 mg/dL (7-18) H 82 mg/dL (7-18) H Creatinine 3.4 MG/DL (0.55-1.30) H 3.2 MG/DL (0.55-1.30) H Estimate Glomerular Filtration Rate mL/min (>60) mL/min (>60) Glucose Level 79 MG/DL (74-106) 87 MG/DL (74-106) Lactic Acid Level 0.80 mmol/L (0.66-2.22) Calcium Level 13.0 MG/DL (8.5-10.1) H 12.4 MG/DL (8.5-10.1) H Total Bilirubin 0.3 MG/DL (0.2-1.0) Aspartate Amino Transferase (AST) 22 U/L (15-37) Alanine Aminotransferase (ALT) 23 U/L (12-78) Alkaline Phosphatase 179 U/L (46-116) H Total Creatine Kinase 7 U/L (26-308) L Troponin I 0.000 ng/mL (0.000-0.056) Pro-B-Type Natriuretic Peptide 5984 pg/mL (0-125) H Total Protein 8.5 G/DL (6.4-8.2) H Albumin 2.7 G/DL (3.4-5.0) L Globulin 5.8 g/dL Albumin/Globulin Ratio 0.5 (1.0-2.7) L Lipase 259 U/L (73-393) Urine Color Pale yellow Urine Appearance Slightly cloudy Urine pH 8 (4.5-8.0) Urine Specific [place] 1.010 (1.005-1.035) Urine Protein 3+ (NEGATIVE) H Urine Glucose (UA) Negative (NEGATIVE) Urine Ketones Negative (NEGATIVE) Urine Occult Blood 5+ (NEGATIVE) H Urine Nitrite Negative (NEGATIVE) Urine Bilirubin Negative (NEGATIVE) Urine Urobilinogen Normal MG/DL (0.0-1.0) Urine Leukocyte Esterase 3+ (NEGATIVE) H Urine RBC 10-15 /HPF (0 - 0) H Urine WBC 5-10 /HPF (0 - 0) H Urine Squamous Epithelial Cells None /LPF (NONE/OCC) Urine Amorphous Sediment Few /LPF (NONE) H Urine Bacteria Moderate /HPF (NONE) H EKG Diagnostic Results Rate: normal Rhythm: NSR ST Segments: no acute changes - NSSTTW changes - looks like hyperkalemia Rhythm Strip Diag. Results EP Interpretation: yes Rhythm: NSR, no PVC's, no ectopy Chest X-Ray Diagnostic Results Chest X-Ray Diagnostic Results : Chest X-Ray Ordered: Yes # of Views/Limited/Complete: 1 View EP Interpretation: Yes Interpretation: no effusion, no pneumothorax, no acute cardiopulmonary disease, other - chronic changes R base Impression: Other Electronically Signed by: Electronically signed by Dale Wolff MD Last Vital Signs Date Time Temp Pulse Resp B/P (MAP) Pulse Ox O2 Delivery O2 Flow Rate FiO2 09/20/17 03:30 98.2 73 15 151/78 99 Room Air Status: improved Disposition: ADMITTED INPATIENT Condition: Serious Referrals: GONZALO LEVINE (PCP) Dale Wolff M.D. Sep 19, 2017 21:26
[2017-09-19] MEDS ORDERED: Sodium Polystyrene Sulfonate 15gm Powder PEG STA (21:27)
[2017-09-19] MEDS ORDERED: Calcium Gluconate 1gm/10ml vial IVP ONE (21:30)
[2017-09-19] MEDS ORDERED: Sodium Bicarbonate 50ml Carp IV ONE (21:30)
[2017-09-19 21:48] LABS: BILIRUBIN, URINE NEGATIVE (NEGATIVE); COLOR,URINE PALE YELLOW; GLUCOSE, URINE (UA) NEGATIVE (NEGATIVE); KETONES,URINE NEGATIVE (NEGATIVE); LEUKOCYTE ESTERASE ,URINE 3+ (NEGATIVE); NITRITE,URINE NEGATIVE (NEGATIVE); PH,URINE 8 (4.5-8.0); PROTEIN,URINE 3+ (NEGATIVE); UROBILINOGEN,URINE NORMAL MG/DL (0.0-1.0)
[2017-09-19 21:50] LABS: APPEARANCE,URINE SLIGHTLY CLOUDY
[2017-09-19 22:01] VITALS: BP 144/62
[2017-09-19 23:30] VITALS: BP 138/85
[2017-09-19 23:55] LABS: ANION GAP 9 mmol/L (5-15); BLOOD UREA NITROGEN 82 mg/dL (7-18); CALCIUM 12.4 MG/DL (8.5-10.1); CARBON DIOXIDE 22 MMOL/L (21-32); CHLORIDE 104 MMOL/L (98-107); CREATININE 3.2 MG/DL (0.55-1.30); POTASSIUM 5.3 MMOL/L (3.5-5.1); SODIUM 135 MMOL/L (136-145)
[2017-09-20] VITALS (8 sets, daily range): BP systolic 133–151; BP diastolic 71–83
[2017-09-20] MEDS: D5NS 1,000 ML IV SCH ×2 (05:33→14:53)
[2017-09-20] MEDS ORDERED: Albuterol 90mcg Inhaler 8gm INH PRN (08:15)
[2017-09-20] MEDS ORDERED: Lactulose 20gm/30ml UDC ORAL PRN (08:15)
[2017-09-20] MEDS ORDERED: Docusate 100mg cap ORAL SCH (09:00)
[2017-09-20] MEDS ORDERED: Allopurinol 100mg Tab ORAL SCH (09:00)
[2017-09-20] MEDS ORDERED: Ascorbic Acid 500mg tab ORAL SCH (09:00)
[2017-09-20] MEDS ORDERED: Midodrine 10mg tab ORAL SCH (09:00)
[2017-09-20] MEDS ORDERED: Lansoprazole 15mg cap ORAL SCH (09:00)
[2017-09-20] MEDS ORDERED: Sodium Chloride 1gm Tab ORAL SCH (09:00)
--- NOTE | 2017-09-20 09:13 | Diagnostic Imaging Report ---
Indication: SOB Technique: XRAY CHEST 1 V Comparison:07/12/17 Findings: The cardiomediastinal silhouette is unchanged. The aorta is calcified and elongated. There is bronchial wall thickening. No alveolar infiltrates are identified. No pleural fluid. Bones are unremarkable. Impression: Atherosclerotic change. Bronchial wall thickening, likely chronic. No other change.
[2017-09-20] MEDS: Ferrous Sulfate 300 MG/5 ML UDC NG SCH ×3 (10:35→17:19)
[2017-09-20] MEDS: Heparin 5000 units/ml inj SUBQ SCH ×2 (10:38→21:00)
[2017-09-20 11:38] LABS: BASOPHILS % (AUTO) 1.2 % (0.0-2.0); EOSINOPHILS % (AUTO) 4.5 % (0.0-3.0); HEMATOCRIT 35.8 % (42.0-52.0); HEMOGLOBIN 10.7 G/DL (14.2-18.0); LYMPHOCYTES % (AUTO) 4.9 % (20.0-45.0); MEAN CORPUSCULAR VOLUME 87 FL (80-99); MONOCYTES % (AUTO) 4.5 % (1.0-10.0); NEUTROPHILS % (AUTO) 84.8 % (45.0-75.0); PLATELET COUNT 646 K/UL (150-450); RED BLOOD COUNT 4.11 M/UL (4.70-6.10); RED CELL DISTRIBUTION WIDTH 26.4 % (11.6-14.8); WHITE BLOOD COUNT 16.2 K/UL (4.8-10.8)
[2017-09-20 12:04] LABS: ALANINE AMINOTRANSFERASE 20 U/L (12-78); ALBUMIN 2.6 G/DL (3.4-5.0); ALBUMIN/GLOBULIN RATIO 0.5 (1.0-2.7); ALKALINE PHOSPHATASE 167 U/L (46-116); ANION GAP 6 mmol/L (5-15); ASPARTATE AMINO TRANSFERASE 22 U/L (15-37); BILIRUBIN,TOTAL 0.3 MG/DL (0.2-1.0); BLOOD UREA NITROGEN 80 mg/dL (7-18); CALCIUM 11.9 MG/DL (8.5-10.1); CARBON DIOXIDE 24 MMOL/L (21-32); CHLORIDE 105 MMOL/L (98-107); CREATININE 3.2 MG/DL (0.55-1.30); POTASSIUM 4.8 MMOL/L (3.5-5.1); SODIUM 135 MMOL/L (136-145)
[2017-09-20] MEDS: Renvela 800mg Pkt NG SCH ×2 (12:36→17:27)
[2017-09-20] MEDS: Sodium Chloride 1gm Tab GT SCH ×2 (12:58→17:18)
[2017-09-20] MEDS: Midodrine 10mg tab GT SCH ×3 (12:58→17:21)
--- NOTE | 2017-09-20 14:40 | Cardiology Report ---
APPROVED REPORT EKG Measurement Heart [id number] MA [id number] Sinus rhythm with 1st degree AV block Left axis deviation Right bundle branch block Abnormal ECG
--- NOTE | 2017-09-20 14:40 | Cardiology Report ---
APPROVED REPORT EKG Measurement Heart [id number] [place] 292P40 [id number] Sinus rhythm with 1st degree AV block Left axis deviation Right bundle branch block Abnormal ECG
--- NOTE | 2017-09-20 14:40 | Cardiology Report ---
APPROVED REPORT EKG Measurement Heart [id number] [place] [id number] Sinus rhythm with 1st degree AV block Left axis deviation Right bundle branch block Abnormal ECG
[2017-09-20] MEDS: Docusate 100mg/10ml Liq NG SCH (17:19)
--- NOTE | 2017-09-20 21:01 | History & Physical ---
History and Physical History & Physicial #[id number] RF AMS UTI Sepsis dementia DM HTN BEVERLEYANDREW DO Sep 20, 2017 21:01
--- NOTE | 2017-09-20 21:01 | History & Physical ---
History and Physical History & Physicial #[id number] RF AMS UTI Sepsis dementia DM HTN BEVERLEYANDREW DO Sep 20, 2017 21:01
--- NOTE | 2017-09-20 21:01 | History & Physical ---
History and Physical History & Physicial #[id number] RF AMS UTI Sepsis dementia DM HTN BEVERLEYANDREW DO Sep 20, 2017 21:01
[2017-09-20] MEDS ORDERED: cefTRIAXone 1 GM in D5W 55 ML IVPB SCH (21:15)
[2017-09-21] MEDS ORDERED: Zolpidem 5mg tab ORAL ONE (01:30)
--- NOTE | 2017-09-21 02:17 | History and Physical Report ---
DATE OF ADMISSION: 09/20/2017 REASON FOR ADMISSION: Altered mental status and shortness of breath. HISTORY OF PRESENT ILLNESS: The patient is an elderly man, lives in a senior living, apparently pulled his dialysis catheter out. He was found to have hyperkalemia upon laboratories that were drawn at the senior living and sent to the ER for further evaluation. The patient is unresponsive, confused, and unable to provide any history and it is all obtained from the electronic medical record. The patient has been evaluated by Nephrology and no plans for dialysis at this time. PAST MEDICAL HISTORY: Includes renal failure, on dialysis, dehydration, hypercalcemia, malfunctioning G-tube, malnutrition, gout, altered mental status, pressure ulcer, and dementia. He is diabetic as well. SURGICAL HISTORY: Positive for percutaneous endoscopic gastrostomy and dialysis catheter placement. MEDICATIONS: Prehospital and present medications reviewed, reconciled, and documented in the electronic medical record. ALLERGIES: To penicillin. SOCIAL HISTORY: Negative for tobacco or drugs. FAMILY HISTORY: Unavailable. REVIEW OF SYSTEMS: Unavailable. PHYSICAL EXAMINATION: GENERAL: At the time of my exam, he is lethargic, moaning, noncommunicative, and in no acute distress. VITAL SIGNS: He is afebrile. His blood pressure is 146/80, pulse of 94, respirations 20, and he is 94% on room air. HEENT: Normocephalic and atraumatic. Oropharynx is dry. Nasal mucosa is moist. NECK: Supple. No lymphadenopathy. LUNGS: Bilateral crackles and wheezes present. HEART: Regular rate and rhythm without murmur. ABDOMEN: Soft and nontender. EXTREMITIES: No edema. He does move all his extremities spontaneously, but does not follow commands. LABORATORY DATA: Sodium 135, potassium 4.8, chloride 105, bicarbonate 24, BUN 18, creatinine 3.2, and calcium is 11.9. Alkaline phosphatase is 167. White count 16.2, hemoglobin 10.7, and platelets of 646,000. His urinalysis is positive for leukocyte esterase. No ABGs obtained. ASSESSMENT: 1. Altered mental status. The patient removed dialysis catheter. 2. Renal failure with hyperkalemia. 3. Urinary tract infection. 4. Sepsis. 5. Dementia. 6. Schizophrenia. 7. Hypercalcemia. PLAN: Plan for the patient, we will start him on his pre-hospital medications. We will put him on Rocephin for his urinary tract infection and follow up with cultures. DVT prophylaxis. NPO, on NG tube feeds. Intravenous fluids. Follow up with renal evaluation and placement of dialysis catheter and indications for dialysis will be deferred to them. O2, maintain sats greater than 90%. Glycemic control as well and we will follow the patient for the remainder of his hospital stay. Darline Saenz D.O. DR: MARCUS JOB#: [id number] CC:
[2017-09-21 04:07] VITALS: BP 162/87
[2017-09-21 04:30] VITALS: BP 132/75
[2017-09-21] MEDS: D5NS 1,000 ML IV SCH (04:40)
[2017-09-21 07:24] LABS: ANION GAP 11 mmol/L (5-15); BLOOD UREA NITROGEN 75 mg/dL (7-18); CALCIUM 12.3 MG/DL (8.5-10.1); CARBON DIOXIDE 25 MMOL/L (21-32); CHLORIDE 111 MMOL/L (98-107); CREATININE 3.2 MG/DL (0.55-1.30); POTASSIUM 4.2 MMOL/L (3.5-5.1); SODIUM 147 MMOL/L (136-145)
--- NOTE | 2017-09-21 07:26 | Pulmonology Progress Note ---
Assessment/Plan Assessment/Plan ASSESSMENT: 1. Altered mental status. The patient removed dialysis catheter. 2. Renal failure with hyperkalemia. 3. Urinary tract infection. 4. Sepsis. 5. Dementia. 6. Schizophrenia. 7. Hypercalcemia. potassium better fy with renal and ? placement of cath TF abx adn fu urine culture ordered yesterday labs in am cxr in am too Subjective ROS Limited/Unobtainable: Yes Allergies: Coded Allergies: PENICILLINS (Verified Allergy, Unknown, 05/12/17) Subjective remains confused moist cough agitated at night tolerating tf not getting oob awaiting renal eval noted to be itching Objective Last 24 Hour Vital Signs Date Time Temp Pulse Resp B/P (MAP) Pulse Ox O2 Delivery O2 Flow Rate FiO2 09/21/17 04:30 97 20 132/75 96 Room Air 09/21/17 04:07 98.1 99 20 162/87 94 Room Air 09/21/17 04:00 101 09/21/17 00:00 85 09/20/17 23:53 97.5 89 20 151/71 98 Room Air 09/20/17 20:00 95 09/20/17 20:00 97.9 94 20 146/83 94 Room Air 09/20/17 16:16 96.3 83 20 133/82 98 Room Air 09/20/17 16:00 85 09/20/17 12:00 78 09/20/17 11:39 96.6 78 20 148/73 97 Room Air 09/20/17 08:32 96.3 77 20 148/72 98 Room Air 09/20/17 08:00 74 HEENT: normocephalic Respiratory/Chest: crackles/rales, rhonchi Cardiovascular: normal rate, regular rhythm Abdomen: non distended Neurologic/Psychiatric: disoriented Microbiology Date/Time Source Procedure Growth Status 09/19/17 20:45 Blood Blood Culture - Preliminary NO GROWTH AFTER 24 HOURS Resulted 09/19/17 20:30 Blood Blood Culture - Preliminary NO GROWTH AFTER 24 HOURS Resulted Laboratory Tests 09/20/17 10:10: White Blood Count 16.2H, Red Blood Count 4.11L, Hemoglobin 10.7L, Hematocrit 35.8L, Mean Corpuscular Volume 87, Mean Corpuscular Hemoglobin 26.0L, Mean Corpuscular Hemoglobin Concent 29.8L, Red Cell Distribution Width 26.4H, Platelet Count 646H, Mean Platelet Volume 6.5, Neutrophils (%) (Auto) 84.8H, Lymphocytes (%) (Auto) 4.9L, Monocytes (%) (Auto) 4.5, Eosinophils (%) (Auto) 4.5H, Basophils (%) (Auto) 1.2, Sodium Level 135L, Potassium Level 4.8, Chloride Level 105, Carbon Dioxide Level 24, Anion Gap 6, Blood Urea Nitrogen 80H, Creatinine 3.2H, Estimat Glomerular Filtration Rate , Glucose Level 97, Calcium Level 11.9H, Total Bilirubin 0.3, Aspartate Amino Transf (AST/SGOT) 22, Alanine Aminotransferase (ALT/SGPT) 20, Alkaline Phosphatase 167H, Total Protein 8.3H, Albumin 2.6L, Globulin 5.7, Albumin/Globulin Ratio 0.5L 09/21/17 04:50: Sodium Level [Pending], Potassium Level [Pending], Chloride Level [Pending], Carbon Dioxide Level [Pending], Blood Urea Nitrogen [Pending], Creatinine [ Pending], Estimat Glomerular Filtration Rate [Pending], Glucose Level [Pending] , Calcium Level [Pending], Uric Acid [Pending] Current Medications Medications (Trade) Dose Ordered Sig/James Route PRN Reason Start Time Stop Time Status Last Admin Dose Admin Acetaminophen (Tylenol) 650 mg Q6H PRN ORAL Mild Pain/Temp > 100.5 09/20/17 08:15 10/20/17 08:14 Albuterol Sulfate (Proventil MDI) 2 puff Q4H PRN INH Shortness of Breath 09/20/17 08:15 10/20/17 08:14 Allopurinol (Zyloprim) 100 mg DAILY GT 09/21/17 09:00 10/21/17 08:59 Ascorbic Acid (Vitamin C) 250 mg DAILY GT 09/21/17 09:00 10/21/17 08:59 Calcitonin [place] (Miacalcin) 1 sprays DAILY NASAL 09/20/17 09:00 10/20/17 08:59 09/20/17 10:44 Dextrose/Sodium Chloride 1,000 ml @ 75 mls/hr [id number] IV 09/20/17 02:00 10/20/17 01:59 09/21/17 04:40 Diphenhydramine HCl (Benadryl) 25 mg DAILY PRN ORAL ITCHING 09/20/17 08:15 10/20/17 08:14 09/20/17 22:32 Docusate Sodium (Colace) 100 mg TWICE A DAY NG 09/20/17 18:00 10/20/17 17:59 09/20/17 17:19 Epoetin Kamran (Procrit (for ESRD on dialysis)) 10,000 units ONCE A WEEK SUBQ 09/22/17 21:00 10/22/17 20:59 Ferrous Sulfate (Feosol) 220 mg THREE TIMES A DAY NG 09/20/17 09:00 10/20/17 08:59 09/20/17 17:19 Heparin Sodium (Porcine) (Heparin 5000 units/ml) 5,000 units EVERY 12 HOURS SUBQ 09/20/17 09:00 10/20/17 08:59 09/20/17 10:38 Lactulose (Cephulac) 30 gm DAILY PRN ORAL Constipation 09/20/17 08:15 10/20/17 08:14 Levofloxacin 150 ml @ 150 mls/hr Q48H IVPB 09/20/17 23:00 09/27/17 22:59 09/20/17 23:39 Midodrine (Pro-Amatine) 10 mg THREE TIMES A DAY GT 09/20/17 18:00 10/20/17 17:59 Pantoprazole (Protonix) 40 mg DAILY IVP 09/21/17 09:00 10/21/17 08:59 Sevelamer Carbonate (Renvela) 800 mg THREE TIMES A DAY NG 09/20/17 13:00 10/20/17 12:59 09/20/17 17:27 Sodium Chloride (NaCl) 1 gm THREE TIMES A DAY GT 09/20/17 13:00 10/20/17 12:59 09/20/17 17:18 Vitamin B Complex (Vitamin B Complex) 1 ea DAILY GT 09/21/17 09:00 10/21/17 08:59 ANDREW LOWERY DO Sep 21, 2017 07:26
[2017-09-21 08:00] VITALS: BP 120/61
[2017-09-21] MEDS: Ascorbic Acid 500mg tab GT SCH (09:00)
[2017-09-21] MEDS: Midodrine 10mg tab GT SCH ×3 (09:00→18:00)
[2017-09-21] MEDS ORDERED: Tubing IV Secondary IV ONE (09:18)
[2017-09-21] MEDS ORDERED: D5NS 1000ml IV ONE (09:18)
[2017-09-21] MEDS: Ferrous Sulfate 300 MG/5 ML UDC NG SCH ×3 (09:56→17:58)
[2017-09-21] MEDS: Renvela 800mg Pkt NG SCH ×3 (09:57→17:59)
[2017-09-21] MEDS: Docusate 100mg/10ml Liq NG SCH ×2 (09:57→17:58)
[2017-09-21] MEDS: Allopurinol 100mg Tab GT SCH ×2 (09:57→10:19)
[2017-09-21] MEDS: Pantoprazole Inj IVP SCH (09:58)
[2017-09-21] MEDS: Sodium Chloride 1gm Tab GT SCH ×3 (09:58→17:59)
[2017-09-21] MEDS: Heparin 5000 units/ml inj SUBQ SCH ×2 (10:00→21:41)
[2017-09-21 12:00] VITALS: BP 120/61
[2017-09-21] MEDS ORDERED: Sensipar 30mg Tab GT SCH (12:00)
[2017-09-21 12:12] LABS: HEMATOCRIT 36.5 % (42.0-52.0); HEMOGLOBIN 10.8 G/DL (14.2-18.0); MEAN CORPUSCULAR VOLUME 88 FL (80-99); PLATELET COUNT 647 K/UL (150-450); RED BLOOD COUNT 4.12 M/UL (4.70-6.10); RED CELL DISTRIBUTION WIDTH 26.7 % (11.6-14.8); WHITE BLOOD COUNT 15.3 K/UL (4.8-10.8)
--- NOTE | 2017-09-21 14:31 | Wound Care Consultation ---
Wound Assessment Wound Assessment #1: Wound Number: 1 Wound Present on Admission: Yes New Wound: No Status Change of Wound: No Wound Location Body Site Modif: left, lateral Wound Location Body Site: malleolus/ankle - foot Wound Type: pressure ulcer Elder Test: Does not Elder Pressure Ulcer Stage: III Wound Thickness: Full Thickness Wound Length: 8.0 Wound Width: 5.5 Wound Depth: 0.2 Percent of Wound [place]/Red: 100 Wound Drainage Description: Serosanguineous Wound Drainage Amount: Moderate Wound Drainage Odor: None/Absent Tissue Surrounding Wound: Macerated Wound General Appearance: Reddened, Draining Wound Assessment #2: Wound Number: 2 Wound Present on Admission: Yes New Wound: No Status Change of Wound: No Wound Location Body Site Modif: right, anterior Wound Location Body Site: hand Wound Type: lesion-etiology unknown - 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
--- NOTE | 2017-09-21 14:31 | Wound Care Consultation ---
Wound Assessment Wound Assessment #1: Wound Number: 1 Wound Present on Admission: Yes New Wound: No Status Change of Wound: No Wound Location Body Site Modif: left, lateral Wound Location Body Site: malleolus/ankle - foot Wound Type: pressure ulcer Elder Test: Does not Elder Pressure Ulcer Stage: III Wound Thickness: Full Thickness Wound Length: 8.0 Wound Width: 5.5 Wound Depth: 0.2 Percent of Wound [place]/Red: 100 Wound Drainage Description: Serosanguineous Wound Drainage Amount: Moderate Wound Drainage Odor: None/Absent Tissue Surrounding Wound: Macerated Wound General Appearance: Reddened, Draining Wound Assessment #2: Wound Number: 2 Wound Present on Admission: Yes New Wound: No Status Change of Wound: No Wound Location Body Site Modif: right, anterior Wound Location Body Site: hand Wound Type: lesion-etiology unknown - 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
--- NOTE | 2017-09-21 14:31 | Wound Care Consultation ---
Wound Assessment Wound Assessment #1: Wound Number: 1 Wound Present on Admission: Yes New Wound: No Status Change of Wound: No Wound Location Body Site Modif: left, lateral Wound Location Body Site: malleolus/ankle - foot Wound Type: pressure ulcer Elder Test: Does not Elder Pressure Ulcer Stage: III Wound Thickness: Full Thickness Wound Length: 8.0 Wound Width: 5.5 Wound Depth: 0.2 Percent of Wound [place]/Red: 100 Wound Drainage Description: Serosanguineous Wound Drainage Amount: Moderate Wound Drainage Odor: None/Absent Tissue Surrounding Wound: Macerated Wound General Appearance: Reddened, Draining Wound Assessment #2: Wound Number: 2 Wound Present on Admission: Yes New Wound: No Status Change of Wound: No Wound Location Body Site Modif: right, anterior Wound Location Body Site: hand Wound Type: lesion-etiology unknown - 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
[2017-09-21 16:07] VITALS: BP 157/63
[2017-09-21 20:00] VITALS: BP 153/80
--- NOTE | 2017-09-21 22:45 | Consultation ---
DATE OF CONSULTATION: 09/21/2017 NEPHROLOGY CONSULTATION CONSULTING PHYSICIAN: Jose L Nelson M.D. REFERRING PHYSICIAN: Roland Levine M.D. REASON FOR CONSULTATION: Chronic kidney disease and hypercalcemia. HISTORY OF PRESENT ILLNESS: The patient is known to have chronic kidney disease stage 5 and recurrent hypercalcemia and he was on dialysis in the past and subsequently with hydration, he was able to maintain his renal function without dialysis. He had prior hospitalizations for catheter-associated sepsis from a dialysis catheter. He has severe dementia, schizophrenia, bedridden state, gout, and diabetes. On a prior hospitalization, his PTH was mildly elevated at 76 with elevated calcium and CEA was normal. Bone studies showed no evidence of metastatic bone disease. The patient is unable to provide any history. ALLERGIES: Apparently to penicillin. MEDICATIONS: On transfer from the longterm listed on the computer include the following, albuterol inhalation, Benadryl, calcitonin, DSS, Epogen, ferrous sulfate, subcutaneous heparin, lactulose, lansoprazole, melatonin, midodrine, Nephro-Kailey, Renvela, sodium chloride tablets, Tylenol, and vitamin C. SYSTEM REVIEW: The patient is unable. PHYSICAL EXAMINATION: GENERAL: The patient is lying in bed, has a gastrostomy feeding and a Watson. VITAL SIGNS: Temperature 97.2, pulse 89, respirations 19, and blood pressure 120/61. HEENT: Oral mucosa is slightly dry. He keeps his eyes closed during the exam. NECK: No adenopathy. LUNGS: Few rhonchi. HEART: Regular rhythm. I hear no murmur. ABDOMEN: Soft without organomegaly or masses. A gastrostomy is in place. EXTREMITIES: No edema. 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 NEUROLOGIC: The patient's eyes are closed. There is some groaning. No focal weakness, but there is a paucity of movement. LABORATORY DATA: Pertinent labs, potassium serially 5.3, 4.8, and 4.2. On 09/19/2017, BUN 82, creatinine 3.2. On 09/21/2017, BUN 75, creatinine 3.2. Calcium serially 12.4, 11.9, and 12.3. Albumin is 2.6. IMPRESSION: 1. Chronic kidney disease, stage 5. 2. Hypercalcemia, etiology unclear. It could be due to granulomatous disease. 3. Mild hyperparathyroidism, and immobility. There is no known metastatic disease at this time. PLAN: The patient needs to be kept well hydrated. I do not think his quality of life will be improved by dialysis. We can try him on Sensipar for the hypercalcemia, but it is not clear that this is going to be effective. He had been given empiric antibiotics for a Watson-induced urinary tract infection. I doubt we should give him a bisphosphonate as this can cause worsening renal failure and although he has abnormal numbers I hate to precipitate a complication. His condition is chronically severely ill and the main goal of therapy as far as his electrolytes would be comfort and avoiding complications. Jose L Nelson M.D. DR: MEJIA JOB#: [id number] CC:
[2017-09-22] VITALS (7 sets, daily range): BP systolic 147–165; BP diastolic 68–91
[2017-09-22 08:20] LABS: HEMATOCRIT 33.7 % (42.0-52.0); HEMOGLOBIN 9.9 G/DL (14.2-18.0); MEAN CORPUSCULAR VOLUME 90 FL (80-99); PLATELET COUNT 600 K/UL (150-450); RED BLOOD COUNT 3.75 M/UL (4.70-6.10); RED CELL DISTRIBUTION WIDTH 27.5 % (11.6-14.8); WHITE BLOOD COUNT 15.5 K/UL (4.8-10.8)
[2017-09-22 08:39] LABS: ANION GAP 8 mmol/L (5-15); BLOOD UREA NITROGEN 65 mg/dL (7-18); CALCIUM 11.9 MG/DL (8.5-10.1); CARBON DIOXIDE 25 MMOL/L (21-32); CHLORIDE 114 MMOL/L (98-107); CREATININE 3.1 MG/DL (0.55-1.30); POTASSIUM 3.9 MMOL/L (3.5-5.1); SODIUM 147 MMOL/L (136-145)
[2017-09-22] MEDS ORDERED: Nephrovite tab (Rena-Vite) GT SCH (09:00)
[2017-09-22] MEDS: Ferrous Sulfate 300 MG/5 ML UDC NG SCH ×2 (09:29→13:01)
[2017-09-22] MEDS: Docusate 100mg/10ml Liq NG SCH (09:29)
[2017-09-22] MEDS: Pantoprazole Inj IVP SCH (09:29)
[2017-09-22] MEDS: Renvela 800mg Pkt NG SCH ×2 (09:30→13:01)
[2017-09-22] MEDS: Allopurinol 100mg Tab GT SCH (09:30)
[2017-09-22] MEDS: Ascorbic Acid 500mg tab GT SCH (09:30)
[2017-09-22] MEDS: Sodium Chloride 1gm Tab GT SCH ×2 (09:31→13:01)
[2017-09-22] MEDS: Heparin 5000 units/ml inj SUBQ SCH (09:33)
--- NOTE | 2017-09-22 15:04 | Diagnostic Imaging Report ---
Indication: Dyspnea Comparison: 09/19/17 A single view chest radiograph was obtained. Findings: Heart size is stable. No infiltrate identified. Bones are osteopenic. Impression: No acute disease
--- NOTE | 2017-09-22 15:04 | Diagnostic Imaging Report ---
Indication: Dyspnea Comparison: 09/19/17 A single view chest radiograph was obtained. Findings: Heart size is stable. No infiltrate identified. Bones are osteopenic. Impression: No acute disease
--- NOTE | 2017-09-22 15:04 | Diagnostic Imaging Report ---
Indication: Dyspnea Comparison: 09/19/17 A single view chest radiograph was obtained. Findings: Heart size is stable. No infiltrate identified. Bones are osteopenic. Impression: No acute disease
--- NOTE | 2017-09-22 16:14 | Nephrology Progress Note ---
Assessment/Plan Problem List: (1) Gout (2) CKD (chronic kidney disease) stage 5, GFR less than 15 ml/min (3) Hypercalcemia (4) Gastrostomy tube in place Plan renal function stable. d/w dr porter, use of biphosphanates may cause worsening renal function and possible committment to dialysis. Calcium asymptomatic, prefer to observe with good hydration and comfort measures Subjective ROS Limited/Unobtainable: Yes Objective Objective Last 24 Hour Vital Signs Date Time Temp Pulse Resp B/P (MAP) Pulse Ox O2 Delivery O2 Flow Rate FiO2 09/22/17 16:00 98.6 92 20 153/86 97 Room Air 09/22/17 12:00 98.4 87 20 154/91 96 Room Air 09/22/17 12:00 90 09/22/17 08:20 97.9 90 20 147/81 97 Room Air 09/22/17 08:00 83 09/22/17 08:00 97.9 90 20 147/81 97 Room Air 09/22/17 05:00 155/68 09/22/17 04:00 98.1 90 20 165/76 97 Room Air 09/22/17 04:00 90 09/22/17 00:00 98.2 83 20 149/78 97 Room Air 09/22/17 00:00 84 09/21/17 20:00 91 09/21/17 20:00 98.1 89 22 153/80 Laboratory Tests 09/22/17 07:10: White Blood Count 15.5H, Red Blood Count 3.75L, Hemoglobin 9.9L, Hematocrit 33.7L, Mean Corpuscular Volume 90, Mean Corpuscular Hemoglobin 26.5L, Mean Corpuscular Hemoglobin Concent 29.5L, Red Cell Distribution Width 27.5H, Platelet Count 600H, Mean Platelet Volume 6.5, Neutrophils (%) (Auto) , Lymphocytes (%) (Auto) , Monocytes (%) (Auto) , Eosinophils (%) (Auto) , Basophils (%) (Auto) , Differential Total Cells Counted 100, Neutrophils % ( Manual) 80H, Lymphocytes % (Manual) 8L, Monocytes % (Manual) 8, Eosinophils % ( Manual) 4H, Basophils % (Manual) 0, Band Neutrophils 0, Platelet Estimate IncreasedH, Platelet Morphology Normal, Polychromasia 1+, Hypochromasia 1+, Anisocytosis 2+, Sodium Level 147H, Potassium Level 3.9, Chloride Level 114H, Carbon Dioxide Level 25, Anion Gap 8, Blood Urea Nitrogen 65H, Creatinine 3.1H, Estimat Glomerular Filtration Rate , Glucose Level 106, Calcium Level 11.9H Height (Feet): 6 Height (Inches): 2.00 Weight (Pounds): 230 General Appearance: no apparent distress, lethargic, confused EENT: normal ENT inspection Neck: supple Cardiovascular: normal rate, regular rhythm Respiratory/Chest: lungs clear Abdomen: non tender, soft Neurologic: disoriented PRUDENCE MA Sep 22, 2017 16:14
[2017-09-22] MEDS ORDERED: 1/2 NS 1000ml IV ONE (18:14)
[2017-09-22] MEDS ORDERED: Sterile Water Irrig 1000ml IRRIG ONE (18:14)
[2017-09-22] MEDS ORDERED: Epogen (for ESRD on dialysis) SUBQ SCH (21:00)
[2017-09-23] MEDS ORDERED: INVANZ1 GM IVPB (12:10)
--- NOTE | 2017-09-23 12:17 | Discharge Summary ---
Discharge Summary Hospital Course Date of Admission Sep 20, 2017 at 00:47 Date of Discharge Sep 22, 2017 at 18:15 Admitting Diagnosis Hyperkalemia, renal failure HPI Saritha Lugo is a 82 year old male who was admitted on Sep 20, 2017 at 00:47 for Hyperkalemia,End Stage Renal Disease Hospital Course dc summary #[id number] Discharge Medications New Medications: Ertapenem Sodium* (INVanz*) 1 Gm Vial.port 1 GM IVPB Q24H, #5 VIAL Continued Medications: Acetaminophen* (Acetaminophen 325MG Tablet*) 325 Mg Tablet 650 MG GT Q6HR PRN for For Pain, TAB Albuterol Sulfate* (Albuterol Sulfate Hhn*) 2.5 Mg/3 Ml Vial.neb 3 ML INH Q4H PRN for Shortness of Breath, EA Allopurinol* (Allopurinol*) 100 Mg Tablet 100 MG GT DAILY, TAB Ascorbic Acid* (Vitamin C*) 250 Mg Tablet 250 MG GT DAILY, TAB 0 Refills Calcitonin [place] (Miacalcin) 200 Unit/1 Ml Vial 280 INTLU SQ Q12HR, VIAL START ON 09/19/17 AND CONTINUE FOR 6 ADMINISTRATIONS UNTIL 09/22/17 Diphenhydramine Hcl* (Diphenhydramine Hcl*) 25 Mg Capsule 25 MG GT PRN PRN for Itching, #30 CAP 0 Refills Docusate Sodium (Docusate Sodium) 50 Mg/5 Ml Liquid 100 MG GT BID, EA Epoetin Kamran (Epogen) 20,000 Unit/2 Ml Vial 14358 UNIT SUBQ ONCE A WEEK, VIAL Ferrous Sulfate (Ferrous Sulfate) 220 Mg/5 Ml Solution 7.5 ML PO TID Heparin Sod (Porcine) (Heparin Sodium*) 5 000/1 Ml Vial 5000 UNITS SUBQ EVERY 12 HOURS, VIAL Lactulose (Lactulose*) 20 Gm/30 Ml Solution 30 ML GT DAILY PRN for Constipation, ML 0 Refills Lansoprazole* (Lansoprazole*) 15 Mg Capsule.dr 15 MG GT DAILY, CAP Melatonin (Melatonin) 1 Mg Tablet 3 MG GT BEDTIME, TAB Sevelamer Carbonate* (Renvela*) 0.8 Gm Powd.pack 800 MG GT THREE TIMES A DAY, PACK Sodium Chloride* (Sodium Chloride*) 1 Gm Tablet 3 GM GT QID, TAB Vit B Cmplx 3/Fa/Vit C/Biotin (Nephro-Kailey Rx Tablet) 1 Each Tablet 1 EACH GT DAILY, TAB Discontinued Medications: Midodrine* (Proamatine*) 10 Mg Tablet 10 MG GT THREE TIMES A DAY, TAB Discharge Condition Upon Discharge: stable Discharge Disposition Patient was discharged to SNF/Subacute Facility(03) Discharge Diagnoses: Discharge Instructions Discharge Instructions Special Instructions I have been assigned to complete a D/C Summary on this account. I was not involved in the patient management Jacklyn Mathis NP (Vanchtein) Sep 23, 2017 12:17
--- NOTE | 2017-09-23 12:17 | Discharge Summary ---
Discharge Summary Hospital Course Date of Admission Sep 20, 2017 at 00:47 Date of Discharge Sep 22, 2017 at 18:15 Admitting Diagnosis Hyperkalemia, renal failure HPI Saritha Lugo is a 82 year old male who was admitted on Sep 20, 2017 at 00:47 for Hyperkalemia,End Stage Renal Disease Hospital Course dc summary #[id number] Discharge Medications New Medications: Ertapenem Sodium* (INVanz*) 1 Gm Vial.port 1 GM IVPB Q24H, #5 VIAL Continued Medications: Acetaminophen* (Acetaminophen 325MG Tablet*) 325 Mg Tablet 650 MG GT Q6HR PRN for For Pain, TAB Albuterol Sulfate* (Albuterol Sulfate Hhn*) 2.5 Mg/3 Ml Vial.neb 3 ML INH Q4H PRN for Shortness of Breath, EA Allopurinol* (Allopurinol*) 100 Mg Tablet 100 MG GT DAILY, TAB Ascorbic Acid* (Vitamin C*) 250 Mg Tablet 250 MG GT DAILY, TAB 0 Refills Calcitonin [place] (Miacalcin) 200 Unit/1 Ml Vial 280 INTLU SQ Q12HR, VIAL START ON 09/19/17 AND CONTINUE FOR 6 ADMINISTRATIONS UNTIL 09/22/17 Diphenhydramine Hcl* (Diphenhydramine Hcl*) 25 Mg Capsule 25 MG GT PRN PRN for Itching, #30 CAP 0 Refills Docusate Sodium (Docusate Sodium) 50 Mg/5 Ml Liquid 100 MG GT BID, EA Epoetin Kamran (Epogen) 20,000 Unit/2 Ml Vial 22957 UNIT SUBQ ONCE A WEEK, VIAL Ferrous Sulfate (Ferrous Sulfate) 220 Mg/5 Ml Solution 7.5 ML PO TID Heparin Sod (Porcine) (Heparin Sodium*) 5 000/1 Ml Vial 5000 UNITS SUBQ EVERY 12 HOURS, VIAL Lactulose (Lactulose*) 20 Gm/30 Ml Solution 30 ML GT DAILY PRN for Constipation, ML 0 Refills Lansoprazole* (Lansoprazole*) 15 Mg Capsule.dr 15 MG GT DAILY, CAP Melatonin (Melatonin) 1 Mg Tablet 3 MG GT BEDTIME, TAB Sevelamer Carbonate* (Renvela*) 0.8 Gm Powd.pack 800 MG GT THREE TIMES A DAY, PACK Sodium Chloride* (Sodium Chloride*) 1 Gm Tablet 3 GM GT QID, TAB Vit B Cmplx 3/Fa/Vit C/Biotin (Nephro-Kailey Rx Tablet) 1 Each Tablet 1 EACH GT DAILY, TAB Discontinued Medications: Midodrine* (Proamatine*) 10 Mg Tablet 10 MG GT THREE TIMES A DAY, TAB Discharge Condition Upon Discharge: stable Discharge Disposition Patient was discharged to SNF/Subacute Facility(03) Discharge Diagnoses: Discharge Instructions Discharge Instructions Special Instructions I have been assigned to complete a D/C Summary on this account. I was not involved in the patient management Jacklyn Mathis NP (Vanchtein) Sep 23, 2017 12:17
--- NOTE | 2017-09-23 18:15 | Discharge Summary 2 SIG ---
DATE OF ADMISSION: 09/20/2017 DATE OF DISCHARGE: 09/22/2017 REASON FOR ADMISSION: 82-year-old male, resident of [facility] facility with history of end-stage renal disease, on dialysis, hypercalcemia, malnutrition, gout, G-tube, and dementia, presented for evaluation. The patient by himself was unable to provide any history, given history of dementia. The patient removed hemodialysis catheter in the [facility] facility. In ED BUN- 18 and creatinine- 3.2. Leukocytosis -15.3. Urinalysis with evidence of possible urinary tract infection. Evidence of hyperkalemia, K-5.3. The patient was admitted for further management. ADMITTING DIAGNOSES: 1. Chronic kidney disease. 2. Hypercalcemia. 3. Possible sepsis. 4. Possible urinary tract infection. 5. Renal failure with hyperkalemia. 6. Gastrostomy tube. HOSPITAL STAY: The patient was admitted. Nephrology consult was requested. Per director of aviation, the patient had chronic kidney disease stage 5. Exceptional Children Teacher recommended good hydration. Patient was started on IV fluids. Per director of aviation, dialysis would not improve quality of patient life. He started the patient on Sensipar for hypercalcemia, and empiric antibiotics started for possible urinary tract infection. Per director of aviation, no benefit of giving bisphosphonate, as this could only worsened his renal failure. Per director of aviation, the patient's is chronically severely ill and the main goal of therapy would be tp provide comfort and avoid complications. Per director of aviation, renal function was stable. Monitor closely renal parameters, lytes, avoid nephrotoxics. No bisphosphonate as noted above. Hypercalcemia was asymptomatic. Initial hyperkalemia resolved after treatment. The patient was initially on empiric antibiotics. Urine culture revealed Morganella, E coli ESBL, repeated urine culture revealed Pseudomonas, E coli. ESBL. Antibiotic regimen was optimized. Patient was discharged on IV antibiotic to be continue at the [facility] to complete the course of therapy. Blood culture were negative. The patient was discharged on IV antibiotics to be continued at the [facility] facility to complete the course of treatment. Wound care nurse seen the patient for left lateral malleolus decubitus ulcer stage III and sacral stage II decubitus ulcer, both present on admission . Wound care was provided as per wound care nurse recommendation. The patient with history of gout, uric acid within normal limits. Strict aspiration /reflux precautions were maintained, tube feeding tolerance was monitored. Patient was able to tolerate tube feeding. The patient had no fever. Still with leukocytosis upon discharge. The patient was stable for discharge back to [facility] on antibiotics and follow up with medical doctor at the facility. FINAL DIAGNOSES: 1. Chronic kidney disease stage 5 with hyperkalemia. 2. Gout. 3. Hypercalcemia, unclear etiology, possibly due to the granulomatous disease. 4. Mild hyperparathyroidism (no evidence of metastatic disease). 5. UTI with Morganella, E coli ESBL, Pseudomonas 6. Left lateral malleolus stage III, present on admission decubitus ulcer. 7. Sacral decubitus ulcer stage II, present on admission. 8. Gastrostomy tube, dysphagia. DISCHARGE INSTRUCTIONS: The patient was discharged to [facility]. FOLLOWUP: Follow up with medical doctor at the facility. DISCHARGE MEDICATIONS: See medication reconciliation list. Roland Levine M.D. I have been assigned to dictate discharge summary on this account and I was not involved in the patient's management. Jacklyn GoveaMoh[facility] Systemtereza N.P. DR: BETHANY JOB#: [id number] CC: NICK
--- NOTE | 2017-09-23 18:15 | Discharge Summary 2 SIG ---
DATE OF ADMISSION: 09/20/2017 DATE OF DISCHARGE: 09/22/2017 REASON FOR ADMISSION: 82-year-old male, resident of [facility] with history of end-stage renal disease, on dialysis, hypercalcemia, malnutrition, gout, G-tube, and dementia, presented for evaluation. The patient by himself was unable to provide any history, given history of dementia. The patient removed hemodialysis catheter in the [facility]. In ED BUN- 18 and creatinine- 3.2. Leukocytosis -15.3. Urinalysis with evidence of possible urinary tract infection. Evidence of hyperkalemia, K-5.3. The patient was admitted for further management. ADMITTING DIAGNOSES: 1. Chronic kidney disease. 2. Hypercalcemia. 3. Possible sepsis. 4. Possible urinary tract infection. 5. Renal failure with hyperkalemia. 6. Gastrostomy tube. HOSPITAL STAY: The patient was admitted. Nephrology consult was requested. Per diamond sizer, the patient had chronic kidney disease stage 5. Wad Blanking Press Adjuster recommended good hydration. Patient was started on IV fluids. Per diamond sizer, dialysis would not improve quality of patient life. He started the patient on Sensipar for hypercalcemia, and empiric antibiotics started for possible urinary tract infection. Per diamond sizer, no benefit of giving bisphosphonate, as this could only worsened his renal failure. Per diamond sizer, the patient's is chronically severely ill and the main goal of therapy would be tp provide comfort and avoid complications. Per diamond sizer, renal function was stable. Monitor closely renal parameters, lytes, avoid nephrotoxics. No bisphosphonate as noted above. Hypercalcemia was asymptomatic. Initial hyperkalemia resolved after treatment. The patient was initially on empiric antibiotics. Urine culture revealed Morganella, E coli ESBL, repeated urine culture revealed Pseudomonas, E coli. ESBL. Antibiotic regimen was optimized. Patient was discharged on IV antibiotic to be continue at the [facility] to complete the course of therapy. Blood culture were negative. The patient was discharged on IV antibiotics to be continued at the [facility] to complete the course of treatment. Wound care nurse seen the patient for left lateral malleolus decubitus ulcer stage III and sacral stage II decubitus ulcer, both present on admission . Wound care was provided as per wound care nurse recommendation. The patient with history of gout, uric acid within normal limits. Strict aspiration /reflux precautions were maintained, tube feeding tolerance was monitored. Patient was able to tolerate tube feeding. The patient had no fever. Still with leukocytosis upon discharge. The patient was stable for discharge back to [facility] on antibiotics and follow up with medical doctor at the facility. FINAL DIAGNOSES: 1. Chronic kidney disease stage 5 with hyperkalemia. 2. Gout. 3. Hypercalcemia, unclear etiology, possibly due to the granulomatous disease. 4. Mild hyperparathyroidism (no evidence of metastatic disease). 5. UTI with Morganella, E coli ESBL, Pseudomonas 6. Left lateral malleolus stage III, present on admission decubitus ulcer. 7. Sacral decubitus ulcer stage II, present on admission. 8. Gastrostomy tube, dysphagia. DISCHARGE INSTRUCTIONS: The patient was discharged to [facility]. FOLLOWUP: Follow up with medical doctor at the facility. DISCHARGE MEDICATIONS: See medication reconciliation list. Roland Levine M.D. I have been assigned to dictate discharge summary on this account and I was not involved in the patient's management. Jacklyn [facility]St[facility] N[facility] DR: BETHANY JOB#: [id number] CC: NICK
--- NOTE | 2017-09-23 18:15 | Discharge Summary 2 SIG ---
DATE OF ADMISSION: 09/20/2017 DATE OF DISCHARGE: 09/22/2017 REASON FOR ADMISSION: 82-year-old male, resident of assisted facility with history of end-stage renal disease, on dialysis, hypercalcemia, malnutrition, gout, G-tube, and dementia, presented for evaluation. The patient by himself was unable to provide any history, given history of dementia. The patient removed hemodialysis catheter in the assisted facility. In ED BUN- 18 and creatinine- 3.2. Leukocytosis -15.3. Urinalysis with evidence of possible urinary tract infection. Evidence of hyperkalemia, K-5.3. The patient was admitted for further management. ADMITTING DIAGNOSES: 1. Chronic kidney disease. 2. Hypercalcemia. 3. Possible sepsis. 4. Possible urinary tract infection. 5. Renal failure with hyperkalemia. 6. Gastrostomy tube. HOSPITAL STAY: The patient was admitted. Nephrology consult was requested. Per commutator operator, the patient had chronic kidney disease stage 5. Cloth Desizing Range Tender recommended good hydration. Patient was started on IV fluids. Per commutator operator, dialysis would not improve quality of patient life. He started the patient on Sensipar for hypercalcemia, and empiric antibiotics started for possible urinary tract infection. Per commutator operator, no benefit of giving bisphosphonate, as this could only worsened his renal failure. Per commutator operator, the patient's is chronically severely ill and the main goal of therapy would be tp provide comfort and avoid complications. Per commutator operator, renal function was stable. Monitor closely renal parameters, lytes, avoid nephrotoxics. No bisphosphonate as noted above. Hypercalcemia was asymptomatic. Initial hyperkalemia resolved after treatment. The patient was initially on empiric antibiotics. Urine culture revealed Morganella, E coli ESBL, repeated urine culture revealed Pseudomonas, E coli. ESBL. Antibiotic regimen was optimized. Patient was discharged on IV antibiotic to be continue at the assisted facility to complete the course of therapy. Blood culture were negative. The patient was discharged on IV antibiotics to be continued at the assisted facility to complete the course of treatment. Wound care nurse seen the patient for left lateral malleolus decubitus ulcer stage III and sacral stage II decubitus ulcer, both present on admission . Wound care was provided as per wound care nurse recommendation. The patient with history of gout, uric acid within normal limits. Strict aspiration /reflux precautions were maintained, tube feeding tolerance was monitored. Patient was able to tolerate tube feeding. The patient had no fever. Still with leukocytosis upon discharge. The patient was stable for discharge back to assisted facility on antibiotics and follow up with medical doctor at the facility. FINAL DIAGNOSES: 1. Chronic kidney disease stage 5 with hyperkalemia. 2. Gout. 3. Hypercalcemia, unclear etiology, possibly due to the granulomatous disease. 4. Mild hyperparathyroidism (no evidence of metastatic disease). 5. UTI with Morganella, E coli ESBL, Pseudomonas 6. Left lateral malleolus stage III, present on admission decubitus ulcer. 7. Sacral decubitus ulcer stage II, present on admission. 8. Gastrostomy tube, dysphagia. DISCHARGE INSTRUCTIONS: The patient was discharged to assisted facility. FOLLOWUP: Follow up with medical doctor at the facility. DISCHARGE MEDICATIONS: See medication reconciliation list. Roland Levine M.D. I have been assigned to dictate discharge summary on this account and I was not involved in the patient's management. Jacklyn [facility]Strong [facility]: BETHANY JOB#: [id number] CC: NICK
== END 2017-09-22 18:15 | DRG 720 ==
LOC: EDBD 19:38 → EMR 19:52 → EDBEDREQ 09-20 00:40 → ICU 09-20 00:47 → UNDOADMIN 09-20 00:47 → 2E 09-20 00:47 → EDBEDREQ 09-20 01:22
DX: A41.9 Sepsis, unspecified organism (principal); L89.524 Pressure ulcer of left ankle, stage 4; N18.5 Chronic kidney disease, stage 5; F03.90 Unspecified dementia, unspecified severity, without behavioral disturbance, psychotic disturbance, mood disturbance, and anxiety; L89.153 Pressure ulcer of sacral region, stage 3; E83.52 Hypercalcemia; N39.0 Urinary tract infection, site not specified; Z99.2 Dependence on renal dialysis; Z93.1 Gastrostomy status; M1A.9XX1 Chronic gout, unspecified, with tophus (tophi); E87.5 Hyperkalemia; F20.9 Schizophrenia, unspecified; R41.82 Altered mental status, unspecified; M10.9 Gout, unspecified; Z88.0 Allergy status to penicillin
CPT/HCPCS: 36415; 71010; 80048; 80053; 81003; 82550; 82962; 83605; 83690; 83880; 84484; 84550; 85007; 85025; 85610; 85730; 87040; 87081; 87086; 87181; 93005; 99285